=== PATIENT | male | born 1955 | race Caucasian/White ===

== ENCOUNTER 2018-05-21 03:00 | Inpatient (IN) | payer MEDICARE, OTHER ==
[~2018-05-21] VITALS: Ht 182.9 cm; Wt 107.6 kg
[2018-05-21] MEDS ORDERED: MORPHINE SULFATE INJ 4 MG/ML INJ IV STA (03:17)
[2018-05-21] MEDS ORDERED: ONDANSETRON HCL INJ 2 MG/ML VIAL IV STA (03:17)
[2018-05-21] MEDS ORDERED: METHYLPREDNISOLONE SOD SUCC 125 MG/2ML VIAL IV STA (03:17)
[2018-05-21] MEDS ORDERED: SODIUM CHLORIDE 0.9% 1000ML 1,000 ML IV STA (03:17)
[2018-05-21] MEDS ORDERED: HYDROXYCHLOROQ200 MG PO (03:37)
[2018-05-21] MEDS ORDERED: PRIMIDONE50 MG PO (03:37)
[2018-05-21] MEDS ORDERED: CLONAZEPAM1 MG PO (03:37)
[2018-05-21] MEDS ORDERED: ESCITALOPRAM OX20 MG PO (03:37)
[2018-05-21] MEDS ORDERED: DONEPEZIL HCL10 MG PO (03:37)
[2018-05-21] MEDS ORDERED: MIRTAZAPINE30 MG PO (03:37)
[2018-05-21] MEDS ORDERED: METHOTREXATE2.5 MG PO (03:37)
[2018-05-21] MEDS ORDERED: PROPRANOLOL HCL60 MG PO (03:37)
[2018-05-21] MEDS ORDERED: CLONAZEPAM2 MG PO (03:37)
[2018-05-21 04:04] LABS: BASOPHILS # (AUTO) 0.1 (0.0-0.1); BASOPHILS % 0.6 % (0.0-1.0); EOSINOPHILS % 0.5 % (0.0-6.0); HEMATOCRIT 45.3 % (38.2-49.6); HEMOGLOBIN 15.8 g/dL (14.0-18.0); LYMPHOCYTES # (AUTO) 1.4 (1.0-3.2); LYMPHOCYTES % 16.6 % (18.0-39.1); MEAN CORPUSCULAR HEMOGLOBIN 38.2 pg (28-32); MEAN CORPUSCULAR HGB CONC 34.9 g/dL (31-35); MEAN CORPUSCULAR VOLUME 109.4 fL (81-99); MONOCYTES # (AUTO) 0.9 (0.2-0.8); MONOCYTES % 10.5 % (4.4-11.3); NEUTROPHILS % 71.4 % (38.7-80.0); PLATELET COUNT 199 x10e3/uL (140-360); RED BLOOD COUNT 4.14 x10e6/uL (4.3-5.7); RED CELL DISTRIBUTION WIDTH 14.5 % (11.7-14.4)
[2018-05-21 04:18] LABS: ALANINE AMINOTRANSFERASE 9 IU/L (0-55); ALBUMIN 3.7 g/dL (3.5-5.0); ALBUMIN/GLOBULIN RATIO 1.3 (0.8-2.0); ALKALINE PHOSPHATASE 130 IU/L (40-150); ANION GAP 15.9 mmol/L (8-16); BLOOD UREA NITROGEN 9 mg/dL (7-26); BUN/CREATININE RATIO 9 (6-25); CALCIUM 8.2 mg/dL (8.4-10.2); CARBON DIOXIDE 20 mmol/L (22-29); CHLORIDE 103 mmol/L (98-107); CREATINE KINASE 38 IU/L (30-200); CREATININE, SERUM 0.96 mg/dL (0.72-1.25); EST GLOMERULAR FILTRATION RATE > 60 ML/MIN (60-); GLUCOSE 114 mg/dL (74-118); LIPASE 19 U/L (8-78); POTASSIUM 3.9 mmol/L (3.5-5.1); SODIUM 135 mmol/L (136-145)
--- NOTE | 2018-05-21 05:09 | Diagnostic Imaging Report ---
EXAM: CT ABDOMEN AND PELVIS without IV CONTRAST INDICATION: Abdominal pain, bilateral flank pain COMPARISON: None TECHNIQUE: The abdomen and pelvis were scanned using a multidetector helical scanner. Coronal and sagittal reformations were obtained. Dose modulation, iterative reconstruction, and/or weight based adjustment of the mA/kV was utilized to reduce the radiation dose to as low as reasonably achievable. Renal stone protocol performed. IV Contrast: None Oral Contrast: None CTDIvol has been reviewed. It is below the limits set by the Radiation Protocol Committee (RPC). FINDINGS: LOWER THORAX: No consolidations LIVER: No masses BILIARY: Cholelithiasis without evidence of acute cholecystitis. SPLEEN: No masses PANCREAS: No masses ADRENALS: No nodules RIGHT KIDNEY: There is a 0.9 x 0.5 cm stone in the distal right ureter resulting in very mild hydroureter and no hydronephrosis. There are several simple parapelvic cysts. LEFT KIDNEY: Punctate nonobstructing stone in the interpolar region of the left kidney. No hydroureteronephrosis. Multiple simple parapelvic cysts. GI TRACT: No wall thickening or obstruction. Normal appendix. VESSELS: Unremarkable PERITONEUM/RETROPERITONEUM: No free air or fluid LYMPH NODES: No lymphadenopathy REPRODUCTIVE ORGANS: Normal BLADDER: Normal SOFT TISSUES: Generator for lumbar spine intrathecal device in right buttock. BONES: Surgical changes of the lower lumbar spine L3-L5. Age-indeterminate compression fracture of T12 with approximately 30% loss of mid vertebral body height. Healing right posterior T12 rib fracture. IMPRESSION: 1. Age indeterminate, but likely subacute compression fracture of the superior endplate of T12 with associated healing right posterior T12 rib fracture. 2. There is a 0.9 x 0.5 cm stone in the distal right ureter resulting in minimal hydroureter and no hydronephrosis. Punctate nonobstructing stone in the left kidney. Signed by: Dr. Nina Calderon M.D. on 05/21/2018 5:06 AM
--- NOTE | 2018-05-21 05:20 | Diagnostic Imaging Report ---
History: Low back pain. Comparison studies: None Technique: Axial images were obtained through the lumbar spine from T12-S1. Coronal and sagittal images reconstructed from the axial data. Dose modulation, iterative reconstruction, and/or weight based adjustment of the mA/kV was utilized to reduce the radiation dose to as low as reasonably achievable. Intravenous contrast: None Findings: The usual 5 non-rib bearing lumbar vertebral bodies are present. Alignment: Loss of normal lumbar lordosis is either positional or due to muscle spasm. No scoliosis. Soft tissues: 9.4 mm right ureter stone with mild dilatation of right ureter. Punctate left nephrolithiasis. Nonspecific linear radiopaque density (likely represents catheter) in the right lateral aspect of the spinal canal that extends from T11 (superior extent is beyond the field of view) and terminates at level L4 into the left lateral aspect of the posterior paraspinal soft tissues Paraspinal muscles: Fatty atrophy of posterior paraspinal muscles from L3 to S1. Sacroiliac joints: Mild degenerative changes in bilateral sacroiliac joints with decreased joint space, vacuum phenomena and and subchondral sclerosis. Vertebrae: Age indeterminate possible acute or subacute superior endplate compression fracture with anterior wedging deformity and mild overriding of fracture fragment in the anterior margin of the vertebral body at level T12. No retropulsion of fracture fragment into the spinal canal. Approximately 40% loss of vertebral body height. Age indeterminate possible subacute or early chronic fracture in the posterior aspect of right 12th rib with mild periosteal reaction and callus formation. Postoperative changes from prior posterior lumbar fusion from level L3-L5. Suboptimal evaluation at these level due to metallic streak artifacts. The metallic hardware is intact. Diffuse osseous demineralization. Degenerative changes: L1-L2: Mild degenerative disc disease with endplate sclerosis. Disc bulge and facet arthrosis without significant canal stenosis. Severe right and mild left facet arthrosis. Mild bilateral foraminal stenosis. L2-L3 to L4-L5: Evaluation is significantly limited due to metallic streak artifacts. L5-S1: Mild degenerative disc disease. No canal or foraminal stenosis. IMPRESSION: 1. Age indeterminate possible acute or subacute superior endplate compression fracture and anterior wedging deformity with approximately 40% loss of vertebral body height at level T12. 2. Age indeterminate possible subacute or early chronic fracture in the right 12th rib with signs of healing. 3. Significant limitation of evaluation from level L3-L5 due to metallic streak artifact, status post posterior lumbar spine fusion. 4. Ligament, spinal cord and or vascular abnormalities cannot be excluded on the basis of this examination. 5. A 9.4 mm right ureter stone, possibly better evaluated in dedicated CT abdomen and pelvis from the same day.. Signed by: Dr. Lisa Ellis M.D. on 05/21/2018 5:17 AM
--- OUTSIDE RECORDS SUMMARY | 2018-05-21 05:36 | XMS REPORT ---
Author Author [facility] Address Unknown Phone Unavailable Care Team Providers Care Market Researcher Name Role Phone Luis Antonio JAMES Unavailable Unavailable Problems This patient has no known problems. Allergies, Adverse Reactions, Alerts This patient has no known allergies or adverse reactions. Medications This patient has no known medications. Results Test Description Test Time Test Comments Text Results Atomic Results Result Comments CT ABDOMEN/PELVIS WO 2018-05-21 04:56:00 [place] [address] Patient Name: KATELYN CERVANTES MR #: [id number] : 1955 Age/Sex: 63/M Req #: [id number] Adm Physician: Ordered by: KADEN JAMES MD Report #: [id number] Location: ER Room/Bed: Procedure: [id number] CT/CT ABDOMEN/PELVIS WO Exam Date: Exam Time: REPORT STATUS: Signed EXAM: CT ABDOMEN AND PELVIS without IV CONTRAST INDICATION: Abdominal pain, bilateral flank pain COMPARISON: None TECHNIQUE: The abdomen and pelvis were scanned using a multidetector helical scanner. Coronal and sagittal reformations were obtained. Dose modulation, iterative reconstruction, and/or weight based adjustment of the mA/kV was utilized to reduce the radiation dose to as low as reasonably achievable. Renal stone protocol performed. IV Contrast: None Oral Contrast: None CTDIvol has been reviewed. It is below the limits set by the Radiation Protocol Committee (RPC). FINDINGS: LOWER THORAX: No consolidations LIVER: No masses BILIARY: Cholelithiasis without evidence of acute cholecystitis. SPLEEN: No masses PANCREAS: No masses ADRENALS: No nodules RIGHT KIDNEY: There is a 0.9 x 0.5 cm stone in the distal right ureter resulting in very mild hydroureter and no hydronephrosis. There are several simple parapelvic cysts. LEFT KIDNEY: Punctate nonobstructing stone in the interpolar region of the left kidney. No hydroureteronephrosis. Multiple simple parapelvic cysts. GI TRACT: No wall thickening or obstruction. Normal appendix. VESSELS: Unremarkable PERITONEUM/RETROPERITONEUM: No free air or fluid LYMPH NODES: No lymphadenopathy REPRODUCTIVE ORGANS: Normal BLADDER: Normal SOFT TISSUES: Generator for lumbar spine intrathecal device in right buttock. BONES: Surgical changes of the lower lumbar spine L3-L5. Age- indeterminate compression fracture of T12 with approximately 30% loss of mid vertebral body height. Healing right posterior T12 rib fracture. IMPRESSION: 1. Age indeterminate, but likely subacute compression fracture of the superior endplate of T12 with associated healing right posterior T12 rib fracture. 2. There is a 0.9 x 0.5 cm stone in the distal right ureter resulting in minimal hydroureter and no hydronephrosis. Punctate nonobstructing stone in the left kidney. Signed by: Dr. Adryan Calderon M.D. on 05/21/2018 5:06 AM Dictated By: ADRYAN CALDERON MD 5 Transcribed By: MENDY on 05/21/18 0506 COPY TO: KADEN JAMES MD CT LUMBAR SPINE WO 2018-05-21 04:52:00 [place] [address] Patient Name: KATELYN CERVANTES MR #: [id number] : 1955 Age/Sex: 63/M Req #: [id number] Adm Physician: Ordered by: KADEN JAMES MD Report #: [id number] Location: ER Room/Bed: Procedure: [id number] CT/CT LUMBAR SPINE WO Exam Date: 05/21/18 Exam Time: 0411 REPORT STATUS: Signed History: Low back pain. Comparison studies: None Technique: Axial images were obtained through the lumbar spine from T12-S1. Coronal and sagittal images reconstructed from the axial data. Dose modulation, iterative reconstruction, and/or weight based adjustment of the mA/kV was utilized to reduce the radiation dose to as low as reasonably achievable. Intravenous contrast: None Findings: The usual 5 non-rib bearing lumbar vertebral bodies are present. Alignment: Loss of normal lumbar lordosis is either positional or due to muscle spasm. No scoliosis. Soft tissues: 9.4 mm right ureter stone with mild dilatation of right ureter. Punctate left nephrolithiasis. Nonspecific linear radiopaque density (likely represents catheter) in the right lateral aspect of the spinal canal that extends from T11 (superior extent is beyond the field of view) and terminates at level L4 into the left lateral aspect of the posterior paraspinal soft tissues Paraspinal muscles: Fatty atrophy of posterior paraspinal muscles from L3 to S1. Sacroiliac joints: Mild degenerative changes in bilateral sacroiliac joints with decreased joint space, vacuum phenomena and and subchondral sclerosis. Vertebrae: Age indeterminate possible acute or subacute superior endplate compression fracture with anterior wedging deformity and mild overriding of fracture fragment in the anterior margin of the vertebral body at level T12. No retropulsion of fracture fragment into the spinal canal. Approximately 40% loss of vertebral body height. Age indeterminate possible subacute or early chronic fracture in the posterior aspect of right 12th rib with mild periosteal reaction and callus formation. Postoperative changes from prior posterior lumbar fusion from level L3-L5. Suboptimal evaluation at these level due to metallic streak artifacts. The metallic hardware is intact. Diffuse osseous demineralization. Degenerative changes: L1-L2: Mild degenerative disc disease with endplate sclerosis. Disc bulge and facet arthrosis without significant canal stenosis. Severe right and mild left facet arthrosis. Mild bilateral foraminal stenosis. L2-L3 to L4-L5: Evaluation is significantly limited due to metallic streak artifacts. L5-S1: Mild degenerative disc disease. No canal or foraminal stenosis. IMPRESSION: 1. Age indeterminate possible acute or subacute superior endplate compression fracture and anterior wedging deformity with approximately 40% loss of vertebral body height at level T12. 2. Age indeterminate possible subacute or early chronic fracture in the right 12th rib with signs of healing. 3. Significant limitation of evaluation from level L3-L5 due to metallic streak artifact, status post posterior lumbar spine fusion. 4. Ligament, spinal cord and or vascular abnormalities cannot be excluded on the basis of this examination. 5. A 9.4 mm right ureter stone, possibly better evaluated in dedicated CT abdomen and pelvis from the same day.. Signed by: Dr. Lisa Ellis M.D. on 05/21/2018 5:17 AM Dictated By: LISA ELLIS MD 6 Transcribed By: MENDY on 05/21/18516 COPY TO: KADEN JAMES MD
[2018-05-21 05:55] LABS: CLARITY,URINE CLEAR (CLEAR); COLOR,URINE YELLOW (YELLOW); LEUKOCYTE ESTERASE ,URINE NEGATIVE (NEGATIVE); NITRITE,URINE NEGATIVE (NEGATIVE)
[2018-05-21 05:56] LABS: BILIRUBIN,URINE NEGATIVE (NEGATIVE); KETONES,URINE NEGATIVE (NEGATIVE); PROTEIN,URINE DIPSTICK NEGATIVE (NEGATIVE); URINE UROBILINOGEN 0.2 mg/dL (0.2 - 1)
[2018-05-21 06:07] LABS: RBC,URINE 0-5 /HPF (0-5); WBC,URINE (MAN) 0-5 /HPF (0-5)
[2018-05-21 06:08] LABS: BACTERIA,URINE FEW /HPF; EPITHELIAL CELLS,URINE RARE /LPF; MUCUS,URINE MANY (RARE)
[2018-05-21 06:30] VITALS: BP 157/96
[2018-05-21] MEDS: ONDANSETRON HCL INJ 2 MG/ML VIAL IV PRN ×2 (06:30→20:10)
[2018-05-21] MEDS: SODIUM CHLORIDE 0.9% 1000ML 1,000 ML IV SCH ×3 (06:30→13:27)
[2018-05-21] MEDS: MORPHINE SULFATE 2 MG/ML SYR IV PRN ×4 (06:30→20:10)
[2018-05-21 07:57] VITALS: BP 143/88
[2018-05-21] MEDS ORDERED: PROPRANOLOL HCL 60 MG ER CAP PO SCH (09:00)
[2018-05-21] MEDS ORDERED: NON-FORMULARY MEDICATION (Escitalopram Oxalate 20 MG) PO SCH (09:00)
[2018-05-21] MEDS: PROPRANOLOL HCL 80 MG CAPCR PO SCH ×2 (10:00→20:10)
[2018-05-21 12:03] VITALS: BP 145/93
[2018-05-21 14:03] VITALS: BP 145/93
[2018-05-21] MEDS: HYDROXYCHLOROQUINE SULFATE 200 MG TAB PO SCH (15:00)
[2018-05-21] MEDS: ESCITALOPRAM OXALATE 10 MG TAB PO SCH (15:00)
[2018-05-21 15:58] VITALS: BP 161/97
[2018-05-21 20:00] VITALS: BP 164/81
[2018-05-21] MEDS ORDERED: SODIUM CHLORIDE 0.9% 50ML 50 ML ONE (20:05)
--- NOTE | 2018-05-21 20:05 | Consultation ---
DATE OF CONSULTATION: May 21, 2018 UROLOGY CONSULTATION REASON FOR CONSULTATION: Ureterolithiasis. HISTORY OF PRESENT ILLNESS: Jorge Ocasio is a 63-year-old man with recurrent ureterolithiasis. The patient previously passed his kidney stones. He has never had to have intervention for his stone disease. The patient never was able to retrieve his stones, so he does not know what kind of stones he has made in the past. Patient has had bilateral flank pains reported to the emergency room, was found to have obstructing right ureterolithiasis and urological consultation was sought upon his admission. The patient reports having had microhematuria at his primary care physician's office, but did not have any gross hematuria. He denies any dysuria. Denies any urinary obstructive symptoms. PAST MEDICAL AND SURGICAL HISTORY 1. Cholelithiasis without cholecystitis. 2. Recurrent ureterolithiasis. 3. Status post 4 back surgeries. 4. Chronic pain, status post pain pump implantation. ALLERGIES: NONE KNOWN. CURRENT MEDICATIONS: Please refer to MAR. 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 He denies ethanol or drug use. He smokes a pipe occasionally. FAMILY HISTORY: Noncontributory to the active urological problems. REVIEW OF SYSTEMS: As discussed above in the history of present illness and past medical history, otherwise negative for all systems. PHYSICAL EXAMINATION GENERAL: A very pleasant 63-year-old man lying in bed in no apparent distress. He is currently afebrile. VITAL SIGNS: Currently stable. ABDOMEN: Soft, nondistended, nontender without costovertebral angle tenderness. GENITOURINARY: Testes descended bilaterally. Testes and epididymides bilaterally palpably normal. The patient has a normal, uncircumcised male phallus with normal meatus without any lesions. RECTAL: Digital rectal examination is deferred at the present time. For the remaining physical examination systems, please refer to the admission history and physical, as well as to the ERT sheet. LABORATORY STUDIES: CT scan of the abdomen and pelvis reveals cholelithiasis, also reveals a 9-mm stone in the distal right ureter with hydroureteronephrosis. Ultrasound reveals a punctate stone in the left kidney, multiple changes at the back are noted on the CT as well. The patient's urinalysis significant for trace blood. His sodium is slightly low at 135. His creatinine is normal at 0.96. Calcium is low at 8.2. White blood cell count is 8390, hemoglobin 15.8, platelets 199,000. ASSESSMENT 1. Right ureterolithiasis. 2. Punctate left nephrolithiasis, right-sided hydronephrosis. 3. Gallstone without symptomatology. 4. Low sodium. 5. Low calcium. 6. Microhematuria. PLAN 1. The patient so far failed to pass his stone. We will schedule the patient for ureteroscopic procedure. We discussed the risks, benefits, and alternatives with the patient and he elected to proceed. 2. Will defer the electrolyte abnormalities and the cholelithiasis to the admitting physician. Thank you very much for involving us in the care of your patient. I will be able to follow him along with you as well as an outpatient. Job#: [id number] CQ cc:EMMA CHAVIRA MD
[2018-05-21] MEDS: DONEPEZIL HCL 5 MG TAB PO SCH (20:10)
[2018-05-21] MEDS: PRIMIDONE 50 MG TAB PO SCH (20:10)
[2018-05-21] MEDS: CEFTRIAXONE SOD 1 GM VIAL IV SCH (20:10)
[2018-05-21] MEDS: MIRTAZAPINE 15 MG TAB PO SCH (20:10)
[2018-05-21] MEDS: CLONAZEPAM 1 MG TAB PO SCH (20:10)
[2018-05-21] MEDS ORDERED: NON-FORMULARY MEDICATION (Donepezil Hcl 10 MG) PO SCH (21:00)
[2018-05-21] MEDS ORDERED: NON-FORMULARY MEDICATION (Mirtazapine 30 MG) PO SCH (21:00)
[2018-05-22] VITALS (9 sets, daily range): BP systolic 121–141; BP diastolic 60–95
[2018-05-22] MEDS: MORPHINE SULFATE 2 MG/ML SYR IV PRN ×4 (00:10→19:47)
[2018-05-22] MEDS: ONDANSETRON HCL INJ 2 MG/ML VIAL IV PRN ×4 (00:10→19:47)
[2018-05-22] MEDS: CLONAZEPAM 1 MG TAB PO SCH ×2 (04:49→21:31)
[2018-05-22 06:00] LABS: BASOPHILS % 0.1 % (0.0-1.0); EOSINOPHILS % 0.1 % (0.0-6.0); HEMOGLOBIN 13.3 g/dL (14.0-18.0); LYMPHOCYTES # (AUTO) 1.4 (1.0-3.2); LYMPHOCYTES % 17.4 % (18.0-39.1); MEAN CORPUSCULAR HEMOGLOBIN 37.8 pg (28-32); MEAN CORPUSCULAR HGB CONC 34.1 g/dL (31-35); MEAN CORPUSCULAR VOLUME 110.8 fL (81-99); MONOCYTES # (AUTO) 0.6 (0.2-0.8); MONOCYTES % 7.8 % (4.4-11.3); PLATELET COUNT 173 x10e3/uL (140-360); RED BLOOD COUNT 3.52 x10e6/uL (4.3-5.7); RED CELL DISTRIBUTION WIDTH 14.1 % (11.7-14.4)
[2018-05-22] MEDS ORDERED: CLONAZEPAM 1 MG PO SCH (06:00)
[2018-05-22 06:22] LABS: ANION GAP 10.9 mmol/L (8-16); BLOOD UREA NITROGEN 8 mg/dL (7-26); BUN/CREATININE RATIO 11 (6-25); CALCIUM 8.3 mg/dL (8.4-10.2); CARBON DIOXIDE 22 mmol/L (22-29); CHLORIDE 109 mmol/L (98-107); CREATININE, SERUM 0.75 mg/dL (0.72-1.25); EST GLOMERULAR FILTRATION RATE > 60 ML/MIN (60-); GLUCOSE 104 mg/dL (74-118); POTASSIUM 3.9 mmol/L (3.5-5.1); SODIUM 138 mmol/L (136-145)
[2018-05-22] MEDS: SODIUM CHLORIDE 0.9% 1000ML 1,000 ML IV SCH ×2 (06:26→16:40)
[2018-05-22] MEDS ORDERED: BELLADONNA/OPIUM 60 MG SUPP PR ONE (08:44)
[2018-05-22] MEDS ORDERED: IOPAMIDOL 610MG/1ML 300 MG/ML VIAL IV ONE (08:44)
[2018-05-22] MEDS: PROPRANOLOL HCL 80 MG CAPCR PO SCH ×2 (09:00→21:31)
[2018-05-22] MEDS ORDERED: LIDOCAINE 2%/ EPINEPHRINE 20ML MDV ONE (09:02)
[2018-05-22] MEDS ORDERED: BUPIVACAINE 0.25%/EPI 30ML SDV INJ ONE (09:02)
[2018-05-22] MEDS ORDERED: ACETAMINOPHEN/CODEINE 300MG - 30MG TAB PO PRN (10:00)
[2018-05-22] MEDS: ESCITALOPRAM OXALATE 10 MG TAB PO SCH (11:38)
[2018-05-22] MEDS: HYDROXYCHLOROQUINE SULFATE 200 MG TAB PO SCH (11:38)
[2018-05-22] MEDS: PHENAZOPYRIDINE HCL 100 MG TAB PO SCH ×2 (13:30→18:00)
[2018-05-22] MEDS ORDERED: FENTANYL CITRATE/PF 100MCG/2 ML INJ ONE (14:32)
[2018-05-22] MEDS: OXYBUTYNIN CHLORIDE 5 MG TAB PO SCH ×2 (15:32→21:31)
[2018-05-22] MEDS ORDERED: SEVOFLURANE INHAL SOLN 250 ML PEN BTL ONE (17:56)
[2018-05-22] MEDS: PRIMIDONE 50 MG TAB PO SCH (21:31)
[2018-05-22] MEDS: MIRTAZAPINE 15 MG TAB PO SCH (21:31)
[2018-05-22] MEDS: CEFTRIAXONE SOD 1 GM VIAL IV SCH (21:31)
[2018-05-22] MEDS: DONEPEZIL HCL 5 MG TAB PO SCH (21:31)
[2018-05-23] VITALS (7 sets, daily range): BP systolic 123–165; BP diastolic 65–77
[2018-05-23] MEDS: SODIUM CHLORIDE 0.9% 1000ML 1,000 ML IV SCH ×5 (00:44→21:01)
--- NOTE | 2018-05-23 02:49 | Operative Report ---
DATE OF PROCEDURE: May 22, 2018 PREOPERATIVE DIAGNOSES 1. Right hydronephrosis due to stone. 2. Microhematuria. POSTOPERATIVE DIAGNOSES 1. Right hydronephrosis due to stone. 2. Microhematuria. OPERATIONS PERFORMED 1. Cystourethroscopy with bilateral ureteral catheterization and retrograde ureteropyelography (separately performed for the microhematuria). 2. Interpretation of retrograde ureteropyelography. 3. Supervision of fluoroscopy, no radiologist present. 4. Cystourethroscopy with insertion of right indwelling ureteral stent (separately performed to relieve the hydronephrosis). ANESTHESIA: General. COMPLICATIONS: None. CLINICAL SUMMARY: Jorge Ocasio has right ureterolithiasis and hydronephrosis. He failed to pass his stone. He is brought for ureteral stenting and indicated procedures. He is aware of the risks of bleeding, infection, injury to adjacent structures, need for additional procedures, and elected to proceed. OPERATIVE PROCEDURE IN DETAIL: Informed consent was verified. Jorge Ocasio was properly identified, taken to the operating room, placed on the cystoscopy table in the supine position. Anesthesia was uneventfully begun. The patient was then carefully and gently repositioned in the dorsal lithotomy position with all pressure points well padded. His genitalia were prepared and draped in the usual sterile fashion. The 22.5-Nigerien cystoscope sheath with the visual obturator in place was atraumatically inserted into the patient's urethra. It was guided down an unremarkable distal urethra through a probably not clinically significant stricture at the bulbar region through the normal sphincteric region, through the prostate bed which was significant for early BPH and into the patient's bladder which exhibited grade 1 to 2 trabeculations. There were no tumors, no stones and no diverticula. Normally positioned and configured ureteral orifices were identified. An open-ended catheter was used to cannulate the left ureter and retrograde ureteral pyelogram was performed. It was then inserted in the right ureter and retrograde ureteral pyelogram was performed. With cystoscopic and fluoroscopic guidance, a right-sided indwelling ureteral stent was then placed. It was coiled in the patient's kidney as well as the patient's bladder. The retaining suture was cut short. Interpretation of retrograde ureteropyelography: Contrast was instilled in a retrograde fashion bilaterally. The left side exhibited no tumors, no diverticula, no evidence of hydronephrosis. We could not identify the punctate stone noted on CT. The right side exhibited hydroureteronephrosis down to a very large filling defect corresponding to the stone noted on CT. The stent was again positioned, coiled in the patient's kidneys as well as the patient's bladder at the end of the case. The patient's bladder was then drained. Cystoscope was withdrawn. A belladonna and opium suppository was placed revealing a 30 g prostate, smooth, nonfluctuant without any nodules and the patient was then uneventfully reversed from anesthesia and taken to the recovery room in stable condition. There were no complications during the procedure. He tolerated the procedure well. Exclusive postoperative instructions were given. We will plan on returning the patient back to the operating room in several weeks to perform right ureteroscopy with holmium laser lithotripsy and indicated procedures. Job#: [id number] RTY cc:Taran Landeros MD
[2018-05-23] MEDS: ONDANSETRON HCL INJ 2 MG/ML VIAL IV PRN ×5 (03:38→21:01)
[2018-05-23] MEDS: MORPHINE SULFATE 2 MG/ML SYR IV PRN ×5 (03:38→21:01)
[2018-05-23] MEDS: CLONAZEPAM 1 MG TAB PO SCH ×2 (05:14→20:59)
[2018-05-23] MEDS: PROPRANOLOL HCL 80 MG CAPCR PO SCH ×2 (09:00→20:59)
[2018-05-23] MEDS: PHENAZOPYRIDINE HCL 100 MG TAB PO SCH ×3 (09:12→18:14)
[2018-05-23] MEDS: ESCITALOPRAM OXALATE 10 MG TAB PO SCH (09:12)
[2018-05-23] MEDS: OXYBUTYNIN CHLORIDE 5 MG TAB PO SCH ×3 (09:12→21:00)
[2018-05-23] MEDS: HYDROXYCHLOROQUINE SULFATE 200 MG TAB PO SCH (09:12)
[2018-05-23] MEDS: CEFTRIAXONE SOD 1 GM VIAL IV SCH (19:18)
[2018-05-23] MEDS: PRIMIDONE 50 MG TAB PO SCH (20:58)
[2018-05-23] MEDS: MIRTAZAPINE 15 MG TAB PO SCH (20:59)
[2018-05-23] MEDS: DONEPEZIL HCL 5 MG TAB PO SCH (20:59)
[2018-05-24] VITALS: BP 138/70
[2018-05-24 00:42] VITALS: BP 146/68
[2018-05-24] MEDS: ONDANSETRON HCL INJ 2 MG/ML VIAL IV PRN ×3 (01:21→11:10)
[2018-05-24] MEDS: MORPHINE SULFATE 2 MG/ML SYR IV PRN ×3 (01:21→11:10)
[2018-05-24 04:30] VITALS: BP 128/80
[2018-05-24] MEDS: CLONAZEPAM 1 MG TAB PO SCH (05:13)
[2018-05-24 07:15] VITALS: BP 159/78
[2018-05-24 07:49] VITALS: BP 159/78
[2018-05-24] MEDS: OXYBUTYNIN CHLORIDE 5 MG TAB PO SCH (09:15)
[2018-05-24] MEDS: PROPRANOLOL HCL 80 MG CAPCR PO SCH (09:16)
[2018-05-24] MEDS: HYDROXYCHLOROQUINE SULFATE 200 MG TAB PO SCH (09:16)
[2018-05-24] MEDS: ESCITALOPRAM OXALATE 10 MG TAB PO SCH (09:16)
[2018-05-24] MEDS: PHENAZOPYRIDINE HCL 100 MG TAB PO SCH (09:16)
[2018-05-24] MEDS ORDERED: TYLENOL WITH C1 EACH PO (09:42)
[2018-05-24] MEDS ORDERED: DITROPAN XL5 MG PO (09:43)
[2018-05-24 11:26] VITALS: BP 125/73
[2018-05-27] MEDS ORDERED: METHOTREXATE SOD 2.5 MG TAB PO SCH (09:00)
--- NOTE | 2018-07-05 11:27 | History and Physical ---
HISTORY OF PRESENT ILLNESS: The patient is a 63-year-old gentleman who presents with right-side flank pain where he was found to have a large right ureteral stones who has been admitted for further evaluation and treatment. PAST MEDICAL HISTORY: Significant for rheumatoid arthritis and anxiety. MEDICATIONS: See MAR. ALLERGIES: NONE. SOCIAL HISTORY: Nonsmoker and nondrinker. Lives in home by himself. FAMILY HISTORY: Noncontributory. PHYSICAL EXAMINATION VITAL SIGNS: Temperature is 96.8, pulse 66, blood pressure 142/76, sats 96%. GENERAL: No apparent distress. NECK: Supple. CARDIOVASCULAR: Regular rate and rhythm. LUNGS: Clear to auscultation bilaterally. ABDOMEN: Good bowel sounds. Soft. Nontender. EXTREMITIES: Showed no clubbing or cyanosis. He has some right-sided flank pain but mild. NEUROLOGIC: Nonfocal. ASSESSMENT AND PLAN 1. Right-sided kidney stone. We will consult urology. 2. Rheumatoid arthritis, continue with his anti-rheumatological meds. 3. Anxiety disorder. Continue with his medications. Please see hospital chart for full details. Job#: [id number] ANTONY
--- NOTE | 2018-07-05 13:43 | Discharge Summary ---
DISCHARGE DIAGNOSES 1. Right kidney stone, status post stent. 2. Anxiety. 3. Rheumatoid arthritis. HISTORY OF PRESENT ILLNESS AND HOSPITAL COURSE: See hospital chart for full details. Patient is a gentleman who presented with right flank pain. He was found have a very large right ureteral stone that Dr. Jacobson did take him to the OR and put a stent in and due the size, he had to be treated as an outpatient. At the time of discharge, patient was doing much better. He was able to be discharged home with p.o. medication and followup with Dr. Jacobson in 2 weeks as well as with me. Please see hospital chart for full details. EMMA CHAVIRA MD Job#: [id number] CHACORTA
== END 2018-05-24 13:52 | disposition home or self-care (01) | DRG 660 ==
LOC: ER 03:00 → ERHOLD 05:34 → MED/SURG3 06:00 → OBSVTOIN 05-23 12:05
PROVIDERS: ADMIT Internal Medicine; ATTEND Internal Medicine
PROC: 0T768DZ Dilation of Right Ureter with Intraluminal Device, Via Natural or Artificial Opening Endoscopic (ICD-10-PCS; principal; 2018-05-23)
PROC: BT141ZZ Fluoroscopy of Kidneys, Ureters and Bladder using Low Osmolar Contrast (ICD-10-PCS; 2018-05-23)
PROC: 0T788ZZ Dilation of Bilateral Ureters, Via Natural or Artificial Opening Endoscopic (ICD-10-PCS; 2018-05-23)
DX: N13.2 Hydronephrosis with renal and ureteral calculous obstruction (principal); E87.1 Hypo-osmolality and hyponatremia; Z87.442 Personal history of urinary calculi; G89.29 Other chronic pain; I10 Essential (primary) hypertension; F41.9 Anxiety disorder, unspecified; K80.20 Calculus of gallbladder without cholecystitis without obstruction; E83.51 Hypocalcemia; D64.9 Anemia, unspecified
CPT/HCPCS: 36415; 72131; 74176; 74420; 80048; 80053; 81001; 82550; 82553; 83690; 83970; 84484; 84550; 85025; 93005; 99284; C2617; G0378; J0696; J2001; J2270; J2405; J2930; J7030

== ENCOUNTER 2018-06-20 10:00 | Observation (INO) | payer MEDICARE, OTHER ==
[~2018-06-20] VITALS: Ht 182.9 cm; Wt 97.5 kg
[~2018-06-20 10:00] MED LIST: BELLADONNA/OPIUM 60 MG SUPP PR ONE; CEFTRIAXONE SOD 1 GM/NS 50 ML 50 ML IV ONE; CLONAZEPAM1 MG PO; CLONAZEPAM2 MG PO; DITROPAN XL5 MG PO; DONEPEZIL HCL10 MG PO; ESCITALOPRAM OX20 MG PO; HYDROXYCHLOROQ200 MG PO; IOPAMIDOL 610MG/1ML 300 MG/ML VIAL IV ONE; METHOTREXATE2.5 MG PO; MIRTAZAPINE30 MG PO; PRIMIDONE50 MG PO; PROPRANOLOL HCL60 MG PO; TYLENOL WITH C1 EACH PO
[2018-06-20] MEDS ORDERED: D5.45%NS/KCL 20MEQ 1,000 ML IV SCH (10:21)
[2018-06-20] MEDS ORDERED: HYDROMORPHONE 2MG/ML 2 MG/ML ML ONE (10:23)
[2018-06-20] MEDS ORDERED: ONDANSETRON HCL INJ 2 MG/ML VIAL IV PRN (10:30)
[2018-06-20] MEDS ORDERED: DIPHENHYDRAMINE HCL 25 MG CAP PO PRN (10:30)
[2018-06-20 12:42] VITALS: BP 149/90
[2018-06-20 13:02] VITALS: BP 149/90
[2018-06-20] MEDS: PHENAZOPYRIDINE HCL 100 MG TAB PO SCH ×2 (14:54→17:35)
[2018-06-20] MEDS ORDERED: DEXAMETHASONE SOD PHOS INJ 4 MG/ML VIAL ONE (15:18)
[2018-06-20] MEDS ORDERED: PROPOFOL IV EMULSION 10 MG/ML 20 ML VIAL ONE (15:18)
[2018-06-20] MEDS ORDERED: ONDANSETRON HCL INJ 2 MG/ML VIAL ONE (15:18)
[2018-06-20] MEDS ORDERED: SEVOFLURANE INHAL SOLN 250 ML PEN BTL ONE (15:18)
[2018-06-20] MEDS ORDERED: LIDOCAINE HCL 2% LOCAL INJ 5 ML SDV VIAL INJ ONE (15:18)
[2018-06-20] MEDS: D5.45%NS/KCL 20MEQ 1,000 ML IV SCH ×2 (15:30→20:33)
[2018-06-20] MEDS: DOCUSATE SODIUM 100 MG CAP PO SCH (17:00)
[2018-06-20] MEDS: ACETAMINOPHEN/CODEINE 300MG - 30MG TAB PO PRN ×2 (17:35→21:35)
[2018-06-20] MEDS: CEFUROXIME AXETIL 250 MG TAB PO SCH (17:35)
[2018-06-20] MEDS ORDERED: MIDAZOLAM HCL 2 MG/2 ML VIAL ONE (18:55)
[2018-06-20] MEDS ORDERED: FENTANYL CITRATE/PF 100MCG/2 ML INJ ONE (18:55)
--- NOTE | 2018-06-20 19:09 | Operative Report ---
DATE OF PROCEDURE: June 20, 2018 PREOPERATIVE DIAGNOSES 1. Obstructing right ureterolithiasis. 2. Indwelling ureteral stent. POSTOPERATIVE DIAGNOSES Obstructing right ureterolithiasis. Indwelling ureteral stent. PROCEDURE PERFORMED 1. Cystourethroscopy with complicated removal of right indwelling ureteral stent (separate procedure performed for diagnosis of stent, done with separate scope). 2. Right ureteroscopy with Holmium laser lithotripsy, stone extraction, and insertion of a new stent (separate report for the ureterolithiasis). 3. Interpretation of retrograde ureterography. 4. Radiological services for supervision and interpretation of ureteroscopy. 5. Supervision of fluoroscopy, no radiologist present. 6. Pelvic examination under anesthesia. ANESTHESIA: General. COMPLICATIONS: None CLINICAL SUMMARY: Jorge Ocasio is a 63-year-old man who was stented for an obstructing ureteral stone that was too high to get to and manage in a ureter that has not been stented before. He is brought for management. He is aware the risks of bleeding, infection, injury to adjacent structures, need additional procedures, and elected to proceed. OPERATIVE PROCEDURE IN DETAIL: Informed consent was verified. Jorge Ocasio was properly identified, taken to the operating room, and placed on the cystoscopy table in supine position. Anesthesia was uneventfully begun. The patient was then carefully and gently repositioned in the dorsal lithotomy position with all pressure points well padded. His genitalia were prepared and draped usual sterile fashion. A 22.5-Japanese cystoscope sheath with the visual obturator in place was atraumatically inserted into the patient's urethra. It was guided down the relatively unremarkable urethra through the sphincteric region, brought through the prostate bed and into the bladder where we identified a stent emerging from the right ureteral orifice. A guidewire was then placed alongside the stent and guided to the level of the patient's kidney. The stent was then re-grasped, completely removed, and discarded. A semirigid ureteroscope was then passed alongside the guidewire up into the right ureter. We identified a large stone. We performed Holmium laser lithotripsy on this relatively hard stone and pulverized into multiple smaller fragments and quite a bit of sand. We then utilized the flat wire basket to atraumatically extract all stones that were large enough, only fine sand remained but this was irrigated loose from the mucosa. With cystoscopic and fluoroscopic guidance, a right-sided indwelling ureteral stent was placed. It was coiled in patient's kidney as well as in the patient's bladder. The retaining suture was cut short. Interpretation of retrograde ureteropyelography: Contrast was instilled in retrograde fashion bilaterally. The stone was identified. Proximal to that, there was hydroureteronephrosis. There is hardware consistent with a pain pump as well as with rather significant amount of back surgery. The new stent was in good position, coiled in patient's kidney as well as patient's bladder at the end the case. Patient's bladder was drained. The cystoscope was withdrawn. A belladonna and opium suppository was placed revealing a 30 gram prostate that is smooth, non-fluctuant, and without any nodule. The patent was then uneventfully reversed from anesthesia and taken to recovery room in stable condition. Explicit postoperative instructions were given and we will plan on returning the patient to the operating room in several weeks to remove his stent, perform ureteroscopy, and hopefully render the patient pain free and stone free. At some point in time, we will have to follow up on the patient's visually obstructing BPH. Job#: [id number] DIYA cc:Dr. Taran Landeros
[2018-06-20 20:50] VITALS: BP 139/80
[2018-06-21] VITALS: BP 127/77
[2018-06-21 04:58] VITALS: BP 125/72
[2018-06-21] MEDS: ACETAMINOPHEN/CODEINE 300MG - 30MG TAB PO PRN ×3 (05:04→13:53)
[2018-06-21] MEDS: D5.45%NS/KCL 20MEQ 1,000 ML IV SCH (05:04)
[2018-06-21 07:39] VITALS: BP 108/67
[2018-06-21 07:40] VITALS: BP 108/67
[2018-06-21 08:28] LABS: BASOPHILS % 0.1 % (0.0-1.0); EOSINOPHILS % 0.4 % (0.0-6.0); HEMOGLOBIN 13.7 g/dL (14.0-18.0); LYMPHOCYTES # (AUTO) 0.6 (1.0-3.2); LYMPHOCYTES % 6.5 % (18.0-39.1); MEAN CORPUSCULAR HEMOGLOBIN 37.4 pg (28-32); MEAN CORPUSCULAR HGB CONC 36.1 g/dL (31-35); MEAN CORPUSCULAR VOLUME 103.8 fL (81-99); MONOCYTES # (AUTO) 0.7 (0.2-0.8); MONOCYTES % 6.8 % (4.4-11.3); NEUTROPHILS # (AUTO) 8.3 (2.1-6.9); NEUTROPHILS % 85.6 % (38.7-80.0); PLATELET COUNT 103 x10e3/uL (140-360); RED BLOOD COUNT 3.66 x10e6/uL (4.3-5.7); RED CELL DISTRIBUTION WIDTH 12.9 % (11.7-14.4)
[2018-06-21 08:48] LABS: ANION GAP 15.4 mmol/L (8-16); BLOOD UREA NITROGEN 12 mg/dL (7-26); BUN/CREATININE RATIO 15 (6-25); CALCIUM 8.2 mg/dL (8.4-10.2); CARBON DIOXIDE 18 mmol/L (22-29); CHLORIDE 107 mmol/L (98-107); CREATININE, SERUM 0.78 mg/dL (0.72-1.25); EST GLOMERULAR FILTRATION RATE > 60 ML/MIN (60-); GLUCOSE 151 mg/dL (74-118); POTASSIUM 5.4 mmol/L (3.5-5.1); SODIUM 135 mmol/L (136-145)
[2018-06-21] MEDS: DOCUSATE SODIUM 100 MG CAP PO SCH (09:00)
[2018-06-21] MEDS: CEFUROXIME AXETIL 250 MG TAB PO SCH (09:10)
[2018-06-21] MEDS: PHENAZOPYRIDINE HCL 100 MG TAB PO SCH ×2 (09:10→12:37)
[2018-06-21] MEDS ORDERED: DEXTROSE 5%/0.45% SOD CHL 1,000 ML IV SCH (10:15)
[2018-06-21 11:21] VITALS: BP 103/60
[2018-06-21 15:32] VITALS: BP 125/70
[2018-06-21] MEDS ORDERED: TYLENOL WITH C1 EACH PO (16:12)
[2018-06-21] MEDS ORDERED: ceftin (16:14)
[2018-06-21] MEDS ORDERED: ZOFRAN4 MG PO (16:15)
--- NOTE | 2018-06-21 17:41 | Consultation ---
DATE OF CONSULTATION: June 21, 2018 HISTORY OF PRESENT ILLNESS: Patient is here status post cystourethroscopy with lithotripsy. Consult is done for medical management. PAST MEDICAL HISTORY: History of rheumatoid arthritis, history of depression, history of chronic low back pain, history of urinary incontinence, and history of tremors. MEDICATIONS: He takes at home are; 1. Tylenol With Codeine 300 mg q.4 hours. 2. Clonazepam 2 mg twice a day. 3. Donepezil 10 mg daily. 4. Citalopram 20 mg daily. 5. Hydroxychloroquine sulfate 200 mg tablets 400 mg daily. 6. Methotrexate 2.5 mg 20 mg p.o. weekly. 7. Mirtazapine 30 mg at bedtime. 8. Oxybutynin 5 mg daily. 9. Primidone 50 mg daily. 10. Propranolol 60 mg twice a day. SURGICAL HISTORY: Includes 4 back surgeries and also a surgical implant for pain pump in the lower back. SOCIAL HISTORY: No ETOH. No IV drug abuse. Lives by himself. REVIEW OF SYSTEMS: Negative for chest pain. No shortness of breath. No nausea, vomiting, or diarrhea. No constipation. No rectal bleeding. Positive for muscle aches and positive for low back pain. PHYSICAL EXAMINATION GENERAL: The patient is alert and oriented x3. HEENT: Normocephalic, atraumatic. VITAL SIGNS: Temperature is 96.4, pulse is 62, respirations of 20, and 98% on room air. LABORATORY VALUES: Results from May 22, hemoglobin is 13.3, hematocrit 41.8. Chemistries again from May 22 were sodium of 138, BUN of 18, creatinine 0.75. ASSESSMENT: A 62-year-old gentleman status post lithotripsy, doing well. PLAN 1. Check his BMP to check his creatinine. 2. Continue home medications. 3. For his back pain and spasm, we will continue with muscle relaxants. Further recommendation and clinical course. Medically, patient is cleared to go home and will continue following the patient along with Dr. Jacobson if required. Job#: [id number] JERARDO
== END 2018-06-21 20:31 | disposition home or self-care (01) ==
LOC: EDSTATUS 10:00 → IMCU 13:24
PROVIDERS: ADMIT Urology; ATTEND Urology
DX: N13.2 Hydronephrosis with renal and ureteral calculous obstruction (principal); M06.9 Rheumatoid arthritis, unspecified; F32.9 Major depressive disorder, single episode, unspecified; M54.5 Low back pain; G89.29 Other chronic pain; R25.1 Tremor, unspecified; R32 Unspecified urinary incontinence; N40.0 Benign prostatic hyperplasia without lower urinary tract symptoms
CPT/HCPCS: 36415; 52356; 74420; 80048; 85025; 88300; 96361 ×2; C1758; C2617; G0378 ×2; J0696; J1100; J1170; J2001; J2250; J2405; J2704; Q9967; 96360

== ENCOUNTER 2018-07-02 17:40 | Emergency (ER) | payer MEDICARE ==
[~2018-07-02] VITALS: Ht 185.4 cm; Wt 97.5 kg
[~2018-07-02 17:40] MED LIST changes: -BELLADONNA/OPIUM 60 MG SUPP PR ONE; -CEFTRIAXONE SOD 1 GM/NS 50 ML 50 ML IV ONE; -IOPAMIDOL 610MG/1ML 300 MG/ML VIAL IV ONE; +ZOFRAN4 MG PO; +ceftin
[2018-07-02 19:28] LABS: BASOPHILS % 0.5 % (0.0-1.0); EOSINOPHILS # (AUTO) 0.1 (0.0-0.4); EOSINOPHILS % 2.5 % (0.0-6.0); HEMATOCRIT 40.6 % (38.2-49.6); HEMOGLOBIN 14.1 g/dL (14.0-18.0); LYMPHOCYTES % 24.5 % (18.0-39.1); MEAN CORPUSCULAR HEMOGLOBIN 37.3 pg (28-32); MEAN CORPUSCULAR HGB CONC 34.7 g/dL (31-35); MEAN CORPUSCULAR VOLUME 107.4 fL (81-99); MONOCYTES # (AUTO) 0.2 (0.2-0.8); MONOCYTES % 5.5 % (4.4-11.3); NEUTROPHILS # (AUTO) 2.7 (2.1-6.9); NEUTROPHILS % 66.5 % (38.7-80.0); PLATELET COUNT 108 x10e3/uL (140-360); RED BLOOD COUNT 3.78 x10e6/uL (4.3-5.7); RED CELL DISTRIBUTION WIDTH 13.4 % (11.7-14.4)
--- NOTE | 2018-07-02 19:31 | Diagnostic Imaging Report ---
EXAMINATION: CHEST SINGLE (PORTABLE) INDICATION: ^SHORT OF BREATH COMPARISON: None FINDINGS: AP view TUBES and LINES: None. LUNGS: Lungs are well inflated. Bilateral perihilar airspace opacities especially in the right infrahilar region. PLEURA: No pleural effusion or pneumothorax. HEART AND MEDIASTINUM: The cardiomediastinal silhouette is unremarkable. BONES AND SOFT TISSUES: No acute osseous lesion. Soft tissues are unremarkable. UPPER ABDOMEN: No free air under the diaphragm. IMPRESSION: Bilateral perihilar airspace opacity predominantly in the right infrahilar region. This likely represents pulmonary edema. Correlate for possible infectious etiology. Signed by: Dr. Curt Salcedo M.D. on 07/02/2018 7:27 PM
[2018-07-02 19:52] LABS: ALANINE AMINOTRANSFERASE 35 IU/L (0-55); ALBUMIN 3.2 g/dL (3.5-5.0); ALKALINE PHOSPHATASE 190 IU/L (40-150); ANION GAP 12.9 mmol/L (8-16); BLOOD UREA NITROGEN 12 mg/dL (7-26); BUN/CREATININE RATIO 14 (6-25); CALCIUM 8.6 mg/dL (8.4-10.2); CARBON DIOXIDE 23 mmol/L (22-29); CHLORIDE 105 mmol/L (98-107); CREATININE, SERUM 0.83 mg/dL (0.72-1.25); EST GLOMERULAR FILTRATION RATE > 60 ML/MIN (60-); GLUCOSE 96 mg/dL (74-118); POTASSIUM 3.9 mmol/L (3.5-5.1); SODIUM 137 mmol/L (136-145)
[2018-07-02] MEDS ORDERED: FUROSEMIDE INJ 10 MG/ML 4 ML VIAL IV ONE (20:15)
[2018-07-02] MEDS ORDERED: PREDNISONE 20 MG TAB PO ONE (22:30)
[2018-07-02] MEDS ORDERED: ACETAMINOPHEN/CODEINE 300MG - 30MG TAB PO ONE (22:30)
[2018-07-02] MEDS ORDERED: FUROSEMIDE INJ 10 MG/ML 4 ML VIAL ONE (23:56)
--- NOTE | 2018-07-03 00:26 | NUR ---
RT CALLED FOR DUONEB TREATMENT.
[2018-07-03] MEDS ORDERED: ALBUTEROL/IPRATROPIUM 3 ML NEB NEB ONE (00:30)
[2018-07-03 02:07] VITALS: BP 125/89
== END 2018-07-03 02:31 | disposition home or self-care (01) ==
LOC: ER 17:40
DX: R05 Cough (principal); J12.9 Viral pneumonia, unspecified
CPT/HCPCS: 36415; 71045; 80053; 83880; 85025; 93005; 94640; 99284; J1940; J7512

== ENCOUNTER → 2018-07-28 | Day surgery (SDC) | payer MEDICARE ==
--- NOTE | 2018-07-24 09:54 | Diagnostic Imaging Report ---
EXAMINATION: PA and lateral views of the chest. COMPARISON: 07/02/2018 CLINICAL HISTORY: Preoperative study, renal stones DISCUSSION: The lungs are well-inflated and without focal consolidation, pleural effusion, or pneumothorax. Right infrahilar airspace disease described on the comparison study is no longer evident. Cardiomediastinal contour and pulmonary vasculature are within normal limits. No acute osseous abnormality. Spinal stimulator device is noted projecting over the lower thoracic and upper lumbar pedicles. IMPRESSION: No acute cardiopulmonary abnormality. Signed by: Dr. Juan Torres M.D. on 07/24/2018 9:50 AM
--- NOTE | 2018-07-24 11:12 | Diagnostic Imaging Report ---
Exam: Abdominal film Clinical History: Preoperative study for renal calculi Comparison: Lumbar spine CT 05/21/2018, retrograde pyelogram 06/20/2018 DISCUSSION: Interval placement of a right internal ureteral stent, with the proximal locking loop projecting over the renal pelvis and the distal locking loop projecting over the urinary bladder at midline. Distal right ureteral calculus seen on the comparison lumbar spine CT is no longer visualized. No suspicious calcifications project along the ureteral stent. Multiple pelvic phleboliths. No suspicious calcifications project over the left renal shadow. Spinal stimulator device and lumbar spine fusion hardware are again noted. Diffuse osteopenia without acute osseous abnormality. Multiple peripherally calcified gallstones project over the right upper quadrant. IMPRESSION: Interval placement of right internal ureteral stent without residual calculus identified. Signed by: Dr. Juan Torres M.D. on 07/24/2018 11:08 AM
[~2018-07-28] MED LIST changes: +AZO STANDARD95 MG PO; +BELLADONNA/OPIUM 30 MG SUPP RC ONE; +CEFTRIAXONE SOD 1 GM/NS 50 ML 50 ML IV ONE; +DEXAMETHASONE SOD PHOS INJ 4 MG/ML VIAL ONE; +EPHEDRINE SULFATE INJ 50 MG/10 ML SYR ONE; +FENTANYL CITRATE/PF 100MCG/2 ML INJ ONE; +IOPAMIDOL 610MG/1ML 300 MG/ML VIAL IV ONE; +LIDOCAINE HCL 2% LOCAL INJ 5 ML SDV VIAL INJ ONE; +LOPERAMIDE2 MG PO; +METHOCARBAMOL750 MG PO; +MORPHINE SULFATE INJ 4 MG/ML INJ 1ML ONE; +ONDANSETRON HCL INJ 2MG/ML 2ML 2 MG/ML VIAL ONE; +PROPOFOL IV EMULSION 10 MG/ML 20 ML VIAL ONE; +SEVOFLURANE INHAL SOLN 250 ML PEN BTL ONE
[2018-07-28 10:30] VITALS: BP 100/66
--- NOTE | 2018-08-31 08:22 | Operative Report ---
DATE OF PROCEDURE: 07/28/2018 SURGEON: Sandro Jacobson MD PREOPERATIVE DIAGNOSES: 1. Right nephrolithiasis. 2. Right ureterolithiasis. 3. Right indwelling ureteral stents. POSTOPERATIVE DIAGNOSES: 1. Right nephrolithiasis. 2. Right ureterolithiasis. 3. Right indwelling ureteral stents. OPERATIONS PERFORMED: Note, these were all staged procedures as part of a multi-stage and multi-step process in managing the patient's urolithiasis. 1. Cystourethroscopy with complicated removal of right indwelling ureteral stent (Performed with separate scope for the diagnosis of the stent). 2. Right ureteroscopy with stone manipulation of ureteral and renal stones (Performed for the diagnosis of stones). 3. Urological Services with supervision and interpretation of ureteroscopy. 4. Interpretation of the retrograde ureteropyelography. ANESTHESIA: General. COMPLICATIONS: None. CLINICAL SUMMARY: Jorge Ocasio is a 63-year-old man with a stent in place. He is brought to the operating room to remove the stent and hopefully render him stone free. He is aware of the risks of bleeding, infection, and injury to adjacent structures, and need for additional procedures, and elected to proceed. PROCEDURE IN DETAIL: Informed consent was verified. Jorge Ocasio was properly identified, taken to the operating room, and placed on the cystoscopy table in the supine position. Anesthesia was uneventfully begun. The patient was then carefully and gently repositioned in the dorsal lithotomy position with all pressure points well padded. His external genitalia were prepped and draped in the usual sterile fashion. A 22.5-Romanian cystoscope sheath with a visual obturator in place was atraumatically inserted into the patient's urethra. It was guided unremarkably into the distal urethra through the normal sphincteric region through the prostate bed that is significant for visually obstructing BPH and into the patient's bladder, where panendoscopy revealed mild trabeculations and the stent emerging from right ureteral orifice with mild erythema of the bladder mucosa surrounding the stent. A guidewire was then placed alongside of the stent and guided to the level of the patient's kidney. The stent was then grasped, completely removed, and then discarded. Flexible ureteroscope over the guidewire and guided to the level of the patient's kidney. Panendoscopy revealed Andrey's plaques and some fine sand. We irrigated these small stones and dislodged them. They should be passable and they were too small to grasp with a basket. We carefully examined the ureters as we exited and it also exhibited some fine sand. This was irrigated to loosen it from the mucosa so that it may easily pass. No significantly sized stones remained as we carefully examined the entire upper urinary tract. Interpretation of Retrograde Ureteropyelography: Contrast was instilled in a retrograde fashion on the right-hand side. There was some mild fullness in the upper collecting system. No suspicious lesions were identified. There were no obvious filling defects and there were no obvious stones. There was significant amount of back hardware noted from prior spinal surgery. The unobstructed drainage was observed fluoroscopically. The patient's bladder was drained and the cystoscope was withdrawn. Belladonna and Opium Suppository was placed revealing a larger than 40 g prostate that is smooth, , and without any nodules. The patient was uneventfully reversed from anesthesia and taken to the recovery room in stable condition. Exclusive postoperative instructions were given and we will follow the patient up in the office. Sandro Jacobson MD OH/MODL /[id number] cc: Taran Landeros MD
== END | disposition home or self-care (01) ==
LOC: OR 05:00
PROVIDERS: ATTEND Urology
DX: N20.0 Calculus of kidney (principal); N20.1 Calculus of ureter; Z46.6 Encounter for fitting and adjustment of urinary device; N40.1 Benign prostatic hyperplasia with lower urinary tract symptoms; N13.8 Other obstructive and reflux uropathy; N32.89 Other specified disorders of bladder; N28.89 Other specified disorders of kidney and ureter; Z98.890 Other specified postprocedural states; I69.341 Monoplegia of lower limb following cerebral infarction affecting right dominant side; R25.1 Tremor, unspecified; J45.909 Unspecified asthma, uncomplicated; M54.2 Cervicalgia; F17.290 Nicotine dependence, other tobacco product, uncomplicated; Z01.818 Encounter for other preprocedural examination; Z87.01 Personal history of pneumonia (recurrent)
CPT/HCPCS: 52352; 71046; 74018; 74420; J0696; J1100; J2001; J2270; J2405; J2704; Q9967

== ENCOUNTER 2019-01-15 09:32 | Observation (INO) | payer MEDICARE ==
[~2019-01-15] VITALS: Ht 185.4 cm; Wt 97.6 kg
[~2019-01-15 09:32] MED LIST changes: -BELLADONNA/OPIUM 30 MG SUPP RC ONE; -CEFTRIAXONE SOD 1 GM/NS 50 ML 50 ML IV ONE; -DEXAMETHASONE SOD PHOS INJ 4 MG/ML VIAL ONE; -EPHEDRINE SULFATE INJ 50 MG/10 ML SYR ONE; -FENTANYL CITRATE/PF 100MCG/2 ML INJ ONE; -IOPAMIDOL 610MG/1ML 300 MG/ML VIAL IV ONE; -LIDOCAINE HCL 2% LOCAL INJ 5 ML SDV VIAL INJ ONE; -MORPHINE SULFATE INJ 4 MG/ML INJ 1ML ONE; -ONDANSETRON HCL INJ 2MG/ML 2ML 2 MG/ML VIAL ONE; -PROPOFOL IV EMULSION 10 MG/ML 20 ML VIAL ONE; -SEVOFLURANE INHAL SOLN 250 ML PEN BTL ONE
[2019-01-15] MEDS ORDERED: SODIUM CHLORIDE 0.9% 500ML 500 ML IV STA ×2 (09:45→11:19)
[2019-01-15] MEDS ORDERED: SODIUM CHLORIDE 0.9% 1000ML 1,000 ML IV STA (09:45)
--- NOTE | 2019-01-15 10:00 | NUR ---
Bladder scan did not reveal acute urinary retention. MD notified.
[2019-01-15 10:11] LABS: BASOPHILS % 0.5 % (0.0-1.0); EOSINOPHILS # (AUTO) 0.1 (0.0-0.4); EOSINOPHILS % 0.6 % (0.0-6.0); HEMATOCRIT 49.6 % (38.2-49.6); HEMOGLOBIN 17.5 g/dL (14.0-18.0); LYMPHOCYTES # (AUTO) 1.4 (1.0-3.2); LYMPHOCYTES % 16.4 % (18.0-39.1); MEAN CORPUSCULAR HEMOGLOBIN 35.9 pg (28-32); MEAN CORPUSCULAR HGB CONC 35.3 g/dL (31-35); MEAN CORPUSCULAR VOLUME 101.8 fL (81-99); MONOCYTES # (AUTO) 0.7 (0.2-0.8); NEUTROPHILS # (AUTO) 6.5 (2.1-6.9); NEUTROPHILS % 74.3 % (38.7-80.0); PLATELET COUNT 222 x10e3/uL (140-360); RED BLOOD COUNT 4.87 x10e6/uL (4.3-5.7); RED CELL DISTRIBUTION WIDTH 13.7 % (11.7-14.4)
--- NOTE | 2019-01-15 10:17 | Diagnostic Imaging Report ---
EXAMINATION: CHEST SINGLE (PORTABLE) INDICATION: Kidney dysfunction. COMPARISON: Chest radiograph 07/24/2018. FINDINGS: The left lateral hemithorax and costophrenic angle is partially excluded from the [id number]. TUBES and LINES: None. LUNGS: Lungs are moderately inflated. Mild patchy right infrahilar opacity. No evidence of pulmonary edema. PLEURA: No pleural effusion or pneumothorax. HEART AND MEDIASTINUM: The cardiomediastinal silhouette is unremarkable. BONES AND SOFT TISSUES: No acute osseous abnormality. UPPER ABDOMEN: No free air under the diaphragm. IMPRESSION: Right medial basilar opacity may represent atelectasis or early pneumonia in the appropriate clinical setting. Suggest follow-up chest radiograph in 6-8 weeks to assess for resolution. No evidence of pulmonary edema. Signed by: Dr. Ezequiel Ag MD on 01/15/2019 10:13 AM
[2019-01-15 10:24] LABS: INR 0.96; PARTIAL THROMBOPLASTIN TIME 26.7 seconds (23.8-35.5); PROTHROMBIN TIME 13.3 seconds (11.9-14.5)
[2019-01-15 10:36] LABS: ALANINE AMINOTRANSFERASE 15 IU/L (0-55); ALBUMIN 3.9 g/dL (3.5-5.0); ALBUMIN/GLOBULIN RATIO 1.3 (0.8-2.0); ALKALINE PHOSPHATASE 117 IU/L (40-150); ANION GAP 17.4 mmol/L (8-16); BLOOD UREA NITROGEN 10 mg/dL (7-26); BUN/CREATININE RATIO 9 (6-25); CALCIUM 9.1 mg/dL (8.4-10.2); CARBON DIOXIDE 24 mmol/L (22-29); CHLORIDE 102 mmol/L (98-107); CREATINE KINASE 58 IU/L (30-200); CREATININE, SERUM 1.08 mg/dL (0.72-1.25); EST GLOMERULAR FILTRATION RATE > 60 ML/MIN (60-); GLUCOSE 106 mg/dL (74-118); LIPASE 11 U/L (8-78); MAGNESIUM 1.9 MG/DL (1.3-2.1); POTASSIUM 3.4 mmol/L (3.5-5.1); SODIUM 140 mmol/L (136-145)
[2019-01-15] MEDS ORDERED: SODIUM CHLORIDE 0.9% 500ML 500 ML IV ONE (10:45)
[2019-01-15] MEDS ORDERED: SODIUM CHLORIDE 0.9% 500ML 500 ML ONE (10:46)
[2019-01-15] MEDS ORDERED: SODIUM CHLORIDE 0.9% 50ML 50 ML ONE (11:19)
[2019-01-15] MEDS ORDERED: IOPAMIDOL 370 MG/ML 200 ML INFUS..BTL INJ ONE (11:19)
[2019-01-15] MEDS ORDERED: ONDANSETRON HCL INJ 2MG/ML 2ML 2 MG/ML VIAL IV PRN (11:30)
[2019-01-15] MEDS: SODIUM CHLORIDE 0.9% 1000ML 1,000 ML IV SCH ×2 (11:34→20:34)
[2019-01-15] MEDS ORDERED: MORPHINE SULFATE INJ 4 MG/ML INJ 1ML IV PRN (11:40)
--- NOTE | 2019-01-15 11:40 | NUR ---
MD notified patient was only able to urinate approx 10 mL. No new orders for Claudio at this time.
[2019-01-15 11:45] LABS: THYROID STIMULATING HORMONE 1.585 uIU/mL (0.350-4.940)
--- NOTE | 2019-01-15 11:58 | Diagnostic Imaging Report ---
EXAM: CT ABDOMEN AND PELVIS without IV CONTRAST INDICATION: No urination. COMPARISON: CT abdomen/pelvis 05/21/2018. TECHNIQUE: The abdomen and pelvis were scanned using a multidetector helical scanner. Coronal and sagittal reformations were obtained. Dose modulation, iterative reconstruction, and/or weight based adjustment of the mA/kV was utilized to reduce the radiation dose to as low as reasonably achievable. Renal stone protocol performed. IV Contrast: None Oral Contrast: None CTDIvol has been reviewed. It is below the limits set by the Radiation Protocol Committee (RPC). FINDINGS: LOWER THORAX: No consolidations LIVER: No masses BILIARY: Cholelithiasis without evidence of acute cholecystitis. SPLEEN: No masses PANCREAS: No masses ADRENALS: No nodules KIDNEYS: Interval resolution of right distal ureteral stone. No evidence of solid renal mass or hydronephrosis. Punctate nonobstructing stone in the interpolar region of the left kidney. There are several simple parapelvic cysts. GI TRACT: No wall thickening or obstruction. Normal appendix. VESSELS: Unremarkable PERITONEUM/RETROPERITONEUM: No free air or fluid LYMPH NODES: No lymphadenopathy REPRODUCTIVE ORGANS: Normal BLADDER: Normal SOFT TISSUES: Generator for lumbar spine intrathecal device in right anterior lower abdominal wall soft tissues. BONES: Surgical changes of the lower lumbar spine L3-L5. There has been interval progression of vertebral body height loss at T12, now moderate, previously mild. IMPRESSION: Interval resolution of right distal ureteral stone. Punctate nonobstructing left interpolar stone. Interval progression of vertebral body height loss at T12, now moderate, previously mild. Signed by: Dr. Ezequiel Ag MD on 01/15/2019 11:54 AM
[2019-01-15] MEDS ORDERED: CEFTRIAXONE SOD 1 GM/NS 50 ML 50 ML IV ONE (12:00)
[2019-01-15 12:02] LABS: BILIRUBIN,URINE MODERATE (NEGATIVE); CLARITY,URINE SL CLOUDY (CLEAR); COLOR,URINE ORANGE (YELLOW); KETONES,URINE 1+ (NEGATIVE); LEUKOCYTE ESTERASE ,URINE NEGATIVE (NEGATIVE); NITRITE,URINE POSITIVE (NEGATIVE); PROTEIN,URINE DIPSTICK 1+ (NEGATIVE); URINE UROBILINOGEN 2 mg/dL (0.2 - 1)
[2019-01-15 12:16] LABS: AMORPHOUS SEDIMENT,URINE MODERATE (FEW); BACTERIA,URINE MANY /HPF; EPITHELIAL CELLS,URINE MODERATE /LPF; RBC,URINE 0-5 /HPF (0-5)
[2019-01-15] MEDS ORDERED: AZITHROMYCIN 500MG/NS 250 ML 250 ML IV ONE (12:30)
[2019-01-15 12:49] VITALS: BP 146/77
--- NOTE | 2019-01-15 12:50 | NUR ---
RCD PT FROM ER BY BED PT IS ALERT AND ORIENTED PT RESTING ON BED NO SIGNS OF ANY DISTRESS NOTED VITALS CHECKED IV PATENT ADMISSION ASSESSMENT DONE PT SAID HE IS NOT ANLE TO PASS URINE FOR 3 DAYS HE DENIED ANY KIND OF PAIN HE HAVE MORPHINE PAIN PUMP ON THE LEFT LOWER ABDOMEN HE IS IN DNR THE PAPER WITH HIM INSTRUCTED PT REGARDING HOSPITAL POLICY AND ROUTINE BED LOW AND LOCKED CALL LIGHT IN REACH
[2019-01-15 13:53] VITALS: BP 146/77
[2019-01-15 14:01] VITALS: BP 146/77
--- NOTE | 2019-01-15 15:19 | NUR ---
BLADDER SCAN DONE 10 ML URINE IN THE BLADDER Addendum: 01/15/19 at 1519 by Judy Ochoa RN WRONG INFORMATION 60 ML URINE IN THE BLADDER
[2019-01-15 15:56] VITALS: BP 132/68
--- NOTE | 2019-01-15 16:00 | NUR ---
PT VOIDED 200 ML URINE
--- NOTE | 2019-01-15 16:50 | NUR ---
Spoke with MD and new order for DNR received. Patient advanced directive in chart. Order noted
[2019-01-15] MEDS: POTASSIUM CHLORIDE 20 MEQ TAB CR PO SCH (17:00)
--- NOTE | 2019-01-15 17:00 | NUR ---
PT HAVE DNR PAPER NOTIFIED DR CHAVIRA GOT THE ORDER TO CHANGE CODE STATUS
--- NOTE | 2019-01-15 18:42 | NUR ---
PT RESTING ON BED BED SIDE REPORT GIVEN TO ONCOMING NURSE
[2019-01-15 20:00] VITALS: BP 129/76
[2019-01-15 20:41] VITALS: BP 129/76
[2019-01-16] VITALS (8 sets, daily range): BP systolic 115–148; BP diastolic 60–78
--- NOTE | 2019-01-16 01:47 | History and Physical ---
REASON FOR ADMISSION: 1. Dehydration. 2. Decreased p.o. intake. 3. Urinary retention. HISTORY OF PRESENT ILLNESS: The patient is a gentleman with history of psoriatic arthritis, history of CVA, history of anxiety disorder and chronic low back pain, who presented with decreased p.o. intake and anorexia, where he was noticed to be dehydrated, having trouble with urinary retention, unable to urinate well secondary to dehydration. He has been admitted for further evaluation. PAST MEDICAL HISTORY: Significant for psoriatic arthritis, cirrhosis, chronic low back pain, history of CVA, anxiety. MEDICATIONS: See SEP. ALLERGIES: SEE SEP. SOCIAL HISTORY: Lives at home by himself. Nondrinker, nonsmoker. FAMILY HISTORY: Noncontributory. PHYSICAL EXAMINATION: VITAL SIGNS: Temperature 98.6, pulse 74, blood pressure 136/74, sats 98% on room air. GENERAL: No apparent distress, lying in bed. NECK: Supple. CARDIOVASCULAR: Regular rate and rhythm. LUNGS: Clear to auscultation bilaterally. ABDOMEN: Good bowel sounds. Soft, nontender. EXTREMITIES: No clubbing or cyanosis. NEUROLOGIC: Nonfocal. ASSESSMENT AND PLAN: 1. Dehydration. Continue with IV fluids. 2. Urinary retention. We will see if improves with IV fluids. 3. History of anxiety disorder. We will continue with his home medicines when the patient is feeling better. 4. Psoriasis. Continue to monitor. Please see hospital chart for full details. MD FELISHA Conde/SAÚL /[id number]
[2019-01-16] MEDS: SODIUM CHLORIDE 0.9% 1000ML 1,000 ML IV SCH ×4 (03:21→23:45)
[2019-01-16 05:39] LABS: BASOPHILS % 0.4 % (0.0-1.0); EOSINOPHILS % 0.9 % (0.0-6.0); HEMATOCRIT 40.6 % (38.2-49.6); HEMOGLOBIN 13.7 g/dL (14.0-18.0); LYMPHOCYTES # (AUTO) 1.3 (1.0-3.2); LYMPHOCYTES % 28.3 % (18.0-39.1); MEAN CORPUSCULAR HEMOGLOBIN 34.8 pg (28-32); MEAN CORPUSCULAR HGB CONC 33.7 g/dL (31-35); MONOCYTES # (AUTO) 0.4 (0.2-0.8); MONOCYTES % 9.1 % (4.4-11.3); NEUTROPHILS # (AUTO) 2.8 (2.1-6.9); NEUTROPHILS % 61.1 % (38.7-80.0); PLATELET COUNT 135 x10e3/uL (140-360); RED BLOOD COUNT 3.94 x10e6/uL (4.3-5.7); RED CELL DISTRIBUTION WIDTH 13.2 % (11.7-14.4)
[2019-01-16 06:01] LABS: ALBUMIN 2.8 g/dL (3.5-5.0); ALBUMIN/GLOBULIN RATIO 1.2 (0.8-2.0); ALKALINE PHOSPHATASE 89 IU/L (40-150); ANION GAP 10.7 mmol/L (8-16); BLOOD UREA NITROGEN 6 mg/dL (7-26); BUN/CREATININE RATIO 8 (6-25); CALCIUM 8.1 mg/dL (8.4-10.2); CARBON DIOXIDE 23 mmol/L (22-29); CHLORIDE 108 mmol/L (98-107); CREATININE, SERUM 0.75 mg/dL (0.72-1.25); EST GLOMERULAR FILTRATION RATE > 60 ML/MIN (60-); GLUCOSE 89 mg/dL (74-118); MAGNESIUM 1.8 MG/DL (1.3-2.1); PHOSPHORUS 2.4 MG/DL (2.3-4.7); POTASSIUM 3.7 mmol/L (3.5-5.1); SODIUM 138 mmol/L (136-145)
[2019-01-16 06:02] LABS: ALANINE AMINOTRANSFERASE < 6 IU/L (0-55)
--- NOTE | 2019-01-16 06:56 | NUR ---
REPORT GIVEN TO ONCOMING NURSE,WALKING ROUNDS MADE.PT RESTING IN BED WITH NO S/S OF DISTRESS.
[2019-01-16] MEDS: CEFTRIAXONE SOD 1 GM/NS 50 ML 50 ML IV SCH (08:05)
--- NOTE | 2019-01-16 08:12 | Diagnostic Imaging Report ---
A single frontal view of the chest. HISTORY: Right medial basilar opacity COMPARISON: Chest radiograph January 15, 2019, lung bases on CT of the abdomen January 15, 2019. DISCUSSION: Portable technique, limits sensitivity of the exam. Soft tissue attenuation partially limits sensitivity of the exam. Tubes/Lines: None Lungs and pleura: Low lung volumes result in bibasilar vascular crowding, accentuation of the pulmonary interstitial markings, central pulmonary vasculature, and the cardiac silhouette. Allowing for these limitations, the findings are as follows: Persistent right infrahilar opacity, on the comparison CT this is prominent pericardial adipose tissue. No definite pleural effusion or pneumothorax is identified. Heart and mediastinum: The cardiomediastinal silhouette appears unremarkable. Bones and soft tissues: Appear unremarkable, given this limited exam. IMPRESSION: 1. Low lung volumes. 2. Otherwise, no significant interval change. Signed by: Dr. Willy Boo D.O., M.M.M. on 01/16/2019 8:09 AM
--- NOTE | 2019-01-16 08:23 | Progress Note ---
DATE: SUBJECTIVE: The patient is 63-year-old. The patient is currently tolerating oral fluids, wants to eat, but does have some urinary pain and also dysuria and difficulty. The patient presented with decreased p.o. intake, anorexia, and dehydration. The patient has significant history of psoriasis, cirrhosis, and chronic low back pain. MEDICATIONS: Currently medications the patient is taking are sodium chloride, morphine sulfate, and potassium chloride 20 mEq. OBJECTIVE: VITAL SIGNS: Temperature is 98, pulse of 69, respirations of 20, blood pressure is 125/69, and pulse oximetry of 96%. HEENT: Normocephalic and atraumatic. Pupils are reactive to light and accommodation. CVS: S1 and S2 normal. Regular rate and rhythm. Positive for CVA tenderness. ABDOMEN: Also tenderness present in the suprapubic area. Pain pump palpated in the abdomen too. LABORATORY DATA: Today's hemoglobin is 13.7, hematocrit of 40.0, significant drop noted; the patient's white count was 4.53. Chemistries show sodium of 138, potassium is corrected at 3.7, BUN 6, and creatinine of 0.75. Total bilirubin has Jumped from 1.6 to 1.9. Thyroid was normal. Urine showed moderate amount of bacteria, negative for leuk esterase, and nitrite is positive. Microbiology, blood cultures and urine culture pending. ASSESSMENT: 1. Urinary tract infection. 2. Dehydration. 3. Chronic low back pain. 4. Hypokalemia. 5. History of low back pain and also history of anxiety and urinary incontinence. PLAN: Continue with IV fluids. Restart his home medications and also continue monitoring the patient's electrolytes. Further recommendation as per clinical course. The patient can be discharged in 1 to 2 days and also depending on the urine culture. MD PHILIP AnguloJ/MODL /[id number]
[2019-01-16] MEDS: HYDROXYCHLOROQUINE SULFATE 200 MG TAB PO SCH (08:51)
[2019-01-16] MEDS: PROPRANOLOL HCL 80 MG CAPCR PO SCH ×2 (08:51→16:18)
[2019-01-16] MEDS: POTASSIUM CHLORIDE 20 MEQ TAB CR PO SCH ×2 (08:51→16:15)
[2019-01-16] MEDS ORDERED: PROPRANOLOL HCL 60 MG ER CAP PO SCH (09:00)
[2019-01-16] MEDS: HYDROCODONE/APAP 5MG-325MG TAB PO PRN ×2 (12:00→16:15)
[2019-01-16] MEDS ORDERED: NON-FORMULARY MEDICATION (Mirtazapine 30 MG) PO SCH (21:00)
[2019-01-16] MEDS ORDERED: MIRTAZAPINE 15 MG TAB PO SCH (21:00)
[2019-01-16] MEDS ORDERED: CLONAZEPAM 1 MG TAB PO SCH (21:00)
[2019-01-16] MEDS ORDERED: PRIMIDONE 50 MG TAB PO SCH (21:00)
[2019-01-17 00:31] VITALS: BP 115/66
[2019-01-17] MEDS: SODIUM CHLORIDE 0.9% 1000ML 1,000 ML IV SCH (03:21)
[2019-01-17 04:00] VITALS: BP 116/65
[2019-01-17 05:49] LABS: ANION GAP 9.1 mmol/L (8-16); BLOOD UREA NITROGEN 6 mg/dL (7-26); BUN/CREATININE RATIO 9 (6-25); CALCIUM 8.1 mg/dL (8.4-10.2); CARBON DIOXIDE 23 mmol/L (22-29); CHLORIDE 110 mmol/L (98-107); EST GLOMERULAR FILTRATION RATE > 60 ML/MIN (60-); GLUCOSE 101 mg/dL (74-118); POTASSIUM 4.1 mmol/L (3.5-5.1); SODIUM 138 mmol/L (136-145)
--- NOTE | 2019-01-17 06:56 | NUR ---
REPORT GIVEN TO ONCOMING NURSE,WALKING ROUNDS MADE.PT RESTING IN BED WITH NO S/S OF DISTRESS.
[2019-01-17 08:00] VITALS: BP 138/73
[2019-01-17] MEDS: CEFTRIAXONE SOD 1 GM/NS 50 ML 50 ML IV SCH (08:00)
[2019-01-17] MEDS: PROPRANOLOL HCL 80 MG CAPCR PO SCH (08:00)
[2019-01-17] MEDS: HYDROXYCHLOROQUINE SULFATE 200 MG TAB PO SCH (08:00)
[2019-01-17] MEDS: POTASSIUM CHLORIDE 20 MEQ TAB CR PO SCH (08:00)
--- NOTE | 2019-01-17 08:05 | NUR ---
Met with Dr. Baker this morning and discussed pt status. He stated he will dc pt home today. No needs
--- NOTE | 2019-01-17 08:35 | NUR ---
patient alert and oriented. discharge instructions given at this time, patient verbalized understanding. IV discontinued at this time, catheter in tact and pressure dressing applied. patient to be wheeled to [facility] to be driven home.
--- NOTE | 2019-01-17 11:14 | Progress Note ---
DATE: SUBJECTIVE: The patient is here for volume depletion, hypokalemia, electrolyte imbalances, and dehydration count. Currently, the patient is feeling better. Complains of some pain in the back that radiates to the front. The patient is asked to follow up with his primary care physician and also follow up with possible CT myelogram of the lower extremity. Otherwise, feeling better. No chest pain. No shortness of breath. No nausea, vomiting, or diarrhea. No constipation. No rectal bleeding. OBJECTIVE: VITAL SIGNS: Temperature is 96.1, pulse of 62, respirations of 16, blood pressure is 116/65, and pulse oximetry of 98% on room air. HEENT: Normocephalic, atraumatic. Pupils are reactive to light and accommodation. CVS: S1, S2 normal. Regular rate and rhythm. ABDOMEN: Nontender, nondistended. EXTREMITIES: No clubbing. No cyanosis. Positive for trace edema. BACK: The patient does have surgical scars in the back. No CVA tenderness present. MICROBIOLOGY: Urine culture has no growth at all and blood cultures no growth in the last 24 hours. LABORATORY DATA: Other laboratory values all within normal limits from yesterday. Chemistries from today, sodium of 138, potassium 4.1, BUN of 6, and creatinine 0.70. The patient's total bilirubin is running high, which has always trended high. ASSESSMENT: 1. Questionable urinary tract infection, which is negative. 2. Dehydration. 3. Chronic low back pain. 4. Hyperkalemia. 5. History of anxiety and urinary incontinence and chronic low back pain. PLAN: Okay to discharge home. Discontinue all IV fluids. The patient is to restart all his home medications. Urine culture has been negative. We will follow up with it. Follow up with Dr. Landeros in about 2 days for further recommendations. Possible CT myelogram as an outpatient may be warranted. Further recommendation per clinical course. MD MELIDA Angulo/SAÚL /[id number]
--- NOTE | 2019-01-20 06:34 | Discharge Summary ---
DISCHARGE DIAGNOSES: Dehydration, hypokalemia, and chronic low back pain. DISCHARGE DISPOSITION: The patient was discharged home. Follow up in 1 week with me. HISTORY OF PRESENT ILLNESS AND HOSPITAL COURSE: The patient is a gentleman, who has chronic low back pain and anxiety, who presented with decreased p.o. intake, and has mild urinary retention, but he was having decreased urinary output due to hydration. He was also found to have some electrolyte imbalance with his hypokalemia. He was brought in and placed on IV fluids, and his electrolytes replenished. His urine culture was negative. Blood cultures were negative. At the time of discharge, he was feeling much better, he was wanting to go home with followup as an outpatient. He is able to urinate on his own. The patient was discharged home with followup later this week with me. Please see hospital chart for full details. MD FELISHA Conde/SAÚL /[id number]
== END 2019-01-17 08:21 | disposition home or self-care (01) ==
LOC: ER 09:32 → ERHOLD 11:21 → IMCU 12:41
PROVIDERS: ADMIT Internal Medicine; ATTEND Internal Medicine
DX: E86.0 Dehydration (principal); E87.6 Hypokalemia; R33.9 Retention of urine, unspecified; G30.9 Alzheimer's disease, unspecified; F02.80 Dementia in other diseases classified elsewhere, unspecified severity, without behavioral disturbance, psychotic disturbance, mood disturbance, and anxiety; Z87.442 Personal history of urinary calculi; F32.9 Major depressive disorder, single episode, unspecified; M54.9 Dorsalgia, unspecified; Z87.891 Personal history of nicotine dependence; Z82.49 Family history of ischemic heart disease and other diseases of the circulatory system; L40.50 Arthropathic psoriasis, unspecified; Z86.73 Personal history of transient ischemic attack (TIA), and cerebral infarction without residual deficits; F41.9 Anxiety disorder, unspecified
CPT/HCPCS: 36415 ×3; 71045 ×2; 74176; 80048; 80053 ×2; 81001; 82550; 82553; 83690; 83735 ×2; 83880; 84100; 84443; 84484; 85025 ×2; 85610; 85730; 87040; 87086; 93005; 99284; G0378 ×3; J0456; J0696 ×3; J2270; J2405; J7030 ×2; J7040; Q9967

== ENCOUNTER 2019-09-16 03:13 | Emergency (ER) | payer MEDICARE ==
[~2019-09-16] VITALS: Ht 182.9 cm; Wt 102.1 kg
--- NOTE | 2019-09-16 06:09 | Diagnostic Imaging Report ---
EXAM: Thoracic spine radiographs-4 views; lumbar spine radiographs-8 views INDICATION: Fall. COMPARISON: CT abdomen/pelvis 01/15/2019. FINDINGS: BONES: The alignment is within normal limits. No acute displaced fractures. Unchanged moderate compression deformity at T12. Vertebral body heights are otherwise preserved. Status post posterior decompression and fixation with bilateral vertical rods and pedicle screws extending from L3 through L5. Hardware appears intact. There is bony fusion across L3-L5. DISCS/FACETS: Degenerative disc and facet degenerative changes in the lumbar spine. SOFT TISSUES: Right-sided spinal stimulator with single lead overlying the posterior paraspinal tissues at L4. IMPRESSION: No acute radiographic abnormality. Unchanged moderate compression deformity at T12. Postsurgical findings status post fusion from L3 through L5. Signed by: Dr. Ezequiel Ag MD on 09/16/2019 6:06 AM
[2019-09-16 06:53] VITALS: BP 159/98
== END 2019-09-16 07:15 | disposition home or self-care (01) ==
LOC: ER 03:13
DX: S39.012A Strain of muscle, fascia and tendon of lower back, initial encounter (principal); S22.081A Stable burst fracture of T11-T12 vertebra, initial encounter for closed fracture; G89.29 Other chronic pain; I10 Essential (primary) hypertension; Z87.442 Personal history of urinary calculi
CPT/HCPCS: 72072; 72110; 99283

== ENCOUNTER 2020-02-11 09:32 | Inpatient (IN) | payer MEDICARE, OTHER ==
[~2020-02-11] VITALS: Ht 185.4 cm; Wt 97.5 kg
[2020-02-11] MEDS ORDERED: ONDANSETRON HCL INJ 2MG/ML 2ML 2 MG/ML VIAL IV STA (09:45)
[2020-02-11] MEDS ORDERED: MORPHINE SULFATE 5 MG/ML VIAL IV ONE (09:45)
[2020-02-11] MEDS ORDERED: PANTOPRAZOLE 40 MG 10ML VIAL IV STA (10:02)
[2020-02-11] MEDS: SODIUM CHLORIDE 0.9% 1000ML 1,000 ML IV SCH ×2 (10:15→20:04)
[2020-02-11] MEDS ORDERED: DICYCLOMINE HCL 20 MG/2 ML VIAL IM ONE (10:15)
[2020-02-11] MEDS ORDERED: MORPHINE SULFATE 2 MG/ML SYR 1ML IV ONE (10:15)
[2020-02-11 10:22] LABS: BASOPHILS % 0.1 % (0.0-1.0); EOSINOPHILS % 0.1 % (0.0-6.0); HEMATOCRIT 43.4 % (38.2-49.6); HEMOGLOBIN 14.9 g/dL (14.0-18.0); LYMPHOCYTES # (AUTO) 1.2 (1.0-3.2); LYMPHOCYTES % 15.3 % (18.0-39.1); MEAN CORPUSCULAR HEMOGLOBIN 32.5 pg (28-32); MEAN CORPUSCULAR HGB CONC 34.3 g/dL (31-35); MEAN CORPUSCULAR VOLUME 94.8 fL (81-99); MONOCYTES # (AUTO) 0.5 (0.2-0.8); MONOCYTES % 6.9 % (4.4-11.3); NEUTROPHILS % 77.3 % (38.7-80.0); PLATELET COUNT 172 x10e3/uL (140-360); RED BLOOD COUNT 4.58 x10e6/uL (4.3-5.7)
[2020-02-11 10:44] LABS: ALANINE AMINOTRANSFERASE 24 IU/L (0-55); ALBUMIN 3.2 g/dL (3.5-5.0); ALKALINE PHOSPHATASE 93 IU/L (40-150); ANION GAP 14.9 mmol/L (8-16); BLOOD UREA NITROGEN 23 mg/dL (7-26); BUN/CREATININE RATIO 24 (6-25); CALCIUM 8.3 mg/dL (8.4-10.2); CARBON DIOXIDE 21 mmol/L (22-29); CHLORIDE 105 mmol/L (98-107); CREATINE KINASE 327 IU/L (30-200); CREATININE, SERUM 0.94 mg/dL (0.72-1.25); EST GLOMERULAR FILTRATION RATE > 60 ML/MIN (60-); GLUCOSE 110 mg/dL (74-118); POTASSIUM 3.9 mmol/L (3.5-5.1); SODIUM 137 mmol/L (136-145)
[2020-02-11] MEDS ORDERED: CEFTRIAXONE SOD 1 GM/NS 50 ML 50 ML IV ONE (11:15)
--- OUTSIDE RECORDS SUMMARY | 2020-02-11 11:20 | XMS REPORT | Continuity of Care Document ---
Author Author [facility] t Organization [facility] Address [address] [place] [address] Dr. 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 Role Phone EMMA CHAVIRA MD PCP SANDHIR, AMBICA Attphys Unavailable EMMA CHAVIRA Attphys Unavailable HAMPEL, TORITO Attphys Unavailable SWEET, A LAIRD Attphys Unavailable EMMA CHAVIRA Admphys Unavailable Payers Payer Name Policy Type Policy Number Effective Date Expiration Date [facility] [id number] [facility] Problems Condition Name Condition Details Condition Category Status Onset Date Resolution Date Last Treatment Date Treating Clinician Comments Source Calculus of kidney Renal stone Problem [facility] Hypokalemia Hypokalemia Problem [facility] Volume depletion Volume depletion Problem [facility] Allergies, Adverse Reactions, Alerts This patient has no known allergies or adverse reactions. Medications Ordered Medication Name Filled Medication Name Start Date Stop Da te Current Medication? Ordering Clinician Indication Dosage Frequency Signature (SIG) Comments Components Source Clonazepam 1 Mg Tablet Clonazepam 1 Mg Tablet Yes 2 Bedtime [facility] Clonazepam 2 Mg Tablet Clonazepam 2 Mg Tablet Yes 1 Daily@0600 [facility] Donepezil Hcl 10 Mg Tablet Donepezil Hcl 10 Mg Tablet Yes 10 Bedtime [facility] Escitalopram Oxalate 20 Mg Tablet Escitalopram Oxalate 20 Mg Tablet Yes 20 Daily [facility] Hydroxychloroquine Sulfate 200 Mg Tablet Hydroxychloro quine Sulfate 200 Mg Tablet Yes 400 Daily [facility] Loperamide Hcl (Loperamide) 2 Mg Tablet Loperamide Hcl (Pily ramide) 2 Mg Tablet Yes 2 As Needed as needed for Diarrhe a [facility] Methocarbamol 750 Mg Tablet Methocarbamol 750 Mg Tablet Yes 750 As Needed as needed for Muscle Spasms [facility] Methotrexate Sodium (Methotrexate) 2.5 Mg Tablet Metho trexate Sodium (Methotrexate) 2.5 Mg Tablet Yes 20 Weekly [facility] Mirtazapine 30 Mg Tablet Mirtazapine 30 Mg Tablet Yes 30 Bedtime [facility] Ondansetron Hcl (Zofran*) 4 Mg Tablet Ondansetron Hcl (Zofran*) 4 M g Tablet Yes 4 Every 6 Hours as needed for Nausea [facility] Oxybutynin Chloride (Ditropan Xl) 5 Mg Tab.er.24 Oxybu tynin Chloride (Ditropan Xl) 5 Mg Tab.er.24 Yes 5 Three Times A Day as needed for Bladder Spasms [facility] Phenazopyridine Hcl (Azo Standard) 95 Mg Tablet Phenaz opyridine Hcl (Azo Standard) 95 Mg Tablet Yes 1 As Neede d as needed for Bladder Spasms [facility] Primidone 50 Mg Tablet Primidone 50 Mg Tablet Yes 50 Bedtime [facility] Propranolol Hcl 60 Mg Cap.sa.24h Propranolol Hcl 60 Mg Cap.sa.24h Yes 80 Twice A Day [facility] Acetaminophen With Codeine (Tylenol With Codeine #3 Tablet) 1 Each Tablet, 300 Mg Oral Acetaminophen With Codeine (Tylenol With Codeine #3 Tablet) 1 Each Tablet, 300 Mg Oral 2018-07-28 00:00:00 No 300 Every 4 Hours as needed for Pain [facility] Acetaminophen With Codeine (Tylenol With Codeine #3 Tablet) 1 Each Tablet, 300 Mg Oral Acetaminophen With Codeine (Tylenol With Codeine #3 Tablet) 1 Each Tablet, 300 Mg Oral 2018-07-28 00:00:00 No 300 Every 4 Hours as needed for Pain [facility] Ceftin , Ceftin , 2018-07-28 00:00:00 No [facility] Procedures Procedure Date / Time Performed Performing Clinician [facility] e CT of abdomen and pelvis without contrast 2019-01-15 00:00:00 MARTA MARINELLI [facility] Encounters Start Date/Time End Date/Time Encounter Type Admission Type Attendi [facility] Care Department Encounter ID Source 2019-09-16 03:13:00 2019-09-16 07:15:00 Departed Emergency Room 1 KADEN MINER [facility] [id number] [facility] 2019-01-15 11:21:00 2019-01-17 08:21:00 Discharged Inpatient (obs) 1 EMMA CHAVIRA [facility] [id number] [facility] 2018-07-28 05:00:00 2018-07-28 05:00:00 Registered Surgical Day Car e TORITO DEAN [facility] [id number] [facility] 2018-07-02 17:40:00 2018-07-03 02:31:00 Departed Emergency Room 1 KATE STOUT [facility] [id number] [facility] 2018-06-20 13:24:00 2018-06-21 20:31:00 Discharged Inpatient (obs) [facility] [id number] [facility] 2018-05-23 12:05:00 2018-05-24 13:52:00 Discharged Inpatient 1 KADEN JAMES [facility] [id number] [facility] Results Test Description Test Time Test Comments Results Result Comments Source SP LUMBAR, COMPLETE MIN 4VW 2019-09-16 06:00:00 [facility] [address] [place] [address] Patient Name: KATELYN CERVANTES MR #: [id number] : 1955 Age/Sex: 64/M Req #: [id number] Adm Physician: Ordered by: KADEN MINER DO Report #: [id number] Location: ER Room/Bed: Procedure: [id number] DX/SP LUMBAR, COMPLETE MIN 4VW Exam Date: 09/16/19 Exam Time: 0455 REPORT STATUS: Signed EXAM: Thoracic spine radiographs- 4 views; lumbar spine radiographs-8 views INDICATION: Fall. COMPARISON: CT abdomen/pelvis 01/15/2019. FINDINGS: BONES: The alignment is within normal limits. No acute displaced fractures. Unchanged moderate compression deformity at T12. Vertebral body heights are otherwise preserved. Status post posterior decompression and fixation with bilateral vertical rods and pedicle screws extending from L3 through L5. Hardware appears intact. There is bony fusion across L3-L5. DISCS/FACETS: Degenerative disc and facet degenerative changes in the lumbar spine. SOFT TISSUES: Right-sided spinal stimulator with single lead overlying the posterior paraspinal tissues at L4. IMPRESSION: No acute radiographic abnormality. Unchanged moderate compression deformity at T12. Postsurgical findings status post fusion from L3 through L5. Signed by: Dr. Ame Carpenter MD on 09/16/2019 6:06 AM Dictated By: AME CARPENTER MD 5 Transcribed By: MENDY on 09/16/19605 COPY TO: KADEN MINER DO THORACIC SP 3V 2019-09-16 06:00:00 [place] [address] Patient Name: KATELYN CERVANTES MR #: [id number] : 1955 Age/Sex: 64/M Req #: [id number] Adm Physician: Ordered by: KADEN MINER DO Report #: [id number] Location: ER Room/Bed: Procedure: [id number] DX/THORACIC SP 3V Exam Date: 09/16/19 Exam Time: 0455 REPORT STATUS: Signed EXAM: Thoracic spine radiographs-4 views; lumbar spine radiographs-8 views INDICATION: Fall. COMPARISON: CT abdomen/pelvis 01/15/2019. FINDINGS: BONES: The alignment is within normal limits. No acute displaced fractures. Unchanged moderate compression deformity at T12. Vertebral body heights are otherwise preserved. Status post posterior decompression and fixation with bilateral vertical rods and pedicle screws extending from L3 through L5. Hardware appears intact. There is bony fusion across L3-L5. DISCS/FACETS: Degenerative disc and facet degenerative changes in the lumbar spine. SOFT TISSUES: Right-sided sp inal stimulator with single lead overlying the posterior paraspinal tissues at L4. IMPRESSION: No acute radiographic abnormality. Unchanged moderate compression deformity at T12. Postsurgical findings status post fusion from L3 through L5. Signed by: Dr. Ame Carpenter MD on 09/16/2019 6:06 AM Dictated By: AME CARPENTER MD 5 Transcribed By: MENDY on 09/16/19605 COPY TO: KADEN MINER DO Blood Culture 2019-01-20 13:13:00 Test Item Blood Culture (test code = 58431940) NO GROWTH AFTER 5 DAYS, FINAL REPORT [facility] Kwnfl4073-42-89 05:50:00* Test Item Value Reference Range Interpretation Comments Sodium Level (test code = 2951-2) 138 136-145 [facility] Jhguj6064-83-11 05:50:00* Test Item Value Reference Range Interpretation Comments Potassium Level (test code = 2823-3) 4.1 3.5-5.1 [facility] CenterChloride Xhhaf6327-03-46 05:50:00* Test Item Value Reference Range Interpretation Comments Chloride Level (test code = 2075-0) 110 98-107 H [facility] CenterCarbon Dioxide Unzum8584-49-40 05:50:00* Test Item Value Reference Range Interpretation Comments Carbon Dioxide Level (test code = 2028-9) 23 22-29 [facility] CenterAnion Mgh4580-35-89 05:50:00* Test Item Value Reference Range Interpretation Comments Anion Gap (test code = 02528-7) 9.1 8-16 [facility] CenterBlood Urea Pkkemyfd4967-85-57 05:50:00* Test Item Value Reference Range Interpretation Comments Blood Urea Nitrogen (test code = 3094-0) 6 7-26 L [facility] CenterCreatinine2019-07-14 05:50:00* Test Item Value Reference Range Interpretation Comments Creatinine (test code = 2160-0) 0.70 0.72-1.25 L [facility] CenterBUN/Creatinine Pchhx4629-62-91 05:50:00* Test Item Value Reference Range Interpretation Comments BUN/Creatinine Ratio (test code = 3097-3) 9 6-25 [facility] CenterEstimat Glomerular Filtration Rate 2019-01-17 05:50:00* Test Item Value Reference Range Interpretation Comments Estimat Glomerular Filtration Rate (test code = 308372463) > 60 >60 Ranges were taken from the National Kidney Disease Education Program and the [facility] [employer] literature.Reference ranges:60 or greater: Hqlfek04-79 ( for 3 consecutive months): Chronic kidney disease 15 or less: Kidney failureValley Regional Medical CenterGlucose Bvhxu8861-07-11 05:50:00* Test Item Value Reference Range Interpretation Comments Glucose Level (test code = SKV1133) 101 74-118 [facility] CenterCalcium Bumnl0179-67-56 05:50:00* Test Item Value Reference Range Interpretation Comments Calcium Level (test code = 91545-8) 8.1 8.4-10.2 L [facility] Bipnd4553-15-21 05:50:00* Test Item Value Reference Range Interpretation Comments Sodium Level (test code = 2951-2) 138 136-145 [facility] CenterPotassium Egpoy0883-73-86 05:50:00* Test Item Value Reference Range Interpretation Comments Potassium Level (test code = 2823-3) 4.1 3.5-5.1 [facility] CenterChloride Libjo6639-52-91 05:50:00* Test Item Value Reference Range Interpretation Comments Chloride Level (test code = 2075-0) 110 98-107 H [facility] CenterCarbon Dioxide Pagwm4288-84-37 05:50:00* Test Item Value Reference Range Interpretation Comments Carbon Dioxide Level (test code = 2028-9) 23 22-29 [facility] CenterAnion Iab7726-84-23 05:50:00* Test Item Value Reference Range Interpretation Comments Anion Gap (test code = 94501-7) 9.1 8-16 [facility] CenterBlood Urea Yhphfhig9013-80-54 05:50:00* Test Item Value Reference Range Interpretation Comments Blood Urea Nitrogen (test code = 3094-0) 6 7-26 L [facility] CenterCreatinine2019-07-14 05:50:00* Test Item Value Reference Range Interpretation Comments Creatinine (test code = 2160-0) 0.70 0.72-1.25 L [facility] CenterBUN/Creatinine Xfchd2314-89-90 05:50:00* Test Item Value Reference Range Interpretation Comments BUN/Creatinine Ratio (test code = 3097-3) 9 6-25 [facility] CenterEstimat Glomerular Filtration Rate 2019-01-17 05:50:00* Test Item Value Reference Range Interpretation Comments Estimat Glomerular Filtration Rate (test code = 128896702) > 60 >60 Ranges were taken from the National Kidney Disease Education Program and the [facility] [employer] literature.Reference ranges:60 or greater: Rlrsvm51-34 ( for 3 consecutive months): Chronic kidney disease 15 or less: Kidney failureValley Regional Medical CenterGlucose Rqcuh2488-97-34 05:50:00* Test Item Value Reference Range Interpretation Comments Glucose Level (test code = MLT8865) 101 74-118 [facility] CenterCalcium Ojpwg9919-17-96 05:50:00* Test Item Value Reference Range Interpretation Comments Calcium Level (test code = 33091-7) 8.1 8.4-10.2 L [facility] CenterBlood Naubigw9179-52-15 13:13:00* Test Item Value Reference Range Interpretation Comments Blood Culture (test code = 74246598) NO GROWTH AFTER 24 HOURS [facility] CenterCHES SINGLE (PORTABLE)2019-01-16 08:06:00 [facility] [address] [place] [address] Patient Name: KATELYN CERVANTES MR #: [id number] : 1955 Age/Sex: 63/M Req #: [id number] Adm Physician: EMMA CHAVIRA MD Ordered by: JUAREZ GIBSON, MARTA GIBSON Report #: [id number] Location: [facility] Room/Bed: [place] [address] Procedure: [id number] DX/CHEST SINGLE (PORTABLE) Exam Date: 01/16/19 E xam Time: 0545 REPORT STATUS: Genevieve d A single frontal view of the chest. HISTORY: Right medial basilar opa city COMPARISON: Chest radiograph January 15, 2019, lung bases on CT of the abdo men January 15, 2019. DISCUSSION: Portable technique, limits sensiti vity of the exam. Soft tissue attenuation partially limits sensitivity of the exam. Tubes/Lines: None Lungs and pleura: Low lung volumes result in bibasilar vascular crowding, accentuation of the pulmonary interstitial umu ngs, central pulmonary vasculature, and the cardiac silhouette. Allowing for these limitations, the findings are as follows: Persistent right infrahilar opacity, on the comparison CT this is prominent pericardial adipose tissue. No definite pleural effusion or pneumothorax is identified. Heart and media stinum: The cardiomediastinal silhouette appears unremarkable. Bones an d soft tissues: Appear unremarkable, given this limited exam. IMPRES TAZ: 1. Low lung volumes. 2. Otherwise, no significant interval change. Signed by: Destiny MouraOJuanjo, M.M.M. on 01/16/2019 8:09 AM Dictated By: CINDY PERERA DO 8 COPY TO: Jason PIZARRO Phosphorus Zhihq6712-94-60 06:03:00* Test Item Value Reference Range Interpretation Comments Phosphorus Level (test code = LYL7259) 2.4 2.3-4.7 [facility] CenterMagnesium Onaeg9360-92-64 06:03:00* Test Item Value Reference Range Interpretation Comments Magnesium Level (test code = 47759-9) 1.8 1.3-2.1 [facility] CenterTob[facility] Oselbypmt3244-41-53 06:03:00* Test Item Value Reference Range Interpretation Comments Total Bilirubin (test code = 1975-2) 1.9 0.2-1.2 H [facility] CenterAspartate Amino Transf (AST/SGOT) 2019-01-16 06:03:00* Test Item Value Reference Range Interpretation Comments Aspartate Amino Transf (AST/SGOT) (test code = Aspartate Amino Transf (AST/SGOT)) 14 5-34 [facility] CenterAlanine Aminotransferase (ALT/SGPT) 2019-01-16 06:03:00* Test Item Value Reference Range Interpretation Comments Alanine Aminotransferase (ALT/SGPT) (test code = 1742-6) < 6 0-55 [facility] CenterTotal Tgdeduk7886-05-46 06:03:00* Test Item Value Reference Range Interpretation Comments Total Protein (test code = 2885-2) 5.1 6.5-8.1 L [facility] CenterAlbumin2019-07-13 06:03:00* Test Item Value Reference Range Interpretation Comments Albumin (test code = 1751-7) 2.8 3.5-5.0 L [facility] CenterGlobulin2019-07-13 06:03:00* Test Item Value Reference Range Interpretation Comments Globulin (test code = 26642-5) 2.3 2.3-3.5 [facility] CenterAlbumin/Globulin Gdgcc3811-01-29 06:03:00 * Test Item Value Reference Range Interpretation Comments Albumin/Globulin Ratio (test code = 1759-0) 1.2 0.8-2.0 [facility] CenterAlkaline Eshyzyscggw0929-98-38 06:03:00* Test Item Value Reference Range Interpretation Comments Alkaline Phosphatase (test code = 6768-6) 89 40-150 [facility] CenterPhosphorus Rwitp5269-43-75 06:03:00* Test Item Value Reference Range Interpretation Comments Phosphorus Level (test code = CFK6810) 2.4 2.3-4.7 [facility] CenterMagnesium Jbxnj4243-41-41 06:03:00* Test Item Value Reference Range Interpretation Comments Magnesium Level (test code = 56443-4) 1.8 1.3-2.1 [facility] CenterTotal Ovqoynalw7050-47-91 06:03:00* Test Item Value Reference Range Interpretation Comments Total Bilirubin (test code = 1975-2) 1.9 0.2-1.2 H [facility] CenterAspartate Amino Transf (AST/SGOT) 2019-01-16 06:03:00* Test Item Value Reference Range Interpretation Comments Aspartate Amino Transf (AST/SGOT) (test code = Aspartate Amino Transf (AST/SGOT)) 14 5-34 [facility] CenterAlanine Aminotransferase (ALT/SGPT) 2019-01-16 06:03:00* Test Item Value Reference Range Interpretation Comments Alanine Aminotransferase (ALT/SGPT) (test code = 1742-6) < 6 0-55 [facility] CenterTotal Qzetgro9716-75-73 06:03:00* Test Item Value Reference Range Interpretation Comments Total Protein (test code = 2885-2) 5.1 6.5-8.1 L [facility] CenterAlbumin2019-07-13 06:03:00* Test Item Value Reference Range Interpretation Comments Albumin (test code = 1751-7) 2.8 3.5-5.0 L [facility] CenterGlobulin2019-07-13 06:03:00* Test Item Value Reference Range Interpretation Comments Globulin (test code = 95262-8) 2.3 2.3-3.5 [facility] CenterAlbumin/Globulin Qfrny5482-70-86 06:03:00 * Test Item Value Reference Range Interpretation Comments Albumin/Globulin Ratio (test code = 1759-0) 1.2 0.8-2.0 [facility] CenterAlkaline Zqeaarxgzow1738-75-42 06:03:00* Test Item Value Reference Range Interpretation Comments Alkaline Phosphatase (test code = 6768-6) 89 40-150 [facility] CenterWhite Blood Tuvrr1426-40-56 05:40:00* Test Item Value Reference Range Interpretation Comments White Blood Count (test code = 6690-2) 4.53 4.8-10.8 L [facility] CenterRed Blood Euubc1066-20-84 05:40:00* Test Item Value Reference Range Interpretation Comments Red Blood Count (test code = 789-8) 3.94 4.3-5.7 L [facility] CenterHemoglobin2019-07-13 05:40:00* Test Item Value Reference Range Interpretation Comments Hemoglobin (test code = 64543-6) 13.7 14.0-18.0 L [facility] CenterHematocrit2019-07-13 05:40:00* Test Item Value Reference Range Interpretation Comments Hematocrit (test code = 4544-3) 40.6 38.2-49.6 [facility] CenterMean Corpuscular Lrdwqb4001-02-42 05:40:00* Test Item Value Reference Range Interpretation Comments Mean Corpuscular Volume (test code = 787-2) 103.0 81-99 H [facility] CenterMean Corpuscular Pwpxxlxqjm0940-55-14 05:40:00* Test Item Value Reference Range Interpretation Comments Mean Corpuscular Hemoglobin (test code = 785-6) 34.8 28-32 H [facility] CenterMean Corpuscular Hemoglobin Concent 2019-01-16 05:40:00* Test Item Value Reference Range Interpretation Comments Mean Corpuscular Hemoglobin Concent (test code = 786-4) 33.7 31-35 [facility] CenterRed Cell Distribution Qlans6275-65-68 05:40:00* Test Item Value Reference Range Interpretation Comments Red Cell Distribution Width (test code = 39192-9) 13.2 11.7 -14.4 [facility] CenterPlatelet Kmxvj9090-76-56 05:40:00* Test Item Value Reference Range Interpretation Comments Platelet Count (test code = 777-3) 135 140-360 L [facility] CenterNeutrophils (%) (Auto)2019-01-16 05:40:00 * Test Item Value Reference Range Interpretation Comments Neutrophils (%) (Auto) (test code = 49845-6) 61.1 38.7-80.0 [facility] CenterLymphocytes (%) (Auto)2019-01-16 05:40:00 * Test Item Value Reference Range Interpretation Comments Lymphocytes (%) (Auto) (test code = 736-9) 28.3 18.0-39.1 [facility] CenterMonocytes (%) (Auto)2019-01-16 05:40:00* Test Item Value Reference Range Interpretation Comments Monocytes (%) (Auto) (test code = 5905-5) 9.1 4.4-11.3 [facility] CenterEosinophils (%) (Auto)2019-01-16 05:40:00 * Test Item Value Reference Range Interpretation Comments Eosinophils (%) (Auto) (test code = 713-8) 0.9 0.0-6.0 [facility] CenterBasophils (%) (Auto)2019-01-16 05:40:00* Test Item Value Reference Range Interpretation Comments Basophils (%) (Auto) (test code = 706-2) 0.4 0.0-1.0 [facility] CenterIM GRANULOCYTES %2019-01-16 05:40:00* Test Item Value Reference Range Interpretation Comments IM GRANULOCYTES % (test code = IM GRANULOCYTES %) 0.2 0.0- 1.0 [facility] CenterNeutrophils # (Auto)2019-01-16 05:40:00* Test Item Value Reference Range Interpretation Comments Neutrophils # (Auto) (test code = 751-8) 2.8 2.1-6.9 [facility] CenterLymphocytes # (Auto)2019-01-16 05:40:00* Test Item Value Reference Range Interpretation Comments Lymphocytes # (Auto) (test code = 80831-6) 1.3 1.0-3.2 [facility] CenterMonocytes # (Auto)2019-01-16 05:40:00* Test Item Value Reference Range Interpretation Comments Monocytes # (Auto) (test code = 742-7) 0.4 0.2-0.8 [facility] CenterEosinophils # (Auto)2019-01-16 05:40:00* Test Item Value Reference Range Interpretation Comments Eosinophils # (Auto) (test code = 711-2) 0.0 0.0-0.4 [facility] CenterBasophils # (Auto)2019-01-16 05:40:00* Test Item Value Reference Range Interpretation Comments Basophils # (Auto) (test code = 704-7) 0.0 0.0-0.1 [facility] CenterAbsolute Immature Granulocyte (auto 2019-01-16 05:40:00* Test Item Value Reference Range Interpretation Comments Absolute Immature Granulocyte (auto (kendra t code = Absolute Immature Granulocyte (auto) 0.01 0-0.1 [facility] CenterWhite Blood Yxknw4649-85-82 05:40:00* Test Item Value Reference Range Interpretation Comments White Blood Count (test code = 6690-2) 4.53 4.8-10.8 L [facility] CenterRed Blood Qqfmj3603-04-58 05:40:00* Test Item Value Reference Range Interpretation Comments Red Blood Count (test code = 789-8) 3.94 4.3-5.7 L [facility] CenterHemoglobin2019-07-13 05:40:00* Test Item Value Reference Range Interpretation Comments Hemoglobin (test code = 90471-1) 13.7 14.0-18.0 L [facility] CenterHematocrit2019-07-13 05:40:00* Test Item Value Reference Range Interpretation Comments Hematocrit (test code = 4544-3) 40.6 38.2-49.6 [facility] CenterMean Corpuscular Masxka9413-98-19 05:40:00* Test Item Value Reference Range Interpretation Comments Mean Corpuscular Volume (test code = 787-2) 103.0 81-99 H [facility] CenterMean Corpuscular Tzrpzbglwq1175-18-59 05:40:00* Test Item Value Reference Range Interpretation Comments Mean Corpuscular Hemoglobin (test code = 785-6) 34.8 28-32 H [facility] CenterMean Corpuscular Hemoglobin Concent 2019-01-16 05:40:00* Test Item Value Reference Range Interpretation Comments Mean Corpuscular Hemoglobin Concent (test code = 786-4) 33.7 31-35 [facility] CenterRed Cell Distribution Vhruq2810-03-00 05:40:00* Test Item Value Reference Range Interpretation Comments Red Cell Distribution Width (test code = 58407-8) 13.2 11.7 -14.4 [facility] CenterPlatelet Xkrrq1101-60-09 05:40:00* Test Item Value Reference Range Interpretation Comments Platelet Count (test code = 777-3) 135 140-360 L [facility] CenterNeutrophils (%) (Auto)2019-01-16 05:40:00 * Test Item Value Reference Range Interpretation Comments Neutrophils (%) (Auto) (test code = 69440-2) 61.1 38.7-80.0 [facility] CenterLymphocytes (%) (Auto)2019-01-16 05:40:00 * Test Item Value Reference Range Interpretation Comments Lymphocytes (%) (Auto) (test code = 736-9) 28.3 18.0-39.1 [facility] CenterMonocytes (%) (Auto)2019-01-16 05:40:00* Test Item Value Reference Range Interpretation Comments Monocytes (%) (Auto) (test code = 5905-5) 9.1 4.4-11.3 [facility] CenterEosinophils (%) (Auto)2019-01-16 05:40:00 * Test Item Value Reference Range Interpretation Comments Eosinophils (%) (Auto) (test code = 713-8) 0.9 0.0-6.0 [facility] CenterBasophils (%) (Auto)2019-01-16 05:40:00* Test Item Value Reference Range Interpretation Comments Basophils (%) (Auto) (test code = 706-2) 0.4 0.0-1.0 [facility] CenterIM [facility]ULOCYTES %2019-01-16 05:40:00* Test Item Value Reference Range Interpretation Comments IM GRANULOCYTES % (test code = IM GRANULOCYTES %) 0.2 0.0- 1.0 [facility] CenterNeutrophils # (Auto)2019-01-16 05:40:00* Test Item Value Reference Range Interpretation Comments Neutrophils # (Auto) (test code = 751-8) 2.8 2.1-6.9 [facility] CenterLymphocytes # (Auto)2019-01-16 05:40:00* Test Item Value Reference Range Interpretation Comments Lymphocytes # (Auto) (test code = 41196-9) 1.3 1.0-3.2 [facility] CenterMonocytes # (Auto)2019-01-16 05:40:00* Test Item Value Reference Range Interpretation Comments Monocytes # (Auto) (test code = 742-7) 0.4 0.2-0.8 [facility] CenterEosinophils # (Auto)2019-01-16 05:40:00* Test Item Value Reference Range Interpretation Comments Eosinophils # (Auto) (test code = 711-2) 0.0 0.0-0.4 [facility] CenterBasophils # (Auto)2019-01-16 05:40:00* Test Item Value Reference Range Interpretation Comments Basophils # (Auto) (test code = 704-7) 0.0 0.0-0.1 [facility] CenterAbsolute Immature Granulocyte (auto 2019-01-16 05:40:00* Test Item Value Reference Range Interpretation Comments Absolute Immature Granulocyte (auto (kendra t code = Absolute Immature Granulocyte (auto) 0.01 0-0.1 [facility] CenterUrine DOJ0353-86-11 12:16:00* Test Item Value Reference Range Interpretation Comments Urine WBC (test code = 5821-4) 6-10 0-5 H [facility] CenterUrine QMW6310-88-17 12:16:00* Test Item Value Reference Range Interpretation Comments Urine RBC (test code = 93418-9) 0-5 0-5 [facility] CenterUrine Cetbkqfb9650-29-56 12:16:00* Test Item Value Reference Range Interpretation Comments Urine Bacteria (test code = 43211-7) MANY NONE H [facility] CenterUrine Epithelial Bjaro1087-09-86 12:16:00 * Test Item Value Reference Range Interpretation Comments Urine Epithelial Cells (test code = 00189-8) MODERATE NONE [facility] Amorphous Xudcjyuw1410-13-00 12:16:00* Test Item Value Reference Range Interpretation Comments Urine Amorphous Sediment (test code = 8246-1) MODERATE FEW H [facility] CenterUrine SAU7657-20-62 12:16:00* Test Item Value Reference Range Interpretation Comments Urine WBC (test code = 5821-4) 6-10 0-5 H [facility] CenterUrine [id number] 12:16:00* Test Item Value Reference Range Interpretation Comments Urine RBC (test code = 45280-4) 0-5 0-5 [facility] Coeekfcu9064-49-29 12:16:00* Test Item Value Reference Range Interpretation Comments Urine Bacteria (test code = 57979-3) MANY NONE H [facility] CenterUrine Epithelial Tebbq9287-67-73 12:16:00 * Test Item Value Reference Range Interpretation Comments Urine Epithelial Cells (test code = 54442-4) MODERATE NONE [facility] Amorphous Fmawcwhs9655-14-55 12:16:00* Test Item Value Reference Range Interpretation Comments Urine Amorphous Sediment (test code = 8246-1) MODERATE FEW H [facility] CenterUrine Rdsei0434-34-34 12:09:00* Test Item Value Reference Range Interpretation Comments Urine Color (test code = 5778-6) ORANGE YELLOW [facility] Wecceao0937-97-60 12:09:00* Test Item Value Reference Range Interpretation Comments Urine Clarity (test code = 87467-7) SL CLOUDY CLEAR [facility] Specific Mzueysi6268-65-31 12:09:00 * Test Item Value Reference Range Interpretation Comments Urine Specific [place] (test code = 5811-5) 1.025 1.010-1.02 5 [facility] CenterU[facility] rI9899-85-98 12:09:00* Test Item Value Reference Range Interpretation Comments Urine pH (test code = 65173-1) 6 5-7 [facility] CenterU[facility] Leukocyte Qbyagzpc0891-08-62 12:09:00* Test Item Value Reference Range Interpretation Comments Urine Leukocyte Esterase (test code = 68352-6) NEGATIVE NEGATIV E [facility] CenterUrine Toqqpks3248-25-17 12:09:00* Test Item Value Reference Range Interpretation Comments Urine Nitrite (test code = 86272-1) POSITIVE NEGATIVE [facility] Skjcouj7302-53-84 12:09:00* Test Item Value Reference Range Interpretation Comments Urine Protein (test code = 11862-2) 1+ NEGATIVE [facility] Glucose (UA)2019-01-15 12:09:00* Test Item Value Reference Range Interpretation Comments Urine Glucose (UA) (test code = 30190-7) NEGATIVE NEGATIVE [facility] CenterU[facility] Fvrlpwq6427-61-02 12:09:00* Test Item Value Reference Range Interpretation Comments Urine Ketones (test code = 17595-6) 1+ NEGATIVE [facility] Tllddcavqmou8889-83-22 12:09:00* Test Item Value Reference Range Interpretation Comments Urine Urobilinogen (test code = 56804-2) 2 0.2-1 [facility] CenterU[facility] Fkkcdfabt3062-19-95 12:09:00* Test Item Value Reference Range Interpretation Comments Urine Bilirubin (test code = 1977-8) MODERATE NEGATIVE [facility] CenterU[facility] Jzyxd2163-75-15 12:09:00* Test Item Value Reference Range Interpretation Comments Urine Blood (test code = 56107-1) NEGATIVE NEGATIVE [facility] CenterU[facility] Swvpv4825-93-76 12:09:00* Test Item Value Reference Range Interpretation Comments Urine Color (test code = 5778-6) ORANGE YELLOW H [facility] CenterUrine Giikpxf2054-93-89 12:09:00* Test Item Value Reference Range Interpretation Comments Urine Clarity (test code = 06232-5) SL CLOUDY CLEAR H [facility] Specific Zaxwyxf5632-29-87 12:09:00 * Test Item Value Reference Range Interpretation Comments Urine Specific [place] (test code = 5811-5) 1.025 1.010-1.02 5 [facility] CenterU[facility] bB6681-32-51 12:09:00* Test Item Value Reference Range Interpretation Comments Urine pH (test code = 73584-2) 6 5-7 [facility] CenterU[facility] Leukocyte Erqaqgpg6243-86-99 12:09:00* Test Item Value Reference Range Interpretation Comments Urine Leukocyte Esterase (test code = 02432-4) NEGATIVE NEGATIV E [facility] CenterUrine Bgbpvdc6094-19-53 12:09:00* Test Item Value Reference Range Interpretation Comments Urine Nitrite (test code = 20342-8) POSITIVE NEGATIVE H [facility] CenterUrine Ywmctub6677-97-52 12:09:00* Test Item Value Reference Range Interpretation Comments Urine Protein (test code = 31818-8) 1+ NEGATIVE H [facility] CenterUrine Glucose (UA)2019-01-15 12:09:00* Test Item Value Reference Range Interpretation Comments Urine Glucose (UA) (test code = 64004-6) NEGATIVE NEGATIVE [facility] CenterUrine Nmxbrzu3712-51-14 12:09:00* Test Item Value Reference Range Interpretation Comments Urine Ketones (test code = 15504-0) 1+ NEGATIVE H [facility] CenterUrine Vkcgjbknjpqq4296-63-73 12:09:00* Test Item Value Reference Range Interpretation Comments Urine Urobilinogen (test code = 51395-1) 2 0.2-1 [facility] CenterU[facility] Srhgdzrso3285-29-30 12:09:00* Test Item Value Reference Range Interpretation Comments Urine Bilirubin (test code = 1977-8) MODERATE NEGATIVE [facility] CenterU[facility] Xcyfe6273-10-97 12:09:00* Test Item Value Reference Range Interpretation Comments Urine Blood (test code = 68832-7) NEGATIVE NEGATIVE [facility] CenterCreatine Kinase MY8971-14-69 12:08:00* Test Item Value Reference Range Interpretation Comments Creatine Kinase MB (test code = 69848-7) 1.00 0-5.0 [facility] CenterTroponin [id number] 12:08:00* Test Item Value Reference Range Interpretation Comments Troponin I (test code = JTA0338) 0.002 0-0.300 [facility] CenterCreatine Kinase PC3825-75-84 12:08:00* Test Item Value Reference Range Interpretation Comments Creatine Kinase MB (test code = 70522-9) 1.00 0-5.0 [facility] G5638-10-49 12:08:00* Test Item Value Reference Range Interpretation Comments Troponin I (test code = FQX2681) 0.002 0-0.300 [facility] CenterThyroid Stimulating Hormone (TSH) 2019-01-15 11:46:00* Test Item Value Reference Range Interpretation Comments Thyroid Stimulating Hormone (TSH) (test code = 46256-3) 1.585 0.350-4.940 [facility] CenterThyroid Stimulating Hormone (TSH) 2019-01-15 11:46:00* Test Item Value Reference Range Interpretation Comments Thyroid Stimulating Hormone (TSH) (test code = 68970-1) 1.585 0.350-4.940 [facility] CenterCT ABDOMEN/PELVIS XL4781-50-53 11:46:00 [facility] [address] [address] Patient Name: KATELYN CERVANTES MR #: [id number] : 1955 Age/Sex: 63/M Req #: [id number] Adm Physician: EMMA CHAVIRA MD Ordered by: JUAREZ GIBSON, MARTA GIBSON Report #: [id number] Location: [facility] Room/Bed: [place] [address] Procedure: 0712-[address]/CT ABDOMEN/PELVIS WO Exam Date: 01/15/19 Exam Time: 1115 REPORT STATUS: Signed EXAM: CT ABDOMEN AND PELVIS without IV CONTRAST INDICATION: No urination. COMPARISON: CT abdomen/pelvis 05/21/2018. TECHNIQUE: The abdomen and pelvis were scanned using a multidetector helical scanner. Coronal and sagit dacia reformations were obtained. Dose modulation, iterative reconstruction, and /or weight based adjustment of the mA/kV was utilized to reduce the radiation dose to as low as reasonably achievable. Renal stone protocol performed. IV Contrast: None Oral Contrast: None CTDIvol has been reviewed. It is below th e limits set by the Radiation Protocol Committee (RPC). FINDINGS: LOWER THORAX: No consolidations LIVER: No masses BILIARY: Cholelithiasis witho ut evidence of acute cholecystitis. SPLEEN: No masses PANCREAS: No sujata s ADRENALS: No nodules KIDNEYS: Interval resolution of right distal ur eteral stone. No evidence of solid renal mass or hydronephrosis. Punctate non obstructing stone in the interpolar region of the left kidney. There are sever al simple parapelvic cysts. GI TRACT: No wall thickening or obstruction. Normal appendix. VESSELS: Unremarkable PERITONEUM/RETROPERITONEUM: No free air or fluid LYMPH NODES: No lymphadenopathy REPRODUCTIVE ORGANS: Normal BLADDER: Normal SOFT TISSUES: Generator for lumbar spine intrathe chilango device in right anterior lower abdominal wall soft tissues. BONES: Surgi chilango changes of the lower lumbar spine L3-L5. There has been interval progressi on of vertebral body height loss at T12, now moderate, previously mild. IMPRESSION: Interval resolution of right distal ureteral stone. Punctate nonob structing left interpolar stone. Interval progression of vertebral body h eight loss at T12, now moderate, previously mild. Signed by: Dr. Ame Carpenter MD on 01/15/2019 11:54 AM Dictated By: AME CARPENTER MD 1154 Transcribed By: MENDY on 01/15/19 1 154 COPY TO: MARTA PIZARRO B-Type Natriuretic Lewdqwt1212-13-46 10:50:00* Test Item Value Reference Range Interpretation Comments B-Type Natriuretic Peptide (test code = 59509-2) < 12.0 0-100 [facility] CenterB-Type Natriuretic Elmwjee3450-71-30 10:50:00* Test Item Value Reference Range Interpretation Comments B-Type Natriuretic Peptide (test code = 45978-4) < 12.0 0-100 [facility] CenterCreatine Jlcntd4509-10-30 10:38:00* Test Item Value Reference Range Interpretation Comments Creatine Kinase (test code = 2157-6) 58 30-200 [facility] CenterLipase2019-07-12 10:38:00* Test Item Value Reference Range Interpretation Comments Lipase (test code = 3040-3) 11 [facility] CenterCreatine Xrukfr7939-97-32 10:38:00* Test Item Value Reference Range Interpretation Comments Creatine Kinase (test code = 2157-6) 58 30-200 [facility] CenterLipase2019-07-12 10:38:00* Test Item Value Reference Range Interpretation Comments Lipase (test code = 3040-3) 11 [facility] CenterProthrombin Vjoc3206-62-03 10:29:00* Test Item Value Reference Range Interpretation Comments Prothrombin Time (test code = 5902-2) 13.3 11.9-14.5 [facility] CenterProthromb Time International Ratio 2019-01-15 10:29:00* Test Item Value Reference Range Interpretation Comments Prothromb Time International Ratio (test code = 6301-6) 0.96 Oral Anticoagulant Therapy INR Values:1. Low Intensity Therapy 1.5 - 2.02 . Moderate Intensity Therapy 2.0 - 3.03. High Intensity Therapy(1) 2.5 - 3. 54. High Intensity Therapy(2) 3.0 - 4.05. Panic Value INR > 5.0 [facility] CenterActivated Partial Thromboplast Time 2019-01-15 10:29:00* Test Item Value Reference Range Interpretation Comments Activated Partial Thromboplast Time (test code = 88113-1) 26.7 23.8-35.5 [facility] CenterProthrombin Leqb1779-80-39 10:29:00* Test Item Value Reference Range Interpretation Comments Prothrombin Time (test code = 5902-2) 13.3 11.9-14.5 [facility] CenterProthromb Time International Ratio 2019-01-15 10:29:00* Test Item Value Reference Range Interpretation Comments Prothromb Time International Ratio (test code = 6301-6) 0.96 Oral Anticoagulant Therapy INR Values:1. Low Intensity Therapy 1.5 - 2.02 . Moderate Intensity Therapy 2.0 - 3.03. High Intensity Therapy(1) 2.5 - 3. 54. High Intensity Therapy(2) 3.0 - 4.05. Panic Value INR > 5.0 [facility] CenterActivated Partial Thromboplast Time 2019-01-15 10:29:00* Test Item Value Reference Range Interpretation Comments Activated Partial Thromboplast Time (test code = 60158-0) 26.7 23.8-35.5 [facility] CenterCHEST SINGLE (PORTABLE)2019-01-15 10:10:00 [address] [place] [address] Patient Name: KATELYN CERVANTES MR #: [id number] : 1955 Age/Sex: 63/M Req #: [id number] Adm Physician: Ordered by: MARTA PIZARRO MD, MD Report #: [id number] Location: ER Room/Bed: Procedure: 0712-0 026 DX/CHEST SINGLE (PORTABLE) Exam Date: 01/15/19 E xam Time: 1000 REPORT STATUS: Genevieve d EXAMINATION: CHEST SINGLE (PORTABLE) INDICATION: Kidney dysfuncti on. COMPARISON: Chest radiograph 07/24/2018. FINDINGS: The left lateral hemithorax and costophrenic angle is partially excluded from the fiel d-of-view. TUBES and LINES: None. LUNGS: Lungs are moderately infla gege. Mild patchy right infrahilar opacity. No evidence of pulmonary edema. PLEURA: No pleural effusion or pneumothorax. HEART AND MEDIASTINUM: The cardiomediastinal silhouette is unremarkable. BONES AND SOFT TISSUES: No acute osseous abnormality. UPPER ABDOMEN: No free air under the diaphr agm. IMPRESSION: Right medial basilar opacity may represent atelecta sis or early pneumonia in the appropriate clinical setting. Suggest follow-up chest radiograph in 6-8 weeks to assess for resolution. No evidence of pu lmonary edema. Signed by: Dr. Ame Carpenter MD on 01/15/2019 10:13 AM D ictated By: AME CARPENTER MD 1 013 Transcribed By: MENDY on 01/15/19 1013 COPY TO: MARTA PIZARRO ABDOMEN-1VIEW (KUB)2018-07-24 11:05:00 [place] [address] Patient Name: KATELYN CERVANTES MR #: [id number] : 1955 Age/Sex: 63/M Req #: [id number] Adm Physician: Ordered by: TORITO CRAFT MD Report #: [id number] Location: OR Room/Bed: Procedure: 1402-1965 DX/ ABDOMEN-1VIEW (KUB) Exam Date: 07/24/18 Exam Time: 0 920 REPORT STATUS: Signed Exa m: Abdominal film Clinical History: Preoperative study for renal calculi Comparison: Lumbar spine CT 05/21/2018, retrograde pyelogram 06/20/2018 DISCUSSION: Interval placement of a right internal ureteral stent, with the p roximal locking loop projecting over the renal pelvis and the distal locking l oop projecting over the urinary bladder at midline. Distal right ureteral calc ulus seen on the comparison lumbar spine CT is no longer visualized. No suspic ious calcifications project along the ureteral stent. Multiple pelvic phleboli ths. No suspicious calcifications project over the left renal shadow. Spina l stimulator device and lumbar spine fusion hardware are again noted. Diffu se osteopenia without acute osseous abnormality. Multiple peripherally calcifi ed gallstones project over the right upper quadrant. IMPRESSION: Inter rob placement of right internal ureteral stent without residual calculus ident ified. Signed by: Dr. Lety Torres M.D. on 07/24/2018 11:08 AM Dictated By: LETY TORRES MD 07 Transcribed By: MENDY on 07/24/181107 COPY TO: TORITO LANDA MD CHEST 2 ILFHU0099-58-97 09:48:00 [address] [address] Patient Name: KATELYN CERVANTES MR #: [id number] : 1955 Age/Sex: 63/M Req #: [id number] Adm Physician: Ordered by: TORITO CRAFT MD Report #: [id number] Location: OR Room/Bed: Procedure: [id number] DX/ CHEST 2 VIEWS Exam Date: 07/24/18 Exam Time: 919 REPORT STATUS: Signed EXAMINATI ON: PA and lateral views of the chest. COMPARISON: 07/02/2018 CLINICAL HISTORY: Preoperative study, renal stones DISCUSSION: The lungs are well-inflated and without focal consolidation, pleural effusion, or pneum othorax. Right infrahilar airspace disease described on the comparison study i s no longer evident. Cardiomediastinal contour and pulmonary vasculature ar e within normal limits. No acute osseous abnormality. Spinal stimulator device is noted projecting over the lower thoracic and upper lumbar pedicles. I MPRESSION: No acute cardiopulmonary abnormality. Signed by: Dr. Lety Torres M.D. on 07/24/2018 9:50 AM Dictated By: LETY Olguin Transcribed By: MENDY on 07/24/1850 COPY TO: TORITO CRAFT MD B-Type Natriuretic Jsuwpoa9198-64-01 20:53:00* Test Item Value Reference Range Interpretation Comments B-Type Natriuretic Peptide (test code = 04692-8) 35.7 0-100 [facility] Gunbs9090-56-51 19:55:00* Test Item Value Reference Range Interpretation Comments Sodium Level (test code = 2951-2) 137 136-145 [facility]assium Czwxs8214-14-03 19:55:00* Test Item Value Reference Range Interpretation Comments Potassium Level (test code = 2823-3) 3.9 3.5-5.1 [facility] CenterChloride Ylvaz4228-42-13 19:55:00* Test Item Value Reference Range Interpretation Comments Chloride Level (test code = 2075-0) 105 98-107 [facility] CenterCarbon Dioxide Wzusn3747-77-99 19:55:00* Test Item Value Reference Range Interpretation Comments Carbon Dioxide Level (test code = 2028-9) 23 22-29 [facility] CenterAnion Xdm6791-26-25 19:55:00* Test Item Value Reference Range Interpretation Comments Anion Gap (test code = 28140-1) 12.9 8-16 [facility] CenterBlood Urea Pvkgmdgr1804-53-27 19:55:00* Test Item Value Reference Range Interpretation Comments Blood Urea Nitrogen (test code = 3094-0) 12 7-26 [facility] CenterCreatinine2018-12-27 19:55:00* Test Item Value Reference Range Interpretation Comments Creatinine (test code = 2160-0) 0.83 0.72-1.25 [facility] CenterBUN/Creatinine Nsaqd2615-14-14 19:55:00* Test Item Value Reference Range Interpretation Comments BUN/Creatinine Ratio (test code = 3097-3) 14 12-29 [facility] CenterEstimat Glomerular Filtration Rate 2018-07-02 19:55:00* Test Item Value Reference Range Interpretation Comments Estimat Glomerular Filtration Rate (test code = 427232750) > 60 >60 Ranges were taken from the National Kidney Disease Education Program and the [facility] [employer] literature.Reference ranges:60 or greater: Bjshii31-02 ( for 3 consecutive months): Chronic kidney disease 15 or less: Kidney failureValley Regional Medical CenterGlucose Yjfnh9325-66-97 19:55:00* Test Item Value Reference Range Interpretation Comments Glucose Level (test code = HRZ4506) 96 74-118 [facility] CenterCalcium Nsoln6002-26-27 19:55:00* Test Item Value Reference Range Interpretation Comments Calcium Level (test code = 48180-2) 8.6 8.4-10.2 [facility] CenterTotal Npbezrkue9019-62-43 19:55:00* Test Item Value Reference Range Interpretation Comments Total Bilirubin (test code = 1975-2) 0.8 0.2-1.2 [facility] CenterAspartate Amino Transf (AST/SGOT) 2018-07-02 19:55:00* Test Item Value Reference Range Interpretation Comments Aspartate Amino Transf (AST/SGOT) (test code = Aspartate Amino Transf (AST/SGOT)) 29 5-34 [facility] CenterAlanine Aminotransferase (ALT/SGPT) 2018-07-02 19:55:00* Test Item Value Reference Range Interpretation Comments Alanine Aminotransferase (ALT/SGPT) (test code = 1742-6) 35 0-55 [facility] CenterTotal Plxindm4633-90-15 19:55:00* Test Item Value Reference Range Interpretation Comments Total Protein (test code = 2885-2) 6.5 6.5-8.1 [facility] CenterAlbumin2018-12-27 19:55:00* Test Item Value Reference Range Interpretation Comments Albumin (test code = 1751-7) 3.2 3.5-5.0 L [facility] CenterGlobulin2018-12-27 19:55:00* Test Item Value Reference Range Interpretation Comments Globulin (test code = 92062-8) 3.3 2.3-3.5 [facility] CenterAlbumin/Globulin Tsurm9498-28-53 19:55:00 * Test Item Value Reference Range Interpretation Comments Albumin/Globulin Ratio (test code = 1759-0) 1.0 0.8-2.0 [facility] CenterAlkaline Lnkxnrpnbnt3374-18-40 19:55:00* Test Item Value Reference Range Interpretation Comments Alkaline Phosphatase (test code = 6768-6) 190 40-150 H [facility] CenterWhite Blood Uskhk8366-48-81 19:43:00* Test Item Value Reference Range Interpretation Comments White Blood Count (test code = 6690-2) 4.00 4.8-10.8 L [facility] CenterRed Blood Shlnm7733-62-46 19:43:00* Test Item Value Reference Range Interpretation Comments Red Blood Count (test code = 789-8) 3.78 4.3-5.7 L [facility] CenterHemoglobin2018-12-27 19:43:00* Test Item Value Reference Range Interpretation Comments Hemoglobin (test code = 41776-1) 14.1 14.0-18.0 [facility] CenterHematocrit2018-12-27 19:43:00* Test Item Value Reference Range Interpretation Comments Hematocrit (test code = 4544-3) 40.6 38.2-49.6 [facility] CenterMean Corpuscular Vrsxyx3902-66-33 19:43:00* Test Item Value Reference Range Interpretation Comments Mean Corpuscular Volume (test code = 787-2) 107.4 81-99 H [facility] CenterMean Corpuscular Ocivtiwzec9393-80-02 19:43:00* Test Item Value Reference Range Interpretation Comments Mean Corpuscular Hemoglobin (test code = 785-6) 37.3 28-32 H [facility] CenterMean Corpuscular Hemoglobin Concent 2018-07-02 19:43:00* Test Item Value Reference Range Interpretation Comments Mean Corpuscular Hemoglobin Concent (test code = 786-4) 34.7 31-35 [facility] CenterRed Cell Distribution Jhpps0337-03-90 19:43:00* Test Item Value Reference Range Interpretation Comments Red Cell Distribution Width (test code = 76526-0) 13.4 11.7 -14.4 [facility] CenterPlatelet Nfprt5657-33-53 19:43:00* Test Item Value Reference Range Interpretation Comments Platelet Count (test code = 777-3) 108 140-360 L [facility] CenterNeutrophils (%) (Auto)2018-07-02 19:43:00 * Test Item Value Reference Range Interpretation Comments Neutrophils (%) (Auto) (test code = 17675-7) 66.5 38.7-80.0 [facility] CenterLymphocytes (%) (Auto)2018-07-02 19:43:00 * Test Item Value Reference Range Interpretation Comments Lymphocytes (%) (Auto) (test code = 736-9) 24.5 18.0-39.1 [facility] CenterMonocytes (%) (Auto)2018-07-02 19:43:00* Test Item Value Reference Range Interpretation Comments Monocytes (%) (Auto) (test code = 5905-5) 5.5 4.4-11.3 [facility] CenterEosinophils (%) (Auto)2018-07-02 19:43:00 * Test Item Value Reference Range Interpretation Comments Eosinophils (%) (Auto) (test code = 713-8) 2.5 0.0-6.0 [facility] CenterBasophils (%) (Auto)2018-07-02 19:43:00* Test Item Value Reference Range Interpretation Comments Basophils (%) (Auto) (test code = 706-2) 0.5 0.0-1.0 [facility] CenterIM GRANULOCYTES %2018-07-02 19:43:00* Test Item Value Reference Range Interpretation Comments IM GRANULOCYTES % (test code = IM GRANULOCYTES %) 0.5 0.0- 1.0 [facility] CenterNeutrophils # (Auto)2018-07-02 19:43:00* Test Item Value Reference Range Interpretation Comments Neutrophils # (Auto) (test code = 751-8) 2.7 2.1-6.9 [facility] CenterLymphocytes # (Auto)2018-07-02 19:43:00* Test Item Value Reference Range Interpretation Comments Lymphocytes # (Auto) (test code = 67038-0) 1.0 1.0-3.2 [facility] CenterMon[facility] # (Auto)2018-07-02 19:43:00* Test Item Value Reference Range Interpretation Comments Monocytes # (Auto) (test code = 742-7) 0.2 0.2-0.8 [facility] CenterEosinophils # (Auto)2018-07-02 19:43:00* Test Item Value Reference Range Interpretation Comments Eosinophils # (Auto) (test code = 711-2) 0.1 0.0-0.4 [facility] CenterBasophils # (Auto)2018-07-02 19:43:00* Test Item Value Reference Range Interpretation Comments Basophils # (Auto) (test code = 704-7) 0.0 0.0-0.1 [facility] CenterAbsolute Immature Granulocyte (auto 2018-07-02 19:43:00* Test Item Value Reference Range Interpretation Comments Absolute Immature Granulocyte (auto (kendra t code = Absolute Immature Granulocyte (auto) 0.02 0-0.1 [facility]2018-07-02 19:26:00 [facility] [address] [address] Patient Name: KATELYN CERVANTES MR #: [id number] : 1955 Age/Sex: 63/M Req #: [id number] Adm Physician: Ordered by: KATE STOUT MD Report #: [id number] Location: ER Room/Bed: Procedure: [id number] DX/CHEST SINGLE (PORTABLE) Exam Date: Exam Time: REPORT STATUS: Signed EXAMINATION: CHEST SINGLE (PORTABLE) INDICATION: SHORT OF BREATH ROSE MARY RISON: None FINDINGS: AP view TUBES and LINES: None. L UNGS: Lungs are well inflated. Bilateral perihilar airspace opacities especia lly in the right infrahilar region. PLEURA: No pleural effusion or pneumot horax. HEART AND MEDIASTINUM: The cardiomediastinal silhouette is unremark able. BONES AND SOFT TISSUES: No acute osseous lesion. Soft tissues a re unremarkable. UPPER ABDOMEN: No free air under the diaphragm. IMPRESSION: Bilateral perihilar airspace opacity predominantly in the right infrahilar region. This likely represents pulmonary edema. Correlate for possi ble infectious etiology. Signed by: Dr. Curt Eaton M.D. on 07/02/2018 7: 27 PM Dictated By: CURT EATON MD 26 COPY TO: JOSE STOUT RD, MD Sodium Tntni9097-02-56 08:50:00* Test Item Value Reference Range Interpretation Comments Sodium Level (test code = 2951-2) 135 136-145 L [facility] CenterPotassium Ajiur4595-49-84 08:50:00* Test Item Value Reference Range Interpretation Comments Potassium Level (test code = 2823-3) 5.4 3.5-5.1 H [facility] CenterChloride Qxrhv5952-45-33 08:50:00* Test Item Value Reference Range Interpretation Comments Chloride Level (test code = 2075-0) 107 98-107 [facility] CenterCarbon Dioxide Fkqrn4630-79-81 08:50:00* Test Item Value Reference Range Interpretation Comments Carbon Dioxide Level (test code = 2028-9) 18 22-29 L [facility] CenterAnion Cyh0358-83-45 08:50:00* Test Item Value Reference Range Interpretation Comments Anion Gap (test code = 98381-6) 15.4 8-16 [facility] CenterBlood Urea Ajredbsr7249-97-01 08:50:00* Test Item Value Reference Range Interpretation Comments Blood Urea Nitrogen (test code = 3094-0) 12 7-26 [facility] CenterCreatinine2018-12-16 08:50:00* Test Item Value Reference Range Interpretation Comments Creatinine (test code = 2160-0) 0.78 0.72-1.25 [facility] CenterBUN/Creatinine Ermwa6394-73-64 08:50:00* Test Item Value Reference Range Interpretation Comments BUN/Creatinine Ratio (test code = 3097-3) 15 6-25 [facility] CenterEstimat Glomerular Filtration Rate 2018-06-21 08:50:00* Test Item Value Reference Range Interpretation Comments Estimat Glomerular Filtration Rate (test code = 387753967) > 60 >60 Ranges were taken from the National Kidney Disease Education Program and the [facility] Kidney Foundation literature.Reference ranges:60 or greater: Motzey03-51 ( for 3 consecutive months): Chronic kidney disease 15 or less: Kidney failureValley Regional Medical CenterGlucose Nccid3571-76-12 08:50:00* Test Item Value Reference Range Interpretation Comments Glucose Level (test code = IIA9058) 151 74-118 H [facility] CenterCalcium Mmewu2889-05-41 08:50:00* Test Item Value Reference Range Interpretation Comments Calcium Level (test code = 23437-3) 8.2 8.4-10.2 L [facility] CenterWhite Blood Ardeo0905-31-54 08:30:00* Test Item Value Reference Range Interpretation Comments White Blood Count (test code = 6690-2) 9.65 4.8-10.8 [facility] CenterRed Blood Ixpep2900-81-48 08:30:00* Test Item Value Reference Range Interpretation Comments Red Blood Count (test code = 789-8) 3.66 4.3-5.7 L [facility] CenterHemoglobin2018-12-16 08:30:00* Test Item Value Reference Range Interpretation Comments Hemoglobin (test code = 61850-5) 13.7 14.0-18.0 L [facility] CenterHematocrit2018-12-16 08:30:00* Test Item Value Reference Range Interpretation Comments Hematocrit (test code = 4544-3) 38.0 38.2-49.6 L [facility] CenterMean Corpuscular Qxgcjx8512-55-64 08:30:00* Test Item Value Reference Range Interpretation Comments Mean Corpuscular Volume (test code = 787-2) 103.8 81-99 H [facility] CenterMean Corpuscular Omnioitwun6519-47-80 08:30:00* Test Item Value Reference Range Interpretation Comments Mean Corpuscular Hemoglobin (test code = 785-6) 37.4 28-32 H [facility] CenterMean Corpuscular Hemoglobin Concent 2018-06-21 08:30:00* Test Item Value Reference Range Interpretation Comments Mean Corpuscular Hemoglobin Concent (test code = 786-4) 36.1 31-35 H [facility] CenterRed Cell Distribution Cxzof5321-54-17 08:30:00* Test Item Value Reference Range Interpretation Comments Red Cell Distribution Width (test code = 48778-7) 12.9 11.7 -14.4 [facility] CenterPlatelet Uydwk8410-37-33 08:30:00* Test Item Value Reference Range Interpretation Comments Platelet Count (test code = 777-3) 103 140-360 L [facility] CenterNeutrophils (%) (Auto)2018-06-21 08:30:00 * Test Item Value Reference Range Interpretation Comments Neutrophils (%) (Auto) (test code = 00144-1) 85.6 38.7-80.0 H [facility] CenterLymphocytes (%) (Auto)2018-06-21 08:30:00 * Test Item Value Reference Range Interpretation Comments Lymphocytes (%) (Auto) (test code = 736-9) 6.5 18.0-39.1 L [facility] CenterMonocytes (%) (Auto)2018-06-21 08:30:00* Test Item Value Reference Range Interpretation Comments Monocytes (%) (Auto) (test code = 5905-5) 6.8 4.4-11.3 [facility] CenterEosinophils (%) (Auto)2018-06-21 08:30:00 * Test Item Value Reference Range Interpretation Comments Eosinophils (%) (Auto) (test code = 713-8) 0.4 0.0-6.0 [facility] CenterBasophils (%) (Auto)2018-06-21 08:30:00* Test Item Value Reference Range Interpretation Comments Basophils (%) (Auto) (test code = 706-2) 0.1 0.0-1.0 [facility] CenterIM GRANULOCYTES %2018-06-21 08:30:00* Test Item Value Reference Range Interpretation Comments IM GRANULOCYTES % (test code = IM GRANULOCYTES %) 0.6 0.0- 1.0 [facility] CenterNeutrophils # (Auto)2018-06-21 08:30:00* Test Item Value Reference Range Interpretation Comments Neutrophils # (Auto) (test code = 751-8) 8.3 2.1-6.9 H [facility] CenterLymphocytes # (Auto)2018-06-21 08:30:00* Test Item Value Reference Range Interpretation Comments Lymphocytes # (Auto) (test code = 11548-1) 0.6 1.0-3.2 L [facility] CenterMonocytes # (Auto)2018-06-21 08:30:00* Test Item Value Reference Range Interpretation Comments Monocytes # (Auto) (test code = 742-7) 0.7 0.2-0.8 [facility] CenterEosinophils # (Auto)2018-06-21 08:30:00* Test Item Value Reference Range Interpretation Comments Eosinophils # (Auto) (test code = 711-2) 0.0 0.0-0.4 [facility] CenterBasophils # (Auto)2018-06-21 08:30:00* Test Item Value Reference Range Interpretation Comments Basophils # (Auto) (test code = 704-7) 0.0 0.0-0.1 [facility] CenterAbsolute Immature Granulocyte (auto 2018-06-21 08:30:00* Test Item Value Reference Range Interpretation Comments Absolute Immature Granulocyte (auto (kendra t code = Absolute Immature Granulocyte (auto) 0.06 0-0.1 [facility] CenterParathyroid Zrksexs7206-50-64 06:18:00* Test Item Value Reference Range Interpretation Comments Parathyroid Hormone (test code = 2731-8) 39 15-65 [facility] CenterCalcium (Send out)2018-05-23 06:18:00* Test Item Value Reference Range Interpretation Comments Calcium (Send out) (test code = 65741-4) 8.2 8.6-10.2 L [facility] CenterParathyroid Hormone Interpretation 2018-05-23 06:18:00* Test Item Value Reference Range Interpretation Comments Parathyroid Hormone Interpretation (test code = Parathyroid Hormone Interpretation) Comment . Interpretation Intact PTH Calcium (pg/mL) (mg/dL)Normal 15 - 65 8.6 - 10.2Pr imary Hyperparathyroidism >65 >10.2Secondary Hyperparathyroidism >65 <10.2Non-Parathyroid Hypercalcemia <65 >10.2Hypoparathyroidism <15 < 8.6Non- Parathyroid Hypocalcemia 15 - 65 < 8.6Performed at: [employer] [id number] Director: Ortiz Nielson MD, Phone: [phone] at: [facility] [address] [id number] Director: Kami Trivedi MD, Phone: [phone] Regional Medical CenterParathyroid Ieqsqlv3687-09-53 06:18:00* Test Item Value Reference Range Interpretation Comments Parathyroid Hormone (test code = 2731-8) 39 15-65 [facility] CenterCalcium (Send out)2018-05-23 06:18:00* Test Item Value Reference Range Interpretation Comments Calcium (Send out) (test code = 78101-1) 8.2 8.6-10.2 L [facility] CenterParathyroid Hormone Interpretation 2018-05-23 06:18:00* Test Item Value Reference Range Interpretation Comments Parathyroid Hormone Interpretation (test code = Parathyroid Hormone Interpretation) Comment . Interpretation Intact PTH Calcium (pg/mL) (mg/dL)Normal 15 - 65 8.6 - 10.2Pr imary Hyperparathyroidism >65 >10.2Secondary Hyperparathyroidism >65 <10.2Non-Parathyroid Hypercalcemia <65 >10.2Hypoparathyroidism <15 < 8.6Non- Parathyroid Hypocalcemia 15 - 65 < 8.6Performed at: [facility] [address] [id number] Director: Ortiz Nielson MD, Phone: [phone] at: [facility] [address] [id number] Director: Kami Trivedi MD, Phone: [phone] Regional Medical CenterParathyroid Tphqaam8936-16-42 06:18:00* Test Item Value Reference Range Interpretation Comments Parathyroid Hormone (test code = 2731-8) 39 15-65 [facility] CenterCalcium (Send out)2018-05-23 06:18:00* Test Item Value Reference Range Interpretation Comments Calcium (Send out) (test code = 97116-8) 8.2 8.6-10.2 L [facility] CenterParathyroid Hormone Interpretation 2018-05-23 06:18:00* Test Item Value Reference Range Interpretation Comments Parathyroid Hormone Interpretation (test code = Parathyroid Hormone Interpretation) Comment . Interpretation Intact PTH Calcium (pg/mL) (mg/dL)Normal 15 - 65 8.6 - 10.2Pr imary Hyperparathyroidism >65 >10.2Secondary Hyperparathyroidism >65 <10.2Non-Parathyroid Hypercalcemia <65 >10.2Hypoparathyroidism <15 < 8.6Non- Parathyroid Hypocalcemia 15 - 65 < 8.6Performed at: - [facility] [address] [id number] Director: Ortiz Nielson MD, Phone: [phone] at: - [facility] [address] [id number] Director: Kami Trivedi MD, Phone: [phone] Regional Medical CenterParathyroid Nolrwxn8570-88-57 06:18:00* Test Item Value Reference Range Interpretation Comments Parathyroid Hormone (test code = 2731-8) 39 15-65 [facility] CenterCalcium (Send out)2018-05-23 06:18:00* Test Item Value Reference Range Interpretation Comments Calcium (Send out) (test code = 11222-6) 8.2 8.6-10.2 L [facility] CenterParathyroid Hormone Interpretation 2018-05-23 06:18:00* Test Item Value Reference Range Interpretation Comments Parathyroid Hormone Interpretation (test code = Parathyroid Hormone Interpretation) Comment . Interpretation Intact PTH Calcium (pg/mL) (mg/dL)Normal 15 - 65 8.6 - 10.2Pr imary Hyperparathyroidism >65 >10.2Secondary Hyperparathyroidism >65 <10.2Non-Parathyroid Hypercalcemia <65 >10.2Hypoparathyroidism <15 < 8.6Non- Parathyroid Hypocalcemia 15 - 65 < 8.6Performed at: HD - [facility] [address] [place], [place] [id number] Director: Ortiz Nielson MD, Phone: [phone] at: [facility] - [facility] [address] [place], [place] [id number] Director: Kami Trivedi MD, Phone: [phone] Memorial Hospitalodium Cexod3144-29-85 06:31:00* Test Item Value Reference Range Interpretation Comments Sodium Level (test code = 2951-2) 138 136-145 [facility] CenterPotassium Qcinb5700-72-58 06:31:00* Test Item Value Reference Range Interpretation Comments Potassium Level (test code = 2823-3) 3.9 3.5-5.1 [facility] CenterChloride Cqggt5959-43-15 06:31:00* Test Item Value Reference Range Interpretation Comments Chloride Level (test code = 2075-0) 109 98-107 H [facility] CenterCarbon Dioxide Fwszq0780-21-74 06:31:00* Test Item Value Reference Range Interpretation Comments Carbon Dioxide Level (test code = 2028-9) 22 22-29 [facility] CenterAnion Cpe7711-58-00 06:31:00* Test Item Value Reference Range Interpretation Comments Anion Gap (test code = 94512-7) 10.9 8-16 [facility] CenterBlood Urea Gggnquxe9550-77-03 06:31:00* Test Item Value Reference Range Interpretation Comments Blood Urea Nitrogen (test code = 3094-0) 8 7-26 [facility] CenterCreatinine2018-11-16 06:31:00* Test Item Value Reference Range Interpretation Comments Creatinine (test code = 2160-0) 0.75 0.72-1.25 [facility] CenterBUN/Creatinine Eikgi3084-37-58 06:31:00* Test Item Value Reference Range Interpretation Comments BUN/Creatinine Ratio (test code = 3097-3) 11 6-25 [facility] CenterEstimat Glomerular Filtration Rate 2018-05-22 06:31:00* Test Item Value Reference Range Interpretation Comments Estimat Glomerular Filtration Rate (test code = 169688841) > 60 >60 Ranges were taken from the National Kidney Disease Education Program and the [facility] Kidney Foundation literature.Reference ranges:60 or greater: Veaxew43-93 ( for 3 consecutive months): Chronic kidney disease 15 or less: Kidney failureValley Regional Medical CenterGlucose Yxrcf2795-83-35 06:31:00* Test Item Value Reference Range Interpretation Comments Glucose Level (test code = PES4319) 104 74-118 [facility] CenterCalcium Qclkw6890-62-43 06:31:00* Test Item Value Reference Range Interpretation Comments Calcium Level (test code = 09112-7) 8.3 8.4-10.2 L [facility] CenterUric Snez1338-54-46 06:31:00* Test Item Value Reference Range Interpretation Comments Uric Acid (test code = 3084-1) 5.0 4.0-8.0 [facility] CenterUric Vpsz1627-29-22 06:31:00* Test Item Value Reference Range Interpretation Comments Uric Acid (test code = 3084-1) 5.0 4.0-8.0 [facility] CenterUric Oetq2458-26-73 06:31:00* Test Item Value Reference Range Interpretation Comments Uric Acid (test code = 3084-1) 5.0 4.0-8.0 [facility] CenterUric Ybje9023-11-63 06:31:00* Test Item Value Reference Range Interpretation Comments Uric Acid (test code = 3084-1) 5.0 4.0-8.0 [facility] CenterWhite Blood Uipcr5341-21-11 06:18:00* Test Item Value Reference Range Interpretation Comments White Blood Count (test code = 6690-2) 8.06 4.8-10.8 [facility] CenterRed Blood Ydltq6123-79-98 06:18:00* Test Item Value Reference Range Interpretation Comments Red Blood Count (test code = 789-8) 3.52 4.3-5.7 L [facility] CenterHemoglobin2018-11-16 06:18:00* Test Item Value Reference Range Interpretation Comments Hemoglobin (test code = 77180-0) 13.3 14.0-18.0 L [facility] CenterHematocrit2018-11-16 06:18:00* Test Item Value Reference Range Interpretation Comments Hematocrit (test code = 4544-3) 39.0 38.2-49.6 [facility] CenterMean Corpuscular Fjkxxf7101-84-52 06:18:00* Test Item Value Reference Range Interpretation Comments Mean Corpuscular Volume (test code = 787-2) 110.8 81-99 H [facility] CenterMean Corpuscular Gjhiwjeobv7067-44-62 06:18:00* Test Item Value Reference Range Interpretation Comments Mean Corpuscular Hemoglobin (test code = 785-6) 37.8 28-32 H [facility] CenterMean Corpuscular Hemoglobin Concent 2018-05-22 06:18:00* Test Item Value Reference Range Interpretation Comments Mean Corpuscular Hemoglobin Concent (test code = 786-4) 34.1 31-35 [facility] CenterRed Cell Distribution Dolbb7534-46-06 06:18:00* Test Item Value Reference Range Interpretation Comments Red Cell Distribution Width (test code = 54545-2) 14.1 11.7 -14.4 [facility] CenterPlatelet Qdbeg7278-19-04 06:18:00* Test Item Value Reference Range Interpretation Comments Platelet Count (test code = 777-3) 173 140-360 [facility] CenterNeutrophils (%) (Auto)2018-05-22 06:18:00 * Test Item Value Reference Range Interpretation Comments Neutrophils (%) (Auto) (test code = 96677-2) 74.0 38.7-80.0 [facility] CenterLymphocytes (%) (Auto)2018-05-22 06:18:00 * Test Item Value Reference Range Interpretation Comments Lymphocytes (%) (Auto) (test code = 736-9) 17.4 18.0-39.1 L [facility] CenterMonocytes (%) (Auto)2018-05-22 06:18:00* Test Item Value Reference Range Interpretation Comments Monocytes (%) (Auto) (test code = 5905-5) 7.8 4.4-11.3 [facility] CenterEosinophils (%) (Auto)2018-05-22 06:18:00 * Test Item Value Reference Range Interpretation Comments Eosinophils (%) (Auto) (test code = 713-8) 0.1 0.0-6.0 [facility] CenterBasophils (%) (Auto)2018-05-22 06:18:00* Test Item Value Reference Range Interpretation Comments Basophils (%) (Auto) (test code = 706-2) 0.1 0.0-1.0 [facility] CenterIM GRANULOCYTES %2018-05-22 06:18:00* Test Item Value Reference Range Interpretation Comments IM GRANULOCYTES % (test code = IM GRANULOCYTES %) 0.6 0.0- 1.0 [facility] CenterNeutrophils # (Auto)2018-05-22 06:18:00* Test Item Value Reference Range Interpretation Comments Neutrophils # (Auto) (test code = 751-8) 6.0 2.1-6.9 [facility] CenterLymphocytes # (Auto)2018-05-22 06:18:00* Test Item Value Reference Range Interpretation Comments Lymphocytes # (Auto) (test code = 53478-5) 1.4 1.0-3.2 [facility] CenterMonocytes # (Auto)2018-05-22 06:18:00* Test Item Value Reference Range Interpretation Comments Monocytes # (Auto) (test code = 742-7) 0.6 0.2-0.8 [facility] CenterEosinophils # (Auto)2018-05-22 06:18:00* Test Item Value Reference Range Interpretation Comments Eosinophils # (Auto) (test code = 711-2) 0.0 0.0-0.4 [facility] CenterBasophils # (Auto)2018-05-22 06:18:00* Test Item Value Reference Range Interpretation Comments Basophils # (Auto) (test code = 704-7) 0.0 0.0-0.1 [facility] CenterAbsolute Immature Granulocyte (auto 2018-05-22 06:18:00* Test Item Value Reference Range Interpretation Comments Absolute Immature Granulocyte (auto (kendra t code = Absolute Immature Granulocyte (auto) 0.05 0-0.1 [facility] CenterUrine NYO9681-32-12 06:09:00* Test Item Value Reference Range Interpretation Comments Urine WBC (test code = 5821-4) 0-5 0-5 [facility] OOQ7874-67-10 06:09:00* Test Item Value Reference Range Interpretation Comments Urine RBC (test code = 36103-8) 0-5 0-5 [facility] Dpxgdomd0572-88-14 06:09:00* Test Item Value Reference Range Interpretation Comments Urine Bacteria (test code = 28401-0) FEW NONE [facility] CenterUrine Epithelial Hvfap5669-70-04 06:09:00 * Test Item Value Reference Range Interpretation Comments Urine Epithelial Cells (test code = 81253-7) RARE NONE [facility] Oiemm6581-16-24 06:09:00* Test Item Value Reference Range Interpretation Comments Urine Mucus (test code = 8247-9) MANY RARE H [facility] CJQ7254-91-85 06:09:00* Test Item Value Reference Range Interpretation Comments Urine WBC (test code = 5821-4) 0-5 0-5 [facility] FJV0183-72-30 06:09:00* Test Item Value Reference Range Interpretation Comments Urine RBC (test code = 56571-2) 0-5 0-5 [facility] Fhmivnji2913-74-33 06:09:00* Test Item Value Reference Range Interpretation Comments Urine Bacteria (test code = 77910-4) FEW NONE [facility] CenterUrine Epithelial Iuvvb9621-43-01 06:09:00 * Test Item Value Reference Range Interpretation Comments Urine Epithelial Cells (test code = 28873-7) RARE NONE [facility] Ubtiq2688-80-60 06:09:00* Test Item Value Reference Range Interpretation Comments Urine Mucus (test code = 8247-9) MANY RARE H [facility] CenterUrine ROF7874-89-79 06:09:00* Test Item Value Reference Range Interpretation Comments Urine WBC (test code = 5821-4) 0-5 0-5 [facility] CenterUrine UHX3202-49-01 06:09:00* Test Item Value Reference Range Interpretation Comments Urine RBC (test code = 56925-1) 0-5 0-5 [facility] Ideoruuc3680-25-36 06:09:00* Test Item Value Reference Range Interpretation Comments Urine Bacteria (test code = 30979-4) FEW NONE [facility] Epithelial Sffsj9276-80-91 06:09:00 * Test Item Value Reference Range Interpretation Comments Urine Epithelial Cells (test code = 70808-3) RARE NONE [facility] Mhxse9832-62-51 06:09:00* Test Item Value Reference Range Interpretation Comments Urine Mucus (test code = 8247-9) MANY RARE H [facility] Fqhcr5898-38-61 06:09:00* Test Item Value Reference Range Interpretation Comments Urine Mucus (test code = 8247-9) MANY RARE H [facility] Yvcdg9938-12-43 05:56:00* Test Item Value Reference Range Interpretation Comments Urine Color (test code = 5778-6) YELLOW YELLOW [facility] Ewghdcc7717-68-05 05:56:00* Test Item Value Reference Range Interpretation Comments Urine Clarity (test code = 99204-2) CLEAR CLEAR [facility] CenterUrine Specific Fufdrfo8963-30-06 05:56:00 * Test Item Value Reference Range Interpretation Comments Urine Specific [place] (test code = 5811-5) 1.025 1.010-1.02 5 [facility] CenterUrine cL0254-76-66 05:56:00* Test Item Value Reference Range Interpretation Comments Urine pH (test code = 65556-5) 6 5-7 [facility] Leukocyte Myoywjuk0856-59-83 05:56:00* Test Item Value Reference Range Interpretation Comments Urine Leukocyte Esterase (test code = 5799-2) NEGATIVE NEGATIVE [facility] CenterUrine Aiqwqyr2732-87-81 05:56:00* Test Item Value Reference Range Interpretation Comments Urine Nitrite (test code = 41361-5) NEGATIVE NEGATIVE [facility] CenterUrine Wsfyaqg5619-03-31 05:56:00* Test Item Value Reference Range Interpretation Comments Urine Protein (test code = 5804-0) NEGATIVE NEGATIVE [facility] CenterUrine Glucose (UA)2018-05-21 05:56:00* Test Item Value Reference Range Interpretation Comments Urine Glucose (UA) (test code = 2349-9) NEGATIVE NEGATIVE [facility] CenterUrine Ygcosmf7525-90-48 05:56:00* Test Item Value Reference Range Interpretation Comments Urine Ketones (test code = 31350-1) NEGATIVE NEGATIVE [facility] CenterUrine Lvrtfrwdydgx3437-18-23 05:56:00* Test Item Value Reference Range Interpretation Comments Urine Urobilinogen (test code = 17942-6) 0.2 0.2-1 [facility] CenterUrine Obvjdfkvo7627-37-81 05:56:00* Test Item Value Reference Range Interpretation Comments Urine Bilirubin (test code = 1978-6) NEGATIVE NEGATIVE [facility] CenterUrine Pgefw3120-97-08 05:56:00* Test Item Value Reference Range Interpretation Comments Urine Blood (test code = 31237-2) TRACE NEGATIVE H [facility] CenterUrine Ijcwv0369-44-21 05:56:00* Test Item Value Reference Range Interpretation Comments Urine Color (test code = 5778-6) YELLOW YELLOW [facility] CenterUrine Ydwidip7290-41-53 05:56:00* Test Item Value Reference Range Interpretation Comments Urine Clarity (test code = 10185-9) [facility]AR [facility]AR [facility] [id number] 05:56:00 * Test Item Value Reference Range Interpretation Comments Urine Specific [place] (test code = 5811-5) 1.025 1.010-1.02 5 [facility] [id number] 05:56:00* Test Item Value Reference Range Interpretation Comments Urine pH (test code = 54118-8) 6 5-7 [facility] Leukocyte Ohjgrtvo3465-81-72 05:56:00* Test Item Value Reference Range Interpretation Comments Urine Leukocyte Esterase (test code = 5799-2) NEGATIVE NEGATIVE [facility] Fvuwenq2685-83-55 05:56:00* Test Item Value Reference Range Interpretation Comments Urine Nitrite (test code = 12374-8) NEGATIVE NEGATIVE [facility] Mpjhfii1459-12-51 05:56:00* Test Item Value Reference Range Interpretation Comments Urine Protein (test code = 5804-0) NEGATIVE NEGATIVE [facility] Glucose (UA)2018-05-21 05:56:00* Test Item Value Reference Range Interpretation Comments Urine Glucose (UA) (test code = 2349-9) NEGATIVE NEGATIVE [facility] Vkklhvk4588-20-79 05:56:00* Test Item Value Reference Range Interpretation Comments Urine Ketones (test code = 12574-7) NEGATIVE NEGATIVE [facility] Luijskfninwt7313-71-89 05:56:00* Test Item Value Reference Range Interpretation Comments Urine Urobilinogen (test code = 96726-4) 0.2 0.2-1 [facility] Ykqrgnzwz1256-32-19 05:56:00* Test Item Value Reference Range Interpretation Comments Urine Bilirubin (test code = 1978-6) NEGATIVE NEGATIVE [facility] Rtyop0295-84-57 05:56:00* Test Item Value Reference Range Interpretation Comments Urine Blood (test code = 97301-8) TRACE NEGATIVE H [facility] Rjomw5422-62-52 05:56:00* Test Item Value Reference Range Interpretation Comments Urine Color (test code = 5778-6) YELLOW YELLOW [facility] Iwfztzy6863-40-90 05:56:00* Test Item Value Reference Range Interpretation Comments Urine Clarity (test code = 38884-7) CLEAR CLEAR [facility] Specific Dpbfwyl1983-53-43 05:56:00 * Test Item Value Reference Range Interpretation Comments Urine Specific [place] (test code = 5811-5) 1.025 1.010-1.02 5 [facility] [id number] 05:56:00* Test Item Value Reference Range Interpretation Comments Urine pH (test code = 33419-3) 6 5-7 [facility] Leukocyte Pgykzmyv7818-99-21 05:56:00* Test Item Value Reference Range Interpretation Comments Urine Leukocyte Esterase (test code = 5799-2) NEGATIVE NEGATIVE [facility] Imhzwar4323-80-16 05:56:00* Test Item Value Reference Range Interpretation Comments Urine Nitrite (test code = 94782-7) NEGATIVE NEGATIVE [facility] Ltxyeyp8709-59-52 05:56:00* Test Item Value Reference Range Interpretation Comments Urine Protein (test code = 5804-0) NEGATIVE NEGATIVE [facility] Glucose (UA)2018-05-21 05:56:00* Test Item Value Reference Range Interpretation Comments Urine Glucose (UA) (test code = 2349-9) NEGATIVE NEGATIVE [facility] Hxkkseo5116-20-97 05:56:00* Test Item Value Reference Range Interpretation Comments Urine Ketones (test code = 35223-7) NEGATIVE NEGATIVE [facility] Wayvvqizlmpn7302-20-06 05:56:00* Test Item Value Reference Range Interpretation Comments Urine Urobilinogen (test code = 20586-8) 0.2 0.2-1 [facility] Spjdappjt5193-98-90 05:56:00* Test Item Value Reference Range Interpretation Comments Urine Bilirubin (test code = 1978-6) NEGATIVE NEGATIVE [facility] Xkulp4628-58-16 05:56:00* Test Item Value Reference Range Interpretation Comments Urine Blood (test code = 62876-4) TRACE NEGATIVE H [facility] [id number] 04:56:[address] [address] Patient Name: KATELYN CERVANTES MR #: [id number] : 1955 Age/Sex: 63/M Req #: [id number] Adm Physician: Ordered by: KADEN JAMES MD Report #: [id number] Location: ER Room/Bed: Procedure: 111000 3 CT/CT ABDOMEN/PELVIS WO Exam Date: Exam Time: REPORT STATUS: Signed EXAM: CT ABD OMEN AND PELVIS without IV CONTRAST INDICATION: Abdominal pain, bilateral fla nk pain COMPARISON: None TECHNIQUE: The abdomen and pelvis were scanned us ing a multidetector helical scanner. Coronal and sagittal reformations were ob tained. Dose modulation, iterative reconstruction, and/or weight based adjustm ent of the mA/kV was utilized to reduce the radiation dose to as low as reason ably achievable. Renal stone protocol performed. IV Contrast: None Oral Co ntrast: None CTDIvol has been reviewed. It is below the limits set by the [facility] Protocol Committee (RPC). FINDINGS: LOWER THORAX: No consolidatio ns LIVER: No masses BILIARY: Cholelithiasis without evidence of acute cho lecystitis. SPLEEN: No masses PANCREAS: No masses ADRENALS: No nodu les RIGHT KIDNEY: There is a 0.9 x 0.5 cm stone in the distal right ureter resulting in very mild hydroureter and no hydronephrosis. There are several simple parapelvic cysts. LEFT KIDNEY: Punctate nonobstructing stone in the interpolar region of the left kidney. No hydroureteronephrosis. Multiple simp le parapelvic cysts. GI TRACT: No wall thickening or obstruction. Normal ap pendix. VESSELS: Unremarkable PERITONEUM/RETROPERITONEUM: No free ai r or fluid LYMPH NODES: No lymphadenopathy REPRODUCTIVE ORGANS: Normal BLADDER: Normal SOFT TISSUES: Generator for lumbar spine intrathecal device in right buttock. BONES: Surgical changes of the lower lumbar spine L3-L5. Ag e-indeterminate compression fracture of T12 with approximately 30% loss of mid vertebral body height. Healing right posterior T12 rib fracture. IMPRESS ION: 1. Age indeterminate, but likely subacute compression fracture of the superior endplate of T12 with associated healing right posterior T12 rib fract ure. 2. There is a 0.9 x 0.5 cm stone in the distal right ureter resulting in minimal hydroureter and no hydronephrosis. Punctate nonobstructing stone in the left kidney. Signed by: Dr. Adryan Calderon M.D. on 05/21/2018 5: 06 AM Dictated By: ADRYAN CALDERON MD 5 Transcribed By: MENDY on 05/21/18505 COPY TO: KADEN JAMES MD CT LUMBAR SPINE [id number] 04:52:00 [place] [address] Patient Name: KATELYN CERVANTES MR #: [id number] : 1955 Age/Sex: 63/M Req #: [id number] Adm Physician: Ordered by: KADEN JAMES MD Report #: [id number] Location: ER Room/Bed: Procedure: 1115-[address]/CT LUMBAR SPINE WO Exam Date: 05/21/18 Exam Wander e: 0411 REPORT STATUS: Signed Hi story: Low back pain. Comparison studies: None Technique: Axial eric ges were obtained through the lumbar spine from T12-S1. Coronal and sagittal i mages reconstructed from the axial data. Dose modulation, iterative reconstruc tion, and/or weight based adjustment of the mA/kV was utilized to reduce the r adiation dose to as low as reasonably achievable. Intravenous contrast: None Findings: The usual 5 non-rib bearing lumbar vertebral bodies are pre sent. Alignment: Loss of normal lumbar lordosis is either positional or due to muscle spasm. No scoliosis. Soft tissues: 9.4 mm right ureter stone with mi ld dilatation of right ureter. Punctate left nephrolithiasis. Nonspecific li near radiopaque density (likely represents catheter) in the right lateral aspe ct of the spinal canal that extends from T11 (superior extent is beyond the fi eld of view) and terminates at level L4 into the left lateral aspect of the po sterior paraspinal soft tissues Paraspinal muscles: Fatty atrophy of posterior paraspinal muscles from L3 to S1. Sacroiliac joints: Mild degenerative valle ges in bilateral sacroiliac joints with decreased joint space, vacuum phenomen a and and subchondral sclerosis. Vertebrae: Age indeterminate possible acute or subacute superior endplate compression fracture with anterior wedging deformity and mild overriding of fracture fragment in the anterior margin of the vertebral body at level T12. No retropulsion of fracture fragment into the spinal canal. Approximately 40% loss of vertebral body height. Age indeterm inate possible subacute or early chronic fracture in the posterior aspect of r ight 12th rib with mild periosteal reaction and callus formation. Postoperativ e changes from prior posterior lumbar fusion from level L3-L5. Suboptimal eval uation at these level due to metallic streak artifacts. The metallic hardware is intact. Diffuse osseous demineralization. Degenerative changes: L 1-L2: Mild degenerative disc disease with endplate sclerosis. Disc bulge and facet arthrosis without significant canal stenosis. Severe right and mild left facet arthrosis. Mild bilateral foraminal stenosis. L2-L3 to L4-L5: Evaluation is significantly limited due to metallic streak artifacts. L5-S1 : Mild degenerative disc disease. No canal or foraminal stenosis. IMPR ESSION: 1. Age indeterminate possible acute or subacute superior endplate compression fracture and anterior wedging deformity with approximately 40% los s of vertebral body height at level T12. 2. Age indeterminate possible s ubacute or early chronic fracture in the right 12th rib with signs of healing. 3. Significant limitation of evaluation from level L3-L5 due to metallic streak artifact, status post posterior lumbar spine fusion. 4. Ligament, spinal cord and or vascular abnormalities cannot be excluded on the basis of t his examination. 5. A 9.4 mm right ureter stone, possibly better evaluated in dedicated CT abdomen and pelvis from the same day.. Signed by: Dr. Fareed M.D. on 05/21/2018 5:17 AM Dictated By: CAROLYN MAYO MD 6 Transcribed By: MENDY on 05/21/18516 COPY TO: KADEN JAMES MD Troponin I 2018-05-21 04:47:00* Test Item Value Reference Range Interpretation Comments Troponin I (test code = RRA8932) 0.013 0-0.300 [place] [id number] 04:47:00* Test Item Value Reference Range Interpretation Comments Troponin I (test code = TPG5729) 0.013 0-0.300 [place] [id number] 04:47:00* Test Item Value Reference Range Interpretation Comments Troponin I (test code = PBH0673) 0.013 0-0.300 [facility] [id number] 04:26:00* Test Item Value Reference Range Interpretation Comments Creatine Kinase MB (test code = 75804-3) 0.50 0-5.0 [facility] Kinase [id number] 04:26:00* Test Item Value Reference Range Interpretation Comments Creatine Kinase MB (test code = 87139-2) 0.50 0-5.0 [facility] Kinase [id number] 04:26:00* Test Item Value Reference Range Interpretation Comments Creatine Kinase MB (test code = 40601-4) 0.50 0-5.0 [facility] Rpdbdctdm3250-30-39 04:18:00* Test Item Value Reference Range Interpretation Comments Total Bilirubin (test code = 1975-2) 1.0 0.2-1.2 [facility] Amino Transf (AST/SGOT) 2018-05-21 04:18:00* Test Item Value Reference Range Interpretation Comments Aspartate Amino Transf (AST/SGOT) (test code = Aspartate Amino Transf (AST/SGOT)) 16 5-34 [facility] Aminotransferase (ALT/SGPT) 2018-05-21 04:18:00* Test Item Value Reference Range Interpretation Comments Alanine Aminotransferase (ALT/SGPT) (test code = 1742-6) 9 0-55 [facility] Tviefpv4316-85-30 04:18:00* Test Item Value Reference Range Interpretation Comments Total Protein (test code = 2885-2) 6.6 6.5-8.1 [facility]in2018-11-15 04:18:00* Test Item Value Reference Range Interpretation Comments Albumin (test code = 1751-7) 3.7 3.5-5.0 [facility]ulin2018-11-15 04:18:00* Test Item Value Reference Range Interpretation Comments Globulin (test code = 82272-9) 2.9 2.3-3.5 [facility]/Globulin Hazyy7710-51-08 04:18:00 * Test Item Value Reference Range Interpretation Comments Albumin/Globulin Ratio (test code = 1759-0) 1.3 0.8-2.0 [facility] CenterAlkaline Xkzzypvouks0619-36-50 04:18:00* Test Item Value Reference Range Interpretation Comments Alkaline Phosphatase (test code = 6768-6) 130 40-150 [facility] Ozwjsr9764-21-20 04:18:00* Test Item Value Reference Range Interpretation Comments Creatine Kinase (test code = 2157-6) 38 30-200 [facility]ase2018-11-15 04:18:00* Test Item Value Reference Range Interpretation Comments Lipase (test code = 3040-3) 19 8-78 [facility] Wntnaqvbo3016-29-72 04:18:00* Test Item Value Reference Range Interpretation Comments Total Bilirubin (test code = 1975-2) 1.0 0.2-1.2 [facility] Center[facility]art[facility] Amino Transf (AST/SGOT) 2018-05-21 04:18:00* Test Item Value Reference Range Interpretation Comments Aspartate Amino Transf (AST/SGOT) (test code = Aspartate Amino Transf (AST/SGOT)) 16 5-34 [facility] Center[facility] Aminotransferase (ALT/SGPT) 2018-05-21 04:18:00* Test Item Value Reference Range Interpretation Comments Alanine Aminotransferase (ALT/SGPT) (test code = 1742-6) 9 0-55 [facility] Zcpjaii1727-95-51 04:18:00* Test Item Value Reference Range Interpretation Comments Total Protein (test code = 2885-2) 6.6 6.5-8.1 [facility]2018-11-15 04:18:00* Test Item Value Reference Range Interpretation Comments Albumin (test code = 1751-7) 3.7 3.5-5.0 [facility] CenterGlobulin2018-11-15 04:18:00* Test Item Value Reference Range Interpretation Comments Globulin (test code = 17497-7) 2.9 2.3-3.5 [facility] CenterAlbum[facility]/Globulin Zcufn7707-01-08 04:18:00 * Test Item Value Reference Range Interpretation Comments Albumin/Globulin Ratio (test code = 1759-0) 1.3 0.8-2.0 [facility] CenterAlkaline Fvkfopokzpd4780-73-12 04:18:00* Test Item Value Reference Range Interpretation Comments Alkaline Phosphatase (test code = 6768-6) 130 40-150 [facility] Aypeea9509-94-38 04:18:00* Test Item Value Reference Range Interpretation Comments Creatine Kinase (test code = 2157-6) 38 30-200 [facility] Center[facility]ase2018-11-15 04:18:00* Test Item Value Reference Range Interpretation Comments Lipase (test code = 3040-3) 19 8-78 [facility] Center[facility] Wjuuwt2069-25-62 04:18:00* Test Item Value Reference Range Interpretation Comments Creatine Kinase (test code = 2157-6) 38 30-200 [facility] Center[facility]2018-11-15 04:18:00* Test Item Value Reference Range Interpretation Comments Lipase (test code = 3040-3) 19 [facility]
[2020-02-11] MEDS ORDERED: SODIUM CHLORIDE 0.9% 50ML 50 ML ONE (11:36)
[2020-02-11] MEDS ORDERED: IOPAMIDOL 370 MG/ML 200 ML INFUS..BTL INJ ONE ×2 (11:37→14:15)
--- NOTE | 2020-02-11 11:42 | Emergency Department Note ---
History of Present Illnes History of Present Illness Chief Complaint: Abdominal Complaints History of Present Illness This is a 64 year old male arrived to the ED with complaints of epigastric pain and vomiting. Historian: Patient Arrival Mode: [place] Onset (how long ago): day(s) Radiation: Reports non-radiation Duration (how long): day(s) Timing of current episode: intermittent Progression: unchanged Past Medical/Family History Physician Review I have reviewed the patient's past medical and family history. Any updates have been documented here. Past Medical History Recent Fever: No Clinical Suspicion of Infectio: No New/Unexplained Change in Ment: No Past Medical History: Hypertension, Diabetes, Asthma, Kidney Stones, Chronic Back Pain Other Medical History: SCIATICA Past Surgical History: Back Surgery Other Surgery: LITHOTRIPSY Social History Smoking Cessation: Never Smoker Counseling Performed: No Alcohol Use: None Any Illegal Drug Use: No Other Last Tetanus: UTD Any Pre-Existing Lines (PICC,: No Review of Systems Review of Systems Constitutional: Reports no symptoms EENTM: Reports no symptoms Cardiovascular: Reports no symptoms Respiratory: Reports no symptoms Gastrointestinal: Reports as per HPI, Reports abdominal pain, Reports nausea, Reports vomiting Genitourinary: Reports no symptoms Musculoskeletal: Reports no symptoms Integumentary: Reports no symptoms Neurological: Reports no symptoms Psychological: Reports no symptoms Endocrine: Reports no symptoms Hematological/Lymphatic: Reports no symptoms Physical Exam Related Data Allergies: Coded Allergies: No Known Allergies (Unverified , 07/02/18) Triage Vital Signs Vital Signs Date Time Temp Pulse Resp B/P (MAP) Pulse Ox O2 Delivery O2 Flow Rate FiO2 02/11/20 09:36 99.5 93 18 139/100 99 Room Air Vital signs reviewed: Yes Physical Exam CONSTITUTIONAL Constitutional: Present well-developed, Present well-nourished HENT HENT: Present normocephalic, Present atraumatic, Present oropharynx clear/moist, Present nose normal HENT L/R: Present left ext ear normal, Present right ext ear normal EYES Eyes: Reports PERRL, Reports conjunctivae normal NECK Neck: Present ROM normal PULMONARY Pulmonary: Present effort normal, Present breath sounds normal CARDIOVASCULAR Cardiovascular: Present regular rhythm, Present heart sounds normal, Present capillary refill normal, Present normal rate GASTROINTESTINAL Abdominal: Present soft, Present nontender, Present bowel sounds normal GENITOURINARY Genitourinary: Present exam deferred SKIN Skin: Present warm, Present dry MUSCULOSKELETAL Musculoskeletal: Present ROM normal NEUROLOGICAL Neurological: Present alert, Present oriented x 3, Present no gross motor or sensory deficits PSYCHOLOGICAL Psychological: Present mood/affect normal, Present judgement normal Results Laboratory Result Diagram: 02/11/20 0943 02/11/20 0943 Laboratory Laboratory Tests Test 02/11/20 09:43 White Blood Count 7.71 x10e3/uL (4.8-10.8) Red Blood Count 4.58 x10e6/uL (4.3-5.7) Hemoglobin 14.9 g/dL (14.0-18.0) Hematocrit 43.4 % (38.2-49.6) Mean Corpuscular Volume 94.8 fL (81-99) Mean Corpuscular Hemoglobin 32.5 pg (28-32) Mean Corpuscular Hemoglobin Concent 34.3 g/dL (31-35) Red Cell Distribution Width 13.0 % (11.7-14.4) Platelet Count 172 x10e3/uL (140-360) Neutrophils (%) (Auto) 77.3 % (38.7-80.0) Lymphocytes (%) (Auto) 15.3 % (18.0-39.1) Monocytes (%) (Auto) 6.9 % (4.4-11.3) Eosinophils (%) (Auto) 0.1 % (0.0-6.0) Basophils (%) (Auto) 0.1 % (0.0-1.0) Neutrophils # (Auto) 6.0 (2.1-6.9) Lymphocytes # (Auto) 1.2 (1.0-3.2) Monocytes # (Auto) 0.5 (0.2-0.8) Eosinophils # (Auto) 0.0 (0.0-0.4) Basophils # (Auto) 0.0 (0.0-0.1) Absolute Immature Granulocyte (auto 0.02 x10e3/uL (0-0.1) Sodium Level 137 mmol/L (136-145) Potassium Level 3.9 mmol/L (3.5-5.1) Chloride Level 105 mmol/L (98-107) Carbon Dioxide Level 21 mmol/L (22-29) Anion Gap 14.9 mmol/L (8-16) Blood Urea Nitrogen 23 mg/dL (7-26) Creatinine 0.94 mg/dL (0.72-1.25) Estimat Glomerular Filtration Rate > 60 ML/MIN (60-) BUN/Creatinine Ratio 24 (6-25) Glucose Level 110 mg/dL (74-118) Calcium Level 8.3 mg/dL (8.4-10.2) Total Bilirubin 1.9 mg/dL (0.2-1.2) Aspartate Amino Transf (AST/SGOT) 46 IU/L (5-34) Alanine Aminotransferase (ALT/SGPT) 24 IU/L (0-55) Alkaline Phosphatase 93 IU/L (40-150) Creatine Kinase 327 IU/L (30-200) Total Protein 6.4 g/dL (6.5-8.1) Albumin 3.2 g/dL (3.5-5.0) Globulin 3.2 g/dL (2.3-3.5) Albumin/Globulin Ratio 1.0 (0.8-2.0) Lipase 72 U/L (8-78) Imaging Imaging results reviewed: Yes Procedures 12 Lead ECG Interpretation ECG Interpretation : ECG: ECG 1 Vacuum Tester Cans: Interpreted by ED physician Prior ECG tracings: reviewed Rhythm: sinus rhythm QRS axis: normal ST segment flattening: all T waves normal: Yes Clinical Impression: normal ECG Critical Care Time Total Critical Care Time (min): 35 Critical care time exclusive o: separately billable procedures Critcal care necessary due to: cardiac failure Assessment & Plan Medical Decision Making MDM 64-year-old male arrives to ED with epigastric abdominal pain that appeared to be related to a gastrointestinal process, however, marked troponin elevation noted on cardiac markers. Patient admitted under the impression of an NSTEMI. Cardiology consultation. Assessment & Plan Final Impression: (1) NSTEMI (non-ST elevated myocardial infarction) Depart Disposition: ADMITTED Last Vital Signs Date Time Temp Pulse Resp B/P (MAP) Pulse Ox O2 Delivery O2 Flow Rate FiO2 02/11/20 09:36 99.5 93 18 139/100 99 Room Air Home Meds Reported Medications Tramadol Hcl (ULTRAM) 50 Mg Tablet, 25 MG PO BID, TAB 02/11/20 Ibuprofen (MOTRIN) 200 Mg Tab, 600 MG PO Q6H PRN for Mild Pain (1-3) or F ever>100.8, TAB 02/11/20 Loperamide Hcl (LOPERAMIDE) 2 Mg Tablet, 2 MG PO PRN PRN for DIARRHEA, CAP 07/28/18 Phenazopyridine Hcl (AZO STANDARD) 95 Mg Tablet, 1 TAB PO PRN PRN for BLADDER SPASMS 07/28/18 Ondansetron Hcl* (ZOFRAN*) 4 Mg Tablet, 4 MG PO Q6H PRN for NAUSEA, #30 06/21/18 Discontinued Reported Medications Methocarbamol (METHOCARBAMOL) 750 Mg Tablet, 750 MG PO PRN PRN for MUSCLE SPASMS, #30 TAB 07/28/18 Oxybutynin Chloride (DITROPAN XL) 5 Mg Tab.er.24, 5 MG PO TID PRN for BLADDER SPASMS, #30 TAB 05/24/18 Clonazepam (CLONAZEPAM) 1 Mg Tablet, 2 MG PO HS, TAB 05/21/18 Mirtazapine (MIRTAZAPINE) 30 Mg Tablet, 30 MG PO HS 05/21/18 Primidone (PRIMIDONE) 50 Mg Tablet, 50 MG PO HS 05/21/18 Escitalopram Oxalate (ESCITALOPRAM OXALATE) 20 Mg Tablet, 20 MG PO DAILY 05/21/18 Clonazepam (CLONAZEPAM) 2 Mg Tablet, 1 MG PO DAILY@0600 05/21/18 Propranolol Hcl (PROPRANOLOL HCL) 60 Mg Cap.sa.24h, 80 MG PO BID 05/21/18 Methotrexate Sodium (METHOTREXATE) 2.5 Mg Tablet, 20 MG PO weekly 05/21/18 Hydroxychloroquine Sulfate (HYDROXYCHLOROQUINE SULFATE) 200 Mg Tablet, 400 MG PO DAILY 05/21/18 Donepezil Hcl (DONEPEZIL HCL) 10 Mg Tablet, 10 MG PO HS 05/21/18 Medications in the ED Sodium Chloride 1,000 ml @ 100 mls/hr Q10H IV Last administered on 02/11/20at 10:15; Admin Dose 100 MLS/HR; Start 02/11/20 at 09:45; Stop 03/12/20 at 09:44 Morphine Sulfate 6 mg ONCE ONCE IV ; Start 02/11/20 at 09:45; Stop 02/11/20 at 09:46; Status UNV Ondansetron HCl 4 mg NOW STAT IV Last administered on 02/11/20at 10:15; Admin Dose 4 MG; Start 02/11/20 at 09:45; Stop 02/11/20 at 10:01; Status DC Morphine Sulfate 6 mg ONCE ONCE IV Last administered on 02/11/20at 10:15; Admin Dose 6 MG; Start 02/11/20 at 10:15; Stop 02/11/20 at 10:16; Status DC Pantoprazole Sodium 40 mg NOW STAT IV Last administered on 02/11/20at 10:15; Admin Dose 40 MG; Start 02/11/20 at 10:02; Stop 02/11/20 at 10:04; Status DC Dicyclomine HCl 20 mg ONCE ONCE IM Last administered on 02/11/20at 10:15; Admin Dose 20 MG; Start 02/11/20 at 10:15; Stop 02/11/20 at 10:16; Status DC KADEN MINER DO Feb 11, 2020 11:42
--- NOTE | 2020-02-11 11:55 | Diagnostic Imaging Report ---
EXAM: CT Abdomen and Pelvis WITH intravenous contrast INDICATION: Abdominal pain COMPARISON: CT abdomen pelvis 01/15/2019 TECHNIQUE: Abdomen and pelvis were scanned utilizing a multidetector helical scanner from the lung base to the pubic symphysis after administration of IV contrast. Coronal and sagittal reformations were obtained. Routine protocol was performed. Scan was performed during portal venous phase. IV CONTRAST: 100mL of Isovue 370 ORAL CONTRAST: Water RADIATION DOSE: Total DLP: 762 mGy*cm Dose modulation, iterative reconstruction, and/or weight based adjustment of the mA/kV was utilized to reduce the radiation dose to as low as reasonably achievable. FINDINGS: LOWER THORAX: Normal. HEPATOBILIARY: Diffuse hepatic steatosis. No focal liver lesion. No biliary ductal dilation. Cholelithiasis without CT evidence of cholecystitis. SPLEEN: No splenomegaly. PANCREAS: No focal masses or ductal dilatation. ADRENALS: No adrenal nodules. KIDNEYS/URETERS: 2 mm nonobstructive left midpole renal calculus. No hydronephrosis or renal mass lesion. Bilateral renal cysts. PELVIC ORGANS/BLADDER: Unremarkable. PERITONEUM / RETROPERITONEUM: No free air or fluid. LYMPH NODES: No lymphadenopathy. VESSELS: Unremarkable. GI TRACT: Diverticulosis without CT evidence of diverticulitis. No abnormal bowel thickening. No bowel obstruction. Normal appendix. BONES AND SOFT TISSUES: New T10 inferior endplate destruction. Stable old T12 compression fracture. Right anterior abdomen implanted neurostimulator device with lead projecting to the level of L3. Status post L3-L5 posterior fusion. IMPRESSION: Diffuse hepatic steatosis. Cholelithiasis without CT evidence of cholecystitis. New T10 inferior endplate destructive process. If there is a history of malignancy, osseous metastasis cannot be excluded. Recommend lumbar spine MRI with and without contrast for further evaluation. Diverticulosis without CT evidence of diverticulitis. Nonobstructive tiny left renal calculus. Signed by: Jb Rowan MD on 02/11/2020 11:52 AM
[2020-02-11] MEDS ORDERED: ASPIRIN 81 MG CHEW TAB PO ONE (12:30)
--- OUTSIDE RECORDS SUMMARY | 2020-02-11 12:48 | XMS REPORT | Continuity of Care Document ---
Author Author [facility] t Organization [facility] Address [address] [place] [address] Phone Unavailable Care Team Providers Care Weasand Trimmer Name Role Phone EMMA CHAVIRA MD PCP ANNALEERLuis Antonio AMBICA Attphys Unavailable EMMA CHAVIRA Attphys Unavailable HAMPEL, TORITO Attphys Unavailable SWEET, A LAIRD Attphys Unavailable EMMA CHAVIRA Admphys Unavailable Payers Payer Name Policy Type Policy Number Effective Date Expiration Date [facility] [id number] [facility] Problems Condition Name Condition Details Condition Category Status Onset Date Resolution Date Last Treatment Date Treating Clinician Comments Source Calculus of kidney Renal stone Problem Active [facility] Hypokalemia Hypokalemia Problem Active [facility] Volume depletion Volume depletion Problem Active [facility] Allergies, Adverse Reactions, Alerts This patient has no known allergies or adverse reactions. Medications Ordered Medication Name Filled Medication Name Start Date Stop Da te Current Medication? Ordering Clinician Indication Dosage Frequency Signature (SIG) Comments Components Source Clonazepam 1 Mg Tablet Clonazepam 1 Mg Tablet Yes 2 Bedtime [facility] Clonazepam 2 Mg Tablet Clonazepam 2 Mg Tablet Yes 1 Daily@0600 [facility] Donepezil Hcl 10 Mg Tablet Donepezil Hcl 10 Mg Tablet Yes [address] [facility] Escitalopram Oxalate 20 Mg Tablet Escitalopram Oxalate 20 Mg Tablet Yes 20 Daily [facility] Hydroxychloroquine Sulfate 200 Mg Tablet Hydroxychloro quine Sulfate 200 Mg Tablet Yes 400 Daily [facility] Loperamide Hcl (Loperamide) 2 Mg Tablet Loperamide Hcl (Pily ramide) 2 Mg Tablet Yes 2 As Needed as needed for Diarrhe a [facility] Methocarbamol 750 Mg Tablet Methocarbamol 750 Mg Tablet Yes 750 As Needed as needed for Muscle Spasms [facility] Methotrexate Sodium (Methotrexate) 2.5 Mg Tablet Metho trexate Sodium (Methotrexate) 2.5 Mg Tablet Yes 20 Weekly [facility] Mirtazapine 30 Mg Tablet Mirtazapine 30 Mg Tablet Yes 30 Bedtime [facility] Ondansetron Hcl (Zofran*) 4 Mg Tablet Ondansetron Hcl (Zofran*) 4 M g Tablet Yes 4 Every 6 Hours as needed for Nausea [facility] Oxybutynin Chloride (Ditropan Xl) 5 Mg Tab.er.24 Oxybu tynin Chloride (Ditropan Xl) 5 Mg Tab.er.24 Yes 5 Three Times A Day as needed for Bladder Spasms [facility] Phenazopyridine Hcl (Azo Standard) 95 Mg Tablet Phenaz opyridine Hcl (Azo Standard) 95 Mg Tablet Yes 1 As Neede d as needed for Bladder Spasms [facility] Primidone 50 Mg Tablet Primidone 50 Mg Tablet Yes 50 Bedtime [facility] Propranolol Hcl 60 Mg Cap.sa.24h Propranolol Hcl 60 Mg Cap.sa.24h Yes 80 Twice A Day [facility] Acetaminophen With Codeine (Tylenol With Codeine #3 Tablet) 1 Each Tablet, 300 Mg Oral Acetaminophen With Codeine (Tylenol With Codeine #3 Tablet) 1 Each Tablet, 300 Mg Oral 2018-07-28 00:00:00 No 300 Every 4 Hours as needed for Pain [facility] Acetaminophen With Codeine (Tylenol With Codeine #3 Tablet) 1 Each Tablet, 300 Mg Oral Acetaminophen With Codeine (Tylenol With Codeine #3 Tablet) 1 Each Tablet, 300 Mg Oral 2018-07-28 00:00:00 No 300 Every 4 Hours as needed for Pain [facility] Ceftin , Ceftin , 2018-07-28 00:00:00 No [facility] Procedures Procedure Date / Time Performed Performing Clinician [facility] e CT of abdomen and pelvis without contrast 2019-01-15 00:00:00 MARTA MARINELLI [facility] Encounters Start Date/Time End Date/Time Encounter Type Admission Type [facility] Care Department Encounter ID Source 2019-09-16 03:13:00 2019-09-16 07:15:00 Departed Emergency Room 1 KADEN MINER [facility] [id number] [facility] 2019-01-15 11:21:00 2019-01-17 08:21:00 Discharged Inpatient (obs) 1 EMMA CHAVIRA [facility] [id number] [facility] 2018-07-28 05:00:00 2018-07-28 05:00:00 Registered Surgical Day Car e TORITO DEAN [facility] [id number] [facility] 2018-07-02 17:40:00 2018-07-03 02:31:00 Departed Emergency Room 1 KATE STOUT [facility] [id number] [facility] 2018-06-20 13:24:00 2018-06-21 20:31:00 Discharged Inpatient (obs) [facility] [id number] [facility] 2018-05-23 12:05:00 2018-05-24 13:52:00 Discharged Inpatient 1 KADEN JAMES [facility] [id number] [facility] Results Test Description Test Time Test Comments Results Result Comments Source CT ABDOMEN/PELVIS W 2020-02-11 11:43:00 [facility] [address] [address] Patient Name: KATELYN CERVANTES MR #: [id number] : 1955 Age/Sex: 64/M Req #: [id number] Adm Physician: Ordered by: KADEN MINER DO Report #: [id number] Location: ER Room/Bed: Procedure: [id number] CT/CT ABDOMEN/PELVIS W Exam Date: 02/11/20 Exam Time: 1100 REPORT STATUS: Signed EXAM: CT Abdomen and Pelvis WITH intravenous contrast INDICATION: Abdominal pain COMPARISON: CT abdomen pelvis 01/15/2019 TECHNIQUE: Abdomen and pelvis were scanned utilizing a multidetector helical scanner from the lung base to the pubic symp hysis after administration of IV contrast. Coronal and sagittal reformations were obtained. Routine protocol was performed. Scan was performed during portal venous phase. IV CONTRAST: 100mL of Isovue 370 ORAL CONTRAST: Water RADIATION DOSE: Total DLP: 762 mGy*cm Dose modulation, iterative reconstruction, and/or weight based adjustment of the mA/kV was utilized to reduce the radiation dose to as low as reasonably achievable. FINDINGS: LOWER THORAX: Normal. HEPATOBILIARY: Diffuse hepatic steatosis. No focal liver lesion. No biliary ductal dilation. Cholelithiasis without CT evidence of cholecystitis. SPLEEN: No splenomegaly. PANCREAS: No focal masses or ductal dilatation. ADRENALS: No adrenal nodules. KIDNEYS/URETERS: 2 mm nonobstructive left midpole renal calculus. No hydronephrosis or renal mass lesion. Bilateral renal cysts. PELVIC ORGANS/BLADDER: Unremarkable. PERITONEUM / RETROPERITONEUM: No free air or fluid. LYMPH NODES: No lymphadenopathy. VESSELS: Unremarkable. GI TRACT: Diverticulosis without CT evidence of diverticulitis. No abnormal bowel thickening. No bowel obstruction. Normal appendix. BONES AND SOFT TISSUES: New T10 inferior endplate destruction. Stable old T12 compression fracture. Right anterior abdomen implanted neurostimulator device with lead projecting to the level of L3. Status post L3-L5 posterior fusion. IMPRESSION: Diffuse hepatic steatosis. Cholelithiasis without CT evidence of cholecystitis. New T10 inferior endplate destructive process. If there is a history of malignancy, osseous metastasis cannot be excluded. Recommend lumbar spine MRI with and without contrast for further evaluation. Diverticulosis without CT evidence of diverticulitis. Nonobstructive tiny left renal calculus. Signed by: Keerthi Gerard MD on 02/11/2020 11:52 AM Dictated By: KEERTHI GERARD MD 115 Transcribed By: BRANDIE JENKINS on 02/11/20 115 COPY TO: KADEN MINER DO SP LUMBAR, COMPLETE MIN 4VW 2019-09-16 06:00:[address] [place] [address] Patient Name: KATELYN CERVANTES MR #: [id number] : 1955 Age/Sex: 64/M Req #: [id number] Adm Physician: Ordered by: KADEN MINER DO Report #: [id number] Location: ER Room/Bed: Procedure: [id number] DX/SP LUMBAR, COMPLETE MIN 4VW Exam Date: [...] MINER DO THORACIC SP 3V 2019-09-16 06:00:[address] [place] [address] Patient Name: KATELYN CERVANTES MR #: [id number] : 1955 Age/Sex: 64/M Req #: [id number] Adm Physician: Ordered by: KADEN MINER DO Report #: [id number] Location: ER Room/Bed: Procedure: [id number] DX/THORACIC SP 3V Exam Date: 09/16/19 Exam [...] Test Item Blood Culture (test code = 77439314) NO GROWTH AFTER 5 DAYS, FINAL REPORT [facility] Hpybn1171-76-13 05:50:00* Test Item Value Reference Range Interpretation Comments Sodium Level (test code = 2951-2) 138 136-145 [facility] Ltiax1875-97-84 05:50:00* Test Item Value Reference Range Interpretation Comments Potassium Level (test code = 2823-3) 4.1 3.5-5.1 [facility]Ch[facility]ide Hjxaz4490-57-89 05:50:00* Test Item Value Reference Range Interpretation Comments Chloride Level (test code = 2075-0) 110 98-107 H [facility]Carbon Dioxide Kqjrk6163-80-49 05:50:00* Test Item Value Reference Range Interpretation Comments Carbon Dioxide Level (test code = 2028-9) 23 22-29 [facility]Anion Auj3813-73-07 05:50:00* Test Item Value Reference Range Interpretation Comments Anion Gap (test code = 46285-1) 9.1 8-16 [facility] Urea Edekcdaa7676-44-15 05:50:00* Test Item Value Reference Range Interpretation Comments Blood Urea Nitrogen (test code = 3094-0) 6 7-26 L [facility]Creatinine2019-07-14 05:50:00* Test Item Value Reference Range Interpretation Comments Creatinine (test code = 2160-0) 0.70 0.72-1.25 L [facility]BUN/Creatinine Ogvcz1402-94-41 05:50:00* Test Item Value Reference Range Interpretation Comments BUN/Creatinine Ratio (test code = 3097-3) 9 6-25 [facility]Estimat Glomerular Filtration Rate 2019-01-17 05:50:00* Test Item Value Reference Range Interpretation Comments Estimat Glomerular Filtration Rate (test code = 139597414) > 60 >60 Ranges were taken from the National Kidney Disease Education Program and the [facility] Kidney Foundation literature.Reference ranges:60 or greater: Rzubmu76-27 ( for 3 consecutive months): Chronic kidney disease 15 or less: Kidney failureTyler County HospitalGlucose Wtcgi2238-08-47 05:50:00* Test Item Value Reference Range Interpretation Comments Glucose Level (test code = PSX7398) 101 74-118 [facility]Calcium Rdfzf3451-43-30 05:50:00* Test Item Value Reference Range Interpretation Comments Calcium Level (test code = 01938-1) 8.1 8.4-10.2 L [facility] Mahlj4187-11-85 05:50:00* Test Item Value Reference Range Interpretation Comments Sodium Level (test code = 2951-2) 138 136-145 [facility]Pot[facility] Dahhw0972-65-87 05:50:00* Test Item Value Reference Range Interpretation Comments Potassium Level (test code = 2823-3) 4.1 3.5-5.1 [facility]Chloride Cvzqj8072-78-02 05:50:00* Test Item Value Reference Range Interpretation Comments Chloride Level (test code = 2075-0) 110 98-107 H [facility] HospitalCarbon Dioxide Nxfxr3675-69-53 05:50:00* Test Item Value Reference Range Interpretation Comments Carbon Dioxide Level (test code = 2028-9) 23 22-29 [facility]Anion Sml8569-51-27 05:50:00* Test Item Value Reference Range Interpretation Comments Anion Gap (test code = 98552-8) 9.1 8-16 [facility]Blood Urea Zliwuaip6198-59-43 05:50:00* Test Item Value Reference Range Interpretation Comments Blood Urea Nitrogen (test code = 3094-0) 6 7-26 L [facility] HospitalCreatinine2019-07-14 05:50:00* Test Item Value Reference Range Interpretation Comments Creatinine (test code = 2160-0) 0.70 0.72-1.25 L [facility] HospitalBUN/Creatinine Rxldn9312-67-02 05:50:00* Test Item Value Reference Range Interpretation Comments BUN/Creatinine Ratio (test code = 3097-3) 9 6-25 [facility] HospitalEstimat Glomerular Filtration Rate 2019-01-17 05:50:00* Test Item Value Reference Range Interpretation Comments Estimat Glomerular Filtration Rate (test code = 372517199) > 60 >60 Ranges were taken from the National Kidney Disease Education Program and the [facility] Kidney Foundation literature.Reference ranges:60 or greater: Thndag89-86 ( for 3 consecutive months): Chronic kidney disease 15 or less: Kidney failureCH[facility] CenterGlucose Tuxmf9388-84-22 05:50:00* Test Item Value Reference Range Interpretation Comments Glucose Level (test code = BLV5683) 101 74-118 [facility]Calcium Lmmus8244-51-27 05:50:00* Test Item Value Reference Range Interpretation Comments Calcium Level (test code = 29175-8) 8.1 8.4-10.2 L [facility] HospitalBlood Kfikwcn0507-86-88 13:13:00* Test Item Value Reference Range Interpretation Comments Blood Culture (test code = 11438629) NO GROWTH AFTER 24 HOURS [facility] HospitalCHEST SINGLE (PORTABLE)2019-01-16 08:06:00 [facility] [address] [address] Patient Name: KATELYN CERVANTES MR #: [id number] : 1955 Age/Sex: 63/M Req #: [id number] Adm Physician: EMMA CHAVIRA MD Ordered by: JUAREZ GIBSON, MARTA GIBSON Report #: [id number] Location: [facility] Room/Bed: [address] [place] [address] Procedure: [id number] DX/CHEST SINGLE (PORTABLE) Exam [...] DO 8 COPY TO: Jason PIZARRO Phosphorus Xuiez7667-87-35 06:03:00* Test Item Value Reference Range Interpretation Comments Phosphorus Level (test code = FBO5446) 2.4 2.3-4.7 [facility] HospitalMagnesium Ddvdb2234-40-64 06:03:00* Test Item Value Reference Range Interpretation Comments Magnesium Level (test code = 55167-1) 1.8 1.3-2.1 [facility] HospitalTotal Niffqjnow6453-81-85 06:03:00* Test Item Value Reference Range Interpretation Comments Total Bilirubin (test code = 1975-2) 1.9 0.2-1.2 H [facility] HospitalAspartate Amino Transf (AST/SGOT) 2019-01-16 06:03:00* Test Item Value Reference Range Interpretation Comments Aspartate Amino Transf (AST/SGOT) (test code = Aspartate Amino Transf (AST/SGOT)) 14 5-34 [facility] HospitalAlanine Aminotransferase (ALT/SGPT) 2019-01-16 06:03:00* Test Item Value Reference Range Interpretation Comments Alanine Aminotransferase (ALT/SGPT) (test code = 1742-6) < 6 0-55 [facility] HospitalTotal Apqteeg3568-69-60 06:03:00* Test Item Value Reference Range Interpretation Comments Total Protein (test code = 2885-2) 5.1 6.5-8.1 L [facility] HospitalAlbumin2019-07-13 06:03:00* Test Item Value Reference Range Interpretation Comments Albumin (test code = 1751-7) 2.8 3.5-5.0 L [facility] HospitalGlobulin2019-07-13 06:03:00* Test Item Value Reference Range Interpretation Comments Globulin (test code = 07259-7) 2.3 2.3-3.5 [facility] HospitalAlbumin/Globulin Raowu7061-05-07 06:03:00 * Test Item Value Reference Range Interpretation Comments Albumin/Globulin Ratio (test code = 1759-0) 1.2 0.8-2.0 [facility] HospitalAlkaline Fkykluliemc9556-75-38 06:03:00* Test Item Value Reference Range Interpretation Comments Alkaline Phosphatase (test code = 6768-6) 89 40-150 [facility] HospitalPhosphorus Fgurh7232-67-14 06:03:00* Test Item Value Reference Range Interpretation Comments Phosphorus Level (test code = YTT2989) 2.4 2.3-4.7 [facility] HospitalMagnesium Jsnsz7495-55-32 06:03:00* Test Item Value Reference Range Interpretation Comments Magnesium Level (test code = 08491-0) 1.8 1.3-2.1 [facility] HospitalTotal Zoitbasbv3064-25-63 06:03:00* Test Item Value Reference Range Interpretation Comments Total Bilirubin (test code = 1975-2) 1.9 0.2-1.2 H [facility] HospitalAspartate Amino Transf (AST/SGOT) 2019-01-16 06:03:00* Test Item Value Reference Range Interpretation Comments Aspartate Amino Transf (AST/SGOT) (test code = Aspartate Amino Transf (AST/SGOT)) 14 5-34 [facility] HospitalAlanine Aminotransferase (ALT/SGPT) 2019-01-16 06:03:00* Test Item Value Reference Range Interpretation Comments Alanine Aminotransferase (ALT/SGPT) (test code = 1742-6) < 6 0-55 [facility] HospitalTotal Kyxywhz5456-25-83 06:03:00* Test Item Value Reference Range Interpretation Comments Total Protein (test code = 2885-2) 5.1 6.5-8.1 L [facility] HospitalAlbumin2019-07-13 06:03:00* Test Item Value Reference Range Interpretation Comments Albumin (test code = 1751-7) 2.8 3.5-5.0 L [facility] HospitalGlobulin2019-07-13 06:03:00* Test Item Value Reference Range Interpretation Comments Globulin (test code = 25603-8) 2.3 2.3-3.5 [facility] HospitalAlbumin/Globulin Bbiqh7074-16-67 06:03:00 * Test Item Value Reference Range Interpretation Comments Albumin/Globulin Ratio (test code = 1759-0) 1.2 0.8-2.0 [facility] HospitalAlkaline Boyjidkkalg0018-34-86 06:03:00* Test Item Value Reference Range Interpretation Comments Alkaline Phosphatase (test code = 6768-6) 89 40-150 [facility] HospitalWhite Blood Neffy7442-49-33 05:40:00* Test Item Value Reference Range Interpretation Comments White Blood Count (test code = 6690-2) 4.53 4.8-10.8 L [facility] HospitalRed Blood Pemvg7511-70-84 05:40:00* Test Item Value Reference Range Interpretation Comments Red Blood Count (test code = 789-8) 3.94 4.3-5.7 L [facility] HospitalHemoglobin2019-07-13 05:40:00* Test Item Value Reference Range Interpretation Comments Hemoglobin (test code = 18345-2) 13.7 14.0-18.0 L [facility] HospitalHematocrit2019-07-13 05:40:00* Test Item Value Reference Range Interpretation Comments Hematocrit (test code = 4544-3) 40.6 38.2-49.6 [facility] HospitalMean Corpuscular Unghkx4359-42-46 05:40:00* Test Item Value Reference Range Interpretation Comments Mean Corpuscular Volume (test code = 787-2) 103.0 81-99 H [facility] HospitalMean Corpuscular Efalnuttyt3758-65-71 05:40:00* Test Item Value Reference Range Interpretation Comments Mean Corpuscular Hemoglobin (test code = 785-6) 34.8 28-32 H [facility] HospitalMean Corpuscular Hemoglobin Concent 2019-01-16 05:40:00* Test Item Value Reference Range Interpretation Comments Mean Corpuscular Hemoglobin Concent (test code = 786-4) 33.7 31-35 [facility] HospitalRed Cell Distribution Yycjm8087-82-90 05:40:00* Test Item Value Reference Range Interpretation Comments Red Cell Distribution Width (test code = 53295-0) 13.2 11.7 -14.4 [facility] HospitalPlatelet Akduv7030-35-96 05:40:00* Test Item Value Reference Range Interpretation Comments Platelet Count (test code = 777-3) 135 140-360 L [facility] HospitalNeutrophils (%) (Auto)2019-01-16 05:40:00 * Test Item Value Reference Range Interpretation Comments Neutrophils (%) (Auto) (test code = 13972-6) 61.1 38.7-80.0 [facility] HospitalLymphocytes (%) (Auto)2019-01-16 05:40:00 * Test Item Value Reference Range Interpretation Comments Lymphocytes (%) (Auto) (test code = 736-9) 28.3 18.0-39.1 [facility]Monocytes (%) (Auto)2019-01-16 05:40:00* Test Item Value Reference Range Interpretation Comments Monocytes (%) (Auto) (test code = 5905-5) 9.1 4.4-11.3 [facility]Eosinophils (%) (Auto)2019-01-16 05:40:00 * Test Item Value Reference Range Interpretation Comments Eosinophils (%) (Auto) (test code = 713-8) 0.9 0.0-6.0 [facility]Basophils (%) (Auto)2019-01-16 05:40:00* Test Item Value Reference Range Interpretation Comments Basophils (%) (Auto) (test code = 706-2) 0.4 0.0-1.0 [facility] HospitalIM GRANULOCYTES %2019-01-16 05:40:00* Test Item Value Reference Range Interpretation Comments IM GRANULOCYTES % (test code = IM GRANULOCYTES %) 0.2 0.0- 1.0 [facility] HospitalNeutrophils # (Auto)2019-01-16 05:40:00* Test Item Value Reference Range Interpretation Comments Neutrophils # (Auto) (test code = 751-8) 2.8 2.1-6.9 [facility] HospitalLymphocytes # (Auto)2019-01-16 05:40:00* Test Item Value Reference Range Interpretation Comments Lymphocytes # (Auto) (test code = 99839-0) 1.3 1.0-3.2 [facility]Monocytes # (Auto)2019-01-16 05:40:00* Test Item Value Reference Range Interpretation Comments Monocytes # (Auto) (test code = 742-7) 0.4 0.2-0.8 [facility]Eosinophils # (Auto)2019-01-16 05:40:00* Test Item Value Reference Range Interpretation Comments Eosinophils # (Auto) (test code = 711-2) 0.0 0.0-0.4 [facility]Basophils # (Auto)2019-01-16 05:40:00* Test Item Value Reference Range Interpretation Comments Basophils # (Auto) (test code = 704-7) 0.0 0.0-0.1 [facility] HospitalAbsolute Immature Granulocyte (auto 2019-01-16 05:40:00* Test Item Value Reference Range Interpretation Comments Absolute Immature Granulocyte (auto (kendra t code = Absolute Immature Granulocyte (auto) 0.01 0-0.1 [facility] HospitalWhite Blood Fepqy4932-38-07 05:40:00* Test Item Value Reference Range Interpretation Comments White Blood Count (test code = 6690-2) 4.53 4.8-10.8 L [facility] HospitalRed Blood Uhvij9984-94-66 05:40:00* Test Item Value Reference Range Interpretation Comments Red Blood Count (test code = 789-8) 3.94 4.3-5.7 L [facility] HospitalHemoglobin2019-07-13 05:40:00* Test Item Value Reference Range Interpretation Comments Hemoglobin (test code = 83274-7) 13.7 14.0-18.0 L [facility] HospitalHematocrit2019-07-13 05:40:00* Test Item Value Reference Range Interpretation Comments Hematocrit (test code = 4544-3) 40.6 38.2-49.6 [facility] HospitalMean Corpuscular Yrlbid8885-72-69 05:40:00* Test Item Value Reference Range Interpretation Comments Mean Corpuscular Volume (test code = 787-2) 103.0 81-99 H [facility] HospitalMean Corpuscular Ximdkixant9940-88-72 05:40:00* Test Item Value Reference Range Interpretation Comments Mean Corpuscular Hemoglobin (test code = 785-6) 34.8 28-32 H [facility] HospitalMean Corpuscular Hemoglobin Concent 2019-01-16 05:40:00* Test Item Value Reference Range Interpretation Comments Mean Corpuscular Hemoglobin Concent (test code = 786-4) 33.7 31-35 [facility] HospitalRed Cell Distribution Mxxhx7337-42-58 05:40:00* Test Item Value Reference Range Interpretation Comments Red Cell Distribution Width (test code = 94868-4) 13.2 11.7 -14.4 [facility] HospitalPlatelet Cuwix7419-62-92 05:40:00* Test Item Value Reference Range Interpretation Comments Platelet Count (test code = 777-3) 135 140-360 L [facility] HospitalNeutrophils (%) (Auto)2019-01-16 05:40:00 * Test Item Value Reference Range Interpretation Comments Neutrophils (%) (Auto) (test code = 34293-2) 61.1 38.7-80.0 [facility] HospitalLymphocytes (%) (Auto)2019-01-16 05:40:00 * Test Item Value Reference Range Interpretation Comments Lymphocytes (%) (Auto) (test code = 736-9) 28.3 18.0-39.1 [facility] HospitalMonocytes (%) (Auto)2019-01-16 05:40:00* Test Item Value Reference Range Interpretation Comments Monocytes (%) (Auto) (test code = 5905-5) 9.1 4.4-11.3 [facility] HospitalEosinophils (%) (Auto)2019-01-16 05:40:00 * Test Item Value Reference Range Interpretation Comments Eosinophils (%) (Auto) (test code = 713-8) 0.9 0.0-6.0 [facility] HospitalBasophils (%) (Auto)2019-01-16 05:40:00* Test Item Value Reference Range Interpretation Comments Basophils (%) (Auto) (test code = 706-2) 0.4 0.0-1.0 [facility] HospitalIM GRANULOCYTES %2019-01-16 05:40:00* Test Item Value Reference Range Interpretation Comments IM GRANULOCYTES % (test code = IM GRANULOCYTES %) 0.2 0.0- 1.0 [facility] HospitalNeutrophils # (Auto)2019-01-16 05:40:00* Test Item Value Reference Range Interpretation Comments Neutrophils # (Auto) (test code = 751-8) 2.8 2.1-6.9 [facility] HospitalLymphocytes # (Auto)2019-01-16 05:40:00* Test Item Value Reference Range Interpretation Comments Lymphocytes # (Auto) (test code = 64929-2) 1.3 1.0-3.2 [facility]Monocytes # (Auto)2019-01-16 05:40:00* Test Item Value Reference Range Interpretation Comments Monocytes # (Auto) (test code = 742-7) 0.4 0.2-0.8 [facility] HospitalEosinophils # (Auto)2019-01-16 05:40:00* Test Item Value Reference Range Interpretation Comments Eosinophils # (Auto) (test code = 711-2) 0.0 0.0-0.4 [facility]Basophils # (Auto)2019-01-16 05:40:00* Test Item Value Reference Range Interpretation Comments Basophils # (Auto) (test code = 704-7) 0.0 0.0-0.1 [facility] HospitalAbsolute Immature Granulocyte (auto 2019-01-16 05:40:00* Test Item Value Reference Range Interpretation Comments Absolute Immature Granulocyte (auto (kendra t code = Absolute Immature Granulocyte (auto) 0.01 0-0.1 [facility] HospitalUrine HCS0808-11-42 12:16:00* Test Item Value Reference Range Interpretation Comments Urine WBC (test code = 5821-4) 6-10 0-5 H [facility] HospitalUrine FKH2464-20-55 12:16:00* Test Item Value Reference Range Interpretation Comments Urine RBC (test code = 55087-1) 0-5 0-5 [facility] Pmclbqti8291-10-25 12:16:00* Test Item Value Reference Range Interpretation Comments Urine Bacteria (test code = 76240-9) MANY NONE [facility] Epithelial Gqmft1827-06-00 12:16:00 * Test Item Value Reference Range Interpretation Comments Urine Epithelial Cells (test code = 00038-8) MODERATE NONE [facility] Amorphous Ghhlntze2506-56-85 12:16:00* Test Item Value Reference Range Interpretation Comments Urine Amorphous Sediment (test code = 8246-1) MODERATE FEW H [facility] QZG8265-73-26 12:16:00* Test Item Value Reference Range Interpretation Comments Urine WBC (test code = 5821-4) 6-10 0-5 H [facility] UBW6922-14-55 12:16:00* Test Item Value Reference Range Interpretation Comments Urine RBC (test code = 97031-1) 0-5 0-5 [facility] Ofdswljf0674-21-26 12:16:00* Test Item Value Reference Range Interpretation Comments Urine Bacteria (test code = 23722-8) MANY NONE H [facility] Epithelial Flhsi7834-65-82 12:16:00 * Test Item Value Reference Range Interpretation Comments Urine Epithelial Cells (test code = 85385-0) MODERATE NONE [facility] Amorphous Kwyzqnqx0110-65-00 12:16:00* Test Item Value Reference Range Interpretation Comments Urine Amorphous Sediment (test code = 8246-1) MODERATE FEW H [facility] Fpleq6324-40-58 12:09:00* Test Item Value Reference Range Interpretation Comments Urine Color (test code = 5778-6) ORANGE YELLOW H [facility] Zaykguf1677-72-77 12:09:00* Test Item Value Reference Range Interpretation Comments Urine Clarity (test code = 25860-0) SL CLOUDY CLEAR H [facility] Specific Wggdmdl6667-83-43 12:09:00 * Test Item Value Reference Range Interpretation Comments Urine Specific [place] (test code = 5811-5) 1.025 1.010-1.02 5 [facility] gN3813-93-64 12:09:00* Test Item Value Reference Range Interpretation Comments Urine pH (test code = 60483-3) 6 5-7 [facility] Leukocyte Ziwwqliq8937-19-80 12:09:00* Test Item Value Reference Range Interpretation Comments Urine Leukocyte Esterase (test code = 13330-6) NEGATIVE NEGATIV E [facility] Geidbtd2123-03-30 12:09:00* Test Item Value Reference Range Interpretation Comments Urine Nitrite (test code = 17909-3) POSITIVE NEGATIVE H [facility] Fyziccs3679-24-85 12:09:00* Test Item Value Reference Range Interpretation Comments Urine Protein (test code = 03508-9) 1+ NEGATIVE H [facility] Glucose (UA)2019-01-15 12:09:00* Test Item Value Reference Range Interpretation Comments Urine Glucose (UA) (test code = 13995-0) NEGATIVE NEGATIVE [facility] Iieugbu8242-35-60 12:09:00* Test Item Value Reference Range Interpretation Comments Urine Ketones (test code = 77196-1) 1+ NEGATIVE H [facility] Simzqmamuuri0673-87-55 12:09:00* Test Item Value Reference Range Interpretation Comments Urine Urobilinogen (test code = 21374-1) 2 0.2-1 [facility] Uibtmxhhi3929-01-07 12:09:00* Test Item Value Reference Range Interpretation Comments Urine Bilirubin (test code = 1977-8) MODERATE NEGATIVE [facility] Xzrqw5296-41-92 12:09:00* Test Item Value Reference Range Interpretation Comments Urine Blood (test code = 37029-4) NEGATIVE NEGATIVE [facility] Fgwsz0742-14-66 12:09:00* Test Item Value Reference Range Interpretation Comments Urine Color (test code = 5778-6) ORANGE YELLOW H [facility] Rmlntfz3106-10-77 12:09:00* Test Item Value Reference Range Interpretation Comments Urine Clarity (test code = 79278-3) SL CLOUDY CLEAR H [facility] Specific Gytigxj2318-97-49 12:09:00 * Test Item Value Reference Range Interpretation Comments Urine Specific [place] (test code = 5811-5) 1.025 1.010-1.02 5 [facility] gD4537-36-00 12:09:00* Test Item Value Reference Range Interpretation Comments Urine pH (test code = 46448-6) 6 5-7 [facility] Leukocyte Suyhsklf3723-77-33 12:09:00* Test Item Value Reference Range Interpretation Comments Urine Leukocyte Esterase (test code = 20674-8) NEGATIVE NEGATIV E [facility] Pjupibq3023-67-42 12:09:00* Test Item Value Reference Range Interpretation Comments Urine Nitrite (test code = 44773-6) POSITIVE NEGATIVE H [facility] Qmqjxrn4491-86-69 12:09:00* Test Item Value Reference Range Interpretation Comments Urine Protein (test code = 19470-0) 1+ NEGATIVE H [facility] Glucose (UA)2019-01-15 12:09:00* Test Item Value Reference Range Interpretation Comments Urine Glucose (UA) (test code = 78792-8) NEGATIVE NEGATIVE [facility] Whuokko5840-08-30 12:09:00* Test Item Value Reference Range Interpretation Comments Urine Ketones (test code = 59326-6) 1+ NEGATIVE H [facility] Clfybjeqxafh7078-51-78 12:09:00* Test Item Value Reference Range Interpretation Comments Urine Urobilinogen (test code = 81137-3) 2 0.2-1 [facility] Pizbfbzfj7016-33-62 12:09:00* Test Item Value Reference Range Interpretation Comments Urine Bilirubin (test code = 1977-8) MODERATE NEGATIVE [facility] Ffrzj3199-24-99 12:09:00* Test Item Value Reference Range Interpretation Comments Urine Blood (test code = 38748-5) NEGATIVE NEGATIVE [facility]Creatine Kinase JM8688-58-76 12:08:00* Test Item Value Reference Range Interpretation Comments Creatine Kinase MB (test code = 31522-0) 1.00 0-5.0 [facility] HospitalTroponin M7902-17-62 12:08:00* Test Item Value Reference Range Interpretation Comments Troponin I (test code = BHB2185) 0.002 0-0.300 [facility]Creatine Kinase SO8229-59-74 12:08:00* Test Item Value Reference Range Interpretation Comments Creatine Kinase MB (test code = 06638-0) 1.00 0-5.0 [facility] HospitalTroponin A3910-58-53 12:08:00* Test Item Value Reference Range Interpretation Comments Troponin I (test code = QON1845) 0.002 0-0.300 [facility] HospitalThyroid Stimulating Hormone (TSH) 2019-01-15 11:46:00* Test Item Value Reference Range Interpretation Comments Thyroid Stimulating Hormone (TSH) (test code = 39314-6) 1.585 0.350-4.940 [facility]Thyroid Stimulating Hormone (TSH) 2019-01-15 11:46:00* Test Item Value Reference Range Interpretation Comments Thyroid Stimulating Hormone (TSH) (test code = 31536-4) 1.585 0.350-4.940 [facility] UC7623-76-82 11:46:00 [place] [address] Patient Name: KATELYN CERVANTES MR #: [id number] : 1955 Age/Sex: 63/M Req #: [id number] Adm Physician: EMMA CHAVIRA MD Ordered by: JUAREZ GIBSON, MARTA GIBSON Report #: [id number] Location: [facility] Room/Bed: [place] [address] Procedure: 0712-[address]/CT ABDOMEN/PELVIS WO Exam [...] moderate, previously mild. Signed by: Dr. Ame Crapenter MD on 01/15/2019 11:54 AM Dictated By: AME CARPENTER MD 1154 Transcribed By: MENDY on 01/15/19 1 154 COPY TO: MARTA PIZARRO B-Type Natriuretic Mspghzd6145-24-86 10:50:00* Test Item Value Reference Range Interpretation Comments B-Type Natriuretic Peptide (test code = 80702-6) < 12.0 0-100 [facility]tic Nnxgrwb6459-07-70 10:50:00* Test Item Value Reference Range Interpretation Comments B-Type Natriuretic Peptide (test code = 53286-9) < 12.0 0-100 [facility]Creatine Bxujkc1531-24-95 10:38:00* Test Item Value Reference Range Interpretation Comments Creatine Kinase (test code = 2157-6) 58 30-200 [facility]Lipase2019-07-12 10:38:00* Test Item Value Reference Range Interpretation Comments Lipase (test code = 3040-3) 11 78 [facility]Creatine Bopaqd7364-46-04 10:38:00* Test Item Value Reference Range Interpretation Comments Creatine Kinase (test code = 2157-6) 58 30-200 [facility]Lipase2019-07-12 10:38:00* Test Item Value Reference Range Interpretation Comments Lipase (test code = 3040-3) 11 [facility] HospitalProthrombin Gbjq9252-23-68 10:29:00* Test Item Value Reference Range Interpretation Comments Prothrombin Time (test code = 5902-2) 13.3 11.9-14.5 [facility] HospitalProthromb Time International Ratio 2019-01-15 10:29:00* Test Item Value Reference Range Interpretation Comments Prothromb Time International Ratio (test code = 6301-6) 0.96 Oral Anticoagulant Therapy INR Values:1. Low Intensity Therapy 1.5 - 2.02 . Moderate Intensity Therapy 2.0 - 3.03. High Intensity Therapy(1) 2.5 - 3. 54. High Intensity Therapy(2) 3.0 - 4.05. Panic Value INR > 5.0 [facility] HospitalActivated Partial Thromboplast Time 2019-01-15 10:29:00* Test Item Value Reference Range Interpretation Comments Activated Partial Thromboplast Time (test code = 54398-3) 26.7 23.8-35.5 [facility] HospitalProthrombin Ihdm5980-84-96 10:29:00* Test Item Value Reference Range Interpretation Comments Prothrombin Time (test code = 5902-2) 13.3 11.9-14.5 [facility] HospitalProthromb Time International Ratio 2019-01-15 10:29:00* Test Item Value Reference Range Interpretation Comments Prothromb Time International Ratio (test code = 6301-6) 0.96 Oral Anticoagulant Therapy INR Values:1. Low Intensity Therapy 1.5 - 2.02 . Moderate Intensity Therapy 2.0 - 3.03. High Intensity Therapy(1) 2.5 - 3. 54. High Intensity Therapy(2) 3.0 - 4.05. Panic Value INR > 5.0 [facility] HospitalAct[facility] Partial Thromboplast Time 2019-01-15 10:29:00* Test Item Value Reference Range Interpretation Comments Activated Partial Thromboplast Time (test code = 87393-0) 26.7 23.8-35.5 [facility] HospitalCHEST SINGLE (PORTABLE)2019-01-15 10:10:00 [facility] [address] [place] [address] Patient Name: KATELYN CERVANTES MR #: [id number] : 1955 Age/Sex: 63/M Req #: [id number] Adm Physician: Ordered by: JUAREZ GIBSON, MARTA GIBSON Report #: [id number] Location: ER Room/Bed: Procedure: 0712-0 026 DX/CHEST [...] COPY TO: MARTA PIZARRO ABDOMEN-1VIEW (KUB)2018-07-24 11:05:00 [place] [address] Patient Name: KATELYN CERVANTES MR #: [id number] : 1955 Age/Sex: 63/M Req #: [id number] Adm Physician: Ordered by: TORITO CRAFT MD Report #: [id number] Location: OR Room/Bed: Procedure: [id number] DX/ ABDOMEN-1VIEW (KU) Exam Date: 07/24/18 Exam Time: 0 920 [...] COPY TO: TORITO LANDA MD CHEST 2 WJLWM5001-61-69 09:48:00 [place] [address] Patient Name: KATELYN CERVANTES MR #: [id number] : 1955 Age/Sex: 63/M Req #: [id number] Adm Physician: Ordered by: TORITO CRAFT MD Report #: [id number] Location: OR Room/Bed: Procedure: [id number] DX/ CHEST 2 VIEWS Exam Date: 07/24/18 [...] 07/24/2018 9:50 AM Dictated By: LETY Olguin 9 Transcribed By: MENDY on 07/24/1850 COPY TO: TORITO CRAFT MD B-Type Natriuretic Jvfmiaj6179-73-14 20:53:00* Test Item Value Reference Range Interpretation Comments B-Type Natriuretic Peptide (test code = 45778-8) 35.7 0-100 [facility] Mhzqo8460-11-73 19:55:00* Test Item Value Reference Range Interpretation Comments Sodium Level (test code = 2951-2) 137 136-145 [facility]Potassium Nikzz2365-31-53 19:55:00* Test Item Value Reference Range Interpretation Comments Potassium Level (test code = 2823-3) 3.9 3.5-5.1 [facility] HospitalChloride Sgnub1709-37-46 19:55:00* Test Item Value Reference Range Interpretation Comments Chloride Level (test code = 2075-0) 105 98-107 [facility] HospitalCarbon Dioxide Mdbjj3633-09-09 19:55:00* Test Item Value Reference Range Interpretation Comments Carbon Dioxide Level (test code = 2028-9) 23 22-29 [facility] HospitalAnion Xar4179-73-61 19:55:00* Test Item Value Reference Range Interpretation Comments Anion Gap (test code = 42600-7) 12.9 8-16 [facility] HospitalBlood Urea Jatgkvia9848-88-02 19:55:00* Test Item Value Reference Range Interpretation Comments Blood Urea Nitrogen (test code = 3094-0) 12 7-26 [facility] HospitalCreatinine2018-12-27 19:55:00* Test Item Value Reference Range Interpretation Comments Creatinine (test code = 2160-0) 0.83 0.72-1.25 [facility] HospitalBUN/Creatinine Favgi8706-72-43 19:55:00* Test Item Value Reference Range Interpretation Comments BUN/Creatinine Ratio (test code = 3097-3) 14 6-25 [facility] HospitalEstimat Glomerular Filtration Rate 2018-07-02 19:55:00* Test Item Value Reference Range Interpretation Comments Estimat Glomerular Filtration Rate (test code = 503250026) > 60 >60 Ranges were taken from the National Kidney Disease Education Program and the [facility] literature.Reference ranges:60 or greater: Jpplzh46-40 ( for 3 consecutive months): Chronic kidney disease 15 or less: Kidney failureTyler County HospitalGlucose Oloxz6926-64-08 19:55:00* Test Item Value Reference Range Interpretation Comments Glucose Level (test code = LWR8144) 96 74-118 [facility] HospitalCalcium Vlzzl9432-65-44 19:55:00* Test Item Value Reference Range Interpretation Comments Calcium Level (test code = 06406-2) 8.6 8.4-10.2 [facility] HospitalTotal Brsrbksgg7159-41-94 19:55:00* Test Item Value Reference Range Interpretation Comments Total Bilirubin (test code = 1975-2) 0.8 0.2-1.2 [facility] HospitalAspartate Amino Transf (AST/SGOT) 2018-07-02 19:55:00* Test Item Value Reference Range Interpretation Comments Aspartate Amino Transf (AST/SGOT) (test code = Aspartate Amino Transf (AST/SGOT)) 29 5-34 [facility] HospitalAlanine Aminotransferase (ALT/SGPT) 2018-07-02 19:55:00* Test Item Value Reference Range Interpretation Comments Alanine Aminotransferase (ALT/SGPT) (test code = 1742-6) 35 0-55 [facility] HospitalTotal Avifgiv2602-37-81 19:55:00* Test Item Value Reference Range Interpretation Comments Total Protein (test code = 2885-2) 6.5 6.5-8.1 [facility] HospitalAlbumin2018-12-27 19:55:00* Test Item Value Reference Range Interpretation Comments Albumin (test code = 1751-7) 3.2 3.5-5.0 L [facility] HospitalGlobulin2018-12-27 19:55:00* Test Item Value Reference Range Interpretation Comments Globulin (test code = 19929-4) 3.3 2.3-3.5 [facility] HospitalAlbumin/Globulin Hqxgq2381-85-93 19:55:00 * Test Item Value Reference Range Interpretation Comments Albumin/Globulin Ratio (test code = 1759-0) 1.0 0.8-2.0 [facility] HospitalAlkaline Nmpiblwbjxg3523-06-19 19:55:00* Test Item Value Reference Range Interpretation Comments Alkaline Phosphatase (test code = 6768-6) 190 40-150 H [facility] HospitalWhite Blood Vrffw6162-24-18 19:43:00* Test Item Value Reference Range Interpretation Comments White Blood Count (test code = 6690-2) 4.00 4.8-10.8 L [facility] HospitalRed Blood Gktea3467-52-39 19:43:00* Test Item Value Reference Range Interpretation Comments Red Blood Count (test code = 789-8) 3.78 4.3-5.7 L [facility] HospitalHemoglobin2018-12-27 19:43:00* Test Item Value Reference Range Interpretation Comments Hemoglobin (test code = 70503-5) 14.1 14.0-18.0 [facility] HospitalHematocrit2018-12-27 19:43:00* Test Item Value Reference Range Interpretation Comments Hematocrit (test code = 4544-3) 40.6 38.2-49.6 [facility] HospitalMean Corpuscular Ekbfdg9596-78-66 19:43:00* Test Item Value Reference Range Interpretation Comments Mean Corpuscular Volume (test code = 787-2) 107.4 81-99 H [facility] HospitalMean Corpuscular Drrepyhwli5109-88-91 19:43:00* Test Item Value Reference Range Interpretation Comments Mean Corpuscular Hemoglobin (test code = 785-6) 37.3 28-32 H [facility] HospitalMean Corpuscular Hemoglobin Concent 2018-07-02 19:43:00* Test Item Value Reference Range Interpretation Comments Mean Corpuscular Hemoglobin Concent (test code = 786-4) 34.7 31-35 [facility] HospitalRed Cell Distribution Szzrc9847-47-12 19:43:00* Test Item Value Reference Range Interpretation Comments Red Cell Distribution Width (test code = 19547-1) 13.4 11.7 -14.4 [facility] HospitalPlatelet Pemwm7606-85-91 19:43:00* Test Item Value Reference Range Interpretation Comments Platelet Count (test code = 777-3) 108 140-360 L [facility] HospitalNeutrophils (%) (Auto)2018-07-02 19:43:00 * Test Item Value Reference Range Interpretation Comments Neutrophils (%) (Auto) (test code = 96480-7) 66.5 38.7-80.0 [facility] HospitalLymphocytes (%) (Auto)2018-07-02 19:43:00 * Test Item Value Reference Range Interpretation Comments Lymphocytes (%) (Auto) (test code = 736-9) 24.5 18.0-39.1 [facility] HospitalMonocytes (%) (Auto)2018-07-02 19:43:00* Test Item Value Reference Range Interpretation Comments Monocytes (%) (Auto) (test code = 5905-5) 5.5 4.4-11.3 [facility] HospitalEosinophils (%) (Auto)2018-07-02 19:43:00 * Test Item Value Reference Range Interpretation Comments Eosinophils (%) (Auto) (test code = 713-8) 2.5 0.0-6.0 [facility] HospitalBasophils (%) (Auto)2018-07-02 19:43:00* Test Item Value Reference Range Interpretation Comments Basophils (%) (Auto) (test code = 706-2) 0.5 0.0-1.0 [facility] HospitalIM GRANULOCYTES %2018-07-02 19:43:00* Test Item Value Reference Range Interpretation Comments IM GRANULOCYTES % (test code = IM GRANULOCYTES %) 0.5 0.0- 1.0 [facility] HospitalNeutrophils # (Auto)2018-07-02 19:43:00* Test Item Value Reference Range Interpretation Comments Neutrophils # (Auto) (test code = 751-8) 2.7 2.1-6.9 [facility] HospitalLymphocytes # (Auto)2018-07-02 19:43:00* Test Item Value Reference Range Interpretation Comments Lymphocytes # (Auto) (test code = 00103-7) 1.0 1.0-3.2 [facility] HospitalMonocytes # (Auto)2018-07-02 19:43:00* Test Item Value Reference Range Interpretation Comments Monocytes # (Auto) (test code = 742-7) 0.2 0.2-0.8 [facility] HospitalEosinophils # (Auto)2018-07-02 19:43:00* Test Item Value Reference Range Interpretation Comments Eosinophils # (Auto) (test code = 711-2) 0.1 0.0-0.4 [facility] HospitalBasophils # (Auto)2018-07-02 19:43:00* Test Item Value Reference Range Interpretation Comments Basophils # (Auto) (test code = 704-7) 0.0 0.0-0.1 [facility] HospitalAbsolute Immature Granulocyte (auto 2018-07-02 19:43:00* Test Item Value Reference Range Interpretation Comments Absolute Immature Granulocyte (auto (kendra t code = Absolute Immature Granulocyte (auto) 0.02 0-0.1 [facility] HospitalCHEST SINGLE (PORTABLE)2018-07-02 19:26:00 [facility] [address] [place] [address] Patient Name: KATELYN CERVANTES MR #: [id number] : 1955 Age/Sex: 63/M Req #: [id number] Adm Physician: Ordered by: KATE STOUT MD Report #: [id number] Location: ER Room/Bed: Procedure: [id number] DX/CHEST SINGLE (PORTABLE) Exam Date: Exam Time: [...] COPY TO: JOSE STOUT RD, MD Sodium Wowev0068-36-94 08:50:00* Test Item Value Reference Range Interpretation Comments Sodium Level (test code = 2951-2) 135 136-145 L [facility] HospitalPotassium Krykw9639-43-86 08:50:00* Test Item Value Reference Range Interpretation Comments Potassium Level (test code = 2823-3) 5.4 3.5-5.1 H [facility] HospitalChloride Hrown6860-28-78 08:50:00* Test Item Value Reference Range Interpretation Comments Chloride Level (test code = 2075-0) 107 98-107 [facility] HospitalCarbon Dioxide Xjsvw6695-27-87 08:50:00* Test Item Value Reference Range Interpretation Comments Carbon Dioxide Level (test code = 2028-9) 18 22-29 L [facility] HospitalAnion Zqk5762-52-41 08:50:00* Test Item Value Reference Range Interpretation Comments Anion Gap (test code = 50237-9) 15.4 8-16 [facility] HospitalBlood Urea Ccnlamsy0705-57-62 08:50:00* Test Item Value Reference Range Interpretation Comments Blood Urea Nitrogen (test code = 3094-0) 12 - [facility] HospitalCreatinine2018-12-16 08:50:00* Test Item Value Reference Range Interpretation Comments Creatinine (test code = 2160-0) 0.78 0.72-1.25 [facility] HospitalBUN/Creatinine Nhnou2931-68-55 08:50:00* Test Item Value Reference Range Interpretation Comments BUN/Creatinine Ratio (test code = 3097-3) 15 12-29 [facility] HospitalEstimat Glomerular Filtration Rate 2018-06-21 08:50:00* Test Item Value Reference Range Interpretation Comments Estimat Glomerular Filtration Rate (test code = 695792577) > 60 >60 Ranges were taken from the National Kidney Disease Education Program and the [facility] Foundation literature.Reference ranges:60 or greater: Fdbkut37-88 ( for 3 consecutive months): Chronic kidney disease 15 or less: Kidney failureTyler County HospitalGlucose Pesas4537-02-68 08:50:00* Test Item Value Reference Range Interpretation Comments Glucose Level (test code = ZHQ1660) 151 74-118 H [facility] HospitalCalcium Osazp5456-99-52 08:50:00* Test Item Value Reference Range Interpretation Comments Calcium Level (test code = 38998-8) 8.2 8.4-10.2 L [facility] HospitalWhite Blood Mmetz0857-20-25 08:30:00* Test Item Value Reference Range Interpretation Comments White Blood Count (test code = 6690-2) 9.65 4.8-10.8 [facility] HospitalRed Blood Gdlhb1014-30-81 08:30:00* Test Item Value Reference Range Interpretation Comments Red Blood Count (test code = 789-8) 3.66 4.3-5.7 L [facility] HospitalHemoglobin2018-12-16 08:30:00* Test Item Value Reference Range Interpretation Comments Hemoglobin (test code = 50692-6) 13.7 14.0-18.0 L [facility] HospitalHematocrit2018-12-16 08:30:00* Test Item Value Reference Range Interpretation Comments Hematocrit (test code = 4544-3) 38.0 38.2-49.6 L [facility] HospitalMean Corpuscular Hruseg4964-09-79 08:30:00* Test Item Value Reference Range Interpretation Comments Mean Corpuscular Volume (test code = 787-2) 103.8 81-99 H [facility] HospitalMean Corpuscular Oadasjmidm1062-69-13 08:30:00* Test Item Value Reference Range Interpretation Comments Mean Corpuscular Hemoglobin (test code = 785-6) 37.4 28-32 H [facility] HospitalMean Corpuscular Hemoglobin Concent 2018-06-21 08:30:00* Test Item Value Reference Range Interpretation Comments Mean Corpuscular Hemoglobin Concent (test code = 786-4) 36.1 31-35 H [facility] HospitalRed Cell Distribution Jzddf7789-71-35 08:30:00* Test Item Value Reference Range Interpretation Comments Red Cell Distribution Width (test code = 51005-6) 12.9 11.7 -14.4 [facility] HospitalPlatelet Ovpdz6428-42-79 08:30:00* Test Item Value Reference Range Interpretation Comments Platelet Count (test code = 777-3) 103 140-360 L [facility] HospitalNeutrophils (%) (Auto)2018-06-21 08:30:00 * Test Item Value Reference Range Interpretation Comments Neutrophils (%) (Auto) (test code = 34846-2) 85.6 38.7-80.0 H [facility] HospitalLymphocytes (%) (Auto)2018-06-21 08:30:00 * Test Item Value Reference Range Interpretation Comments Lymphocytes (%) (Auto) (test code = 736-9) 6.5 18.0-39.1 L [facility] HospitalMonocytes (%) (Auto)2018-06-21 08:30:00* Test Item Value Reference Range Interpretation Comments Monocytes (%) (Auto) (test code = 5905-5) 6.8 4.4-11.3 [facility] HospitalEosinophils (%) (Auto)2018-06-21 08:30:00 * Test Item Value Reference Range Interpretation Comments Eosinophils (%) (Auto) (test code = 713-8) 0.4 0.0-6.0 [facility] HospitalBasophils (%) (Auto)2018-06-21 08:30:00* Test Item Value Reference Range Interpretation Comments Basophils (%) (Auto) (test code = 706-2) 0.1 0.0-1.0 [facility] HospitalIM GRANULOCYTES %2018-06-21 08:30:00* Test Item Value Reference Range Interpretation Comments IM GRANULOCYTES % (test code = IM GRANULOCYTES %) 0.6 0.0- 1.0 [facility] HospitalNeutrophils # (Auto)2018-06-21 08:30:00* Test Item Value Reference Range Interpretation Comments Neutrophils # (Auto) (test code = 751-8) 8.3 2.1-6.9 H [facility] HospitalLymphocytes # (Auto)2018-06-21 08:30:00* Test Item Value Reference Range Interpretation Comments Lymphocytes # (Auto) (test code = 39335-6) 0.6 1.0-3.2 L [facility] HospitalMonocytes # (Auto)2018-06-21 08:30:00* Test Item Value Reference Range Interpretation Comments Monocytes # (Auto) (test code = 742-7) 0.7 0.2-0.8 [facility] HospitalEosinophils # (Auto)2018-06-21 08:30:00* Test Item Value Reference Range Interpretation Comments Eosinophils # (Auto) (test code = 711-2) 0.0 0.0-0.4 [facility] HospitalBasophils # (Auto)2018-06-21 08:30:00* Test Item Value Reference Range Interpretation Comments Basophils # (Auto) (test code = 704-7) 0.0 0.0-0.1 [facility] HospitalAbsolute Immature Granulocyte (auto 2018-06-21 08:30:00* Test Item Value Reference Range Interpretation Comments Absolute Immature Granulocyte (auto (kendra t code = Absolute Immature Granulocyte (auto) 0.06 0-0.1 [facility] HospitalParathyroid Nrmtyyb7835-72-20 06:18:00* Test Item Value Reference Range Interpretation Comments Parathyroid Hormone (test code = 2731-8) 39 15-65 [facility]Calcium (Send out)2018-05-23 06:18:00* Test Item Value Reference Range Interpretation Comments Calcium (Send out) (test code = 68436-9) 8.2 8.6-10.2 L [facility]Parathyroid Hormone Interpretation 2018-05-23 06:18:00* Test Item Value Reference Range Interpretation Comments Parathyroid Hormone Interpretation (test code = Parathyroid Hormone Interpretation) Comment . Interpretation Intact PTH Calcium (pg/mL) (mg/dL)Normal 15 - 65 8.6 - 10.2Pr imary Hyperparathyroidism >65 >10.2Secondary Hyperparathyroidism >65 <10.2Non-Parathyroid Hypercalcemia <65 >10.2Hypoparathyroidism <15 < 8.6Non- Parathyroid Hypocalcemia 15 - 65 < 8.6Performed at: - [facility] [id number] Director: Ortiz Nielson MD, Phone: [phone] at: - [facility] [id number] Director: Kami Trivedi MD, Phone: [phone] County HospitalParathyroid Laptajo5141-85-77 06:18:00* Test Item Value Reference Range Interpretation Comments Parathyroid Hormone (test code = 2731-8) 39 15-65 [facility]Cal[facility]Send out)2018-05-23 06:18:00* Test Item Value Reference Range Interpretation Comments Calcium (Send out) (test code = 90898-1) 8.2 8.6-10.2 L [facility]Par[facility] Hormone Interpretation 2018-05-23 06:18:00* Test Item Value Reference Range Interpretation Comments Parathyroid Hormone Interpretation (test code = Parathyroid Hormone Interpretation) Comment . Interpretation Intact PTH Calcium (pg/mL) (mg/dL)Normal 15 - 65 8.6 - 10.2Pr imary Hyperparathyroidism >65 >10.2Secondary Hyperparathyroidism >65 <10.2Non-Parathyroid Hypercalcemia <65 >10.2Hypoparathyroidism <15 < 8.6Non- Parathyroid Hypocalcemia 15 - 65 < 8.6Performed at: [facility] [id number] Director: Ortiz Nielson MD, Phone: [phone] at: [facility] [address] [id number] Director: Kami Trivedi MD, Phone: [phone] County HospitalParathyroid Mfkwduw8786-29-55 06:18:00* Test Item Value Reference Range Interpretation Comments Parathyroid Hormone (test code = 2731-8) 39 15-65 [facility]Cal[facility]Send out)2018-05-23 06:18:00* Test Item Value Reference Range Interpretation Comments Calcium (Send out) (test code = 15764-5) 8.2 8.6-10.2 L [facility]Parathyroid Hormone Interpretation 2018-05-23 06:18:00* Test Item Value Reference Range Interpretation Comments Parathyroid Hormone Interpretation (test code = Parathyroid Hormone Interpretation) Comment . Interpretation Intact PTH Calcium (pg/mL) (mg/dL)Normal 15 - 65 8.6 - 10.2Pr imary Hyperparathyroidism >65 >10.2Secondary Hyperparathyroidism >65 <10.2Non-Parathyroid Hypercalcemia <65 >10.2Hypoparathyroidism <15 < 8.6Non- Parathyroid Hypocalcemia 15 - 65 < 8.6Performed at: [facility] [id number] Director: Ortiz Nielson MD, Phone: [phone] at: [address] [id number] Director: Kami Trivedi MD, Phone: [phone] County HospitalParathyroid Qmkpetg6205-88-82 06:18:00* Test Item Value Reference Range Interpretation Comments Parathyroid Hormone (test code = 2731-8) 39 15-65 [facility]Calcium (Send out)2018-05-23 06:18:00* Test Item Value Reference Range Interpretation Comments Calcium (Send out) (test code = 26605-6) 8.2 8.6-10.2 L [facility] HospitalParathyroid Hormone Interpretation 2018-05-23 06:18:00* Test Item Value Reference Range Interpretation Comments Parathyroid Hormone Interpretation (test code = Parathyroid Hormone Interpretation) Comment . Interpretation Intact PTH Calcium (pg/mL) (mg/dL)Normal 15 - 65 8.6 - 10.2Pr imary Hyperparathyroidism >65 >10.2Secondary Hyperparathyroidism >65 <10.2Non-Parathyroid Hypercalcemia <65 >10.2Hypoparathyroidism <15 < 8.6Non- Parathyroid Hypocalcemia 15 - 65 < 8.6Performed at: - [facility] [address] [id number] Director: Ortiz Nielson MD, Phone: [phone] at: - [facility] [address] [id number] Director: Kami Trivedi MD, Phone: [phone] University of [facility] Health [facility] Campusodium Gzbtb9153-08-07 06:31:00* Test Item Value Reference Range Interpretation Comments Sodium Level (test code = 2951-2) 138 136-145 [facility] HospitalPotassium Ulqww8837-40-02 06:31:00* Test Item Value Reference Range Interpretation Comments Potassium Level (test code = 2823-3) 3.9 3.5-5.1 [facility] HospitalChloride Nosfb9733-93-63 06:31:00* Test Item Value Reference Range Interpretation Comments Chloride Level (test code = 2075-0) 109 98-107 H [facility] HospitalCarbon Dioxide Cmtkv3147-41-28 06:31:00* Test Item Value Reference Range Interpretation Comments Carbon Dioxide Level (test code = 2028-9) 22 22-29 [facility] HospitalAnion Hvl1594-06-34 06:31:00* Test Item Value Reference Range Interpretation Comments Anion Gap (test code = 43713-0) 10.9 8-16 [facility] HospitalBlood Urea Tgbsthfq6341-74-89 06:31:00* Test Item Value Reference Range Interpretation Comments Blood Urea Nitrogen (test code = 3094-0) 8 7-26 [facility] HospitalCreatinine2018-11-16 06:31:00* Test Item Value Reference Range Interpretation Comments Creatinine (test code = 2160-0) 0.75 0.72-1.25 [facility] HospitalBUN/Creatinine Nlfhz9461-42-61 06:31:00* Test Item Value Reference Range Interpretation Comments BUN/Creatinine Ratio (test code = 3097-3) 11 12-29 [facility] HospitalEstimat Glomerular Filtration Rate 2018-05-22 06:31:00* Test Item Value Reference Range Interpretation Comments Estimat Glomerular Filtration Rate (test code = 157788070) > 60 >60 Ranges were taken from the National Kidney Disease Education Program and the [facility] [employer] literature.Reference ranges:60 or greater: Ejxtfp34-26 ( for 3 consecutive months): Chronic kidney disease 15 or less: Kidney failureTyler County HospitalGlucose Rpoeu1579-29-82 06:31:00* Test Item Value Reference Range Interpretation Comments Glucose Level (test code = LAG6738) 104 74-118 [facility] HospitalCalcium Lxjqm0799-30-20 06:31:00* Test Item Value Reference Range Interpretation Comments Calcium Level (test code = 60363-5) 8.3 8.4-10.2 L [facility] HospitalUric Mhnw6030-20-40 06:31:00* Test Item Value Reference Range Interpretation Comments Uric Acid (test code = 3084-1) 5.0 4.0-8.0 [facility] HospitalUric Nehd7500-04-09 06:31:00* Test Item Value Reference Range Interpretation Comments Uric Acid (test code = 3084-1) 5.0 4.0-8.0 [facility] HospitalUric Lixy5003-08-73 06:31:00* Test Item Value Reference Range Interpretation Comments Uric Acid (test code = 3084-1) 5.0 4.0-8.0 [facility] HospitalUric Mnez2465-09-40 06:31:00* Test Item Value Reference Range Interpretation Comments Uric Acid (test code = 3084-1) 5.0 4.0-8.0 [facility] HospitalWhite Blood Fimop6829-97-10 06:18:00* Test Item Value Reference Range Interpretation Comments White Blood Count (test code = 6690-2) 8.06 4.8-10.8 [facility] HospitalRed Blood Dnrhk9483-46-22 06:18:00* Test Item Value Reference Range Interpretation Comments Red Blood Count (test code = 789-8) 3.52 4.3-5.7 L [facility] HospitalHemoglobin2018-11-16 06:18:00* Test Item Value Reference Range Interpretation Comments Hemoglobin (test code = 03110-2) 13.3 14.0-18.0 L [facility] HospitalHematocrit2018-11-16 06:18:00* Test Item Value Reference Range Interpretation Comments Hematocrit (test code = 4544-3) 39.0 38.2-49.6 [facility] HospitalMean Corpuscular Hgodrb2333-51-29 06:18:00* Test Item Value Reference Range Interpretation Comments Mean Corpuscular Volume (test code = 787-2) 110.8 81-99 H [facility] HospitalMean Corpuscular Fnsnaqpalg4573-90-45 06:18:00* Test Item Value Reference Range Interpretation Comments Mean Corpuscular Hemoglobin (test code = 785-6) 37.8 28-32 H [facility] HospitalMean Corpuscular Hemoglobin Concent 2018-05-22 06:18:00* Test Item Value Reference Range Interpretation Comments Mean Corpuscular Hemoglobin Concent (test code = 786-4) 34.1 31-35 [facility] HospitalRed Cell Distribution Wsbqe2622-60-27 06:18:00* Test Item Value Reference Range Interpretation Comments Red Cell Distribution Width (test code = 41467-6) 14.1 11.7 -14.4 [facility] HospitalPlatelet Jzvot1514-47-76 06:18:00* Test Item Value Reference Range Interpretation Comments Platelet Count (test code = 777-3) 173 140-360 [facility] HospitalNeutrophils (%) (Auto)2018-05-22 06:18:00 * Test Item Value Reference Range Interpretation Comments Neutrophils (%) (Auto) (test code = 38100-9) 74.0 38.7-80.0 [facility] HospitalLymphocytes (%) (Auto)2018-05-22 06:18:00 * Test Item Value Reference Range Interpretation Comments Lymphocytes (%) (Auto) (test code = 736-9) 17.4 18.0-39.1 L [facility] HospitalMonocytes (%) (Auto)2018-05-22 06:18:00* Test Item Value Reference Range Interpretation Comments Monocytes (%) (Auto) (test code = 5905-5) 7.8 4.4-11.3 [facility] HospitalEosinophils (%) (Auto)2018-05-22 06:18:00 * Test Item Value Reference Range Interpretation Comments Eosinophils (%) (Auto) (test code = 713-8) 0.1 0.0-6.0 [facility] HospitalBasophils (%) (Auto)2018-05-22 06:18:00* Test Item Value Reference Range Interpretation Comments Basophils (%) (Auto) (test code = 706-2) 0.1 0.0-1.0 [facility] HospitalIM GRANULOCYTES %2018-05-22 06:18:00* Test Item Value Reference Range Interpretation Comments IM GRANULOCYTES % (test code = IM GRANULOCYTES %) 0.6 0.0- 1.0 [facility] HospitalNeutrophils # (Auto)2018-05-22 06:18:00* Test Item Value Reference Range Interpretation Comments Neutrophils # (Auto) (test code = 751-8) 6.0 2.1-6.9 [facility] HospitalLymphocytes # (Auto)2018-05-22 06:18:00* Test Item Value Reference Range Interpretation Comments Lymphocytes # (Auto) (test code = 31519-5) 1.4 1.0-3.2 [facility] HospitalMonocytes # (Auto)2018-05-22 06:18:00* Test Item Value Reference Range Interpretation Comments Monocytes # (Auto) (test code = 742-7) 0.6 0.2-0.8 [facility] HospitalEosinophils # (Auto)2018-05-22 06:18:00* Test Item Value Reference Range Interpretation Comments Eosinophils # (Auto) (test code = 711-2) 0.0 0.0-0.4 [facility] HospitalBasophils # (Auto)2018-05-22 06:18:00* Test Item Value Reference Range Interpretation Comments Basophils # (Auto) (test code = 704-7) 0.0 0.0-0.1 [facility] HospitalAbsolute Immature Granulocyte (auto 2018-05-22 06:18:00* Test Item Value Reference Range Interpretation Comments Absolute Immature Granulocyte (auto (kendra t code = Absolute Immature Granulocyte (auto) 0.05 0-0.1 [facility] HospitalUrine WPM3491-03-82 06:09:00* Test Item Value Reference Range Interpretation Comments Urine WBC (test code = 5821-4) 0-5 0-5 [facility] HospitalUrine GDA4025-76-23 06:09:00* Test Item Value Reference Range Interpretation Comments Urine RBC (test code = 34027-7) 0-5 0-5 [facility] HospitalUrine Xhsjkfhr1935-22-68 06:09:00* Test Item Value Reference Range Interpretation Comments Urine Bacteria (test code = 27779-9) FEW NONE [facility] HospitalUrine Epithelial Lhgnu9664-49-97 06:09:00 * Test Item Value Reference Range Interpretation Comments Urine Epithelial Cells (test code = 03188-2) RARE NONE [facility] HospitalUrine Sytel5161-84-82 06:09:00* Test Item Value Reference Range Interpretation Comments Urine Mucus (test code = 8247-9) MANY RARE H [facility] SLT9813-48-97 06:09:00* Test Item Value Reference Range Interpretation Comments Urine WBC (test code = 5821-4) 0-5 0-5 [facility] PDH3840-04-01 06:09:00* Test Item Value Reference Range Interpretation Comments Urine RBC (test code = 15936-4) 0-5 0-5 [facility] Ggsfpbjp5126-25-43 06:09:00* Test Item Value Reference Range Interpretation Comments Urine Bacteria (test code = 70616-2) FEW NONE [facility] Epithelial Qtigg1809-20-71 06:09:00 * Test Item Value Reference Range Interpretation Comments Urine Epithelial Cells (test code = 23431-0) RARE NONE [facility] Yzbhx4541-02-64 06:09:00* Test Item Value Reference Range Interpretation Comments Urine Mucus (test code = 8247-9) MANY RARE H [facility] YCF5638-40-68 06:09:00* Test Item Value Reference Range Interpretation Comments Urine WBC (test code = 5821-4) 0-5 0-5 [facility] WIJ2977-78-69 06:09:00* Test Item Value Reference Range Interpretation Comments Urine RBC (test code = 96302-6) 0-5 0-5 [facility] Svbmiptl3897-60-47 06:09:00* Test Item Value Reference Range Interpretation Comments Urine Bacteria (test code = 60575-2) FEW NONE [facility] Epithelial Zkiyr6020-82-38 06:09:00 * Test Item Value Reference Range Interpretation Comments Urine Epithelial Cells (test code = 05305-9) RARE NONE [facility] Yjlbi5867-41-84 06:09:00* Test Item Value Reference Range Interpretation Comments Urine Mucus (test code = 8247-9) MANY RARE H [facility] Ubnfa7942-88-00 06:09:00* Test Item Value Reference Range Interpretation Comments Urine Mucus (test code = 8247-9) MANY RARE H [facility] HospitalUrine Lgyfo0728-37-65 05:56:00* Test Item Value Reference Range Interpretation Comments Urine Color (test code = 5778-6) YELLOW YELLOW [facility] HospitalUrine Pgbdyga3457-63-22 05:56:00* Test Item Value Reference Range Interpretation Comments Urine Clarity (test code = 21070-8) CLEAR CLEAR [facility] Specific Jcqfbmw3317-21-73 05:56:00 * Test Item Value Reference Range Interpretation Comments Urine Specific [place] (test code = 5811-5) 1.025 1.010-1.02 5 [facility] HospitalUrine vB1394-28-23 05:56:00* Test Item Value Reference Range Interpretation Comments Urine pH (test code = 79327-3) 6 5-7 [facility] Leukocyte Pattqyil8896-25-12 05:56:00* Test Item Value Reference Range Interpretation Comments Urine Leukocyte Esterase (test code = 5799-2) NEGATIVE NEGATIVE [facility] Fdcqxgg5260-17-91 05:56:00* Test Item Value Reference Range Interpretation Comments Urine Nitrite (test code = 36297-2) NEGATIVE NEGATIVE [facility] Ueiqxqh8592-89-76 05:56:00* Test Item Value Reference Range Interpretation Comments Urine Protein (test code = 5804-0) NEGATIVE NEGATIVE [facility] Glucose (UA)2018-05-21 05:56:00* Test Item Value Reference Range Interpretation Comments Urine Glucose (UA) (test code = 2349-9) NEGATIVE NEGATIVE [facility] HospitalUrine Capejjm0574-65-43 05:56:00* Test Item Value Reference Range Interpretation Comments Urine Ketones (test code = 45900-3) NEGATIVE NEGATIVE [facility] Ypurqxabtxst6606-33-91 05:56:00* Test Item Value Reference Range Interpretation Comments Urine Urobilinogen (test code = 89847-1) 0.2 0.2-1 [facility] Oowpwvgoa8272-21-03 05:56:00* Test Item Value Reference Range Interpretation Comments Urine Bilirubin (test code = 1978-6) NEGATIVE NEGATIVE [facility] Uxjbe5045-10-46 05:56:00* Test Item Value Reference Range Interpretation Comments Urine Blood (test code = 31584-0) TRACE NEGATIVE H [facility] Bdwwo7118-13-92 05:56:00* Test Item Value Reference Range Interpretation Comments Urine Color (test code = 5778-6) YELLOW YELLOW [facility] Qvjkqqg3109-06-08 05:56:00* Test Item Value Reference Range Interpretation Comments Urine Clarity (test code = 78145-9) CLEAR CLEAR [facility] Specific Gigshiz1956-92-17 05:56:00 * Test Item Value Reference Range Interpretation Comments Urine Specific [place] (test code = 5811-5) 1.025 1.010-1.02 5 [facility] qD2121-43-62 05:56:00* Test Item Value Reference Range Interpretation Comments Urine pH (test code = 68302-2) 6 5-7 [facility] Leukocyte Qjvnpcku5087-86-68 05:56:00* Test Item Value Reference Range Interpretation Comments Urine Leukocyte Esterase (test code = 5799-2) NEGATIVE NEGATIVE [facility] Nizyzhu3501-72-73 05:56:00* Test Item Value Reference Range Interpretation Comments Urine Nitrite (test code = 47338-1) NEGATIVE NEGATIVE [facility] Ikpilel1597-07-91 05:56:00* Test Item Value Reference Range Interpretation Comments Urine Protein (test code = 5804-0) NEGATIVE NEGATIVE [facility] Glucose (UA)2018-05-21 05:56:00* Test Item Value Reference Range Interpretation Comments Urine Glucose (UA) (test code = 2349-9) NEGATIVE NEGATIVE [facility] Uirobyc6924-45-03 05:56:00* Test Item Value Reference Range Interpretation Comments Urine Ketones (test code = 95320-2) NEGATIVE NEGATIVE [facility] Vpspbsyaszsl1700-95-76 05:56:00* Test Item Value Reference Range Interpretation Comments Urine Urobilinogen (test code = 37894-8) 0.2 0.2-1 [facility] Opadvzjcl8048-34-76 05:56:00* Test Item Value Reference Range Interpretation Comments Urine Bilirubin (test code = 1978-6) NEGATIVE NEGATIVE [facility] Zfjri1663-70-25 05:56:00* Test Item Value Reference Range Interpretation Comments Urine Blood (test code = 22469-4) TRACE NEGATIVE H [facility] Esclv4268-75-42 05:56:00* Test Item Value Reference Range Interpretation Comments Urine Color (test code = 5778-6) YELLOW YELLOW [facility] Alxyars7391-44-05 05:56:00* Test Item Value Reference Range Interpretation Comments Urine Clarity (test code = 16845-9) CLEAR CLEAR [facility] Specific Ldxguwj1327-66-96 05:56:00 * Test Item Value Reference Range Interpretation Comments Urine Specific [place] (test code = 5811-5) 1.025 1.010-1.02 5 [facility] jC5051-59-78 05:56:00* Test Item Value Reference Range Interpretation Comments Urine pH (test code = 15571-3) 6 5-7 [facility] Leukocyte Rlqsrxtj2270-29-40 05:56:00* Test Item Value Reference Range Interpretation Comments Urine Leukocyte Esterase (test code = 5799-2) NEGATIVE NEGATIVE [facility] Qqjedif9608-06-21 05:56:00* Test Item Value Reference Range Interpretation Comments Urine Nitrite (test code = 42524-3) NEGATIVE NEGATIVE [facility] Iljmlpm8298-87-43 05:56:00* Test Item Value Reference Range Interpretation Comments Urine Protein (test code = 5804-0) NEGATIVE NEGATIVE [facility] Glucose (UA)2018-05-21 05:56:00* Test Item Value Reference Range Interpretation Comments Urine Glucose (UA) (test code = 2349-9) NEGATIVE NEGATIVE [facility] Xtypdel8059-98-25 05:56:00* Test Item Value Reference Range Interpretation Comments Urine Ketones (test code = 48142-7) NEGATIVE NEGATIVE [facility] Bganlcmeqrps1034-59-33 05:56:00* Test Item Value Reference Range Interpretation Comments Urine Urobilinogen (test code = 99441-5) 0.2 0.2-1 [facility] Ofnuakgem1854-26-13 05:56:00* Test Item Value Reference Range Interpretation Comments Urine Bilirubin (test code = 1978-6) NEGATIVE NEGATIVE [facility] Qndom9159-29-04 05:56:00* Test Item Value Reference Range Interpretation Comments Urine Blood (test code = 65378-9) TRACE NEGATIVE H [facility]CT [facility]LVIS NZ9782-77-78 04:56:00 [place] [address] Patient Name: KATELYN CERVANTES MR #: [id number] : 1955 Age/Sex: 63/M Req #: [id number] Adm Physician: Ordered by: KADEN JAMES MD Report #: [id number] Location: ER Room/Bed: Procedure: 1115-[address]/CT ABDOMEN/PELVIS WO Exam Date: Exam [...] is below the limits set by the [facility] Protocol Committee (RPC). FINDINGS: LOWER THORAX: No [...] TO: KADEN JAMES MD CT LUMBAR SPINE FB0394-02-17 04:52:00 [place] [address] Patient Name: KATELYN CERVANTES MR #: [id number] : 1955 Age/Sex: 63/M Req #: [id number] Adm Physician: Ordered by: KADEN JAMES MD Report #: [id number] Location: ER Room/Bed: Procedure: 1115-[address]/CT [...] Interpretation Comments Troponin I (test code = UZB5332) 0.013 0-0.300 [facility] C8947-11-59 04:47:00* Test Item Value Reference Range Interpretation Comments Troponin I (test code = KTM1851) 0.013 0-0.300 [facility] A6274-09-05 04:47:00* Test Item Value Reference Range Interpretation Comments Troponin I (test code = PSG8402) 0.013 0-0.300 [facility] HospitalCreatine Kinase BE5553-90-08 04:26:00* Test Item Value Reference Range Interpretation Comments Creatine Kinase MB (test code = 99809-5) 0.50 0-5.0 [facility]Creat[facility] Kinase OW7701-66-74 04:26:00* Test Item Value Reference Range Interpretation Comments Creatine Kinase MB (test code = 44975-1) 0.50 0-5.0 [facility]Creat[facility] Kinase XE8293-45-49 04:26:00* Test Item Value Reference Range Interpretation Comments Creatine Kinase MB (test code = 55089-9) 0.50 0-5.0 [facility] HospitalTotal Sqhkafyxh4115-70-25 04:18:00* Test Item Value Reference Range Interpretation Comments Total Bilirubin (test code = 1975-2) 1.0 0.2-1.2 [facility] HospitalAspartate Amino Transf (AST/SGOT) 2018-05-21 04:18:00* Test Item Value Reference Range Interpretation Comments Aspartate Amino Transf (AST/SGOT) (test code = Aspartate Amino Transf (AST/SGOT)) 16 5-34 [facility] HospitalAlanine Aminotransferase (ALT/SGPT) 2018-05-21 04:18:00* Test Item Value Reference Range Interpretation Comments Alanine Aminotransferase (ALT/SGPT) (test code = 1742-6) 9 0-55 [facility] HospitalTotal Hxfstck7444-02-43 04:18:00* Test Item Value Reference Range Interpretation Comments Total Protein (test code = 2885-2) 6.6 6.5-8.1 [facility] HospitalAlbumin2018-11-15 04:18:00* Test Item Value Reference Range Interpretation Comments Albumin (test code = 1751-7) 3.7 3.5-5.0 [facility] HospitalGlobulin2018-11-15 04:18:00* Test Item Value Reference Range Interpretation Comments Globulin (test code = 30515-2) 2.9 2.3-3.5 [facility] HospitalAlbumin/Globulin Emsee3700-39-96 04:18:00 * Test Item Value Reference Range Interpretation Comments Albumin/Globulin Ratio (test code = 1759-0) 1.3 0.8-2.0 [facility] HospitalAlkaline Pajezrmuezt8500-58-87 04:18:00* Test Item Value Reference Range Interpretation Comments Alkaline Phosphatase (test code = 6768-6) 130 40-150 [facility] HospitalCreatine Bkrfrp1126-07-01 04:18:00* Test Item Value Reference Range Interpretation Comments Creatine Kinase (test code = 2157-6) 38 30-200 [facility] HospitalLipase2018-11-15 04:18:00* Test Item Value Reference Range Interpretation Comments Lipase (test code = 3040-3) 19 8-78 [facility] HospitalTotal Keaectzsz6165-49-66 04:18:00* Test Item Value Reference Range Interpretation Comments Total Bilirubin (test code = 1975-2) 1.0 0.2-1.2 [facility] HospitalAspartate Amino Transf (AST/SGOT) 2018-05-21 04:18:00* Test Item Value Reference Range Interpretation Comments Aspartate Amino Transf (AST/SGOT) (test code = Aspartate Amino Transf (AST/SGOT)) 16 5-34 [facility] HospitalAlanine Aminotransferase (ALT/SGPT) 2018-05-21 04:18:00* Test Item Value Reference Range Interpretation Comments Alanine Aminotransferase (ALT/SGPT) (test code = 1742-6) 9 0-55 [facility] HospitalTotal Odylkxs4064-22-66 04:18:00* Test Item Value Reference Range Interpretation Comments Total Protein (test code = 2885-2) 6.6 6.5-8.1 [facility] HospitalAlbumin2018-11-15 04:18:00* Test Item Value Reference Range Interpretation Comments Albumin (test code = 1751-7) 3.7 3.5-5.0 [facility] HospitalGlobulin2018-11-15 04:18:00* Test Item Value Reference Range Interpretation Comments Globulin (test code = 89637-5) 2.9 2.3-3.5 [facility] HospitalAlbumin/Globulin Jsofp2618-35-53 04:18:00 * Test Item Value Reference Range Interpretation Comments Albumin/Globulin Ratio (test code = 1759-0) 1.3 0.8-2.0 [facility] HospitalAlkaline Omvooqfwueb3816-94-90 04:18:00* Test Item Value Reference Range Interpretation Comments Alkaline Phosphatase (test code = 6768-6) 130 40-150 [facility] HospitalCreatine Zhxnbb5258-23-48 04:18:00* Test Item Value Reference Range Interpretation Comments Creatine Kinase (test code = 2157-6) 38 30-200 [facility] HospitalLipase2018-11-15 04:18:00* Test Item Value Reference Range Interpretation Comments Lipase (test code = 3040-3) 19 8-78 [facility] HospitalCreatine [id number] 04:18:00* Test Item Value Reference Range Interpretation Comments Creatine Kinase (test code = 2157-6) 38 30-200 [facility] Test Item Value Reference Range Interpretation Comments Lipase (test code = 3040-3) 19 8-78 [facility]
[2020-02-11] MEDS ORDERED: VERAPAMIL HCL 2.5 MG/ML 2 ML VIAL ONE (14:14)
[2020-02-11] MEDS ORDERED: MIDAZOLAM HCL 2 MG/2 ML VIAL ONE (14:14)
[2020-02-11] MEDS ORDERED: HEPARIN SOD (PORCINE) 1000 UNIT/ML 30ML ONE (14:14)
[2020-02-11] MEDS ORDERED: HEPARIN SOD/SOD CHLORIDE 2,000 ML ONE (14:15)
[2020-02-11] MEDS ORDERED: LIDOCAINE HCL 2% LOCAL 20 ML VIAL ONE (14:15)
[2020-02-11] MEDS ORDERED: FENTANYL CITRATE/PF 100MCG/2 ML INJ ONE (14:15)
[2020-02-11] MEDS ORDERED: SODIUM CHLORIDE 0.9% 1000ML 1,000 ML ONE (14:16)
[2020-02-11] MEDS ORDERED: NITROGLYCERIN/D5W 200 MCG/ML 0 ML ONE (14:16)
--- NOTE | 2020-02-11 14:39 | Consultation ---
DATE OF CONSULTATION: 02/11/2020 Cardiology Consultation REQUESTING PHYSICIAN: Dr. Burton. REASON FOR CONSULTATION: Non-ST elevation myocardial infarction. HISTORY OF PRESENT ILLNESS: This is a 64-year-old male with history of psoriatic arthritis, CVA, and prediabetes mellitus, who presents with complaints of epigastric pain, nausea and vomiting. The patient reports he began vomiting Friday and subsequently developed burning epigastric pain, 9/10 in severity. This has been constant since onset and is worse with eating. He also endorses nausea, but denies any shortness of breath. He denies any diarrhea or bleeding. No sick contacts or travel. Denies any edema, orthopnea, or PND. Of note, he does state he was febrile on Friday, but this has since resolved. REVIEW OF SYSTEMS: Negative except as per HPI. PAST MEDICAL HISTORY: 1. History of psoriatic arthritis. 2. History of CVA. 3. Prediabetes mellitus. 4. Asthma. 5. Questionable history of sarcoidosis. PAST SURGICAL HISTORY: 1. Back surgery. 2. Pain pump insertion. ALLERGIES: PLEASE SEE EMR. MEDICATIONS: Please see medication list. SOCIAL HISTORY: He smokes a pipe. Drinks alcohol rarely. No illicit drugs. FAMILY HISTORY: Denies. PHYSICAL EXAMINATION: VITAL SIGNS: Temperature 99.5 degrees, pulse 88, respiratory rate 16, blood pressure 156/100, and oxygen saturation 97% on room air. GENERAL: Well-developed, well-nourished man, in no acute distress. HEENT: Normocephalic, atraumatic. Pupils equal. No scleral icterus. NECK: Supple. No thyromegaly or cervical lymphadenopathy. No carotid bruits. LUNGS: Clear to auscultation bilaterally. No wheezes or crackles. CARDIAC: Normal rate, regular rhythm. No murmur. Normal S1, S2. ABDOMEN: Soft, nontender. EXTREMITIES: No edema. NEUROLOGIC: Nonfocal exam. LABORATORY DATA: WBC 7.71, hemoglobin 14.9, hematocrit 43.4, and platelets 172. Sodium 137, potassium 3.9, chloride 105, CO2 of 21, BUN 23, and creatinine 0.94. Troponin 4.648. CT of abdomen and pelvis, diffuse hepatic steatosis. Cholelithiasis without CT evidence of cholecystitis. Diverticulosis without CT evidence of diverticulitis, nonobstructive tiny left renal calculus. EKG, normal sinus rhythm, normal ECG. IMPRESSION: 1. Elevated troponin/non-ST elevation myocardial infarction. 2. Epigastric pain. 3. Nausea and vomiting. 4. History of psoriatic arthritis. 5. Tobacco use. 6. Prediabetes mellitus. RECOMMENDATIONS: Trend cardiac biomarkers. We will obtain echocardiogram given troponin elevation. We will proceed with invasive coronary evaluation this afternoon. Further recommendations pending test results. Thank you for this consult. We will continue to follow. Belen Sanders MD [facility]/MODL /[id number]
[2020-02-11 15:25] VITALS: BP 128/92
[2020-02-11 15:43] VITALS: BP 128/92
[2020-02-11 15:54] VITALS: BP 128/92
--- NOTE | 2020-02-11 16:29 | Operative Report ---
DATE OF PROCEDURE: 02/11/2020 SURGEON: Benedicto Sewell MD INDICATION FOR PROCEDURE: Elevated troponins. PROCEDURES PERFORMED: 1. Coronary angiography, right femoral approach. 2. Left heart catheterization. 3. LV angiography. 4. Femoral angiography. 5. Vascular closure device, ProGlide. 6. Moderate sedation time, 30 minutes. PROCEDURE DETAILS: The patient was brought to the cardiac catheterization laboratory in a fasting state. A 5-[place] sheath was inserted in the right common femoral artery using modified Seldinger technique. Coronary angiography was performed using JL4 and JR4 5-[place] catheters. LV angiography and left heart catheterization were performed using a pigtail catheter. All catheters were removed over a wire. Multiple orthogonal views were taken of each coronary artery. The patient tolerated the procedure well. Femoral angiography was performed. Next, the site was deemed to be appropriate for vascular closure device. A ProGlide vascular closure device was deployed and hemostasis was obtained. SIGNIFICANT FINDINGS: Left main; large caliber, no significant CAD. LAD; large vessel, wraps around the apex, one large diagonal branch. There is about 50% hazy-appearing plaque in the mid LAD just after the takeoff of the diagonal branch and 30% plaquing in the distal LAD. Left circumflex; large nondominant left circumflex large OM1 and small size OM2. There are luminal irregularities only. RCA; medium-sized dominant RCA with a small RPDA distally, good MARYLIN-3 flow, no significant disease. Left heart catheterization; showed LV end-diastolic pressure of 14 mmHg. There was no gradient across aortic valve. LV angiography with hand injection showed LV ejection fraction of 65% to 70% without any wall motion abnormality. GRAFTS AND IMPLANTS: None. SPECIMEN REMOVED: None. ESTIMATED BLOOD LOSS: 10 mL. COMPLICATIONS: None. FINAL RECOMMENDATIONS: 1. Optimal medical therapy and risk factor control. 2. Follow up in clinic 2 weeks post procedure with Dr. Belen Sanders. Benedicto Sewell MD [facility]/MODL /[id number]
[2020-02-11] MEDS ORDERED: MOTRIN200 MG PO (16:34)
[2020-02-11] MEDS ORDERED: ULTRAM50 MG PO (16:46)
[2020-02-11] MEDS: SUCRALFATE 1 GM/10 ML SUSP NG SCH ×2 (16:53→20:13)
[2020-02-11] MEDS ORDERED: PANTOPRAZOLE 40 MG 10ML VIAL IV SCH ×2 (17:00→20:15)
[2020-02-11 18:17] LABS: CREATINE KINASE MB 3.5 ng/mL (0-5.0)
[2020-02-11 20:00] VITALS: BP 135/91
[2020-02-11 20:10] LABS: ALANINE AMINOTRANSFERASE 21 IU/L (0-55); ALKALINE PHOSPHATASE 80 IU/L (40-150); ANION GAP 13.7 mmol/L (8-16); BLOOD UREA NITROGEN 17 mg/dL (7-26); BUN/CREATININE RATIO 20 (6-25); CALCIUM 8.1 mg/dL (8.4-10.2); CARBON DIOXIDE 21 mmol/L (22-29); CHLORIDE 108 mmol/L (98-107); CREATININE, SERUM 0.85 mg/dL (0.72-1.25); EST GLOMERULAR FILTRATION RATE > 60 ML/MIN (60-); GLUCOSE 97 mg/dL (74-118); POTASSIUM 4.7 mmol/L (3.5-5.1); SODIUM 138 mmol/L (136-145)
[2020-02-11] MEDS: PANTOPRAZOL 40MG/SOD CHL 0.9% 50 ML IV SCH (20:13)
[2020-02-11 21:08] VITALS: BP 135/91
--- NOTE | 2020-02-11 22:26 | History and Physical ---
REASON FOR ADMISSION: 1. Elevated troponin, [id number] elevated myocardial infarction. 2. Reflux disease. HISTORY OF PRESENT ILLNESS: The patient is a gentleman with a history of rheumatoid arthritis, who presents with increasing reflux disease symptoms, heartburn, where he was noticed to have a troponin of 4.0, but no chest pain and shortness of breath. PAST MEDICAL HISTORY: Rheumatoid, anxiety. MEDICATIONS: See SEP. ALLERGIES: SEE SEP. SOCIAL HISTORY: Lives at home by himself. Nonsmoker, nondrinker. FAMILY HISTORY: Hypertension. PHYSICAL EXAMINATION: VITAL SIGNS: Temperature 98.6, pulse 74, blood pressure 136/72, sats 98%. GENERAL: No apparent distress, lying in bed. NECK: Supple. CARDIOVASCULAR: Regular rate and rhythm. LUNGS: Clear to auscultation bilaterally. ABDOMEN: Good bowel sounds. Soft, nontender. EXTREMITIES: No clubbing or cyanosis. NEUROLOGIC: Nonfocal. ASSESSMENT/PLAN: 1. Wmx-[id number] elevated myocardial infarction, continue with current care and consult Cardiology. 2. Reflux disease. We will place him on proton pump inhibitor. 3. Anxiety. Continue to monitor. 4. Rheumatoid arthritis. Continue to monitor. Please see hospital chart for full details. MD FELISHA Conde/SAÚL /[id number]
[2020-02-12] VITALS (7 sets, daily range): BP systolic 121–150; BP diastolic 73–91
[2020-02-12] MEDS ORDERED: GADOBENATE DIMEGLUMINE 1 ML IV ONE (00:18)
--- NOTE | 2020-02-12 02:34 | Diagnostic Imaging Report ---
ADDENDUM #1 Item 7 in impression should read, "Moderate bilateral T10-T11 degenerative FORAMINAL stenoses." Signed by: Dr. Malcom Caldera M.D. on 02/12/2020 6:55 AM ORIGINAL REPORT MRI SPINE LUMBAR WOW HISTORY: Back pain COMPARISON: CT of the abdomen/pelvis 02/11/2020 01/15/2019 TECHNIQUE: Multiplanar, multisequence MRI of the lumbar spine was performed without and with intravenous contrast. Motion artifacts obscure some details. DISCUSSION: Postsurgical changes related to posterior fusion from L3 to L5 with laminectomies are noted. Associated hardware susceptibility artifacts obscure some details. Number of non-rib bearing lumbar vertebral bodies: 5. Alignment: Normal lordosis. No scoliosis. Vertebrae: Diffuse marrow STIR hyperintensity and enhancement in the T10 vertebral body involves the bilateral T10-T11 facet joints. There is associated mild to moderate compression deformity without significant retropulsion. Local mild circumferential epidural enhancement, along with disc bulge and ligamentum flavum thickening, results in moderate canal stenosis. Apparent 1 cm peripherally enhancing lesion in the posterior epidural space at T10-T11 is nonspecific. Associated mild type I Modic changes seen along the T11 superior endplate. No significant local paravertebral or prevertebral inflammatory signal changes are seen. There is no abnormal enhancement in the T10-T11 disc space. Moderate T12 compression fracture is not associated with significant marrow edema. Mild retropulsion along the superior endplate causes mild canal stenosis at the T11-T12 level. Otherwise, no definite evidence for acute fracture or neoplasm. Conus medullaris: Normal, ends at approximately L2. Cauda equina: No gross masses or arachnoiditis. Posterior paraspinal muscles: Posterior incision signal changes are noted. There is paraspinal muscle atrophy throughout the lumbar spine. Soft tissues: Bilateral T2 hyperintense renal lesions are most likely cysts. There is moderate disc degeneration above the fusion levels. There is partial fusion across the L5-S1 disc space. Nonspecific minimal type I Modic changes are seen in T11-T12 and L1-L2. T10-T11: Moderate bilateral foraminal stenoses due to disc bulge and facet arthrosis. Canal stenosis as described above. T11-T12: Mild canal stenosis as described above. No significant foraminal stenosis. T12-L1: Patent canal and foramina. L1-L2: Disc bulge without significant canal or foraminal stenosis. L2-L3: No gross canal stenosis. The neural foramina are poorly imaged due to susceptibility artifact. L3-L4: Postsurgical level. The spinal canal and neural foramina are poorly imaged due to susceptibility artifact. No gross central canal stenosis. L4-L5: Postsurgical level. The spinal canal and neural foramina are poorly imaged due to susceptibility artifact. No gross central canal stenosis. L5-S1: The neural foramina are poorly imaged due to susceptibility artifact. No significant canal stenosis. IMPRESSION: 1. Postsurgical changes related to posterior fusion and laminectomies from L3 to L5. Hardware susceptibility artifacts obscure some details. 2. Acute or subacute mild to moderate T10 vertebral compression fracture with associated marrow edema/enhancement and bilateral T10-T11 facet synovitis. No abnormal enhancement in the T10-T11 disc or significant paravertebral/prevertebral signal abnormality. 3. Mild local circumferential epidural enhancement at T10-T11, along with disc bulge and ligamentum flavum thickening, results in moderate canal stenosis; this enhancement may be due to local epidural inflammation or phlegmon. Nonspecific 1 cm peripherally enhancing lesion in the posterior epidural space at T10-T11 may be a synovial cyst or small abscess in the appropriate clinical setting. 4. Adjacent reactive mild marrow edema along the T11 superior endplate without compression fracture. 5. Chronic moderate T12 compression fracture with mild retropulsion that causes mild canal stenosis at the T11-T12 level. 6. Moderate disc degeneration above the fusion level with nonspecific minimal inflammatory endplate changes at T11-T12 and L1-L2. 7. Moderate bilateral T10-T11 degenerative canal stenoses. 8. No other areas of gross central canal stenosis. Signed by: Dr. Malcom Caldera M.D. on 02/12/2020 2:30 AM
[2020-02-12] MEDS: SODIUM CHLORIDE 0.9% 1000ML 1,000 ML IV SCH ×2 (02:47→16:55)
[2020-02-12] MEDS: PANTOPRAZOL 40MG/SOD CHL 0.9% 50 ML IV SCH ×5 (02:47→20:26)
[2020-02-12] MEDS: ONDANSETRON HCL INJ 2MG/ML 2ML 2 MG/ML VIAL IV PRN (02:59)
[2020-02-12] MEDS: HYDROMORPHONE 1MG/1ML INJ IV PRN ×5 (02:59→23:30)
[2020-02-12] MEDS ORDERED: NALOXONE HCL INJ 0.4 MG/ML AMP IV PRN (03:00)
--- NOTE | 2020-02-12 03:26 | Diagnostic Imaging Report ---
Hepatobiliary Scan with Gallbladder Ejection Fraction Clinical information: Stomach pain; nausea and vomiting; NSTEMI. Report: Following intravenous administration of 6,6 millicuries of Tc-99m mebrofenin, dynamic images of the abdomen in the anterior projection were obtained through 33 minutes. Sincalide (CCK analog) 2.1 micrograms was administered intravenously over 30 minutes with additional imaging for determination of gallbladder ejection fraction. Perfusion to the liver is normal. Extraction of tracer from the blood pool by the liver parenchyma is normal. Tracer is seen promptly within the biliary tract. The gallbladder begins to fill by 22 minutes post-injection of tracer and fills adequately. Tracer is seen in the small bowel during the sincalide infusion. The gallbladder ejection fraction with administration of sincalide is 92% (normal greater than 40%). Impression: 1. Filling of the gallbladder excludes the diagnosis of acute cystic duct obstruction/acute cholecystitis. 2. Normal gallbladder ejection fraction of 92% does not support the clinical diagnosis of chronic cholecystitis/gallbladder dyskinesia. Signed by: Dr. Joana Islas M.D. on 02/12/2020 3:22 AM
[2020-02-12 04:57] LABS: BASOPHILS % 0.4 % (0.0-1.0); EOSINOPHILS % 0.5 % (0.0-6.0); HEMATOCRIT 41.1 % (38.2-49.6); HEMOGLOBIN 13.8 g/dL (14.0-18.0); LYMPHOCYTES # (AUTO) 1.1 (1.0-3.2); LYMPHOCYTES % 19.3 % (18.0-39.1); MEAN CORPUSCULAR HEMOGLOBIN 32.5 pg (28-32); MEAN CORPUSCULAR HGB CONC 33.6 g/dL (31-35); MEAN CORPUSCULAR VOLUME 96.7 fL (81-99); MONOCYTES # (AUTO) 0.5 (0.2-0.8); MONOCYTES % 8.1 % (4.4-11.3); NEUTROPHILS # (AUTO) 4.1 (2.1-6.9); NEUTROPHILS % 71.3 % (38.7-80.0); PLATELET COUNT 130 x10e3/uL (140-360); RED BLOOD COUNT 4.25 x10e6/uL (4.3-5.7); RED CELL DISTRIBUTION WIDTH 12.8 % (11.7-14.4)
[2020-02-12 05:21] LABS: ALANINE AMINOTRANSFERASE 20 IU/L (0-55); ALBUMIN 2.9 g/dL (3.5-5.0); ALKALINE PHOSPHATASE 84 IU/L (40-150); ANION GAP 11.4 mmol/L (8-16); BLOOD UREA NITROGEN 13 mg/dL (7-26); BUN/CREATININE RATIO 17 (6-25); CALCIUM 7.9 mg/dL (8.4-10.2); CARBON DIOXIDE 22 mmol/L (22-29); CHLORIDE 109 mmol/L (98-107); CREATININE, SERUM 0.77 mg/dL (0.72-1.25); EST GLOMERULAR FILTRATION RATE > 60 ML/MIN (60-); GLUCOSE 91 mg/dL (74-118); POTASSIUM 4.4 mmol/L (3.5-5.1); SODIUM 138 mmol/L (136-145)
[2020-02-12] MEDS: SUCRALFATE 1 GM/10 ML SUSP NG SCH ×4 (08:20→20:26)
[2020-02-12] MEDS: DONNATAL/LIDOCAINE/MAALOX 30 ML SUSP PO SCH ×3 (08:20→20:26)
[2020-02-12] MEDS: ASPIRIN 81 MG ENTERIC COATED PO SCH (08:20)
--- NOTE | 2020-02-12 08:43 | Progress Note ---
DATE: SUBJECTIVE: This is a 64-year-old gentleman, who came in with non-STEMI. The patient had an elevated troponin and also the patient had a coronary angiography, which showed no significant CAD. The patient also has a history of rheumatoid arthritis, which he is not taking any medication; history of reflux esophagitis, the patient was put on PPI for it; and also continues to have rheumatoid arthritis, he does not take any medicines for it at this time. Overnight, the patient complained of pain in the low back and also complains of gastritis pain, which is burning in the esophagus. Imaging studies of the lumbar spine, which was done secondary to the finding of a CT of the abdomen showed T10 inferior plate destructive lesion. The patient has moderate bilateral foraminal stenosis, moderate degeneration, and no evidence of acute fracture or neoplasm. Postsurgical changes secondary to laminectomy from L3-L5. No destructive lesions seen on MRI. PHYSICAL EXAMINATION: VITAL SIGNS: Temperature is 99.1, pulse of 79, respirations of 18, blood pressure is 136/91, pulse oximetry 100%. The patient is on 2 L of nasal cannula. HEENT: Normocephalic. GENERAL: Complains of esophageal pain. No chest pains. No shortness of breath. CVS: S1 and S2 normal. Regular rhythm. ABDOMEN: Tender in the epigastrium. EXTREMITIES: No clubbing. No cyanosis. Very poor hygiene in the lower extremity with secondary changes and trophic changes. LABORATORY VALUES: From today white count is 5.9, hemoglobin is 13.8, hematocrit 41.1. Sodium of 138, potassium of 4.4, CO2 is 22, chloride of 109, bilirubin is 1.5. Creatine kinase is down. Troponin down to 3.940. MEDICATIONS: He is on currently pantoprazole IV q.5, Zofran q.4 hours as needed, hydromorphone 1 mg q.4 hours as needed. He is on 100 mL of sodium chloride, Carafate 1 g before meals and at bedtime, and the patient also has as needed and aspirin too. He did have a HIDA scan on the , showed normal ejection fraction and no biliary dyskinesia. ASSESSMENT AND PLAN: Mr. Jorge Ocasio with: 1. Fap-IO-xacjbex elevation myocardial infarction, status post cardiac cath with no significant coronary artery disease findings. 2. Acid reflux disease, seen by Dr. David Roca. He may need endoscopy secondary to his findings. 3. Rheumatoid arthritis. We will continue monitoring the patient. 4. Anxiety. Continue monitor the patient. We will continue with GI cocktail and Carafate. He may need endoscopy as noted above. Further recommendation per clinical course. We will continue with Cardiology recommendation. At this time, the patient is off all medications. MD MELIDA Angulo/MODL /[id number]
[2020-02-12 09:18] LABS: CREATINE KINASE MB 2.1 ng/mL (0-5.0)
--- NOTE | 2020-02-12 16:24 | Progress Note ---
DATE: 02/12/2020 Cardiology Progress Note. SUBJECTIVE: The patient continues to complain of burning chest pain. He denies any shortness of breath. OBJECTIVE: VITAL SIGNS: Temperature 98.4 degrees, pulse 81, respiratory rate 14, blood pressure 132/79, oxygen saturation 100% on 2 L nasal cannula. GENERAL: Awake and alert, in no acute distress. LUNGS: Clear to auscultation bilaterally. No wheezes or crackles. CARDIOVASCULAR: Normal rate. Regular rhythm. No murmur. Normal S1 and S2. ABDOMEN: Soft and nontender. EXTREMITIES: No edema. Right groin soft without hematoma. CARDIAC MEDICATIONS: Aspirin 81 mg p.o. daily. LABORATORY DATA: WBC 5.69, hemoglobin 13.8, hematocrit 41.1, platelets 130. Sodium 138, potassium 4.4, chloride 109, CO2 of 22, BUN 13, and creatinine 0.77. Troponin 2.806. TELEMETRY: Telemetry was personally reviewed and interpreted, revealing normal sinus rhythm. IMPRESSION: 1. Elevated troponin. 2. Epigastric pain. 3. Nausea and vomiting. 4. History of rheumatoid arthritis. 5. Tobacco use. 6. Diabetes mellitus. RECOMMENDATIONS: The patient was taken to the cardiac catheterization laboratory, which revealed a moderate coronary artery disease. No intervention was performed. Continue the patient on aspirin. Recommend evaluation by Gastroenterology regarding the patient's epigastric pain, nausea and vomiting. The patient's blood pressure is for the most part acceptable for age. We will monitor closely. Continue the patient on telemetry while admitted. Echocardiogram demonstrates normal LV systolic function. No further cardiac evaluation is indicated at this time. We will obtain fasting lipid panel and start statin. Thank you for this consult. We will continue to follow. Belen Sanders MD [facility]/MODL /[id number]
[2020-02-12] MEDS: ATORVASTATIN 40 MG TAB PO SCH (20:26)
[2020-02-12] MEDS ORDERED: ATORVASTATIN 20 MG TAB PO SCH (21:00)
[2020-02-13] VITALS (7 sets, daily range): BP systolic 127–146; BP diastolic 67–84
[2020-02-13] MEDS: SODIUM CHLORIDE 0.9% 1000ML 1,000 ML IV SCH ×3 (01:29→19:07)
[2020-02-13] MEDS: PANTOPRAZOL 40MG/SOD CHL 0.9% 50 ML IV SCH ×5 (02:31→19:07)
[2020-02-13] MEDS: HYDROMORPHONE 1MG/1ML INJ IV PRN ×4 (03:07→20:31)
[2020-02-13 06:25] LABS: BASOPHILS % 0.6 % (0.0-1.0); EOSINOPHILS # (AUTO) 0.1 (0.0-0.4); EOSINOPHILS % 1.2 % (0.0-6.0); HEMATOCRIT 37.8 % (38.2-49.6); HEMOGLOBIN 13.1 g/dL (14.0-18.0); LYMPHOCYTES # (AUTO) 1.5 (1.0-3.2); LYMPHOCYTES % 28.3 % (18.0-39.1); MEAN CORPUSCULAR HEMOGLOBIN 35.4 pg (28-32); MEAN CORPUSCULAR HGB CONC 34.7 g/dL (31-35); MONOCYTES # (AUTO) 0.4 (0.2-0.8); MONOCYTES % 8.6 % (4.4-11.3); NEUTROPHILS # (AUTO) 3.1 (2.1-6.9); NEUTROPHILS % 60.7 % (38.7-80.0); PLATELET COUNT 105 x10e3/uL (140-360); RED CELL DISTRIBUTION WIDTH 13.2 % (11.7-14.4)
[2020-02-13 06:32] LABS: CHOL/HDL RATIO 5.7 (3.9-4.7)
--- NOTE | 2020-02-13 06:35 | NUR ---
DR MCMULLEN STATES PT NEEDS NEEDS CARDIOLOGY CLEARENCE CALLED DR REAL TO SEE IF SHE WILL CLEAR THE PT AND SHE STATES IT'S FINE THERE'S NO RESTRICTIONS TO TELL DR MCMULLEN TO GO AHEAD WITH THE EGD. CALLED DR MCMULLEN TO NOTIFY AND HE STATES TO CALL [employer] AND TELL HER TO CONTACT [facility] TO MAKE SURE THEY WILL DO IT BC PT HAD HIGH TROPONIN RECENTLY. CALLED [employer] AND NOTIFIED TO GET IN CONTACT WITH [facility] WHEN THEY GET HERE AT 7AM. CALL[address] MCMULLEN TO NOTIFY THAT PROCEDURE CAN'T BE DONE UNTIL THIS AFTERNOON IF [facility] OK'S IT. DR MCMULLEN STATES GIVE HIM CLEAR LIQUID BREAKFAST AND PUT HIM ON THE SCHEDULE FOR 5PM THIS EVENING IF [facility] APPROVES IT. NOTIFIED ONCOMING NURSE.
[2020-02-13 07:26] LABS: ALANINE AMINOTRANSFERASE 17 IU/L (0-55); ALBUMIN 2.6 g/dL (3.5-5.0); ALKALINE PHOSPHATASE 78 IU/L (40-150); BLOOD UREA NITROGEN 8 mg/dL (7-26); BUN/CREATININE RATIO 11 (6-25); CALCIUM 7.6 mg/dL (8.4-10.2); CARBON DIOXIDE 23 mmol/L (22-29); CHLORIDE 104 mmol/L (98-107); CREATININE, SERUM 0.71 mg/dL (0.72-1.25); EST GLOMERULAR FILTRATION RATE > 60 ML/MIN (60-); GLUCOSE 90 mg/dL (74-118); MEAN CORPUSCULAR VOLUME 102.2 fL (81-99); SODIUM 133 mmol/L (136-145)
--- NOTE | 2020-02-13 07:32 | Progress Note ---
DATE: SUBJECTIVE: The patient is a 64-year-old, who came in with non-STEMI. The patient had a cardiac cath. No significant coronary artery disease was noted. The patient is cleared for EGD, scheduled to be an EGD today. Still continues to have esophageal pain. The patient cannot swallow anything without any pain. Currently on Protonix drip and also on hydromorphone q.4 hours and Zofran q.4 hours. PHYSICAL EXAMINATION: VITAL SIGNS: Temperature is 98.3, pulse of 76, respirations of 18, blood pressure is 128/71, pulse oximetry 100% on 2 L of oxygen. HEENT: Normocephalic, atraumatic. Pupils are reactive. CVS: S1 and S2 normal. Regular rate and rhythm. ABDOMEN: Tenderness in the epigastrium and also in the thoracic area noted. Bowel sounds are good, now low back pain and tenderness. EXTREMITIES: No clubbing, no cyanosis. Poor peripheries with trophic changes. LABORATORY VALUES: Pending today. Yesterday's hemoglobin was 13.8 and hematocrit 41.1. CO2 was normal and BUN and creatinine were normal yesterday. LDL was 83. ASSESSMENT: Mr. Jorge Ocasio with: 1. Uip-OY-cfvafds elevation myocardial infarction, status post cardiac cath with no significant coronary artery disease. 2. Esophagitis/acid reflux disease, has to need endoscopy. 3. Rheumatoid arthritis. We will continue monitoring his rheumatoid status and arthritis status. 4. Anxiety. 5. Hypertension. PLAN: Continue as planned and EGD to be done by Dr. Roca, which will delineate the reason for this hepatitis. MD MELIDA Angulo/POLINAL /[id number]
[2020-02-13 07:33] LABS: CREATINE KINASE MB 1.3 ng/mL (0-5.0)
[2020-02-13] MEDS: SUCRALFATE 1 GM/10 ML SUSP NG SCH ×4 (07:36→20:30)
[2020-02-13] MEDS: DONNATAL/LIDOCAINE/MAALOX 30 ML SUSP PO SCH ×2 (08:16→14:48)
[2020-02-13] MEDS: ASPIRIN 81 MG ENTERIC COATED PO SCH (08:16)
--- NOTE | 2020-02-13 16:18 | Progress Note ---
DATE: 02/13/2020 Cardiology Progress Note. SUBJECTIVE: The patient continues to have burning chest pain, but he denies any shortness of breath. OBJECTIVE: VITAL SIGNS: Temperature 98.2 degrees, pulse 64, respiratory rate 13, blood pressure 127/75, oxygen saturation 100% on 2 L nasal cannula. GENERAL: Awake, alert, in no acute distress. LUNGS: Clear to auscultation bilaterally. No wheezes or crackles. CARDIOVASCULAR: Normal rate and regular rhythm. No murmur. Normal S1, S2. ABDOMEN: Soft and nontender. EXTREMITIES: No edema. CARDIAC MEDICATIONS: 1. Aspirin 81 mg p.o. daily. 2. Atorvastatin 40 mg p.o. at bedtime. LABORATORY DATA: WBC 5.12, hemoglobin 13.1, hematocrit 37.8, platelets 105. Sodium 133, potassium 4, chloride 104, CO2 23, BUN 8, and creatinine 0.71, and troponin 1.544. TELEMETRY: Telemetry was personally reviewed and interpreted, revealing normal sinus rhythm. IMPRESSION: 1. Elevated troponin. 2. Epigastric pain. 3. Nausea and vomiting. 4. History of rheumatoid arthritis. 5. Tobacco use. 6. Diabetes mellitus. RECOMMENDATIONS: The patient was taken to the cardiac catheterization laboratory for selective coronary angiography, which revealed moderate coronary artery disease. No intervention was performed. Continue patient on aspirin. Plan for EGD by Gastroenterology today. He may proceed with endoscopy without further cardiac evaluation. He is low risk for cardiovascular complications for a low risk procedure. The patient's blood pressure is for the most part acceptable. We will continue to monitor closely. Monitor patient on telemetry while admitted. No further cardiac evaluation is indicated at this time. Thank you for this consult. We will continue to follow. Belen Sanders MD ABS/MODL /[id number]
--- NOTE | 2020-02-13 19:30 | NUR ---
SBAR REPORT RECEIVED FROM [facility], PATIENT IS DOWNGRADE TO OUR FLOOR, NONSTEMI, SEVERE REFLUC, AOX3, AMBULATES WITH CANE AND STANDBY ASSISTANCE, CLEAR LIQUID DIET CURRENTLY, TO BE PLACED NPO AFTER MIDNIGHT ON 02/14/2020 FOR EGD IN THE AM, NO ORDER FOR PROCEDURE IN COMPUTER, HX OF CVA, ANXIETY, CHRONIC BACK PAIN, LIVER CIRRHOSIS, DEPRESSION, ARTHRITIS, NKDA, REMAIN ON TELEMETRY, PENDING COVID RESULTS, CALL LIGHT WITHIN REACH WILL CONTINUE TO MONITOR
[2020-02-13] MEDS: ATORVASTATIN 40 MG TAB PO SCH (20:30)
[2020-02-13] MEDS: ONDANSETRON HCL INJ 2MG/ML 2ML 2 MG/ML VIAL IV PRN (20:31)
[2020-02-14] VITALS (10 sets, daily range): BP systolic 135–150; BP diastolic 73–86
--- NOTE | 2020-02-14 | NUR ---
PATIENT MADE NPO FOR POSS EGD TODAY, NO ORDER IN COMPUTER, CONSENT NOT SIGNED OF YET, PT IS AWARE THAT PROCEDURE IS TO BE DONE THIS MORNING, [employer] COORDINATOR NOTIFIED OF EGD WITH MD MCMULLEN, PT NOT ON SCHEDULE, SHE WILL ADD PATIENT, ADVISED ME TO ENDORSE TO DAYSHIFT TO CONTACT MD MCMULELN TO GET ORDER FOR EGD AND CONSENT SIGNED PRIOR TO PROCEDURE
[2020-02-14] MEDS: HYDROMORPHONE 1MG/1ML INJ IV PRN ×3 (00:20→18:09)
[2020-02-14] MEDS: ONDANSETRON HCL INJ 2MG/ML 2ML 2 MG/ML VIAL IV PRN ×2 (00:20→04:58)
--- NOTE | 2020-02-14 04:52 | NUR ---
CALL LIGHT ANSWERED PT REQUESTING PAIN MEDICATION AT THIS TIME
[2020-02-14] MEDS: PANTOPRAZOL 40MG/SOD CHL 0.9% 50 ML IV SCH ×5 (05:19→23:15)
[2020-02-14] MEDS: SUCRALFATE 1 GM/10 ML SUSP NG SCH ×4 (11:30→20:54)
--- NOTE | 2020-02-14 12:20 | NUR ---
Patient back from EGD, No distress noted, denies any pain
[2020-02-14] MEDS: ASPIRIN 81 MG ENTERIC COATED PO SCH (12:53)
[2020-02-14] MEDS: DONNATAL/LIDOCAINE/MAALOX 30 ML SUSP PO SCH ×3 (12:53→21:00)
--- NOTE | 2020-02-14 17:20 | Operative Report ---
DATE OF PROCEDURE: 02/14/2020 SURGEON: David Roca MD PROCEDURE: EGD with biopsies. INDICATIONS FOR EGD: Upper abdominal pain, nausea. MEDICATIONS: The patient was done under MAC, please see anesthesiologist's note. PROCEDURE IN DETAIL: With the patient in left lateral decubitus position, the flexible fiberoptic Olympus gastroscope was introduced into the esophagus under direct visualization without any difficulty. There is some erosions noted in the distal esophagus. A minute tongue of velvety red mucosa was noted to extend proximally from the GE junction. Biopsies were obtained to rule out Pantoja. The scope was then advanced with ease into the stomach and mucosa overlying the antrum and the body revealed some diffuse erythema low-grade to moderate edema, and biopsies were obtained, and sent to stain for H. pylori. Minute ulcer was noted in the antrum along the greater curvature and with some heaped up margins, but no active bleeding or stigmata of recent hemorrhage. Biopsies were obtained. Pylorus was of normal contour and shape, it was intubated with ease and the scope was advanced all the way to the second portion of the duodenum. The scope was then withdrawn slowly, mucosa overlying the proximal second portion as well as the duodenal bulb were grossly unremarkable. The scope was then withdrawn back into the stomach and retroflexed, mucosa overlying the fundus and cardia appeared to be within normal limits. The scope was then straightened out, it was subsequently withdrawn. The patient tolerated the procedure well. IMPRESSION: 1. Erosive esophagitis. 2. Rule out Pantoja esophagus. 3. Gastritis, biopsied, biopsies sent to stain for H. pylori. 4. Gastric ulcer, antrum, minute, with heaped up margins, biopsied. PLAN: 1. Follow up histology. 2. Initiate full liquid diet. 3. Continue current therapy. David Roca MD [facility] [place]/MOD[facility] /[id number] cc: Taran Landeros MD
[2020-02-14] MEDS: SODIUM CHLORIDE 0.9% 1000ML 1,000 ML IV SCH (18:09)
[2020-02-14] MEDS ORDERED: MIDAZOLAM HCL 2 MG/2 ML VIAL ONE (18:35)
[2020-02-14] MEDS ORDERED: FENTANYL CITRATE/PF 100MCG/2 ML INJ ONE (18:35)
--- NOTE | 2020-02-14 18:46 | NUR ---
patient up in bed, no distress noted
--- NOTE | 2020-02-14 19:30 | NUR ---
Patient received lying in bed. AAO x 3. Patient had no complaints of pain. Respirations even and non-labored. Safety measures in place. Patient instructed to call for assistance when needed. Call light within reach.
[2020-02-14] MEDS ORDERED: EPHEDRINE SULFATE INJ 50 MG/ML VIAL ONE (20:15)
[2020-02-14] MEDS ORDERED: PROPOFOL IV EMULSION 10 MG/ML 20 ML VIAL ONE (20:15)
[2020-02-14] MEDS ORDERED: LIDOCAINE HCL 2% LOCAL INJ 5 ML SDV VIAL INJ ONE (20:15)
--- NOTE | 2020-02-14 20:45 | Consultation ---
DATE OF CONSULTATION: 02/14/2020 REASON FOR CONSULTATION: Thoracic spine abnormality. HISTORY OF PRESENT ILLNESS: The patient is a 64-year-old very pleasant man with a long history of rheumatoid arthritis and multiple lumbar operations, whose last operation consisted of L3, L4, L5 instrumented fusion more than a decade ago. The patient also has an intradural morphine pump in place, which has not been filled over the past 15 years. He has a chronic low back pain, but has been able to adapt to it quite well and has been off pain medications, and does not see a pain specialist. Last June, he fell and had several months of severe low back pain in the thoracolumbar junction, but did not see a physician for it. In September, he fell again and after that he began to seek medical treatment for his back pain. He was recently admitted for nausea and vomiting, and had an upper endoscopy today. A CT of the abdomen and MRI of the lumbar spine were performed. On the lumbar MRI, an abnormality is noted at the T10-T11 level and I was consulted. PHYSICAL EXAMINATION: On examination, the patient is alert and lucid with intact memory and fluent speech. Motor strength is symmetric in the arms and legs. He can ambulate with a stooped posture. He says that he can walk for about 3 to 4 minutes after which his pain becomes intolerable and he has to sit down. He has urinary urgency, but no incontinence. He has chronic numbness in the feet due to peripheral neuropathy. Deep tendon reflexes are absent throughout. Plantar responses are flexor. IMAGING PROCEDURE: MRI of the lumbar spine with and without contrast was reviewed. There is evidence of previous laminectomy and multilevel instrumented fusion in the lower lumbar region, which appears to be in good condition. He has erosion of the inferior half of the vertebral body of T10, which may be due to a compression fracture. There is no enhancement of disk space. However, there appears to be enhancement of the epidural space both anteriorly and posteriorly at the T10-T11 region. This area has not been imaged on the axial images because this was not a thoracic MRI. Incidentally, his morphine pump intradural catheter can be visualized coming through the lumbar spine and terminating in the lower thoracic spine at the T10-T11 level. IMPRESSION: Epidural enhancement and deformity of the vertebral body of T10 of unknown etiology. The patient is afebrile and has a normal white blood cell count. He has symptoms of gradually worsening low back pain, which is exacerbated by prolonged standing. We will proceed with a dedicated MRI of the thoracic spine with and without contrast. Also, check sedimentation rate to rule out the possibility of diskitis and epidural abscess. I will reassess the patient after these studies. Kulwant Cordero MD PP/SAÚL /[id number]
[2020-02-14] MEDS: ATORVASTATIN 40 MG TAB PO SCH (20:55)
[2020-02-15] VITALS (8 sets, daily range): BP systolic 129–157; BP diastolic 79–88
[2020-02-15] MEDS: HYDROMORPHONE 1MG/1ML INJ IV PRN ×5 (00:24→22:26)
[2020-02-15] MEDS: PANTOPRAZOL 40MG/SOD CHL 0.9% 50 ML IV SCH ×4 (04:45→20:15)
[2020-02-15] MEDS: SODIUM CHLORIDE 0.9% 1000ML 1,000 ML IV SCH ×3 (04:45→23:45)
--- NOTE | 2020-02-15 05:57 | NUR ---
IV infiltrated on left wrist. Old IV removed with tip intact. New IV inserted in left forearm 20G. Patient tolerated well.
--- NOTE | 2020-02-15 07:00 | NUR ---
Patient resting comfortably. Walking rounds done . Bed-side report given to oncoming nurse.
[2020-02-15] MEDS: SUCRALFATE 1 GM/10 ML SUSP NG SCH ×4 (08:02→21:00)
[2020-02-15] MEDS: ASPIRIN 81 MG ENTERIC COATED PO SCH (08:44)
[2020-02-15] MEDS ORDERED: GADOBENATE DIMEGLUMINE 1 ML IV ONE (09:14)
[2020-02-15] MEDS: DONNATAL/LIDOCAINE/MAALOX 30 ML SUSP PO SCH ×3 (09:22→21:00)
--- NOTE | 2020-02-15 19:01 | Diagnostic Imaging Report ---
THORACIC SPINE 2VW - 3 views HISTORY: Back pain. COMPARISON: Thoracic spine MRI on 02/15/2020. FINDINGS: Alignment: Mild dextroscoliosis of the thoracic spine. Vertebral bodies: Normal height. Intervertebral disc spaces: There is multilevel degenerative disc disease. Facet: There is multilevel facet arthrosis. Prevertebral soft tissues: Normal. Others: The partially imaged lungs are clear. IMPRESSION: Thoracic spondylosis with multilevel degenerative disc disease. No acute fracture or malalignment. Please refer to same day MRI for more complete details. Signed by: Ted Liu MD on 02/15/2020 6:57 PM
--- NOTE | 2020-02-15 19:06 | Diagnostic Imaging Report ---
SP LUMBAR AP LATERAL 2-3VWS - 3 views HISTORY: Low back pain.. COMPARISON: MRI of lumbar spine and 02/12/2020. FINDINGS: Alignment: There is straightening of the normal lumbar lordosis. Vertebral bodies: Chronic T12 compression fracture. The patient is status post posterior spinal fusion of L3 L5. No radiographic evidence of hardware complication. No acute fracture. Intervertebral disc spaces: There is multilevel loss of intervertebral disc spaces compatible with degenerative disc disease. Facet: There is multilevel facet arthrosis. Prevertebral soft tissues: Normal. IMPRESSION: 1. Status post L3-L5 posterior spinal fusion with no radiographic evidence of hardware complication. 2. Lumbar spondylosis with multilevel degenerative disc disease. 3. Chronic T12 compression fracture. No acute fractures. Signed by: Ted Liu MD on 02/15/2020 7:03 PM
[2020-02-15] MEDS: ATORVASTATIN 40 MG TAB PO SCH (21:00)
--- NOTE | 2020-02-15 22:03 | NUR ---
Received pt in bed alert and orientated. No s/sx of acute distress noted. Bed low and locked, call light and personal items within reach. Pt with no c/o at this time. Bedside report done.
[2020-02-16] VITALS (7 sets, daily range): BP systolic 119–130; BP diastolic 74–92
--- NOTE | 2020-02-16 00:56 | Progress Note ---
DATE: 02/15/2020 Cardiology Progress Note SUBJECTIVE: Complains about back pain. OBJECTIVE: VITAL SIGNS: Temperature afebrile, pulse 94, respiratory rate 20, blood pressure 157/83, saturating 100%. GENERAL: Middle-aged man, in no acute distress. CARDIOVASCULAR: Regular rate and rhythm. No murmurs, rubs, or gallops. LUNGS: Clear to auscultation bilaterally. ABDOMEN: Soft, nontender, and nondistended. NEURO AND PSYCH: Alert and oriented to person, place, and time. Normal affect. INPATIENT MEDICATIONS: Reviewed. LABORATORY DATA: Reviewed. TELEMETRY DATA: Reviewed, shows normal sinus rhythm. ASSESSMENT/PLAN: 1. Elevated troponin. 2. Epigastric pain. 3. Nausea and vomiting. 4. History of rheumatoid arthritis. 5. Diabetes. 6. Smoking. RECOMMENDATIONS: Had coronary angiography on presentation, given elevated troponins. There was no obstructive CAD, just [id number] plaquing. Continue to treat medically from cardiovascular standpoint. The patient has completed EGDs. Okay to be discharged from cardiovascular standpoint with outpatient followup for optimal medical therapy and risk factor control. Thank you for this consult. We will continue to follow. MD KIERSTEN Briceño/SAÚL /[id number]
[2020-02-16] MEDS: PANTOPRAZOL 40MG/SOD CHL 0.9% 50 ML IV SCH ×5 (02:33→19:45)
[2020-02-16] MEDS: HYDROMORPHONE 1MG/1ML INJ IV PRN ×5 (02:33→22:27)
--- NOTE | 2020-02-16 07:00 | NUR ---
RECEIVED PATIENT RESTING IN BED NO S/S OF DISTRESS. BED LOW, WHEELS LOCKED, SIDE RAILS X2. CALL LIGHT IN REACH WILL CONTINUE TO MONITOR PATIENT.
--- NOTE | 2020-02-16 08:01 | Diagnostic Imaging Report ---
EXAMINATION: MRI of the thoracic spine without and with contrast HISTORY: Back pain, evaluate for T10-T11 epidural enhancement COMPARISON: Lumbar spine MRI 02/12/2020, abdomen CT 02/11/2020 05/21/2018. TECHNIQUE: Precontrast sagittal T1, T2, and STIR; axial T2. Coronal T2. Post contrast axial and sagittal T1 fat sat. Intravenous contrast: 20 mL of MultiHance FINDINGS: Curvature: Straightening of the thoracic kyphosis. Vertebrae: * Again noted moderate compression fracture of the T10 vertebral body, with depression of the inferior endplate and decreased vertebral body height centrally by approximately 60% (better visualized on abdomen CT of 02/11/2020), associated enhancing bone marrow edema that involves most of the remaining vertebral body, pedicles, articular pillars, facets and spinous processes. Additional minimal circumferential epidural enhancement (at T10 and T10-T11 intervertebral disc level), likely reactive and without discrete fluid collection (previously described 1 cm peripherally enhancing lesion in the dorsal epidural space at T10-T11 corresponded to a volume averaging artifact, it is not clear since the seen on the current study). In combination with symmetric disc bulge, ligamenta flava thickening and facet arthrosis results in moderate canal and foraminal stenoses with minimal encroachment of the spinal cord. No abnormal signal within the cord. * Subtle increased T2 signal intensity within the T10-T11 intervertebral disc without associated paraspinal inflammatory changes or fluid collections. Likely reactive or degenerative endplate enhancing edema along the superior endplate of T11, less likely infectious in nature. * Unchanged chronic compression fracture of the T12 vertebral body with decreased vertebral body height centrally by approximately 70%, minimal dorsal retropulsion of the superior endplate and mild canal narrowing. Minimal likely reactive or degenerative subchondral enhancing bone marrow edema at T11-T12 is also noted. Mild bilateral T11-T12 facet joints edema and enhancement may be related to degenerative facet joints synovitis, less likely infective. Discs: Minimal disc bulge at T7-T8, T9-T10 and T11-T12 without significant spinal canal or foraminal stenosis. Spinal canal: No mass or abnormal blood vessels. Otherwise no abnormal enhancement. Spinal cord: Normal size and signal intensity. Foramina: Moderate degenerative foraminal stenosis at T11-T12. Paraspinal soft tissues: Unremarkable. Proximal ribs: No abnormal signal intensity. IMPRESSION: 1. Moderate subacute or acute on chronic compression fracture of the T10 vertebral body, enhancing bone marrow edema involves the vertebral body and posterior elements as above. 2. Nonspecific circumferential epidural enhancement at T10-T11 may correspond to reactive change to above-mentioned vertebral fracture and/or superimposed infection (perhaps early osteomyelitis in the appropriate clinical setting). 3. No intraspinal or paraspinal fluid collections in the thoracic spine. 4. Moderate spinal canal and foraminal stenoses at T10-T11. 5. Chronic compression fracture of the T12 vertebral body with minimal dorsal retropulsion of the superior endplate results in mild canal stenoses, unchanged from abdomen CT of 02/11/2020 but progressed since abdomen CT of 05/21/2018. Signed by: Dr. Yary Bhatia M.D. on 02/16/2020 7:58 AM
[2020-02-16] MEDS: DONNATAL/LIDOCAINE/MAALOX 30 ML SUSP PO SCH ×3 (09:01→19:45)
[2020-02-16] MEDS: SUCRALFATE 1 GM/10 ML SUSP NG SCH ×4 (09:01→19:45)
[2020-02-16] MEDS: SODIUM CHLORIDE 0.9% 1000ML 1,000 ML IV SCH ×2 (15:43→22:59)
--- NOTE | 2020-02-16 17:23 | NUR ---
Nutrition Screen Note RD Recommendation for Physician: -Recommend cardiac diet Plan of Care: RD following, monitoring for tolerance and adequacy Nutrition reason for involvement: length of stay Primary Diagnose(s): NSTEMI PMH: rheumatoid arthritis, anxiety Ht: 73 in Wt:225 lb BMI: 29.7 kg/m2 IBW:[address] Assessment: (02/16/20) Chart reviewed. Labs and meds reviewed. Pt is a 64 year old male admitted with NSTEMI. No reports of recent unintentional weight loss or decreased appetite prior to admission per chart. Pts last recorded weight was 215 lbs in January 2019. Pt is consuming 50-75% of meals per documentation. Will continue to monitor. Current Diet: GI soft diet Malnutrition Evaluation (02/16/20) The patient does not meet criteria for a specified degree of malnutrition at this time. Will re-evaluate at follow-up as appropriate. Diet Education Needs Assessment: RD is available for diet education as needed Nutrition Care Level: low Signed: Mary Guillen, LAUREI, LD
--- NOTE | 2020-02-16 17:46 | NUR ---
CONSENT SIGNED BY PATIENT FOR PROCEDURE ON 02/16.
[2020-02-16] MEDS: ATORVASTATIN 40 MG TAB PO SCH (19:45)
--- NOTE | 2020-02-16 20:01 | NUR ---
RECEIVED CALL FROM TELE. PATIENT ALERT AND ORIENTED. RESTING IN BED. NO ADVERSE SIGNS OR SYMPTOMS.
--- NOTE | 2020-02-16 20:03 | NUR ---
CALLED MD MONZON. LEFT MESSAGE REGARDING HR 160-170 AFIB WITH RVR. AWAITING CALL BACK.
--- NOTE | 2020-02-16 20:18 | NUR ---
SPOKE TO MD MONZON. NEW ORDERS RECEIVED.
--- NOTE | 2020-02-16 20:24 | NUR ---
SPOKE TO MD ANDERSON REGARDING HR 160-170 AFIB W/RVR. NEW ORDERS RECEIVED.
[2020-02-16 20:42] LABS: BASOPHILS % 0.3 % (0.0-1.0); EOSINOPHILS # (AUTO) 0.1 (0.0-0.4); EOSINOPHILS % 1.2 % (0.0-6.0); HEMATOCRIT 37.4 % (38.2-49.6); HEMOGLOBIN 12.6 g/dL (14.0-18.0); LYMPHOCYTES # (AUTO) 1.3 (1.0-3.2); LYMPHOCYTES % 22.5 % (18.0-39.1); MEAN CORPUSCULAR HEMOGLOBIN 32.6 pg (28-32); MEAN CORPUSCULAR HGB CONC 33.7 g/dL (31-35); MEAN CORPUSCULAR VOLUME 96.9 fL (81-99); MONOCYTES % 17.6 % (4.4-11.3); NEUTROPHILS # (AUTO) 3.3 (2.1-6.9); NEUTROPHILS % 57.4 % (38.7-80.0); PLATELET COUNT 129 x10e3/uL (140-360); RED BLOOD COUNT 3.86 x10e6/uL (4.3-5.7); RED CELL DISTRIBUTION WIDTH 13.2 % (11.7-14.4)
[2020-02-16] MEDS ORDERED: DIGOXIN INJ 0.25 MG/ML 2 ML AMP IV ONE (20:55)
[2020-02-16 21:10] LABS: ALANINE AMINOTRANSFERASE 13 IU/L (0-55); ALBUMIN 2.5 g/dL (3.5-5.0); ALBUMIN/GLOBULIN RATIO 0.9 (0.8-2.0); ALKALINE PHOSPHATASE 90 IU/L (40-150); ANION GAP 9.9 mmol/L (8-16); BLOOD UREA NITROGEN 6 mg/dL (7-26); BUN/CREATININE RATIO 8 (6-25); CALCIUM 7.9 mg/dL (8.4-10.2); CARBON DIOXIDE 22 mmol/L (22-29); CHLORIDE 107 mmol/L (98-107); CREATININE, SERUM 0.71 mg/dL (0.72-1.25); EST GLOMERULAR FILTRATION RATE > 60 ML/MIN (60-); GLUCOSE 121 mg/dL (74-118); POTASSIUM 3.9 mmol/L (3.5-5.1); SODIUM 135 mmol/L (136-145)
--- NOTE | 2020-02-16 23:48 | NUR ---
SPOKE TO MD MCMULLEN. ORDER TO RESUME PROTONIX DRIP.
[2020-02-17] VITALS: BP 118/70
[2020-02-17] MEDS: PANTOPRAZOLE INJ 40 MG in SODIUM CHLORIDE 0.9% 50ML 50 ML IV SCH ×6 (00:14→23:24)
[2020-02-17] MEDS: HYDROMORPHONE 1MG/1ML INJ IV PRN ×2 (02:45→06:45)
[2020-02-17 04:00] VITALS: BP 115/73
--- NOTE | 2020-02-17 04:30 | NUR ---
22G L HAND IV STARTED. BLOOD RETURN. SALINE FLUSH. CDI DRESSING APPLIED. L FA IV INFILTRATED AND D/C. CATHETER TIP INTACT. CDI DRESSING APPLIED. IV TUBING CHANGED.
--- NOTE | 2020-02-17 07:00 | NUR ---
RECEIVED PATIENT RESTING IN BED NO S/S OF DISTRESS. BED LOW, WHEELS LOCKED, SIDE RAILS X2. CALL LIGHT IN REACH WILL CONTINUE TO MONITOR PATIENT.
--- NOTE | 2020-02-17 07:02 | NUR ---
REPORT GIVEN TO DAYSHIFT NURSE. ALERT AND ORIENTED. RESTING IN BED. NO SIGNS IV INFILTRATION. BED LOCKED AND IN LOW POSITION. CALL LIGHT WITHIN REACH.
[2020-02-17] MEDS: SUCRALFATE 1 GM/10 ML SUSP NG SCH ×4 (07:30→20:53)
[2020-02-17 07:55] VITALS: BP 145/70
[2020-02-17] MEDS: DONNATAL/LIDOCAINE/MAALOX 30 ML SUSP PO SCH ×3 (08:20→20:53)
[2020-02-17 08:30] VITALS: BP 145/70
[2020-02-17] MEDS ORDERED: THROMBIN FOR SOLN 5,000 UNIT VIAL ONE (09:16)
[2020-02-17] MEDS ORDERED: BUPIVACAINE 0.5%/EPI 30 ML SDV INJ ONE (09:16)
[2020-02-17] MEDS ORDERED: BACITRACIN 50,000 UNIT VIAL ONE (09:17)
[2020-02-17] MEDS: SODIUM CHLORIDE 0.9% 1000ML 1,000 ML IV SCH ×2 (10:00→16:07)
--- NOTE | 2020-02-17 10:51 | NUR ---
PATIENT LEFT TO OR VIA BED IN STABLE CONDITION.
[2020-02-17] MEDS ORDERED: ACETAMINOPHEN 325 MG TAB PO PRN (13:45)
[2020-02-17] MEDS ORDERED: PROMETHAZINE HCL (IM) 25 MG/ML VIAL IM PRN (13:45)
[2020-02-17] MEDS ORDERED: MAGNESIUM/ALUMINUM/SIMETHICONE 30 ML UDC PO PRN (13:45)
[2020-02-17] MEDS ORDERED: MORPHINE SULFATE 5 MG/ML VIAL IM PRN (13:45)
[2020-02-17] MEDS ORDERED: LACTATED RINGER'S 1,000 ML IV SCH (13:45)
[2020-02-17] MEDS ORDERED: FENTANYL CITRATE/PF 100MCG/2 ML INJ ONE ×2 (14:10→14:41)
[2020-02-17] MEDS ORDERED: MIDAZOLAM HCL 2 MG/2 ML VIAL ONE (14:41)
--- NOTE | 2020-02-17 15:10 | NUR ---
PATIENT BACK FROM OR. COVERLET DRESSING ON BACK C/D/I. PATIENT DENIES PAIN AT THIS TIME. CALL LIGHT IN REACH WILL CONTINUE TO MONITOR PATIENT.
--- NOTE | 2020-02-17 15:10 | Operative Report ---
DATE OF PROCEDURE: 02/11/2020 SURGEON: Kulwant Cordero MD PREOPERATIVE DIAGNOSIS: T10-T11 severe spinal stenosis and epidural enhancing lesion. POSTOPERATIVE DIAGNOSIS: T10-T11 severe spinal stenosis and extradural intraspinal synovial cyst, M48.04, M71.38. PROCEDURES: T10-T11 bilateral decompressive laminectomy and resection of the intraspinal extradural synovial cyst, [address]2220. ANESTHESIA: General. INDICATIONS: The patient is a 64-year-old man with extensive degenerative disease of the spine, who has also had compression fractures at T10 and T12. Recent MRI revealed severe spinal stenosis at T10-T11, associated with circumferential epidural enhancement and a ring-enhancing small lesion on the right side in the epidural space. The patient was taken to the operating room for decompression of the spinal canal and resection of this extradural process. PROCEDURE IN DETAIL: After induction of general anesthesia, the patient was placed on the operating table in prone position over Puma frame, the thoracic region was prepped and draped in sterile fashion. A preoperative x-ray was obtained. A small midline incision was created over the T10-T11 interspace. The thoracic fascia was opened along the midline and the spinous processes of T10 and T11 and the laminae were exposed. The 2nd x-ray confirmed correct localization at the spinous processes of T10 and T11, then portions of the spinous processes of T10 and T11 were resected. Retraction was maintained with an expandable Aesculap speculum retractor. The operating microscope was brought in. A high-speed drill equipped with sigrid bur was used to drill the inferior 2/3 of lamina of T10 and superior 1/3rd of the lamina of T11 and the medial rim of the T10-T11 hypertrophic facet joint. The ligamentum flavum was then resected to fully exposed and decompressed the dura along the superior margin of the exposure, a membrane was found, that was adherent to the dura and merged with a small synovial cyst on the superior lateral aspect of the exposure on the right. This has had gelatinous contents and indented the dura, consistent with a typical synovial cyst. Cultures of the epidural space were first taken. A 4 mm sigrid bur was used to further drill the lamina circumferentially around the posterior lateral synovial cyst. The epidural membrane and the synovial cyst, which were markedly adherent to the dura were carefully microdissected with a [place] 4 instrument and a microhook, and resected and submitted as a separate specimen. After resection of the cyst, a small dural opening measuring about 2 mm was noted on the superior lateral aspect of the dura on the right side; tiny droplets of CSF were emerging through this opening where the dura was very thin. This area was covered with a small piece of Gelfoam and then further covered with DuraSeal glue. The wound was then copiously irrigated with bacitracin solution and closed in multiple layers with 0 and 2-0 Vicryl sutures. The skin was closed with 3-0 Monocryl sutures and pavel. A dressing was applied. The patient was awakened and extubated, and taken to Postanesthesia Care Unit in stable condition. Estimated blood loss was 10 mL. Kulwant Cordero MD PP/SAÚL /[id number]
[2020-02-17] MEDS: HYDROMORPHONE 2MG/ML 2 MG/ML ML IV PRN ×2 (16:13→20:52)
[2020-02-17 16:32] VITALS: BP 148/76
[2020-02-17] MEDS ORDERED: KETOROLAC TROMETHAMINE 30 MG/ML VIAL ONE (19:30)
[2020-02-17] MEDS ORDERED: SEVOFLURANE INHAL SOLN 250 ML PEN BTL ONE (19:30)
[2020-02-17] MEDS ORDERED: NEOSTIGMINE 1 MG/ML 10ML VIAL ONE (19:30)
[2020-02-17] MEDS ORDERED: LIDOCAINE HCL 2% LOCAL INJ 5 ML SDV VIAL INJ ONE (19:30)
[2020-02-17] MEDS ORDERED: DEXAMETHASONE SOD PHOS INJ 4 MG/ML VIAL ONE (19:30)
[2020-02-17] MEDS ORDERED: ONDANSETRON HCL INJ 2MG/ML 2ML 2 MG/ML VIAL ONE (19:30)
[2020-02-17] MEDS ORDERED: EPHEDRINE SULFATE INJ 50 MG/ML VIAL ONE (19:30)
[2020-02-17] MEDS ORDERED: GLYCOPYRROLATE INJ 0.2 MG/ML VIAL ONE (19:30)
[2020-02-17] MEDS ORDERED: ROCURONIUM BROMIDE 10 MG/ML 5ML VIAL IV ONE (19:30)
[2020-02-17] MEDS ORDERED: PROPOFOL IV EMULSION 10 MG/ML 20 ML VIAL ONE (19:30)
[2020-02-17] MEDS ORDERED: CEFAZOLIN SOD 1 GM VIAL ONE (19:30)
[2020-02-17 20:00] VITALS: BP 119/81
[2020-02-17] MEDS: CEFAZOLIN SOD 1 GM/NS 50ML 50 ML IV SCH (20:53)
[2020-02-17] MEDS: ATORVASTATIN 40 MG TAB PO SCH (20:54)
[2020-02-18] VITALS (9 sets, daily range): BP systolic 118–149; BP diastolic 71–80
[2020-02-18] MEDS: HYDROMORPHONE 2MG/ML 2 MG/ML ML IV PRN ×5 (00:55→19:26)
[2020-02-18] MEDS: SODIUM CHLORIDE 0.9% 1000ML 1,000 ML IV SCH ×3 (01:02→21:45)
[2020-02-18] MEDS: CEFAZOLIN SOD 1 GM/NS 50ML 50 ML IV SCH ×2 (03:22→12:04)
[2020-02-18] MEDS: PANTOPRAZOLE INJ 40 MG in SODIUM CHLORIDE 0.9% 50ML 50 ML IV SCH ×4 (05:45→21:00)
--- NOTE | 2020-02-18 07:00 | NUR ---
RECEIVED BEDSIDE REPORT FROM OFF GOING NIGHT NURSE. PATIENT IN STABLE CONDITION, NO S/S OF DISTRESS NOTED. NO PAIN VOICED. TELEMETRY APPLIED. IV FLUIDS INFUSING, SITE ASYMPTOMATIC AND PATENT, TRANSPARENT DRESSING C/D/I. BED IN LOWEST POSITION AND LOCKED, SIDE RAILS X 2. CALL LIGHT WITHIN REACH.
--- NOTE | 2020-02-18 07:14 | NUR ---
REPORT GIVEN TO DAYSHIFT NURSE. ALERT AND RESTING IN BED. NO SIGNS IV INFILTRATION. BED LOCKED AND IN LOW POSITION. CALL LIGHT WITHIN REACH.
[2020-02-18] MEDS: SUCRALFATE 1 GM/10 ML SUSP NG SCH ×4 (07:30→20:14)
[2020-02-18] MEDS: DONNATAL/LIDOCAINE/MAALOX 30 ML SUSP PO SCH ×3 (09:01→20:14)
[2020-02-18] MEDS ORDERED: BISACODYL 5 MG TAB EC PO PRN (15:15)
--- NOTE | 2020-02-18 19:20 | NUR ---
Received report from day nurse. patient is resting comfortably in the bed. bed is in lowest position and call light is within reach.
--- NOTE | 2020-02-18 19:31 | NUR ---
COMPLETED BEDSIDE REPORT AND ROUNDING WITH NIGHT NURSE. PATIENT IN STABLE CONDITION, NO S/S OF DISTRESS NOTED. NO PAIN VOICED. TELEMETRY APPLIED. IV FLUIDS INFUSING, SITE ASYMPTOMATIC AND PATENT, TRANSPARENT DRESSING C/D/I. BED IN LOWEST POSITION AND LOCKED, SIDE RAILS X 2. CALL LIGHT WITHIN REACH.
[2020-02-18] MEDS: ATORVASTATIN 40 MG TAB PO SCH (20:14)
[2020-02-18] MEDS: ZOLPIDEM TARTRATE 5 MG TAB PO PRN (20:14)
[2020-02-19] VITALS (7 sets, daily range): BP systolic 128–143; BP diastolic 73–78
[2020-02-19] MEDS: HYDROMORPHONE 2MG/ML 2 MG/ML ML IV PRN ×5 (01:00→21:45)
[2020-02-19] MEDS: ONDANSETRON HCL INJ 2MG/ML 2ML 2 MG/ML VIAL IV PRN ×3 (01:00→10:38)
[2020-02-19] MEDS: PANTOPRAZOLE INJ 40 MG in SODIUM CHLORIDE 0.9% 50ML 50 ML IV SCH ×5 (02:00→21:49)
--- NOTE | 2020-02-19 07:01 | NUR ---
patient is resting comfortably in the bed. bed is in lowest position
[2020-02-19] MEDS: SUCRALFATE 1 GM/10 ML SUSP NG SCH ×4 (09:07→21:49)
[2020-02-19] MEDS: SODIUM CHLORIDE 0.9% 1000ML 1,000 ML IV SCH ×2 (09:07→18:20)
[2020-02-19] MEDS: DONNATAL/LIDOCAINE/MAALOX 30 ML SUSP PO SCH ×3 (09:07→21:49)
--- NOTE | 2020-02-19 10:29 | Progress Note ---
DATE: Cardiology Progress Note SUBJECTIVE: The patient reports that he continues to have back pain after decompression with Dr. Cordero recently. Endorses some nausea and abdominal discomfort, and also reports an episode of palpitation and a tachyarrhythmia episode that was reported to him a few days ago. Denies any palpitations now or chest pain. OBJECTIVE: VITAL SIGNS: Temperature 98.7, pulse 86, respiratory rate 18, blood pressure 137/75, and oxygen saturation 97% on room air. GENERAL: Alert and oriented x3. Resting comfortably in bed. NECK: Supple. No JVD noted. CARDIOVASCULAR: Regular rate and rhythm. No murmurs. No gallops. ABDOMEN: Rounded, tender to deep palpation. Normoactive bowel sounds. EXTREMITIES: Lower extremity, 2+ pedal pulses. Trace edema bilaterally. CARDIOVASCULAR MEDICATIONS: Atorvastatin 40 mg p.o. at bedtime. LABORATORY DATA: No new labs today. Telemetry, normal sinus rhythm. ASSESSMENT: 1. Elevated troponin. 2. Epigastric pain. 3. History of rheumatoid arthritis. 4. Diabetes. 5. History of smoking. 6. Compression fractures of T10 and T12. 7. Reported arrhythmia. RECOMMENDATIONS: We will review telemetry strips from the last few days. Further recommendations will follow. Continue to monitor on telemetry at all times. Pain management per primary team. This patient had coronary angiogram on presentation given elevated troponin and showed nonobstructive CAD, just [id number] plaque. We will continue to follow this patient closely. Dictated by Layla Alba NP MD ISABEL Lubin/SAÚL /[id number]
--- NOTE | 2020-02-19 13:28 | NUR ---
Spoke to pt at bedside. Pt states that he lives alone in a house, does not have any family or friends close by. States that he has a cat at home that he is worried about. Said MD's plan is for him to go to rehab once discharged from the hospital but he does not have anyone to feed his cat and change its litter box. Pt states he isn't close with any of his neighbors to have to come over to help care for his cat. States he may have to look into boarding. CM encouraged him to make phone calls to boarding facilities to try to get that arranged while he's here at the hospital. Pt agreed and states he will look thru his contact list to see if there's anyone he can get to help him.
--- NOTE | 2020-02-19 20:30 | NUR ---
PATIENT RESTING IN BED AT THIS TIME, BACK PAIN REPORTED, WILL MEDICATE WHEN SCHEDULED. L FA 20G IV ASYMPTOMATIC RUNNING NS @ 100ML/HR AND PROTONIX DRIP AT 10ML/HR. EVIDENCE OF PREVIOUS IV TO L HAND INFILTRATION NOTED, REDNESS AND MILD SWELLING, PATIENT REPORTS IT IS "A LITTLE SORE," BUT NOT BOTHERING HIM. NO S&S OF DISTRESS NOTED. BED LOCKED IN LOWEST POSITION, SIDE RAILS UPX2, CALL LIGHT IN REACH.
[2020-02-19] MEDS: ZOLPIDEM TARTRATE 5 MG TAB PO PRN (21:45)
[2020-02-19] MEDS: ATORVASTATIN 40 MG TAB PO SCH (21:49)
[2020-02-20] VITALS (8 sets, daily range): BP systolic 108–144; BP diastolic 54–81
[2020-02-20] MEDS: HYDROMORPHONE 2MG/ML 2 MG/ML ML IV PRN ×2 (02:25→13:40)
[2020-02-20] MEDS: PANTOPRAZOLE INJ 40 MG in SODIUM CHLORIDE 0.9% 50ML 50 ML IV SCH (03:47)
[2020-02-20] MEDS: OXYCODONE/ACETAMINOPHEN 5-325 1 EACH TABLET PO PRN ×4 (06:08→20:19)
[2020-02-20] MEDS: CARISOPRODOL 350 MG TAB PO PRN ×4 (06:08→20:18)
[2020-02-20] MEDS: SODIUM CHLORIDE 0.9% 1000ML 1,000 ML IV SCH ×2 (07:00→16:10)
[2020-02-20] MEDS ORDERED: BISACODYL 5 MG TAB EC PO ONE (08:00)
[2020-02-20] MEDS: SUCRALFATE 1 GM/10 ML SUSP NG SCH ×4 (08:14→20:18)
[2020-02-20] MEDS: DONNATAL/LIDOCAINE/MAALOX 30 ML SUSP PO SCH ×3 (09:00→20:18)
[2020-02-20] MEDS: PANTOPRAZOL 40MG/SOD CHL 0.9% 50 ML IV SCH ×3 (10:28→20:18)
--- NOTE | 2020-02-20 12:34 | Progress Note ---
DATE: Cardiology Progress Note SUBJECTIVE: The patient continues to experience back pain and also complains of fatigue. Denies any chest pain, shortness of breath or palpitations. PHYSICAL EXAMINATION: VITAL SIGNS: Temperature 99.9, pulse 79, respiratory rate 20, blood pressure 118/73, oxygen saturation 96% on room air. GENERAL: Alert and oriented x3. Resting comfortably in bed. Does not appear to be in any acute distress. NECK: Supple. No JVD noted. CARDIOVASCULAR: Regular rate and rhythm. No murmurs, no gallops. ABDOMEN: Rounded, tender to deep palpation. Normoactive bowel sounds. EXTREMITIES: Lower extremity, trace edema bilaterally. CARDIOVASCULAR MEDICATIONS: Atorvastatin 40 mg at bedtime. LABORATORY DATA: No new labs today. TELEMETRY: Sinus rhythm with a bundle branch block. IMPRESSION: 1. Elevated troponin. 2. Abdominal pain. 3. History of rheumatoid arthritis. 4. Diabetes mellitus. 5. History of smoking. 6. Compression fractures of T10 and T12, status post decompression. 7. The patient reported arrhythmia. RECOMMENDATIONS: Review of telemetry strips over the last few days revealed no noted cardiac arrhythmias or any electrical concerns at this point. We will continue to maintain this patient on telemetry at all time. Pain control per primary team. The patient had a coronary angiogram on presentation, which showed nonobstructive CAD just mild to moderate plaque. We will continue to follow this patient closely postoperatively. Dictated by Layla Alba NP MD HEIDI LubinV/SAÚL /[id number]
--- NOTE | 2020-02-20 19:00 | NUR ---
RECEIVED PATIENT IN BEDSIDE SHIFT REPORT. PATIENT RESTING IN BED AT THIS TIME, PAIN REPORTED 4/10, PATIENT REPORTS SOMA/PERCOCET COMBO WORKS MUCH BETTER THAN DILAUDID TO CONTROL HIS PAIN. NO S&S OF DISTRESS NOTED. BED LOCKED IN LOWEST POSITION, SIDE RAILS UPX2, CALL LIGHT IN REACH.
--- NOTE | 2020-02-20 19:09 | NUR ---
Report given to oncoming nurse of patient's status. No s/s of acute distress noted. Side rails upx2, call light within reach, bed alarm on.
[2020-02-20] MEDS: ATORVASTATIN 40 MG TAB PO SCH (20:18)
[2020-02-20] MEDS: ZOLPIDEM TARTRATE 5 MG TAB PO PRN (20:18)
--- NOTE | 2020-02-20 21:00 | NUR ---
PATIENT REPORTS HE STILL HAS NOT HAD A BM. OFFERED PRN DULCOLAX. PATIENT STATED HE WANTED TO WAIT UNTIL TOMORROW. EXPLAINED THAT CONSTIPATION WILL KEEP GETTING WORSE, ESPECIALLY WITH PAIN MEDICATIONS HE HAS BEEN TAKING. PATIENT CONTINUES TO STATE HE WOULD RATHER WAIT.
[2020-02-21] VITALS (9 sets, daily range): BP systolic 112–136; BP diastolic 70–86
[2020-02-21] MEDS: OXYCODONE/ACETAMINOPHEN 5-325 1 EACH TABLET PO PRN ×5 (02:00→19:30)
[2020-02-21] MEDS: CARISOPRODOL 350 MG TAB PO PRN ×5 (02:00→19:30)
[2020-02-21] MEDS: PANTOPRAZOL 40MG/SOD CHL 0.9% 50 ML IV SCH ×5 (02:06→20:16)
[2020-02-21] MEDS: SODIUM CHLORIDE 0.9% 1000ML 1,000 ML IV SCH ×3 (02:06→19:17)
[2020-02-21] MEDS ORDERED: BISACODYL 5 MG TAB EC PO SCH (06:00)
[2020-02-21] MEDS ORDERED: BISACODYL 5 MG TAB EC PO ONE ×2 (06:00→08:00)
[2020-02-21 07:09] LABS: BASOPHILS % 0.5 % (0.0-1.0); EOSINOPHILS # (AUTO) 0.1 (0.0-0.4); EOSINOPHILS % 0.9 % (0.0-6.0); HEMATOCRIT 34.1 % (38.2-49.6); HEMOGLOBIN 11.7 g/dL (14.0-18.0); LYMPHOCYTES # (AUTO) 1.3 (1.0-3.2); LYMPHOCYTES % 15.8 % (18.0-39.1); MEAN CORPUSCULAR HEMOGLOBIN 33.1 pg (28-32); MEAN CORPUSCULAR HGB CONC 34.3 g/dL (31-35); MEAN CORPUSCULAR VOLUME 96.6 fL (81-99); MONOCYTES # (AUTO) 0.7 (0.2-0.8); MONOCYTES % 7.9 % (4.4-11.3); NEUTROPHILS # (AUTO) 6.3 (2.1-6.9); NEUTROPHILS % 74.4 % (38.7-80.0); PLATELET COUNT 200 x10e3/uL (140-360); RED BLOOD COUNT 3.53 x10e6/uL (4.3-5.7); RED CELL DISTRIBUTION WIDTH 13.4 % (11.7-14.4)
[2020-02-21 07:31] LABS: ALANINE AMINOTRANSFERASE 20 IU/L (0-55); ALBUMIN/GLOBULIN RATIO 0.7 (0.8-2.0); ALKALINE PHOSPHATASE 142 IU/L (40-150); ANION GAP 9.9 mmol/L (8-16); BLOOD UREA NITROGEN 7 mg/dL (7-26); BUN/CREATININE RATIO 10 (6-25); CALCIUM 7.7 mg/dL (8.4-10.2); CARBON DIOXIDE 23 mmol/L (22-29); CHLORIDE 105 mmol/L (98-107); CREATININE, SERUM 0.69 mg/dL (0.72-1.25); EST GLOMERULAR FILTRATION RATE > 60 ML/MIN (60-); GLUCOSE 93 mg/dL (74-118); MAGNESIUM 1.7 MG/DL (1.3-2.1); POTASSIUM 3.9 mmol/L (3.5-5.1); SODIUM 134 mmol/L (136-145)
[2020-02-21] MEDS: DONNATAL/LIDOCAINE/MAALOX 30 ML SUSP PO SCH ×3 (08:59→20:16)
[2020-02-21] MEDS: ASPIRIN 81 MG ENTERIC COATED PO SCH (08:59)
[2020-02-21] MEDS: SUCRALFATE 1 GM/10 ML SUSP NG SCH ×4 (08:59→20:16)
[2020-02-21] MEDS: POLYETHYLENE GLYCOL 3350 17 GM PACK PO SCH ×2 (09:00→17:20)
[2020-02-21] MEDS: BISACODYL 5 MG TAB EC PO SCH ×3 (11:13→23:05)
--- NOTE | 2020-02-21 19:05 | NUR ---
Report RECEIVED FROM DAYSLAFT RN ÁLVARO, PATIENT SEEN LYING IN BED NO DISTRESS NOTED PATIENT PENDING REHAB PLACEMENT, PT BONITA COMPLETED TODAY PER RN, WILL CONTINUE TO WORK WITH PATIENT, Side rails upx2, call light within reach, bed alarm on. REPORT PT C/O CONSTIPATION BUT REFUSING INTERVENTION, WILL CONTINUE TO EDUCATE ON CONSTIPATION AND NEED FOR PRN MEDICATION WHEN CONTINUALLY TAKING PRN PAIN MEDICATION
[2020-02-21] MEDS: ATORVASTATIN 40 MG TAB PO SCH (20:16)
[2020-02-21] MEDS: ZOLPIDEM TARTRATE 5 MG TAB PO PRN (23:05)
[2020-02-22] VITALS (11 sets, daily range): BP systolic 108–135; BP diastolic 67–75
[2020-02-22] MEDS: SODIUM CHLORIDE 0.9% 1000ML 1,000 ML IV SCH ×2 (05:08→17:15)
[2020-02-22] MEDS: PANTOPRAZOL 40MG/SOD CHL 0.9% 50 ML IV SCH ×5 (05:08→20:09)
[2020-02-22] MEDS: OXYCODONE/ACETAMINOPHEN 5-325 1 EACH TABLET PO PRN ×2 (05:08→23:05)
[2020-02-22] MEDS: BISACODYL 5 MG TAB EC PO SCH ×4 (05:08→20:10)
[2020-02-22] MEDS: CARISOPRODOL 350 MG TAB PO PRN ×2 (05:09→23:05)
[2020-02-22] MEDS ORDERED: BISACODYL 5 MG TAB EC PO ONE (08:00)
[2020-02-22] MEDS: SUCRALFATE 1 GM/10 ML SUSP NG SCH ×4 (08:43→20:09)
[2020-02-22] MEDS: ASPIRIN 81 MG ENTERIC COATED PO SCH (08:43)
[2020-02-22] MEDS: POLYETHYLENE GLYCOL 3350 17 GM PACK PO SCH ×2 (08:45→17:15)
[2020-02-22] MEDS: DONNATAL/LIDOCAINE/MAALOX 30 ML SUSP PO SCH ×3 (09:00→20:09)
--- NOTE | 2020-02-22 09:50 | NUR ---
ORDER RECEIVED FOR INPATIENT REHAB. CALL TO THE PT TO DISCUSS CHOICE. PT STATES HE LIVES NEAR [facility]; NOW [facility]. PT CHOSE [facility]. CHOICE LETTER WAS SIGNED AND COPY TO CHART AND COPY TO PT. INITIATED MOT. REFERRAL TO BE FAXED TO [facility] @ OFF: [phone] / FAX: [phone].
--- NOTE | 2020-02-22 11:33 | NUR ---
NOTIFIED DR. HOOK DUE TO THE PATIENT NOT HAVING A BM. RECEIVED A NEW ORDER FOR A BOTTLE OF Citrate of Magnesia AND IF NO BM BY TONIGHT TO GIVE AN ENEMA PER DR. Ysabel MCMULLEN.
[2020-02-22] MEDS ORDERED: CITRATE OF MAGNESIA 300ML BOTTLE PO ONE (11:45)
--- NOTE | 2020-02-22 12:24 | Progress Note ---
DATE: SUBJECTIVE: The patient reports fatigue after physical therapy today. Denies any chest pain, shortness of breath. OBJECTIVE: VITAL SIGNS: Temperature is 97.9, heart rate is 77, respirations are 16, blood pressure is 113/67, oxygen saturation is 100% on room air. GENERAL: Well-appearing, in no apparent distress. CARDIOVASCULAR: Regular rate and rhythm. LUNGS: Clear to auscultation. ABDOMEN: Soft, nontender, and nondistended. EXTREMITIES: No clubbing, cyanosis, or edema. CARDIOVASCULAR MEDICATIONS: Reviewed. LABORATORY DATA: Reviewed. TELEMETRY: Monitoring showed normal sinus rhythm. IMPRESSION: 1. Elevated troponins. 2. Nonobstructive coronary artery disease. 3. Rheumatoid arthritis. 4. Diabetes mellitus. 5. Compression fracture, status post neurosurgery. RECOMMENDATIONS: The patient is to maintain normal sinus rhythm on telemetry. Continue postsurgical workup and physical therapy per primary team. Recent coronary angiogram showed mild nonobstructive coronary artery disease. Continue risk factor modification and aspirin and atorvastatin. Warren Reyes DO BM/MODL /[id number]
--- NOTE | 2020-02-22 17:00 | NUR ---
THE PATIENT HAD A LARGE BM X 2.
--- NOTE | 2020-02-22 20:00 | Consultation ---
DATE OF CONSULTATION: 02/22/2020 REASON FOR CONSULTATION: 1. Status post T10-T11 bilateral decompressive laminectomy with resection of synovial cyst. 2. Impaired gait and mobility. HISTORY OF PRESENT ILLNESS: A 64-year-old male with history of psoriatic arthritis, history of strokes, prediabetes, who came in with epigastric nausea and vomiting. He underwent workup for the nausea and vomiting. He has had difficulty with ambulating and was evaluated by Dr. Cordero. Found to have spinal stenosis at T10-11 and underwent decompressive laminectomy on 02/17/2020. He is still having difficulty with mobilization. Biopsies were sent because of gelatinous material consistent with synovial cyst. I am being asked for evaluate for rehab needs. The patient also was found to have elevated troponins and found to have jss-LP-gseiarufm myocardial infarction. Was seen by Cardiology for this as well. PAST MEDICAL HISTORY: Psoriatic arthritis, history of stroke with good return, chronic back pain, prediabetes, asthma, questionable history of sarcoidosis. PAST SURGICAL HISTORY: Include back surgery and pain pump insertion. ALLERGIES: NO KNOWN DRUG ALLERGIES. HABITS: Smokes a pipe, occasionally drinker. FAMILY HISTORY: Denies. SOCIAL HISTORY: Lives by himself in a one-story home. He stood more than 3 minutes. He would have to sit down because he was in such pain, but this was before his recent admission. LABORATORY DATA: White cell count of 8.4, hemoglobin 11.7, hematocrit 34.1, platelets of 200. Sodium is 134, potassium 3.9, BUN of 7, creatinine 0.9. Physical therapy mod assist with bed mobility. Ambulates with decreased jacinto, impaired gait and mobility. 8/10 pain with therapy. PHYSICAL EXAMINATION: GENERAL: The patient is awake, alert, lying in bed, no apparent distress following commands without any difficulty. EYES: Gaze conjugate. ORAL: Tongue is midline. NECK: Supple. HEART: Regular. LUNGS: Fair air entry. ABDOMEN: Nontender, nondistended. : He also was continent of bowel and bladder. He denies any incontinence. EXTREMITIES: Functional range of motion to the arms and legs. Sensory quintanilla has shocking sensation with his toes sometimes. There is no radiating down his back to the toes. Manual muscle testing is actually 5/5 strength in arms and legs when he is lying in bed, however, when he tries to get up his back hurts. Clonus negative bilaterally. No increased tone, passive range of motion of arms or legs. IMPRESSION: 1. Lumbar laminectomy secondary to spinal stenosis. Biopsies pending. 2. Acr-RD-gvmcmnsbj myocardial infarction. 3. Reflux. 4. History of stroke with good return. 5. Rheumatoid arthritis. PLAN: Therapies have been initiated. We will check with insurance to see if they allow him for rehab given his pain management as well as mobility training. We will see how he does. Precautions falls. Thank you once again for allowing me to participate in the care of this pleasant but unfortunate patient. Peter Kendall DO RPL/MODL /[id number]
[2020-02-22] MEDS: ATORVASTATIN 40 MG TAB PO SCH (20:09)
[2020-02-22] MEDS: ZOLPIDEM TARTRATE 5 MG TAB PO PRN (20:09)
--- NOTE | 2020-02-22 21:07 | NUR ---
Report RECEIVED FROM ANASTASIA REA, PATIENT SEEN LYING IN BED NO DISTRESS NOTED PATIENT PENDING REHAB PLACEMENT, PATIENT HAD BM TODAY x 3, C/O AB PAIN AND DIARRHEA NOW, REFUSING ALL STOOL SOFTENERS ON eMAR, eMAR MANAGER OF CASE PER REQUEST, Side rails upx2, call light within reach, bed alarm on. CONTINUE TO EDUCATE ON PREVENTING CONSTIPATION AND NEED FOR PRN MEDICATION WHEN CONTINUALLY TAKING PRN PAIN MEDICATION
--- NOTE | 2020-02-22 23:14 | NUR ---
PATIENT CONTINUES TO HAVE DIARRHEA X 3 EPISODES, SMALL AMOUNT OF BOWEL INCONTINENCE NOTED, PT ABLE TO AMBULATE TO BATHROOM WITH USE OF CANE, SAFETY MAINTAINED, IV FLUIDS CONT [id number], TOLERATING WELL, CALL LIGHT WITHIN REACH, PT REQUESTED PRN PAIN MEDICATION OXYCODONE, AND SOMA TOGETHER, STATES " I TAKE THEM TOGETHER GIVES ME BETTER RELIEF", REPORTS PAIN LEVEL 5-6/10, SAFETY EDUCATION GIVEN, PT ADVISED TO CALL PRIOR TO GETTING UP FOR SAFETY R/T PRIOR MEDICATION THAT CAN DIZZINESS AND LIGHTHEADEDNESS
[2020-02-23] VITALS (11 sets, daily range): BP systolic 118–131; BP diastolic 73–77
[2020-02-23] MEDS: SODIUM CHLORIDE 0.9% 1000ML 1,000 ML IV SCH ×3 (01:48→22:30)
[2020-02-23] MEDS: PANTOPRAZOL 40MG/SOD CHL 0.9% 50 ML IV SCH ×5 (01:48→23:08)
[2020-02-23] MEDS: BISACODYL 5 MG TAB EC PO SCH ×4 (01:48→23:08)
[2020-02-23] MEDS: OXYCODONE/ACETAMINOPHEN 5-325 1 EACH TABLET PO PRN ×4 (03:50→20:19)
[2020-02-23] MEDS: CARISOPRODOL 350 MG TAB PO PRN ×4 (03:50→20:19)
--- NOTE | 2020-02-23 04:10 | NUR ---
PT SEEN SLEEPING SLEEPING, GIVEN CARE, VERBALLY STATING HIS PAIN LEVEL IS 5/10; REQUESTING PRN PAIN MEDICATION AT THIS TIME
[2020-02-23] MEDS: ASPIRIN 81 MG ENTERIC COATED PO SCH (08:43)
[2020-02-23] MEDS: DONNATAL/LIDOCAINE/MAALOX 30 ML SUSP PO SCH ×3 (08:43→20:19)
[2020-02-23] MEDS: SUCRALFATE 1 GM/10 ML SUSP NG SCH ×4 (08:43→20:19)
[2020-02-23] MEDS: POLYETHYLENE GLYCOL 3350 17 GM PACK PO SCH ×2 (08:44→17:00)
--- NOTE | 2020-02-23 18:41 | NUR ---
Nutrition Screen Note RD Recommendation for Physician: -Recommend cardiac diet Plan of Care: RD following, monitoring for tolerance and adequacy Nutrition reason for involvement: follow up Primary Diagnose(s): NSTEMI PMH: rheumatoid arthritis, anxiety Ht: 73 in Wt:225 lb BMI: 29.7 kg/m2 IBW:[address] Assessment: 02/22: Follow up. Pt s/p laminectomy T10-T11 and undergoing eval for inpatient rehab. Pt eating 75-100% of meals. No GI distress, on bowel regimen. Labs and meds reviewed. Chart reviewed. Will continue to monitor. (02/16/20) Chart reviewed. Labs and meds reviewed. Pt is a 64 year old male admitted with NSTEMI. No reports of recent unintentional weight loss or decreased appetite prior to admission per chart. Pts last recorded weight was 215 lbs in January 2019. Pt is consuming 50-75% of meals per documentation. Will continue to monitor. Current Diet: GI soft diet Malnutrition Evaluation (02/16/20) The patient does not meet criteria for a specified degree of malnutrition at this time. Will re-evaluate at follow-up as appropriate. Diet Education Needs Assessment: RD is available for diet education as needed Nutrition Care Level: low Signed: Dorita Farnsworth RD, LD, [facility]
--- NOTE | 2020-02-23 19:05 | NUR ---
WALKING ROUNDS PERFORMED, RECEIVED PT LAYING SEMI FOWLERS IN BED, AAOX3, RR EVEN AND NON-LABORED, ON ROOM AIR. PT REPORTS PAIN TO POSTERIOR BACK. LEFT PT LAYING SEMI FOWLERS IN BED, BED IN LOW LOCKED POSITION, SIDE RAILS UPX2, CALL LIGHT AND PHONE WITHIN REACH.
[2020-02-23] MEDS: ATORVASTATIN 40 MG TAB PO SCH (20:19)
[2020-02-23] MEDS: ZOLPIDEM TARTRATE 5 MG TAB PO PRN (22:30)
[2020-02-24] VITALS (7 sets, daily range): BP systolic 110–137; BP diastolic 59–76
[2020-02-24] MEDS: OXYCODONE/ACETAMINOPHEN 5-325 1 EACH TABLET PO PRN ×4 (02:51→21:27)
[2020-02-24] MEDS: CARISOPRODOL 350 MG TAB PO PRN ×4 (02:51→21:27)
[2020-02-24] MEDS: PANTOPRAZOL 40MG/SOD CHL 0.9% 50 ML IV SCH ×4 (04:08→18:00)
[2020-02-24] MEDS: BISACODYL 5 MG TAB EC PO SCH ×3 (04:08→17:12)
[2020-02-24] MEDS: DONNATAL/LIDOCAINE/MAALOX 30 ML SUSP PO SCH ×3 (08:43→20:00)
[2020-02-24] MEDS: SUCRALFATE 1 GM/10 ML SUSP NG SCH ×4 (08:45→20:00)
[2020-02-24] MEDS: ASPIRIN 81 MG ENTERIC COATED PO SCH (08:54)
[2020-02-24] MEDS: POLYETHYLENE GLYCOL 3350 17 GM PACK PO SCH ×2 (08:55→16:52)
--- NOTE | 2020-02-24 09:05 | NUR ---
BEDSIDE SHIFT REPORT RECEIVED FROM THE [facility]ITARY TECHNICIAN. EDUCATED PT ABOUT FALL PRECAUTIONS. PT VERBALIZED UNDERSTANDING. CALL LIGHT WITH IN EASY REACH. BED IS LOW AND LOCKED. SIDE RAILS X2. BED ALARM IS ON. ALL SAFETY MEASURES IN PLACE. PT DENIES NEEDS AT THIS TIME.
[2020-02-24] MEDS: SODIUM CHLORIDE 0.9% 1000ML 1,000 ML IV SCH ×2 (10:00→17:45)
--- NOTE | 2020-02-24 15:00 | NUR ---
PAGED DR. CHAVIRA REGARDING PAIN MEDS FOR PT.
--- NOTE | 2020-02-24 15:00 | NUR ---
PT GOT ROOM AT REHAB. CALL REPORT AFTER 7 PM PER CASE MANAGEMENT.
--- NOTE | 2020-02-24 16:58 | NUR ---
PAGED DR. CHAVIRA REGARDING PT TRANSFER TO REHAB.
--- NOTE | 2020-02-24 18:45 | NUR ---
JULIAAY TO DISCHARGE AND TRANSFER PT TO REHAB PER DR. CHAVIRA
--- NOTE | 2020-02-24 18:48 | NUR ---
BEDSIDE SHIFT REPORT GIVEN TO THE CLAY ARTIST RN. PT DENIED FURTHER NEEDS. PT IS WAITING FOR TRANSFER TO REHAB.
--- NOTE | 2020-02-24 18:56 | NUR ---
WALKING ROUNDS PERFORMED, RECEIVED PT LAYING SEMI FOWLERS IN BED, AAOX3, RR EVEN AND NON-LABORED, ON ROOM AIR. PT REPORTS PAIN TO POSTERIOR BACK. INCISION TO POSTERIOR BACK NOTED TO BE INTACT, LEFT PT LAYING SEMI FOWLERS IN BED,BED IN LOW LOCKED POSITION, SIDE RAILS UPX2, CALL LIGHT AND PHONE WITHIN REACH.
--- NOTE | 2020-02-24 19:05 | NUR ---
PAGED [facility] AND REPORT GIVEN TO VERNON FORTE. PT IS TRANSFERRING TO [id number] PER VERNON FORTE.
[2020-02-24] MEDS: ATORVASTATIN 40 MG TAB PO SCH (20:00)
--- NOTE | 2020-02-24 22:30 | NUR ---
PT TRANSFERRED BY EMS TO [facility]. PT IN STABLE CONDITION. TELEMETRY REMOVED AND RETURNED TO TELEMETRY ROOM. EMS APPLIED TRANSPORT TELEMETRY. PT BELONGINGS WITH PATIENT.
--- NOTE | 2020-02-25 05:47 | Discharge Summary ---
DISCHARGE DIAGNOSES: 1. Low back pain. 2. Status post T10-T11 surgery. 3. Gastric ulcer. 4. Psoriatic arthritis. 5. Hyperlipidemia. HISTORY OF PRESENT ILLNESS/HOSPITAL COURSE: Please see hospital chart for full details. The patient is a gentleman, who presented with abdominal pain and severe low back pain, where he was noticed to have heme-positive stools, evidence of GI bleed. We had an EGD done, performed by Dr. David Roca that showed a gastric ulcer with biopsies negative for cancer. He was placed on Carafate and proton pump inhibitor with significant improvement of the abdominal pain, but also of note, he was noticed to have severe compression fracture with fragmentation of the T10-T11 area, so therefore he was seen by Dr. Cordero, who performed surgery, that was successful as well, but due to his low back pain and weakness, he was then transferred to inpatient rehab under the care of Dr. Kendall. Please see hospital chart for full details. MD FELISHA Conde/SAÚL /[id number]
== END 2020-02-24 22:30 | DRG 987 ==
LOC: ER 09:45 → ERHOLD 12:25 → IMCU 15:06 → MED/SURG3 02-13 19:04
PROVIDERS: ADMIT Internal Medicine; ATTEND Internal Medicine
PROC: 4A023N7 Measurement of Cardiac Sampling and Pressure, Left Heart, Percutaneous Approach (ICD-10-PCS; 2020-02-11)
PROC: B2111ZZ Fluoroscopy of Multiple Coronary Arteries using Low Osmolar Contrast (ICD-10-PCS; 2020-02-11)
PROC: B2151ZZ Fluoroscopy of Left Heart using Low Osmolar Contrast (ICD-10-PCS; 2020-02-11)
PROC: 0DB68ZX Excision of Stomach, Via Natural or Artificial Opening Endoscopic, Diagnostic (ICD-10-PCS; 2020-02-14)
PROC: 0DB78ZX Excision of Stomach, Pylorus, Via Natural or Artificial Opening Endoscopic, Diagnostic (ICD-10-PCS; 2020-02-14)
PROC: 01N80ZZ Release Thoracic Nerve, Open Approach (ICD-10-PCS; principal; 2020-02-17 12:12)
DX: I21.4 Non-ST elevation (NSTEMI) myocardial infarction (principal); K25.4 Chronic or unspecified gastric ulcer with hemorrhage; K22.10 Ulcer of esophagus without bleeding; M48.54XA Collapsed vertebra, not elsewhere classified, thoracic region, initial encounter for fracture; I10 Essential (primary) hypertension; E11.9 Type 2 diabetes mellitus without complications; J45.909 Unspecified asthma, uncomplicated; K21.0 Gastro-esophageal reflux disease with esophagitis; F41.9 Anxiety disorder, unspecified; M06.9 Rheumatoid arthritis, unspecified; R73.03 Prediabetes; K29.70 Gastritis, unspecified, without bleeding; M48.04 Spinal stenosis, thoracic region; M71.38 Other bursal cyst, other site; I25.10 Atherosclerotic heart disease of native coronary artery without angina pectoris; Z87.442 Personal history of urinary calculi; Z72.0 Tobacco use; Z86.73 Personal history of transient ischemic attack (TIA), and cerebral infarction without residual deficits; Z82.49 Family history of ischemic heart disease and other diseases of the circulatory system; Z91.81 History of falling; R39.15 Urgency of urination; G62.9 Polyneuropathy, unspecified; E78.5 Hyperlipidemia, unspecified; K80.20 Calculus of gallbladder without cholecystitis without obstruction; I48.91 Unspecified atrial fibrillation; D64.9 Anemia, unspecified; D69.6 Thrombocytopenia, unspecified; K59.00 Constipation, unspecified; Z11.59 Encounter for screening for other viral diseases
CPT/HCPCS: 36415; 43239; 72020; 72070; 72100; 72157; 72158; 74177; 78227; 80053; 80061; 82550; 82553; 82948; 83690; 83735; 84484; 85025; 85651; 86850; 86900; 87071; 87075; 87205; 88304; 88305; 88312; 93005; 93306; 93458; 96365; 96366; 97139; 99152; 99153; 99284; A9537; C1760; J0500; J0690; J1100; J1160; J1170; J1644; J1885; J2001; J2250; J2270; J2405; J2710; J3010; J7030; Q9967; U0002

== ENCOUNTER 2021-01-14 14:37 | Emergency (ER) | payer MEDICARE ==
[~2021-01-14] VITALS: Ht 368.3 cm; Wt 97.5 kg
[~2021-01-14 14:37] MED LIST changes: +MOTRIN200 MG PO; +ULTRAM50 MG PO
[2021-01-14] MEDS ORDERED: SODIUM CHLORIDE 0.9% 1000ML 1,000 ML IV STA (14:50)
[2021-01-14 15:23] LABS: BASOPHILS # (AUTO) 0.1 (0.0-0.1); BASOPHILS % 1.1 % (0.0-1.0); EOSINOPHILS # (AUTO) 0.1 (0.0-0.4); EOSINOPHILS % 2.2 % (0.0-6.0); HEMATOCRIT 44.1 % (38.2-49.6); HEMOGLOBIN 14.5 g/dL (14.0-18.0); LYMPHOCYTES # (AUTO) 1.8 (1.0-3.2); LYMPHOCYTES % 38.6 % (18.0-39.1); MEAN CORPUSCULAR HEMOGLOBIN 32.9 pg (28-32); MEAN CORPUSCULAR HGB CONC 32.9 g/dL (31-35); MONOCYTES # (AUTO) 0.4 (0.2-0.8); MONOCYTES % 9.3 % (4.4-11.3); NEUTROPHILS # (AUTO) 2.2 (2.1-6.9); NEUTROPHILS % 48.6 % (38.7-80.0); PLATELET COUNT 174 x10e3/uL (140-360); RED BLOOD COUNT 4.41 x10e6/uL (4.3-5.7); RED CELL DISTRIBUTION WIDTH 13.3 % (11.7-14.4)
[2021-01-14 15:41] LABS: ALBUMIN 3.5 g/dL (3.5-5.0); ALBUMIN/GLOBULIN RATIO 1.2 (0.8-2.0); ANION GAP 12.2 mmol/L (8-16); CALCIUM 8.2 mg/dL (8.4-10.2); CREATININE, SERUM 0.81 mg/dL (0.72-1.25); POTASSIUM 4.2 mmol/L (3.5-5.1)
[2021-01-14 15:49] LABS: CLARITY,URINE CLEAR (CLEAR); COLOR,URINE YELLOW (YELLOW); KETONES,URINE NEGATIVE (NEGATIVE); LEUKOCYTE ESTERASE ,URINE NEGATIVE (NEGATIVE); NITRITE,URINE NEGATIVE (NEGATIVE); PROTEIN,URINE DIPSTICK NEGATIVE (NEGATIVE); URINE UROBILINOGEN 0.2 mg/dL (0.2 - 1)
[2021-01-14 15:53] LABS: RBC,URINE 0-5 /HPF (0-5); WBC,URINE (MAN) 0-5 /HPF (0-5)
[2021-01-14 16:57] VITALS: BP 126/81
== END 2021-01-14 17:00 | disposition home or self-care (01) ==
LOC: ER 14:50
DX: E86.0 Dehydration (principal); I25.10 Atherosclerotic heart disease of native coronary artery without angina pectoris; F41.9 Anxiety disorder, unspecified; M54.9 Dorsalgia, unspecified; G89.29 Other chronic pain; I25.2 Old myocardial infarction; Z86.73 Personal history of transient ischemic attack (TIA), and cerebral infarction without residual deficits; F17.210 Nicotine dependence, cigarettes, uncomplicated
CPT/HCPCS: 36415; 80053; 81001; 85025; 99284; J7030

== ENCOUNTER 2022-07-16 11:33 | Inpatient (IN) | payer MEDICARE ==
[~2022-07-16] VITALS: Ht 182.9 cm; Wt 70.3 kg
[2022-07-16] MEDS ORDERED: ONDANSETRON HCL INJ 2MG/ML 2ML 2 MG/ML VIAL IV STA (11:56)
[2022-07-16] MEDS ORDERED: LACTATED RINGER'S 1,000 ML INJ ONE (12:00)
[2022-07-16 12:27] LABS: BASOPHILS % 0.4 % (0.0-1.0); EOSINOPHILS # (AUTO) 0.1 (0.0-0.4); EOSINOPHILS % 0.8 % (0.0-6.0); HEMATOCRIT 54.1 % (38.2-49.6); HEMOGLOBIN 18.2 g/dL (14.0-18.0); LYMPHOCYTES # (AUTO) 2.3 (1.0-3.2); LYMPHOCYTES % 29.4 % (18.0-39.1); MEAN CORPUSCULAR HEMOGLOBIN 33.8 pg (28-32); MEAN CORPUSCULAR HGB CONC 33.6 g/dL (31-35); MEAN CORPUSCULAR VOLUME 100.6 fL (81-99); MONOCYTES # (AUTO) 0.6 (0.2-0.8); NEUTROPHILS # (AUTO) 4.9 (2.1-6.9); NEUTROPHILS % 62.1 % (38.7-80.0); PLATELET COUNT 136 x10e3/uL (140-360); RED BLOOD COUNT 5.38 x10e6/uL (4.3-5.7)
[2022-07-16 13:09] LABS: ALBUMIN 3.9 g/dL (3.5-5.0); ALBUMIN/GLOBULIN RATIO 1.3 (0.8-2.0); CALCIUM 9.4 mg/dL (8.4-10.2); CREATININE, SERUM 0.91 mg/dL (0.72-1.25)
[2022-07-16] MEDS ORDERED: IOPAMIDOL 370 MG/ML 100 ML INFUS..BTL INJ ONE (13:32)
[2022-07-16] MEDS: SODIUM CHLORIDE 0.9% 1000ML 1,000 ML IV SCH ×2 (14:21→22:21)
[2022-07-16] MEDS ORDERED: LIDOCAINE HCL 2% LOCAL INJ 5 ML SDV VIAL INJ ONE (16:09)
[2022-07-16] MEDS ORDERED: PROPOFOL IV EMULSION 10 MG/ML 20 ML VIAL ONE (16:09)
[2022-07-16 17:28] VITALS: BP 134/86
[2022-07-16] MEDS ORDERED: PERCOCET 10-321 EACH PO (17:28)
[2022-07-16] MEDS ORDERED: LYRICA75 MG PO (17:33)
[2022-07-16] MEDS ORDERED: ATIVAN0.5 MG PO (17:33)
[2022-07-16] MEDS ORDERED: MORPHINE SULFAT30 M2 PO (17:33)
[2022-07-16 17:34] VITALS: BP 134/86
[2022-07-16 17:47] VITALS: BP 134/86
[2022-07-16 20:00] VITALS: BP 115/67
[2022-07-16 21:00] VITALS: BP 115/67
[2022-07-16] MEDS: Morphine 4mg INJECTION 4 MG/ML INJ IV PRN (22:17)
[2022-07-17] VITALS (7 sets, daily range): BP systolic 110–130; BP diastolic 67–86
[2022-07-17] MEDS: SODIUM CHLORIDE 0.9% 1000ML 1,000 ML IV SCH ×3 (05:28→22:00)
[2022-07-17 05:55] LABS: BASOPHILS % 0.8 % (0.0-1.0); EOSINOPHILS # (AUTO) 0.1 (0.0-0.4); EOSINOPHILS % 1.4 % (0.0-6.0); LYMPHOCYTES # (AUTO) 2.1 (1.0-3.2); LYMPHOCYTES % 42.9 % (18.0-39.1); MEAN CORPUSCULAR HEMOGLOBIN 33.5 pg (28-32); MEAN CORPUSCULAR HGB CONC 34.1 g/dL (31-35); MEAN CORPUSCULAR VOLUME 98.1 fL (81-99); MONOCYTES # (AUTO) 0.4 (0.2-0.8); NEUTROPHILS # (AUTO) 2.3 (2.1-6.9); NEUTROPHILS % 46.5 % (38.7-80.0); PLATELET COUNT 102 x10e3/uL (140-360); RED BLOOD COUNT 4.18 x10e6/uL (4.3-5.7); RED CELL DISTRIBUTION WIDTH 13.4 % (11.7-14.4)
[2022-07-17 06:27] LABS: ANION GAP 12.2 mmol/L (8-16); CALCIUM 7.9 mg/dL (8.4-10.2); CREATININE, SERUM 0.69 mg/dL (0.72-1.25); POTASSIUM 3.2 mmol/L (3.5-5.1)
[2022-07-17] MEDS: PREGABALIN 75 MG CAP PO SCH ×3 (09:00→21:07)
[2022-07-17] MEDS: Morphine 4mg INJECTION 4 MG/ML INJ IV PRN (21:07)
[2022-07-18] MEDS: ONDANSETRON HCL INJ 2MG/ML 2ML 2 MG/ML VIAL IV PRN ×3 (03:43→21:34)
[2022-07-18 05:45] VITALS: BP 147/91
[2022-07-18] MEDS: SODIUM CHLORIDE 0.9% 1000ML 1,000 ML IV SCH ×3 (06:00→21:32)
[2022-07-18] MEDS: Morphine 4mg INJECTION 4 MG/ML INJ IV PRN ×3 (06:08→21:34)
[2022-07-18] MEDS ORDERED: POTASSIUM CHLORIDE 10MEQ EA PO ONE (06:45)
[2022-07-18 07:47] VITALS: BP 133/86
[2022-07-18 08:47] VITALS: BP 133/86
[2022-07-18 09:00] VITALS: BP 133/86
[2022-07-18] MEDS: PREGABALIN 75 MG CAP PO SCH ×3 (09:27→21:33)
[2022-07-18] MEDS: BISACODYL 5 MG TAB EC PO SCH ×3 (10:31→23:56)
[2022-07-18 20:00] VITALS: BP 121/75
[2022-07-18] MEDS: LORAZEPAM 1 MG TAB PO PRN (23:59)
[2022-07-19] VITALS: BP 130/82
[2022-07-19] MEDS: SODIUM CHLORIDE 0.9% 1000ML 1,000 ML IV SCH ×3 (00:50→15:34)
[2022-07-19 04:00] VITALS: BP 116/82
[2022-07-19] MEDS: BISACODYL 5 MG TAB EC PO SCH ×4 (05:23→22:29)
[2022-07-19 06:06] LABS: BASOPHILS % 0.6 % (0.0-1.0); EOSINOPHILS # (AUTO) 0.1 (0.0-0.4); EOSINOPHILS % 1.4 % (0.0-6.0); HEMATOCRIT 43.7 % (38.2-49.6); HEMOGLOBIN 14.8 g/dL (14.0-18.0); LYMPHOCYTES % 40.9 % (18.0-39.1); MEAN CORPUSCULAR HEMOGLOBIN 33.3 pg (28-32); MEAN CORPUSCULAR HGB CONC 33.9 g/dL (31-35); MEAN CORPUSCULAR VOLUME 98.4 fL (81-99); MONOCYTES # (AUTO) 0.3 (0.2-0.8); MONOCYTES % 6.4 % (4.4-11.3); NEUTROPHILS # (AUTO) 2.5 (2.1-6.9); NEUTROPHILS % 50.5 % (38.7-80.0); PLATELET COUNT 98 x10e3/uL (140-360); RED BLOOD COUNT 4.44 x10e6/uL (4.3-5.7); RED CELL DISTRIBUTION WIDTH 13.4 % (11.7-14.4)
[2022-07-19] MEDS: ONDANSETRON HCL INJ 2MG/ML 2ML 2 MG/ML VIAL IV PRN ×3 (06:06→20:17)
[2022-07-19] MEDS: Morphine 4mg INJECTION 4 MG/ML INJ IV PRN ×2 (06:07→20:18)
[2022-07-19 06:43] LABS: ALBUMIN 2.6 g/dL (3.5-5.0); ALBUMIN/GLOBULIN RATIO 1.1 (0.8-2.0); ANION GAP 9.7 mmol/L (8-16); CALCIUM 7.8 mg/dL (8.4-10.2); CREATININE, SERUM 0.69 mg/dL (0.72-1.25); MAGNESIUM 1.6 MG/DL (1.3-2.1); POTASSIUM 3.7 mmol/L (3.5-5.1)
[2022-07-19 07:15] VITALS: BP 153/72
[2022-07-19] MEDS: PREGABALIN 75 MG CAP PO SCH ×3 (08:30→20:17)
[2022-07-19 08:39] VITALS: BP 153/72
[2022-07-19 16:45] VITALS: BP 145/82
[2022-07-19] MEDS: TAMSULOSIN HCL 0.4 MG CAP PO SCH (20:17)
[2022-07-19] MEDS: LORAZEPAM 1 MG TAB PO PRN (20:17)
[2022-07-19 20:33] VITALS: BP 128/91
[2022-07-20] VITALS (7 sets, daily range): BP systolic 97–131; BP diastolic 67–83
[2022-07-20] MEDS: Morphine 4mg INJECTION 4 MG/ML INJ IV PRN ×2 (00:49→17:39)
[2022-07-20] MEDS: ONDANSETRON HCL INJ 2MG/ML 2ML 2 MG/ML VIAL IV PRN ×4 (00:49→21:41)
[2022-07-20] MEDS: SODIUM CHLORIDE 0.9% 1000ML 1,000 ML IV SCH ×3 (06:00→21:41)
[2022-07-20] MEDS: LUBIPROSTONE 24 MCG CAP PO SCH ×2 (09:50→17:34)
[2022-07-20] MEDS: PREGABALIN 75 MG CAP PO SCH ×3 (09:50→21:41)
[2022-07-20] MEDS: TAMSULOSIN HCL 0.4 MG CAP PO SCH (21:41)
[2022-07-20] MEDS ORDERED: CHLORDIAZEPOXIDE/CLIDINIUM 1 CAP PO STA (23:47)
[2022-07-21] MEDS ORDERED: ONDANSETRON HCL INJ 2MG/ML 2ML 2 MG/ML VIAL IV PRN (00:15)
[2022-07-21 00:17] VITALS: BP 116/80
[2022-07-21] MEDS: Morphine 4mg INJECTION 4 MG/ML INJ IV PRN (00:57)
[2022-07-21] MEDS: LORAZEPAM 1 MG TAB PO PRN (02:49)
[2022-07-21 04:00] VITALS: BP 115/88
[2022-07-21] MEDS: SODIUM CHLORIDE 0.9% 1000ML 1,000 ML IV SCH (06:31)
[2022-07-21] MEDS: ONDANSETRON HCL INJ 2MG/ML 2ML 2 MG/ML VIAL IV SCH ×2 (07:30→09:36)
[2022-07-21] MEDS ORDERED: CHLORDIAZEPOXIDE/CLIDINIUM 1 CAP PO SCH (07:30)
[2022-07-21 07:33] VITALS: BP 126/76
[2022-07-21] MEDS: PREGABALIN 75 MG CAP PO SCH (09:36)
[2022-07-21] MEDS: LUBIPROSTONE 24 MCG CAP PO SCH (09:36)
== END 2022-07-21 11:48 | disposition home or self-care (01) | DRG 392 ==
LOC: ER 11:36 → ERHOLD 14:02 → MED/SURG3 16:20 → ERHOLD 16:26 → MED/SURG2 16:30 → MED/SURG3 16:36 → MED/SURG2 16:40
PROVIDERS: ADMIT Internal Medicine; ATTEND Internal Medicine
PROC: 0DD68ZX Extraction of Stomach, Via Natural or Artificial Opening Endoscopic, Diagnostic (ICD-10-PCS; 2022-07-17)
PROC: 0DD98ZX Extraction of Duodenum, Via Natural or Artificial Opening Endoscopic, Diagnostic (ICD-10-PCS; principal; 2022-07-17 11:20)
DX: K29.70 Gastritis, unspecified, without bleeding (principal); K20.90 Esophagitis, unspecified without bleeding; F41.9 Anxiety disorder, unspecified; K21.9 Gastro-esophageal reflux disease without esophagitis; G89.29 Other chronic pain; M54.9 Dorsalgia, unspecified; E86.0 Dehydration; E87.6 Hypokalemia; K44.9 Diaphragmatic hernia without obstruction or gangrene; K59.03 Drug induced constipation; F32.A Depression, unspecified; T40.2X5A Adverse effect of other opioids, initial encounter; R63.4 Abnormal weight loss; K58.1 Irritable bowel syndrome with constipation; D69.6 Thrombocytopenia, unspecified; I25.10 Atherosclerotic heart disease of native coronary artery without angina pectoris; G62.9 Polyneuropathy, unspecified; M19.90 Unspecified osteoarthritis, unspecified site; M48.04 Spinal stenosis, thoracic region; M06.9 Rheumatoid arthritis, unspecified; J45.909 Unspecified asthma, uncomplicated; F17.290 Nicotine dependence, other tobacco product, uncomplicated; R53.81 Other malaise; I25.2 Old myocardial infarction; Z86.73 Personal history of transient ischemic attack (TIA), and cerebral infarction without residual deficits; Z87.440 Personal history of urinary (tract) infections; Z98.890 Other specified postprocedural states; Z79.891 Long term (current) use of opiate analgesic; Z79.899 Other long term (current) drug therapy; Z96.89 Presence of other specified functional implants; Z68.21 Body mass index [BMI] 21.0-21.9, adult; Z87.442 Personal history of urinary calculi; Z87.11 Personal history of peptic ulcer disease
CPT/HCPCS: 36415; 43239; 71045; 74177; 80048; 80053; 83690; 83735; 84152; 84484; 85025; 88304; 88305; 88312; 88342; 93005; 94799; 99284; J2001; J2270; J2405; J7030; J7121; Q9967

== ENCOUNTER 2022-08-11 07:21 | Inpatient (IN) | payer MEDICARE ==
[~2022-08-11] VITALS: Ht 182.9 cm; Wt 70.3 kg
[~2022-08-11 07:21] MED LIST changes: +ATIVAN0.5 MG PO; +LYRICA75 MG PO; +MORPHINE SULFAT30 M2 PO; +PERCOCET 10-321 EACH PO
[2022-08-11] MEDS ORDERED: SODIUM CHLORIDE 0.9% 1000ML 1,000 ML IV ONE (07:45)
[2022-08-11] MEDS: ONDANSETRON HCL INJ 2MG/ML 2ML 2 MG/ML VIAL IV STA ×2 (07:47→09:04)
[2022-08-11 07:52] LABS: BASOPHILS % 0.5 % (0.0-1.0); EOSINOPHILS # (AUTO) 0.1 (0.0-0.4); EOSINOPHILS % 0.8 % (0.0-6.0); HEMATOCRIT 46.7 % (38.2-49.6); HEMOGLOBIN 15.6 g/dL (14.0-18.0); LYMPHOCYTES # (AUTO) 2.5 (1.0-3.2); LYMPHOCYTES % 31.5 % (18.0-39.1); MEAN CORPUSCULAR HEMOGLOBIN 32.9 pg (28-32); MEAN CORPUSCULAR HGB CONC 33.4 g/dL (31-35); MEAN CORPUSCULAR VOLUME 98.5 fL (81-99); MONOCYTES # (AUTO) 0.6 (0.2-0.8); MONOCYTES % 8.1 % (4.4-11.3); NEUTROPHILS # (AUTO) 4.7 (2.1-6.9); NEUTROPHILS % 58.7 % (38.7-80.0); PLATELET COUNT 164 x10e3/uL (140-360); RED BLOOD COUNT 4.74 x10e6/uL (4.3-5.7); RED CELL DISTRIBUTION WIDTH 12.4 % (11.7-14.4)
[2022-08-11] MEDS ORDERED: SODIUM CHLORIDE 0.9% 1000ML 1,000 ML ONE (07:54)
[2022-08-11 08:08] LABS: ALBUMIN 3.4 g/dL (3.5-5.0); ALBUMIN/GLOBULIN RATIO 1.4 (0.8-2.0); ANION GAP 12.9 mmol/L (8-16); CALCIUM 8.8 mg/dL (8.4-10.2); CREATININE, SERUM 0.77 mg/dL (0.72-1.25)
[2022-08-11 08:11] LABS: POTASSIUM 2.9 mmol/L (3.5-5.1)
[2022-08-11] MEDS ORDERED: POTASSIUM CHLORIDE 20 MEQ TAB CR PO STA (08:11)
[2022-08-11] MEDS ORDERED: POTASSIUM CHLORIDE 20MEQ/100ML 200 ML IV ONE (08:15)
[2022-08-11] MEDS ORDERED: IOPAMIDOL 370 MG/ML 100 ML INFUS..BTL INJ ONE (08:34)
[2022-08-11 09:33] LABS: CLARITY,URINE CLEAR (CLEAR); COLOR,URINE YELLOW (YELLOW); KETONES,URINE NEGATIVE (NEGATIVE); LEUKOCYTE ESTERASE ,URINE NEGATIVE (NEGATIVE); NITRITE,URINE NEGATIVE (NEGATIVE); PROTEIN,URINE DIPSTICK NEGATIVE (NEGATIVE); URINE UROBILINOGEN >=8 mg/dL (0.2 - 1)
[2022-08-11 09:42] LABS: BACTERIA,URINE FEW /HPF; WBC,URINE (MAN) 0-5 /HPF (0-5)
[2022-08-11 09:43] LABS: EPITHELIAL CELLS,URINE RARE /LPF; MUCUS,URINE MANY (RARE)
[2022-08-11] MEDS ORDERED: SODIUM CHLORIDE 0.9% 500ML 500 ML ONE (10:06)
[2022-08-11] MEDS: SODIUM CHLORIDE 0.9% 1000ML 1,000 ML IV SCH ×3 (11:09→23:07)
[2022-08-11] MEDS ORDERED: DONNATAL/LIDOCAINE/MAALOX 30 ML SUSP PO ONE (11:45)
[2022-08-11 14:27] VITALS: BP 124/80
[2022-08-11] MEDS ORDERED: PANTOPRAZOLE SO40 MG PO (15:18)
[2022-08-11] MEDS ORDERED: ONDANSETRON HCL8 MG PO (15:18)
[2022-08-11] MEDS: ONDANSETRON HCL INJ 2MG/ML 2ML 2 MG/ML VIAL IV PRN ×2 (16:05→23:07)
[2022-08-11 16:06] VITALS: BP 150/82
[2022-08-11 20:00] VITALS: BP 146/82
[2022-08-11] MEDS: ZOLPIDEM TARTRATE 10 MG TAB PO PRN (21:13)
[2022-08-11 21:15] VITALS: BP 146/82
[2022-08-12] VITALS (7 sets, daily range): BP systolic 97–145; BP diastolic 56–86
[2022-08-12] MEDS ORDERED: LORAZEPAM 1 MG TAB PO PRN (03:45)
[2022-08-12] MEDS: ONDANSETRON HCL INJ 2MG/ML 2ML 2 MG/ML VIAL IV PRN ×4 (04:32→21:57)
[2022-08-12] MEDS: Morphine 4mg INJECTION 4 MG/ML INJ IV PRN ×4 (04:33→21:57)
[2022-08-12 04:46] LABS: BASOPHILS % 0.4 % (0.0-1.0); EOSINOPHILS # (AUTO) 0.1 (0.0-0.4); EOSINOPHILS % 0.7 % (0.0-6.0); HEMATOCRIT 45.5 % (38.2-49.6); HEMOGLOBIN 15.1 g/dL (14.0-18.0); LYMPHOCYTES % 27.2 % (18.0-39.1); MEAN CORPUSCULAR HEMOGLOBIN 32.8 pg (28-32); MEAN CORPUSCULAR HGB CONC 33.2 g/dL (31-35); MEAN CORPUSCULAR VOLUME 98.7 fL (81-99); MONOCYTES # (AUTO) 0.7 (0.2-0.8); MONOCYTES % 9.4 % (4.4-11.3); NEUTROPHILS # (AUTO) 4.5 (2.1-6.9); NEUTROPHILS % 61.9 % (38.7-80.0); PLATELET COUNT 138 x10e3/uL (140-360); RED BLOOD COUNT 4.61 x10e6/uL (4.3-5.7); RED CELL DISTRIBUTION WIDTH 12.4 % (11.7-14.4)
[2022-08-12 05:06] LABS: ALBUMIN/GLOBULIN RATIO 1.3 (0.8-2.0); ANION GAP 11.6 mmol/L (8-16); CREATININE, SERUM 0.65 mg/dL (0.72-1.25)
[2022-08-12 05:07] LABS: POTASSIUM 3.6 mmol/L (3.5-5.1)
[2022-08-12] MEDS: METRONIDAZOLE 500MG/NS 100ML 100 ML IV SCH ×3 (06:03→21:57)
[2022-08-12] MEDS: PANTOPRAZOLE SOD 40 MG TABEC PO SCH (08:59)
[2022-08-12] MEDS: PREGABALIN 75 MG CAP PO SCH ×3 (08:59→19:54)
[2022-08-12] MEDS: SODIUM CHLORIDE 0.9% 1000ML 1,000 ML IV SCH ×3 (08:59→19:56)
[2022-08-13] VITALS (10 sets, daily range): BP systolic 90–109; BP diastolic 53–72
[2022-08-13] MEDS: ZOLPIDEM TARTRATE 10 MG TAB PO PRN ×2 (00:07→23:43)
[2022-08-13 04:58] LABS: BASOPHILS % 0.6 % (0.0-1.0); EOSINOPHILS # (AUTO) 0.1 (0.0-0.4); EOSINOPHILS % 1.5 % (0.0-6.0); HEMOGLOBIN 13.8 g/dL (14.0-18.0); LYMPHOCYTES # (AUTO) 2.3 (1.0-3.2); LYMPHOCYTES % 35.1 % (18.0-39.1); MEAN CORPUSCULAR HEMOGLOBIN 33.6 pg (28-32); MEAN CORPUSCULAR HGB CONC 35.4 g/dL (31-35); MEAN CORPUSCULAR VOLUME 94.9 fL (81-99); MONOCYTES # (AUTO) 0.7 (0.2-0.8); MONOCYTES % 10.1 % (4.4-11.3); NEUTROPHILS # (AUTO) 3.4 (2.1-6.9); NEUTROPHILS % 51.9 % (38.7-80.0); PLATELET COUNT 141 x10e3/uL (140-360); RED BLOOD COUNT 4.11 x10e6/uL (4.3-5.7); RED CELL DISTRIBUTION WIDTH 13.2 % (11.7-14.4)
[2022-08-13] MEDS: ONDANSETRON HCL INJ 2MG/ML 2ML 2 MG/ML VIAL IV PRN ×2 (05:02→22:01)
[2022-08-13] MEDS: METRONIDAZOLE 500MG/NS 100ML 100 ML IV SCH ×3 (05:02→22:01)
[2022-08-13] MEDS: Morphine 4mg INJECTION 4 MG/ML INJ IV PRN ×4 (05:03→22:01)
[2022-08-13 05:23] LABS: ALBUMIN 2.5 g/dL (3.5-5.0); ALBUMIN/GLOBULIN RATIO 1.2 (0.8-2.0); ANION GAP 7.9 mmol/L (8-16); CALCIUM 7.8 mg/dL (8.4-10.2); CREATININE, SERUM 0.68 mg/dL (0.72-1.25); POTASSIUM 3.9 mmol/L (3.5-5.1)
[2022-08-13] MEDS: PREGABALIN 75 MG CAP PO SCH ×3 (08:27→22:01)
[2022-08-13] MEDS: PANTOPRAZOLE SOD 40 MG TABEC PO SCH (08:27)
[2022-08-13] MEDS: SODIUM CHLORIDE 0.9% 1000ML 1,000 ML IV SCH ×2 (13:41→22:07)
[2022-08-14] VITALS (14 sets, daily range): BP systolic 101–113; BP diastolic 55–69
[2022-08-14] MEDS: Morphine 4mg INJECTION 4 MG/ML INJ IV PRN ×4 (04:07→20:29)
[2022-08-14] MEDS: ONDANSETRON HCL INJ 2MG/ML 2ML 2 MG/ML VIAL IV PRN ×2 (04:07→20:29)
[2022-08-14] MEDS: SODIUM CHLORIDE 0.9% 1000ML 1,000 ML IV SCH ×3 (04:07→17:44)
[2022-08-14] MEDS: METRONIDAZOLE 500MG/NS 100ML 100 ML IV SCH ×3 (05:18→21:33)
[2022-08-14] MEDS: PANTOPRAZOLE SOD 40 MG TABEC PO SCH (09:04)
[2022-08-14] MEDS: PREGABALIN 75 MG CAP PO SCH ×3 (09:04→20:28)
[2022-08-14] MEDS: ZOLPIDEM TARTRATE 10 MG TAB PO PRN (21:34)
[2022-08-15] VITALS (12 sets, daily range): BP systolic 104–122; BP diastolic 64–71
[2022-08-15] MEDS: ONDANSETRON HCL INJ 2MG/ML 2ML 2 MG/ML VIAL IV PRN ×2 (04:27→21:38)
[2022-08-15] MEDS: SODIUM CHLORIDE 0.9% 1000ML 1,000 ML IV SCH ×3 (04:27→18:30)
[2022-08-15] MEDS: Morphine 4mg INJECTION 4 MG/ML INJ IV PRN ×4 (04:28→18:41)
[2022-08-15] MEDS: METRONIDAZOLE 500MG/NS 100ML 100 ML IV SCH ×3 (06:01→21:37)
[2022-08-15] MEDS: PANTOPRAZOLE SOD 40 MG TABEC PO SCH (08:06)
[2022-08-15] MEDS: PREGABALIN 75 MG CAP PO SCH ×3 (08:06→21:38)
[2022-08-15] MEDS: ZOLPIDEM TARTRATE 10 MG TAB PO PRN (21:38)
[2022-08-16] VITALS (8 sets, daily range): BP systolic 114–121; BP diastolic 61–70
[2022-08-16] MEDS: SODIUM CHLORIDE 0.9% 1000ML 1,000 ML IV SCH ×3 (03:16→18:30)
[2022-08-16] MEDS: ONDANSETRON HCL INJ 2MG/ML 2ML 2 MG/ML VIAL IV PRN ×4 (04:23→17:51)
[2022-08-16] MEDS: Morphine 4mg INJECTION 4 MG/ML INJ IV PRN ×4 (04:23→17:51)
[2022-08-16] MEDS: METRONIDAZOLE 500MG/NS 100ML 100 ML IV SCH ×3 (05:52→20:56)
[2022-08-16] MEDS: PANTOPRAZOLE SOD 40 MG TABEC PO SCH (08:47)
[2022-08-16] MEDS: PREGABALIN 75 MG CAP PO SCH ×3 (08:47→20:55)
[2022-08-16] MEDS: MAGNESIUM/ALUMINUM/SIMETHICONE 30 ML UDC PO PRN (16:34)
[2022-08-16] MEDS: ZOLPIDEM TARTRATE 10 MG TAB PO PRN (20:55)
[2022-08-16] MEDS: LOPERAMIDE HCL 2 MG CAP PO PRN (20:55)
[2022-08-17] VITALS (9 sets, daily range): BP systolic 110–123; BP diastolic 61–68
[2022-08-17] MEDS: ONDANSETRON HCL INJ 2MG/ML 2ML 2 MG/ML VIAL IV PRN ×5 (02:19→19:47)
[2022-08-17] MEDS: SODIUM CHLORIDE 0.9% 1000ML 1,000 ML IV SCH ×4 (02:19→23:15)
[2022-08-17] MEDS: Morphine 4mg INJECTION 4 MG/ML INJ IV PRN ×5 (02:20→19:48)
[2022-08-17] MEDS: LOPERAMIDE HCL 2 MG CAP PO PRN ×3 (03:50→15:18)
[2022-08-17] MEDS: MAGNESIUM/ALUMINUM/SIMETHICONE 30 ML UDC PO PRN (03:55)
[2022-08-17 05:54] LABS: BASOPHILS % 0.6 % (0.0-1.0); EOSINOPHILS # (AUTO) 0.1 (0.0-0.4); EOSINOPHILS % 1.9 % (0.0-6.0); HEMATOCRIT 36.5 % (38.2-49.6); HEMOGLOBIN 12.3 g/dL (14.0-18.0); LYMPHOCYTES # (AUTO) 1.7 (1.0-3.2); LYMPHOCYTES % 27.3 % (18.0-39.1); MEAN CORPUSCULAR HEMOGLOBIN 33.5 pg (28-32); MEAN CORPUSCULAR HGB CONC 33.7 g/dL (31-35); MEAN CORPUSCULAR VOLUME 99.5 fL (81-99); MONOCYTES # (AUTO) 0.7 (0.2-0.8); MONOCYTES % 11.7 % (4.4-11.3); NEUTROPHILS # (AUTO) 3.6 (2.1-6.9); NEUTROPHILS % 57.9 % (38.7-80.0); PLATELET COUNT 170 x10e3/uL (140-360); RED BLOOD COUNT 3.67 x10e6/uL (4.3-5.7); RED CELL DISTRIBUTION WIDTH 14.5 % (11.7-14.4)
[2022-08-17] MEDS: METRONIDAZOLE 500MG/NS 100ML 100 ML IV SCH ×3 (06:01→22:00)
[2022-08-17 06:21] LABS: ALBUMIN 2.1 g/dL (3.5-5.0); ANION GAP 9.5 mmol/L (8-16); CREATININE, SERUM 0.65 mg/dL (0.72-1.25); POTASSIUM 4.5 mmol/L (3.5-5.1)
[2022-08-17] MEDS: PREGABALIN 75 MG CAP PO SCH ×3 (09:28→19:47)
[2022-08-17] MEDS: PANTOPRAZOLE SOD 40 MG TABEC PO SCH (09:28)
[2022-08-17] MEDS: ZOLPIDEM TARTRATE 10 MG TAB PO PRN (19:48)
[2022-08-18] VITALS (9 sets, daily range): BP systolic 104–128; BP diastolic 60–97
[2022-08-18] MEDS: ONDANSETRON HCL INJ 2MG/ML 2ML 2 MG/ML VIAL IV PRN ×5 (00:06→17:03)
[2022-08-18] MEDS: Morphine 4mg INJECTION 4 MG/ML INJ IV PRN ×6 (00:06→21:23)
[2022-08-18] MEDS: ZOLPIDEM TARTRATE 10 MG TAB PO PRN (00:10)
[2022-08-18] MEDS: METRONIDAZOLE 500MG/NS 100ML 100 ML IV SCH ×3 (06:20→21:21)
[2022-08-18] MEDS: SODIUM CHLORIDE 0.9% 1000ML 1,000 ML IV SCH ×2 (08:47→18:44)
[2022-08-18] MEDS: PANTOPRAZOLE SOD 40 MG TABEC PO SCH (08:47)
[2022-08-18] MEDS: PREGABALIN 75 MG CAP PO SCH ×3 (08:47→21:21)
[2022-08-18] MEDS: COLESTIPOL HCL 1 G TAB PO SCH ×3 (09:00→21:21)
[2022-08-18] MEDS: MAGNESIUM/ALUMINUM/SIMETHICONE 30 ML UDC PO PRN ×2 (10:53→22:47)
[2022-08-19] VITALS (8 sets, daily range): BP systolic 111–127; BP diastolic 59–81
[2022-08-19] MEDS: Morphine 4mg INJECTION 4 MG/ML INJ IV PRN (02:46)
[2022-08-19] MEDS: SODIUM CHLORIDE 0.9% 1000ML 1,000 ML IV SCH ×4 (02:48→18:30)
[2022-08-19] MEDS ORDERED: ZOLPIDEM TARTRATE 10 MG TAB PO PRN (05:15)
[2022-08-19] MEDS: METRONIDAZOLE 500MG/NS 100ML 100 ML IV SCH ×3 (05:40→20:53)
[2022-08-19] MEDS: COLESTIPOL HCL 1 G TAB PO SCH ×3 (07:45→20:48)
[2022-08-19] MEDS: DICYCLOMINE HCL 20 MG TAB PO SCH ×4 (07:45→20:48)
[2022-08-19] MEDS: PANTOPRAZOLE SOD 40 MG TABEC PO SCH (07:45)
[2022-08-19] MEDS: PREGABALIN 75 MG CAP PO SCH ×3 (07:45→20:48)
[2022-08-19] MEDS ORDERED: DIPHENOXYLATE/ATROPINE TAB PO PRN (08:45)
[2022-08-19] MEDS ORDERED: NON-FORMULARY MEDICATION (Oxycodone Hcl/Acetaminophen (Percocet 10-325 Mg Tablet) 1 TAB) PO PRN (19:45)
[2022-08-19] MEDS: OXYCODONE/ACETAMINOPHEN 5-325 1 EACH TABLET PO PRN (20:46)
[2022-08-19] MEDS: OXYCODONE HCL IR 5 MG TAB PO PRN (20:47)
[2022-08-20] MEDS: SODIUM CHLORIDE 0.9% 1000ML 1,000 ML IV SCH (02:30)
[2022-08-20] MEDS: METRONIDAZOLE 500MG/NS 100ML 100 ML IV SCH (04:12)
[2022-08-20] MEDS: OXYCODONE HCL IR 5 MG TAB PO PRN ×2 (04:17→10:08)
[2022-08-20] MEDS: OXYCODONE/ACETAMINOPHEN 5-325 1 EACH TABLET PO PRN ×2 (04:18→10:08)
[2022-08-20 04:59] LABS: BASOPHILS % 0.6 % (0.0-1.0); EOSINOPHILS # (AUTO) 0.1 (0.0-0.4); EOSINOPHILS % 2.1 % (0.0-6.0); HEMATOCRIT 35.8 % (38.2-49.6); HEMOGLOBIN 12.2 g/dL (14.0-18.0); LYMPHOCYTES # (AUTO) 1.6 (1.0-3.2); LYMPHOCYTES % 29.2 % (18.0-39.1); MEAN CORPUSCULAR HEMOGLOBIN 33.5 pg (28-32); MEAN CORPUSCULAR HGB CONC 34.1 g/dL (31-35); MEAN CORPUSCULAR VOLUME 98.4 fL (81-99); MONOCYTES # (AUTO) 0.7 (0.2-0.8); MONOCYTES % 12.3 % (4.4-11.3); NEUTROPHILS # (AUTO) 2.9 (2.1-6.9); NEUTROPHILS % 55.4 % (38.7-80.0); PLATELET COUNT 173 x10e3/uL (140-360); RED BLOOD COUNT 3.64 x10e6/uL (4.3-5.7); RED CELL DISTRIBUTION WIDTH 14.8 % (11.7-14.4)
[2022-08-20 05:18] LABS: ALBUMIN 2.4 g/dL (3.5-5.0); ANION GAP 8.3 mmol/L (8-16); CALCIUM 8.3 mg/dL (8.4-10.2); CREATININE, SERUM 0.61 mg/dL (0.72-1.25); MAGNESIUM 2.1 MG/DL (1.3-2.1); POTASSIUM 4.3 mmol/L (3.5-5.1)
[2022-08-20] MEDS: MAGNESIUM/ALUMINUM/SIMETHICONE 30 ML UDC PO PRN ×2 (05:51→10:08)
[2022-08-20 06:00] VITALS: BP 110/75
[2022-08-20 08:49] VITALS: BP 120/63
[2022-08-20] MEDS: PREGABALIN 75 MG CAP PO SCH (08:50)
[2022-08-20] MEDS: DICYCLOMINE HCL 20 MG TAB PO SCH (08:50)
[2022-08-20] MEDS: COLESTIPOL HCL 1 G TAB PO SCH (08:50)
[2022-08-20] MEDS: PANTOPRAZOLE SOD 40 MG TABEC PO SCH (08:50)
[2022-08-20 09:00] VITALS: BP 120/63
[2022-08-20 11:35] VITALS: BP 101/56
== END 2022-08-20 11:43 | DRG 392 ==
LOC: ER 07:28 → ERHOLD 10:22 → MED/SURG 14:09 → OBSVTOIN 08-13 13:45
PROVIDERS: ADMIT Internal Medicine; ATTEND Internal Medicine
DX: K52.9 Noninfective gastroenteritis and colitis, unspecified (principal); N39.0 Urinary tract infection, site not specified; M54.50 Low back pain, unspecified; G89.29 Other chronic pain; I25.2 Old myocardial infarction; I25.10 Atherosclerotic heart disease of native coronary artery without angina pectoris; F32.A Depression, unspecified; M19.90 Unspecified osteoarthritis, unspecified site; M06.9 Rheumatoid arthritis, unspecified; E86.1 Hypovolemia; E87.6 Hypokalemia; G62.9 Polyneuropathy, unspecified; D64.9 Anemia, unspecified; E86.0 Dehydration; Z20.822 Contact with and (suspected) exposure to COVID-19
CPT/HCPCS: 36415; 74177; 80053; 81001; 83690; 83735; 85025; 93005; 96360; 99284; G0378; J0696; J2270; J2405; J3480; J7030; J7040; Q9967

== ENCOUNTER 2024-08-23 11:04 | Emergency (ER) | payer MEDICARE ==
[~2024-08-23] VITALS: Ht 182.9 cm; Wt 81.6 kg
[~2024-08-23 11:04] MED LIST changes: +ONDANSETRON HCL8 MG PO; +PANTOPRAZOLE SO40 MG PO
[2024-08-23] MEDS: KETOROLAC TROMETHAMINE 30 MG/ML VIAL IM STA (13:42)
[2024-08-23 14:33] VITALS: PULSE 74; RESP 16; TEMP 97.9
[2024-08-23 15:25] VITALS: BP 140/87; PULSE 78; RESP 16; TEMP 98.5; O2SAT 98
== END 2024-08-23 15:28 | disposition home or self-care (01) ==
LOC: ER 11:22
DX: M54.2 Cervicalgia (principal); M54.6 Pain in thoracic spine; M54.50 Low back pain, unspecified; G89.29 Other chronic pain; F41.9 Anxiety disorder, unspecified; F32.A Depression, unspecified; I25.2 Old myocardial infarction
CPT/HCPCS: 72125; 72128; 72131; 99283; J1885